=== PATIENT | male | born 1950 | race Caucasian/White ===

== ENCOUNTER 2022-10-15 13:49 | Emergency (ER) | payer BC ==
--- OUTSIDE RECORDS SUMMARY | 2022-10-15 14:12 | XMS REPORT | Continuity of Care Document ---
:[address] [facility] t Address [address] [place] [address] Care Team Providers Name Role Phone Xin Villegas MD Primary Care Physician [phone] GAGAN LONG Attending Clinician Unavailable COLE RODRÍGUEZ Attending Clinician Unavailable XIN VILLEGAS Attending Clinician Unavailable Xin Villegas MD Attending Clinician [phone] Attending Clinician Unavailable Cole Rodríguez MD Attending Clinician Payers Payer Name Policy Type Policy Number Effective Date Expiration Date Ashli lockwood [facility] 2 [id number] 2018 00:00:00 COVID VACCINE [id number] 2020-09-29 00:00:00 ADMIN / TESTING Problems Condition Condition Condition Status Onset Resolution Last Treating Co mments Source Name Details Category Date Date Treatment Clinician Date Cellulitis Cellulitis Disease Active K elsey of right of right 6-16 Seybol d index index 00:00: finger finger 00 Osteoarthr Osteoarthr Disease Active K elsey itis of itis of 6-03 Seybold multiple multiple 00:00: joints joints 00 Acid Acid Disease Active [place] reflux reflux 6-03 Seybold disease disease 00:00: 00 Psoriasis Psoriasis Disease Active Artur sey (a type of (a type of 6-03 Se ybold skin skin 00:00: inflammati inflammati 00 on) on) Insomnia Insomnia Disease Active Kelse y Seybold 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 Social History Social Habit Start Date Stop Date Quantity Comments Source History of Cigarette Smoker [place] porras tobacco use Alcohol intake 2021-10-21 2021-10-21 .29 /d [facility]qu[facility]afreddie Vences bold 00:00:00 00:00:00 Tobacco use and 2021-02-10 2021-02-10 Smokeless tobacco Ozzy martin Seybold exposure 00:00:00 00:00:00 non-user Sex Ass[birth year] TOSHA Rodriguez 00:00:00 00:00:00 [facility] Smoking Status Start Date Stop Date Source Ex-smoker 2021-02-10 00:00:00 2021-02-10 00:00:00 [place] [facility] Medications Ordered Filled Start Stop Current Ordering Indication Dosage Frequency Signature Comments Components Source Medication Medication Date Date Medication? Clinician (SIG) Name Name Omeprazole Yes 40mg Take 40 mg K elsey 40 MG oral 10-21 by mouth Seybo ld Delayed 09:48: daily Release 41 Capsule Azithromyci 2021- No [id number] Take 2 [place] n 250 MG 10-21 tablets by Seyb old oral Tablet 00:00: 05:59 mouth on 00 :00 day 1 then 1 tablet by mouth daily for 4 days thereafter . Ketorolac 2021- No [id number] 30mg Sammie camacho Tromethamin 10-11 Seybold e (TORADOL) 15:45: 15:49 30 mg/mL 00 :00 Ketorolac 2021- No [id number] 30mg 30 mg, Ozzy martin Tromethamin 10-11 intramuscu S eybold e (TORADOL) 15:45: 15:49 lar, ONCE, 30 mg/mL 00 :00 On Sun10/11/21 at 0945, For 1 dose Omeprazole Yes 40mg Take 40 mg K elsey 40 MG oral 10-11 by mouth Seybo ld Delayed 09:40: daily Release 32 Capsule Adalimumab Yes [id number] 40mg Inject 40 [place] (Humira 2-01 mg into Seybold Pen) 40 00:00: the skin MG/0.4ML 00 every subcutaneou other week s Pen-injecto r Kit (Citrate-fr ) Adalimumab Yes [id number] 40mg Inject 40 [place] (Humira 2-01 mg into Seybold Pen) 40 00:00: the skin MG/0.4ML 00 every subcutaneou other week s Pen-injecto r Kit (Citrate-fr ) LISINOPRIL- 2021- No 1{tbl} Take 1 K elsey HCTZ 1-20 01-20 tablet by Seybold 20-12.5 MG 10:38: 00:00 mouth oral Tablet 17 :00 daily Meloxicam 2021- No 15mg Take 15 mg K elsey 15 MG oral 1-20 -20 by mouth Seyb old Tablet 10:38: 00:00 daily 17 :00 Omeprazole Yes 40mg Take 40 mg K elsey 40 MG oral 1-20 by mouth Seybo ld Delayed 10:23: daily Release 48 Capsule LISINOPRIL- Yes [id number] 1{tbl} Take 1 [place] HCTZ 1-20 tablet by Seybold 20-12.5 MG 00:00: mouth oral Tablet 00 daily Meloxicam Yes [id number] 15mg Take 1 K elsey 15 MG oral 1-20 tablet (15 Sey bold Tablet 00:00: mg total) 00 by mouth daily LISINOPRIL- 0 Yes [id number] 1{tbl} Take 1 [place] HCTZ 1-20 tablet by Seybold 20-12.5 MG 00:00: mouth oral Tablet 00 daily Meloxicam 2021-0 Yes [id number] 15mg Take 1 K elsey 15 MG oral 1-20 tablet (15 Sey bold Tablet 00:00: mg total) 00 by mouth daily LISINOPRIL- Yes [id number] 1{tbl} Take 1 [place] HCTZ 1-20 tablet by Seybold 20-12.5 MG 00:00: mouth oral Tablet 00 daily Meloxicam 2021- Yes [id number] 15mg Take 1 K elsey 15 MG oral 1-20 tablet (15 Sey bold Tablet 00:00: mg total) 00 by mouth daily Adalimumab Yes [id number] 40mg Inject 40 [place] (Humira 8-02 mg into Seybold Pen) 40 00:00: the skin MG/0.4ML 00 every subcutaneou other week s Pen-injecto r Kit (Citrate-fr ee) Adalimumab 2021- No [id number] 40mg Inject 40 [place] (Humira 8-02 02-01 mg into Seybold Pen) 40 00:00: 00:00 the skin MG/0.4ML 00 :00 every subcutaneou other week s Pen-injecto r Kit (Citrate-fr ee) Mupirocin 2021- No APPLY A Sammie ey (BACTROBAN) 5-14 09-29 SMALL Seybol d 2 % apply 00:00: 00:00 AMOUNT TO externally 00 :00 AFFECTED Ointment AREA(S) THREE TIMES A DAY FOR 1 WEEK. Immunizations Ordered Immunization Filled Immunization Date Status Commen ts Source Name Name Covid-19 Vaccine 2020-10-[address] [facility] MRNA (PF) 12yr+ 00:00:00 Medical C enter (Pfizer/BioNTech)(IM M601) Covid-19 Vaccine 2020-10-19 Completed [facility] (SFOX), Mrna-lnp, 00:00:00 Diaz Protein, Pf, 30mcg/0.3ml,IM Covid-19 Vaccine 2020-10-19 Completed [place] porras (SFOX), Mrna-lnp, 00:00:00 Diaz Protein, Pf, 30mcg/0.3ml,IM Covid-19 Vaccine 2020-10-19 Completed [place] camachobold (SFOX), Mrna-lnp, 00:00:00 Diaz Protein, Pf, 30mcg/0.3ml,IM Covid-19 Vaccine 2020-09-[address] [facility] MRNA (PF) 12yr+ 00:00:00 Medical C enter (SFOX/BioNTech)(IM M601) Covid-19 Vaccine 2020-09-29 Completed [facility] (SFOX), Mrna-lnp, 00:00:00 Diaz Protein, Pf, 30mcg/0.3ml,IM Covid-19 Vaccine 2020-09-29 Completed [facility] Cornelius eybold (SFOX), Mrna-lnp, 00:00:00 Diaz Protein, Pf, 30mcg/0.3ml,IM Covid-19 Vaccine 2020-09-29 Completed [facility] camachobold (Pfizer), Mrna-lnp, 00:00:00 Diaz Protein, Pf, 30mcg/0.3ml,IM Vital Signs Vital Name Observation Time Observation Value Comments Source Systolic blood pressure 2021-10-11 15:42:00 162 mm[Hg] [facility] Seybold Diastolic blood 2021-10-11 15:42:00 77 mm[Hg] Kelse y Seybold pressure Heart rate 2021-10-11 15:42:00 71 /min [place] Cornelius eybold Respiratory rate 2021-10-11 15:42:00 16 /min Sammie camacho Seybdilcia Body height 2021-10-11 15:42:00 182.9 cm [facility] camachobooc Body weight 2021-10-11 15:42:00 94.348 kg [facility] camachobooc BMI 2021-10-11 15:42:00 28.21 kg/m2 [facility] camachobooc Systolic blood pressure 2021-09-29 16:38:00 145 mm[Hg] [facility] Seybold Diastolic blood 2021-09-29 16:38:00 73 mm[Hg] Kelse y Seybold pressure Heart rate 2021-09-29 16:26:00 68 /min [place] camachobooc Body temperature 2021-09-29 16:26:00 36.5 Sultana Sammie camacho Seybold Respiratory rate 2021-09-29 16:26:00 14 /min Sammie camacho Seybdilcia Body height 2021-09-29 16:26:00 182.9 cm [facility] camachobooc Body weight 2021-09-29 16:26:00 96.163 kg [place] camachobooc BMI 2021-09-29 16:26:00 28.75 kg/m2 [facility] camachobooc Procedures This patient has no known procedures. Plan of Care Planned Activity Planned Date Details Comments Source Future Scheduled 2022-09-[address] [facility] 00:00:00 (12+) [code = Medical Center DEPRESSION SCREENING (12+)] Future Scheduled 2022-09-10 FALLS RISK SCREENING [facility] 00:00:00 [code = FALLS RISK Medical C enter SCREENING] Future Scheduled 2022-05-11 INFLUENZA VACCINE (#1) [facility] 00:00:00 [code = INFLUENZA Medical Ce nter VACCINE (#1)] Future Scheduled 2021-03-18 COVID-19 VACCINE (3 - [facility] 00:[facility]:00 Booster for Pfizer Medical C enter series) [code = COVID-19 VACCINE (3 - Booster for Pfizer series)] Future Scheduled 2017 PNEUMOCOCCAL 65+ YRS ([address] [facility] 00:00:00 - PCV) [code = Medical Cente r PNEUMOCOCCAL 65+ YRS (1 - PCV)] Future Scheduled 2002 SHINGLES VACCINES ([address] [facility] 00:00:00 2) [code = SHINGLES Medical Center VACCINES (1 of 2)] Future Scheduled 1971 DTAP/TDAP/TD VACCINES [facility] 00:00:00 (1 - Tdap) [code = Medical C enter DTAP/TDAP/TD VACCINES (1 - Tdap)] Future Scheduled 1970 HEPATITIS C SCREENING [facility] 00:00:00 [code = HEPATITIS C Medical Center SCREENING] Future Scheduled [address] [facility] 00:00:00 Counseling and Medical Cente r Screening (12+) [code = Tobacco Cessation Counseling and Screening (12+)] Future Scheduled 1952 Screening for malignant [facility] 00:00:00 neoplasm of colon Medical Ce nter (procedure) [code = 686893261] Future Scheduled 1952 Screening for malignant [facility] Test 00:00:00 neoplasm of colon Medical Ce nter (procedure) [code = 921871549] Future Scheduled 1952 Screening for malignant [facility] Test 00:00:00 neoplasm of colon Medical Ce nter (procedure) [code = 315751249] Future Scheduled 1952 Screening for malignant [facility] Test 00:00:00 neoplasm of colon Medical Ce nter (procedure) [code = 971195795] Future Scheduled 1950 Sigmoidoscopy [code = [facility] 00:[facility]:00 Sigmoidoscopy] Medical Maribell delacruz Future Scheduled 1950 CT Colonography (combo) [facility] 00:00:00 [code = CT Colonography [facility] (combo)] Encounters Start End Encounter Admission Attending Care Care Encounter Source Date/Time Date/Time Type Type Clinicians Facility Department ID 2022-05-30 2022-05-30 Outpatient ORQU[facility]A LONG [id number] [place] 11:00:00 11:00:00 GAGAN Donaldol hayder 2022-04-11 2022-04-11 Outpatient ORQUIDEA RODRÍGUEZ [id number] [place] 09:00:00 09:00:00 COLE renae 2021-10-28 2021-10-28 Outpatient ORQUIDEA VILLEGAS [id number] [place] 08:00:00 08:00:00 XIN singletary 2021-10-21 2021-10-21 Office Obie Villegas [id number] [place] 10:15:00 10:45:00 Visit Xin Coreas [id number] Se ottoniel Singhogyi [id number] 2021-10-11 2021-10-11 Outpatient LAB47 [facility] GARVEY [id number] [place] 10:30:00 10:30:00 Seybol hayder 2021-10-11 2021-10-11 Office LUIS Rodríguez [id number] [place] 10:00:00 10:15:00 Visit Cole Acosta [id number] Seybdilcia [id number] 2021-09-29 2021-09-29 Office Obie Villegas [id number] [place] 10:30:00 10:45:00 Visit Xin Coreas [id number] Se ybold Somogyi [id number] 2021-09-26 2021-09-26 Outpatient ORQUIDEA VILLEGAS [id number] [place] 13:30:00 13:30:00 XIN Seybol d 2021-09-26 2021-09-26 Outpatient ORQUIDEA VILLEGAS [id number] [place] 00:00:00 00:00:00 XIN Seybol d 2021-09-23 2021-09-23 Outpatient ORQUIDEA VILLEGAS [id number] [place] 16:00:00 16:00:00 XIN Seybol d 2021-09-23 2021-09-23 Outpatient ORQUIDEA VILLEGAS [id number] [place] 00:00:00 00:00:00 XIN Seybol d 2021-07-08 2021-07-08 Outpatient ORQUIDEA RODRÍGUEZ [id number] [place] 00:00:00 00:00:00 COLE Seybo ld 2021-04-11 2021-04-11 Outpatient ORQUIDEA RODRÍGUEZ [id number] [place] 00:00:00 00:00:00 COLE Seybo ld 2021-04-05 2021-04-05 Outpatient [facility] ORQUIDEA GARVEY [id number] [place] 10:55:00 10:55:00 Seybol d 2021-04-05 2021-04-05 Outpatient ORQUIDEA GARVEY [id number] [place] 10:35:00 10:35:00 Seybol d 2021-04-05 2021-04-05 Outpatient ORQUIDEA GARVEY [id number] [place] 10:30:00 10:30:00 Seybol d 2021-04-05 2021-04-05 Outpatient ORQUIDEA GARVEY [id number] [place] 10:25:00 10:25:00 Seybol d 2021-04-05 2021-04-05 Outpatient ORQUIDEA RODRÍGUEZ [id number] [place] 10:00:00 10:00:00 COLE Seybo ld 2021-03-28 2021-03-28 Outpatient ORQUIDEA VILLEGAS [id number] [place] 00:00:00 00:00:00 XIN Seybol d 2021-03-25 2021-03-25 Outpatient ORQUIDEA VILLEGAS [id number] [place] 00:00:00 00:00:00 XIN singletary 2020-10-19 2020-10-19 Outpatient [facility] [id number] [facility] 00:00:00 00:00:00 2020-09-29 2020-09-29 Outpatient [facility] [id number] [facility] 00:00:00 00:00:00 Results This patient has no known results.
[2022-10-15] MEDS ORDERED: MORPHINE 4 MG/ML SYR ONE (14:33)
[2022-10-15] MEDS ORDERED: NA CHLORIDE 0.9% 1,000 ML ONE (14:34)
[2022-10-15] MEDS ORDERED: ONDANSETRON 4 MG/2 ML VIAL ONE ×2 (14:34→18:47)
[2022-10-15 14:36] LABS: MCV 72.1 fL (80-100)
[2022-10-15 14:41] LABS: Absolute Lymphocytes (CBC) 1.8 K/uL (0.7-4.9); Hematocrit 32.1 % (39.6-49.0); MPV 6.9 fL (7.6-11.3); RBC Red Blood Cell Count 4.45 M/uL (4.33-5.43)
[2022-10-15 14:45] LABS: Urine Blood Negative (Negative); Urine Glucose Trace (Negative); Urine Protein 1+ (Negative); Urine pH 5.5 (5.0-7.0)
[2022-10-15 14:55] LABS: Urine Bacteria None Seen /HPF (<20); Urine Mucus Slight /HPF (None Seen); Urine RBC <5 /HPF (None Seen)
[2022-10-15 15:02] LABS: Albumin 3.2 g/dL (3.4-5.0); Potassium 3.7 mmol/L (3.5-5.1); Protein, Total 7.1 g/dL (6.4-8.2)
[2022-10-15 15:03] LABS: Bilirubin Total 7.9 mg/dL (0.2-1.0)
[2022-10-15 15:38] LABS: Blood Morphology Comment NOTED (NOT SEEN); Platelet Estimate ADEQ; Poikilocytosis 1+
--- NOTE | 2022-10-15 16:05 | RAD REPORT ---
EXAM DESCRIPTION: CT - Abdomen Pelvis W Contrast - 10/15/2022 3:48 pm CLINICAL HISTORY: r/o renal stone, cholecystitis COMPARISON: <Comparisons> TECHNIQUE: Biphasic, helical CT imaging of the abdomen and pelvis was performed following 100 ml non -ionic IV contrast. Oral contrast: No. All CT scans are performed using dose optimization technique as appropriate and may include automated exposure control or mA/KV adjustment according to patient size. FINDINGS: No suspicious findings in the lung bases. Liver is grossly abnormal. There are innumerable variably sized low-density lesions in the liver with poor demarcation. These range from a few mm up to 29 mm in size. No portal vein abnormality seen. Ga llbladder is distended. There is significant intrahepatic and extrahepatic biliary tree dilatation ex tending into the pancreatic head. There is fullness in the pancreatic head and subtle heterogeneity o f the parenchymal attenuation and enhancement. A sharply demarcated mass is not seen though estimated at approximately 3 cm. Body and tail of the pancreas show no suspicious findings. No splenomegaly or focal splenic finding. Normal function of the renal parenchyma identified. Patient has normal variant horseshoe kidney confi guration. A 2.2 cm cyst is present in the midline of the horseshoe. Additional 2.2 centimeter cyst pr esent in the superior aspect of the right-side kidney. Nonobstructing calculi are seen on the right. There is no pyelonephritis or acute renal parenchymal process seen. No obstructing calculi. Bladder i s mostly contracted. Prostate gland is mildly prominent projecting into the bladder base. No adrenal abnormalities. Gastric bypass surgical changes are noted. The proximal and distal anastomoses show no acute findings . Moderate stool volume is scattered throughout the colon. A spigelian type hernia is present lateral abdomen near the iliac crest. There are coarse calcifications in the abdominal wall. This may have b een the site of prior hernia repair. The cecum and ascending colon extend through the hernia defect. There is additional colon anastomosis at the cecum ascending colon junction. Herniated bowel does not show wall thickening or edema. The herniated fat is not congested or edematous. This is a 5 centimet er wide neck hernia. No free air, free fluid or inflammatory stranding. No bulky lymphadenopathy. No acute compression fracture changes seen. Prominent degenerative changes are present. Areas of decr eased attenuation are present in the pelvis. This could be osteopenic change. Pathologic process is n ot excluded. IMPRESSION: Grossly abnormal liver, biliary tree and pancreatic head as detailed above. 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 No ascites, omental thickening or abnormal abdominal lymphadenopathy. Areas of ill-defined decreased attenuation in the pelvis. This could be osteopenic change or potentia lly neoplastic. Large right-sided spigelian hernia containing cecum and ascending colon. No acute bowel finding at th e hernia site.
--- NOTE | 2022-10-15 16:16 | ER ---
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 + nausea, no fever. ll1 Coronavirus screen: Vaccine status: Patient reports receiving the 2nd dose of the covid vaccine. Client denies travel out of the [place] in the last 14 days. At this time, the client does not indicate any symptoms associated with coronavirus-19. Ebola Screen: Patient denies travel to an Ebola-affected area in the 21 days before illness onset. Initial Sepsis Screen: Does the patient meet any 2 criteria? No. Patient's initial sepsis screen is negative. Does the patient have a suspected source of infection? Yes: Dysuria/Frequency/Urgency/UTI. Risk Assessment: Do you want to hurt yourself or someone else? Patient reports no desire to harm self or others. Onset of symptoms was October 06, 2022. 14:04 Method Of Arrival: Ambulatory ll1 14:04 Acuity: LENNY 3 ll1 Historical: - Allergies: 14:06 No Known Allergies; ll1 - PMHx: 14:06 Hypertensive disorder; ll1 - PSHx: 14:06 gastric bypass; hernia repair; lower bowel resection; Appendectomy; ll1 - Immunization history:: Client reports receiving the 2nd dose of the Covid vaccine. - Social history:: Smoking status: Patient denies any tobacco usage or history of. Screenin:28 [facility] ED Fall Risk Assessment (Adult) History of falling in the last 3 months, ld1 including since admission No falls in past 3 months (0 pts). Abuse screen: Denies threats or abuse. Denies injuries from another. Nutritional screening: No deficits noted. Tuberculosis screening: No symptoms or risk factors identified. Assessment: 15:06 General: Appears in no apparent distress. comfortable, Behavior is calm, cooperative, ld1 appropriate for age. Pain:. 15:28 Pain: Complains of pain in low back area Pain does not radiate. Pain currently is 8 out ld1 of 10 on a pain scale. Neuro: Level of Consciousness is awake, alert, obeys commands, Oriented to person, place, time, situation. Cardiovascular: Capillary refill < 3 seconds Patient's skin is warm and dry. Rhythm is sinus rhythm. Respiratory: Airway is patent Respiratory effort is even, unlabored. GI: Abdomen is flat, non-distended. GI: Bowel sounds present X 4 quads. Abd is soft Abdomen is tender to palpation. : No signs and/or symptoms were reported regarding the genitourinary system. EENT: No signs and/or symptoms were reported regarding the EENT system. Derm: No signs and/or symptoms reported regarding the dermatologic system. Musculoskeletal: No signs and/or symptoms reported regarding the musculoskeletal system. 17:00 Reassessment: Patient appears in no apparent distress at this time. Patient and/or ld1 family updated on plan of care and expected duration. Pain level reassessed. Patient is alert, oriented x 3, equal unlabored respirations, skin warm/dry/pink. 18:45 Reassessment: Patient appears in no apparent distress at this time. No changes from ld1 previously documented assessment. Patient states symptoms have not improved. 19:17 General: report called to LYUDMILA Maher. lg3 Vital Signs: 14:04 BP 125 / 90; Pulse 109; Resp 18; Temp 98.4; Pulse Ox 100% ; Weight 96.16 kg; Height 6 ll1 ft. 0 in. (182.88 cm); Pain 10/10; 18:54 BP 142 / 69; Pulse 80; Resp 18; Pulse Ox 100% on R/A; Pain 8/10; ld1 14:04 Body Mass Index 28.75 (96.16 kg, 182.88 cm) ll1 ED Course: 13:51 Patient arrived in ED. as 13:55 [facility] Simmons [facility] 7 13:55 Enrique Rivero MD is Attending Physician. 7 14:06 Triage completed. ll1 14:07 Arm band placed on. ll1 14:20 Leanne Purcell, LYUDMILA is Primary Nurse. iw 14:34 CBC with Diff Sent. mm9 14:34 CMP Sent. mm9 14:34 Lipase Sent. mm9 14:34 Urine Microscopic Only Sent. mm9 14:35 Initial lab(s) drawn, by wi, sent to lab. Urine collected: clean catch specimen. mm9 Inserted saline lock: 20 gauge in left antecubital area, using aseptic technique. Blood collected. 15:28 Patient has correct armband on for positive identification. Placed in gown. Bed in low ld1 position. Call light in reach. Side rails up X2. forestry fire aide on. Pulse ox on. NIBP on. Door closed. Noise minimized. Warm blanket given. 15:28 No provider procedures requiring assistance completed. ld1 15:50 CT Abd/Pelvis - IV Contrast Only In Process Unspecified. EDMS 16:09 US Abdomen Limited: RUQ In Process Unspecified. EDMS 17:03 PHCP role handed off by Nika Simmons FNP [facility] 17:03 Umang Peters PA is PHCP. [facility] 19:44 Patient transferred, IV remains in place. intact, No redness/swelling at site. lg3 Administered Medications: 14:42 Drug: NS 0.9% 1000 ml Route: IV; Rate: 1 bolus; Site: left forearm; iw 14:42 Drug: Zofran (Ondansetron) 4 mg Route: IVP; Site: left forearm; iw 14:43 Drug: morphine 4 mg Route: IVP; Infused Over: 4 mins; Site: left forearm; iw 18:52 Drug: Ativan (LORazepam) 1 mg Route: IVP; Site: left antecubital; ld1 18:52 Drug: morphine 2 mg Route: IVP; Infused Over: 4 mins; Site: left antecubital; ld1 18:52 Drug: Zofran (Ondansetron) 4 mg Route: IVP; Site: left antecubital; ld1 Medication: 15:28 VIS not applicable for this client. ld1 Outcome: 16:16 ER care complete, transfer ordered by MD. flores 19:44 Transferred by ground EMS to [facility], Transfer form completed. lg3 X-rays sent w/ patient. 19:44 Condition: stable 19:44 Instructed on the need for transfer, Demonstrated understanding of instructions. 19:44 Patient left the ED. lg3 Signatures: Dispatcher [employer] EDMS Umang Peters PA PA jmm Martinez, Amelia as Williams, Irene, RN RN iw Gibson, Lacie, RN RN lg3 Irving Stewart RN RN ll1 Marya Nance RN RN ld1 Nika Simmons, MEDIA ANALYTICS MANAGER MEDIA ANALYTICS MANAGER Keiry Root mm9 Corrections: (The following items were deleted from the chart) 18:53 18:52 Reassessment: Patient appears in no apparent distress at this time. Patient ld1 and/or family updated on plan of care and expected duration. Pain level reassessed. Patient is alert, oriented x 3, equal unlabored respirations, skin warm/dry/pink. ld1
--- NOTE | 2022-10-15 16:16 | EDPHYS ---
Physician Documentation [facility] Name: Seth Cid Age: 72 yrs Sex: Male : 1950 Arrival Date: 10/15/2022 Time: 13:51 Bed 18 Private MD: ED Physician Enrique Rivero HPI: 10/15 14:00 This 72 yrs old Male presents to ER via Ambulatory with complaints of Possible Kidney jh7 Stone. 14:00 Onset: The symptoms/episode began/occurred 9 day(s) ago. Associated signs and symptoms: jh7 Pertinent positives: abdominal pain, Flank pain, Jaundice, Pertinent negatives: fever, headache. 72-year-old male presents for right flank pain and right upper quadrant pain for the past 9 days. States he was seen over a week ago at [facility] and diagnosed with a lumbar strain. Reports dark urine, jaundice, worsening right flank and right upper quadrant pain. History of hypertension. PCP is at [facility].. Historical: - Allergies: 14:06 No Known Allergies; ll1 - PMHx: 14:06 Hypertensive disorder; ll1 - PSHx: 14:06 gastric bypass; hernia repair; lower bowel resection; Appendectomy; ll1 - Immunization history:: Client reports receiving the 2nd dose of the Covid vaccine. - Social history:: Smoking status: Patient denies any tobacco usage or history of. ROS: 14:00 Constitutional: Negative for fever, chills, and weight loss, Eyes: Negative for injury, jh7 pain, redness, and discharge, ENT: Negative for injury, pain, and discharge, Neck: Negative for injury, pain, and swelling, Cardiovascular: Negative for chest pain, palpitations, and edema, Respiratory: Negative for shortness of breath, cough, wheezing, and pleuritic chest pain, MS/Extremity: Negative for injury and deformity, Neuro: Negative for headache, weakness, numbness, tingling, and seizure. 14:00 Abdomen/GI: Positive for abdominal pain, Negative for nausea, vomiting, and diarrhea. 14:00 Back: Positive for flank pain, on the right. 14:00 : Positive for Dark urine. 14:00 Skin: Positive for jaundice. 14:00 All other systems are negative. Exam: 14:00 Constitutional: This is a well developed, well nourished patient who is awake, alert, jh7 and in no acute distress. Head/Face: Normocephalic, atraumatic. Eyes: Pupils equal round and reactive to light, extra-ocular motions intact. Lids and lashes normal. Conjunctiva and sclera are non-icteric and not injected. Cornea within normal limits. Periorbital areas with no swelling, redness, or edema. ENT: Nares patent. No nasal discharge, no septal abnormlities. Tympanic membranes are normal and external auditory canals are clear. Oropharynx with no redness, swelling, or masses, exudates, or evidence of obstruction, uvula midline. Mucous membranes moist. Cardiovascular: Regular rate and rhythm with a normal S1 and S2. No gallops, murmurs, or rubs. Normal PMI, no JVD. No pulse deficits. Respiratory: Lungs have equal breath sounds bilaterally, clear to auscultation and percussion. No rales, rhonchi or wheezes noted. No increased work of breathing, no retractions or nasal flaring. Back: No spinal tenderness. No costovertebral tenderness. Full range of motion. MS/ Extremity: Pulses equal, no cyanosis. Neurovascular intact. Full, normal range of motion. Neuro: Awake and alert, GCS 15, oriented to person, place, time, and situation. Motor strength 5/5 in all extremities. Sensory grossly intact. Normal gait. 14:00 Eyes: Sclera: icterus, is present. 14:00 Abdomen/GI: Inspection: abdomen appears normal, Bowel sounds: normal, Palpation: soft, mild abdominal tenderness, in the right upper quadrant. 14:00 : CVA tenderness, on the right. 14:00 Skin: Appearance: Color: jaundiced. Vital Signs: 14:04 BP 125 / 90; Pulse 109; Resp 18; Temp 98.4; Pulse Ox 100% ; Weight 96.16 kg; Height 6 ll1 ft. 0 in. (182.88 cm); Pain 10/10; 18:54 BP 142 / 69; Pulse 80; Resp 18; Pulse Ox 100% on R/A; Pain 8/10; ld1 14:04 Body Mass Index 28.75 (96.16 kg, 182.88 cm) ll1 MDM: 13:55 Patient medically screened. [facility] 16:20 Differential diagnosis: Nephrolithiasis, choledocholithiasis, cholelithiasis, cirrhosis [facility] of the liver, pancreatic malignancy, liver malignancy, pyelonephritis. Data reviewed: vital signs, nurses notes, lab test result(s), radiologic studies, CT scan, ultrasound. Consideration of Admission/Observation The patient will be transferred for higher level of care/specialist needed that [facility] does not offer. I considered the following discharge prescriptions or medication management in the emergency department Medications were administered in the Emergency Department. See MAR. Historians other than the Patient: Spouse/Significant Other: . Care significantly affected by the following chronic conditions: Hypertension. Counseling: I had a detailed discussion with the patient and/or guardian regarding: the historical points, exam findings, and any diagnostic results supporting the discharge/admit diagnosis, the need to transfer to another facility, [facility] does not immediately have the required specialist. ED course: Informed the patient and his of the abnormal lab and imaging findings. The patient and his understood the transfer was needed. The patient will be transferred for consult with a director of retail operations.. 17:10 ED course: I discussed the patient with GI whom will consult on transfer. . [facility] 17:35 ED course: I discussed the patient with Dr. Austin whom accepted the patient to her [facility] service. . 10/15 14:01 Order name: CBC with Diff; Complete Time: 15:47 [facility] 10/15 14:01 Order name: CMP; Complete Time: 15:03 [facility] 10/15 14:01 Order name: Lipase; Complete Time: 15:03 [facility] 10/15 14:01 Order name: Urine Microscopic Only; Complete Time: 15:02 [facility] 10/15 14:45 Order name: Urine Dipstick-Ancillary; Complete Time: 14:46 [facility] 10/15 15:39 Order name: Manual Differential; Complete Time: 15:47 [facility] 10/15 14:01 Order name: CT Abd/Pelvis - IV Contrast Only; Complete Time: 16:09 [facility] 10/15 15:04 Order name: US Abdomen Limited: RUQ; Complete Time: 16:26 [facility] 10/15 16:30 Order name: SARS RAPID; Complete Time: 16:56 ld1 10/15 14:01 Order name: IV Saline Lock; Complete Time: 14:34 [facility] 10/15 14:01 Order name: Labs collected and sent; Complete Time: 14:34 [facility] 10/15 14:01 Order name: Urine Dipstick-Ancillary (obtain specimen); Complete Time: 14:35 [facility] Administered Medications: 14:42 Drug: NS 0.9% 1000 ml Route: IV; Rate: 1 bolus; Site: left forearm; iw 14:42 Drug: Zofran (Ondansetron) 4 mg Route: IVP; Site: left forearm; iw 14:43 Drug: morphine 4 mg Route: IVP; Infused Over: 4 mins; Site: left forearm; iw 18:52 Drug: Ativan (LORazepam) 1 mg Route: IVP; Site: left antecubital; ld1 18:52 Drug: morphine 2 mg Route: IVP; Infused Over: 4 mins; Site: left antecubital; ld1 18:52 Drug: Zofran (Ondansetron) 4 mg Route: IVP; Site: left antecubital; ld1 Disposition Summary: 10/15/22 16:16 Transfer Ordered Reason: Higher level of care [facility] Condition: Fair [facility] Problem: new [facility] Symptoms: are unchanged [facility] Transfer Location: 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
--- NOTE | 2022-10-15 16:21 | RAD REPORT ---
EXAM DESCRIPTION: US - Abdomen Exam Limited - 10/15/2022 4:09 pm CLINICAL HISTORY: RUQ PAIN COMPARISON: Abdomen Pelvis W Contrast dated 10/15/2022 FINDINGS: Gallbladder is distended. There are multiple variably sized mobile gallstones seen. No gal lbladder wall thickening or pericholecystic fluid. Intrahepatic and extrahepatic biliary tree dilatation present. Numerous variably sized hypoechoic les ions present throughout the liver. Pancreas is not imaged on this study. IMPRESSION: Multi stone cholelithiasis in a distended gallbladder. Intrahepatic and extrahepatic biliary tree dilatation. A duct stone is not identified. Multiple abnormal lesions throughout the liver. As detailed on the CT study, an obstructing pancreat ic mass lesion is suspected rather than obstructing choledocholithiasis.
[2022-10-15 16:52] LABS: SARS-CoV-2 Antigen Rapid Res Negative (Negative)
[2022-10-15] MEDS ORDERED: LORazepam 2 MG/ML VIAL ONE (18:46)
[2022-10-15] MEDS ORDERED: MORPHINE 2 MG/ML SYR ONE (18:47)
[2022-10-15 19:58] VITALS: TEMP 98.4; O2SAT 100
[2022-10-15 20:04] VITALS: BP 142/69
== END 2022-10-15 19:44 | disposition short-term general hospital (02) ==
LOC: ER 13:49
DX: C25.9 Malignant neoplasm of pancreas, unspecified (principal); C78.7 Secondary malignant neoplasm of liver and intrahepatic bile duct; K43.9 Ventral hernia without obstruction or gangrene; I10 Essential (primary) hypertension; Z20.822 Contact with and (suspected) exposure to COVID-19
CPT/HCPCS: 85025; 36415; 83690; 80053; 74177; 76705; 87811; Q9967; J2270; J7030; J2405 ×2; 81003; 81015; 99285

== ENCOUNTER 2022-11-17 11:57 | Emergency (ER) | payer BC ==
--- OUTSIDE RECORDS SUMMARY | 2022-11-17 12:11 | XMS REPORT | Continuity of Care Document ---
:[address] [facility] t Address [address] [place] [address] Care Team Providers Name Role Phone Hitesh LUDWIG, Jeannine Baumann Primary Care Physician LUL FORTUNE Attending Clinician Unavailable LUL FORTUNE Attending Clinician Unavailable FLORIAN SHERWOOD Attending Clinician Unavailable MICHAEL LARSEN Attending Clinician Unavailable Florian Sherwood MD Attending Clinician NINOSKA ESPINAL Attending Clinician Unavailable Jaron Padron MD Attending Clinician Florian Sherwood MD Attending Clinician OMER RADFORD Attending Clinician Unavailable Ericka Dickey DO Attending Clinician [phone] Trevor Suggs MD Attending Clinician Jasmyne Lau MD Attending Clinician JASMYNE LAU Attending Clinician Unavailable FLORIAN SHERWOOD Attending Clinician Unavailable Ceferino LUDWIG, Niraj Horne Attending Clinician Keiry Fragoso DO Attending Clinician Pankaj Burnett MD Attending Clinician Jamal Dupree Attending Clinician PANKAJ BURNETT Attending Clinician Unavailable GAGAN LONG Attending Clinician Unavailable Homero LUDWIG, Chandler Attending Clinician Kaylee Laguna MD Attending Clinician Virtual, Surgeon Attending Clinician Unavailable COLE RODRÍGUEZ Attending Clinician Unavailable JEANNINE VILLEGAS Attending Clinician Unavailable Jeannine Villegas MD Attending Clinician [phone] Attending Clinician Unavailable Cole Rodríguez MD Attending Clinician LUL FORTUNE Admitting Clinician Unavailable TREVOR SUGGS Admitting Clinician Unavailable JAMAL DUPREE Admitting Clinician Unavailable Payers Payer Name Policy Type Policy Number Effective Date Expiration Date S mandie BCBS OS [id number] 2011 00:00:00 POS/PPO/EPO COVID VACCINE [id number] 2020-09-29 00:00:00 ADMIN / TESTING OUT OF STATE BCBS [id number] 2011-12-01 00:00:00 - PPO - BCBS CVCP-BCBS [id number] BCBS 2 [id number] 2018-09-10 00:00:00 Problems Condition Condition Condition Status Onset Resolution Last Treating Co mments Source Name Details Category Date Date Treatment Clinician Date Pancreatic Pancreatic Disease Active [facility] cancer cancer 2-27 College metastasiz metastasiz 00:00: of ed to ed to 00 Medicin liver liver e Acute Acute Disease Active [facility] insuffic[facility] insufficie 00:00: Me dical ncy ncy 00 Center Obstructiv Obstructiv Disease Active [facility] jaundice e jaundice 2-05 [facility] 00:[facility]: Medical 00 Center Primary Primary Disease Active [facility] hypertensi hypertensi 2-05 [facility] on on 00:00: Medical 00 Center Microcytic Microcytic Disease Active [facility] anemia anemia 2-05 [facility] 00[facility] 00 [facility] Stage 3 Stage [address] [facility] chronic chronic 2-05 [facility] kidney kidney 00:00: Medical disease disease 00 Center Cellulitis Cellulitis Disease Active [facility] of right of right -16 Seybol d index index 00:00: finger finger 00 Osteoarthr Osteoarthr Disease Active [facility] itis of itis of 02-10 [facility] multiple multiple 00:00: joints joints 00 Acid Acid Disease Active [facility] reflux reflux 02-10 [facility] disease disease 00:00: 00 Psoriasis Psoriasis Disease Active Artur sey (a type of (a type of 02-10 Se y[facility] skin skin 00:00: inflammati inflammati 00 on) on) Insomnia Insomnia Disease Active [facility] 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 Se ybold 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 Allergies, Adverse Reactions, Alerts Allergy Allergy Status Severity Reaction(s) Onset Inactive Treating Comm ents Source Name Type Date Date Clinician NO KNOWN Allergy Active [facility] Center Social History Social Habit Start Date Stop Date Quantity Comments Source History SDOH [facility] Alcohol Frequency Medical Center History SDOH [facility] Alcohol Std Drinks Medica Center History SDOH [facility] Alcohol Binge Medical Sydni ter History SDOH [facility] Housing Places Medical Ce nter Lived History of tobacco Cigarette Smoker [facility] use of Medicine Exposure to 2022-10-30 2022-11-09 Not sure [facility] Tera e SARS-CoV-2 (event) 00:00:00 08:34:00 of Med icine Cigarettes smoked 2022-10-27 2022-10-[address] [facility] current (pack per 00:00:00 00:00:00 Medical Center day) - Reported Cigarette 2022-10-27 2022-10-[address] [facility] pack-years 00:00:00 00:00:00 [facility] Tobacco use and 2022-10-27 2022-10-[address] [facility] exposure 00:00:00 00:00:00 [facility] Alcohol intake 2022-10-27 2022-10-27 Ex-drinker [facility] 00:00:00 00:00:00 (finding) Medical Center History SDOH 2022-10-27 2022-10-27 quit 07/05/[address] [facility] Alcohol Comment 00:00:00 00:00:00 Medical C enter History SDIL 2022-10-16 2022-10-16 2 [facility] Unable to 00:00:00 00:00:00 Medical Center Pay History SDOH 2022-10-16 2022-10-16 2 [facility] Homeless 00:00:00 00:00:00 Medical Center Last Year Sex Ass[birth year] At [birth year] [facility] Co llege 00:00:00 00:00:00 of Medicine Smoking Status Start Date Stop Date Source Ex-smoker 2022-10-26 00:00:00 2022-10-26 00:00:00 [facility] ollege of Medicine Never smoker [facility] Medications Ordered Filled Start Stop Current Ordering Indication Dosage Frequency Signature Comments Components Source Medication Medication Date Date Medication? Clinician (SIG) Name Name lactulose Yes [id number] 10g Take 15 mL [facility] (CHRONULAC) 3-02 by mouth 3 Co llege 10 GM/15ML 00:00: times of solution 00 daily as Medicin needed. e metoclopram 2022-0 Yes [id number] 5mg Take 1 [facility] flako 3-02 Tablet by [employer] (REGLAN) 5 00:00: mouth 3 of MG tablet 00 times Medicin daily e (before meals). Morphine 2022-0 Yes [id number] 1{tbl} Take 1 [facility] Sulfate ER 3-02 102 Tablet by [facility] 30 MG TBCR 00:00: mouth 3 of 00 times Medicin daily. e lactulose 2022-0 Yes [id number] 10g Take 15 mL [facility] (CHRONULAC) 3-02 by mouth 3 Co llege 10 GM/15ML 00:00: times of solution 00 daily as Medicin needed. e metoclopram 2022-0 Yes [id number] 5mg Take 1 [facility] flako 3-02 Tablet by [place] (REGLAN) 5 00:00: mouth 3 of MG tablet 00 times Medicin daily e (before meals). Morphine 2022-0 Yes [id number] 1{tbl} Take 1 [facility] Sulfate ER 3-02 102 Tablet by [facility] ege 30 MG TBCR 00:00: mouth 3 of 00 times Medicin daily. e lactulose 2022-0 Yes [id number] 10g Take 15 mL [facility] (CHRONULAC) 3-02 by mouth 3 Co llege 10 GM/15ML 00:00: times of solution 00 daily as Medicin needed. e metoclopram 2023-0 Yes [id number] 5mg Take 1 [facility] flako 3-02 Tablet by [place] (REGLAN) 5 00:00: mouth 3 of MG tablet 00 times Medicin daily e (before meals). Morphine 2023-0 Yes [id number] 1{tbl} Take 1 [facility] Sulfate ER 3-02 102 Tablet by [facility] ege 30 MG TBCR 00:00: mouth 3 of 00 times Medicin daily. e tamsulosin 2023-0 Yes .4mg QD Take 1 [facility] (FLOMAX[facility] 2-24 [facility] 0.4 mg Cap 00:00: (0.4 mg Medi charo 24 hr 00 total) by Center capsule mouth daily. tamsulosin 2023-0 Yes .4mg QD Take 1 [facility] (FLOMAX[facility] 2-24 capsule [facility] 0.4 mg Cap 00:00: (0.4 mg Medi charo 24 hr 00 total) by Center capsule mouth daily. tamsulosin 2023-0 Yes .4mg QD Take 1 [facility] (FLOMAX) 2-24 capsule [facility] 0.4 mg Cap 00:00: (0.4 mg Medi charo 24 hr 00 total) by Center capsule mouth daily. tamsulosin 2023-0 Yes .4mg QD Take 1 [facility] (FLOMAX) 2-24 capsule [facility] 0.4 mg Cap 00:00: (0.4 mg Medi charo 24 hr 00 total) by Center capsule mouth daily. tamsulosin 2023-0 Yes .4mg QD Take 1 [facility] (FLOMAX) 2-24 capsule [facility] 0.4 mg Cap 00:00: (0.4 mg Medi charo 24 hr 00 total) by Center capsule mouth daily. cholecalcif 2023-0 2023- Yes 1000U QD Take [address] [facility] 2-24 05-25 tablet [facility] (VITAMIN 00:00: 23:59 (1,000 Medica l D3) 25 mcg 00 :00 Units Center (1,000 total) by unit) mouth tablet daily for 90 days. cholecalcif 2023-0 2023- Yes 1000U QD Take [address] [facility] 2-24 05-25 tablet [facility] (VITAMIN 00:00: 23:59 (1,000 Medica l D3) 25 mcg 00 :00 Units Center (1,000 total) by unit) mouth tablet daily for 90 days. cholecalcif 2022-0 2022- Yes 1000U QD Take [address] [facility] 2-24 05-25 tablet [facility] (VITAMIN 00:00: 23:59 (1,000 Medica l D3) 25 mcg 00 :00 Units Center (1,000 total) by unit) mouth tablet daily for 90 days. cholecalcif 2022-0 2022- Yes 1000U QD Take [address] [facility] 2-24 05-25 tablet [facility] (VITAMIN 00:00: 23:59 (1,000 Medica l D3) 25 mcg 00 :00 Units Center (1,000 total) by unit) mouth tablet daily for 90 days. cholecalcif 2022-0 2022- Yes 1000U QD Take [address] [facility] 2-24 05-25 tablet [facility] (VITAMIN 00:00: 23:59 (1,000 Medica l D3) 25 mcg 00 :00 Units Center (1,000 total) by unit) mouth tablet daily for 90 days. omeprazole 2022-0 Yes 40mg QD Take [address] (PriLOSEC) 2-23 by mouth [facility] 40 MG 17:55: daily. Medical capsule 53 Center morphine 2022-0 Yes 15mg Q.5D Take [address] [facility] (MS CONTIN) 2-23 by mouth 2 [facility] 15 MG 12 hr 17:55: (two) Medic al tablet 53 times Center daily. HYDROcodone 2022-0 Yes 1{tbl} Take [address] -acetaminop 2-23 tablet by Danyel wright (NORCO 17:55: mouth Medica l 7.5-325) 53 every 4 Center 7.5-325 mg (four) per tablet hours as needed for Pain. omeprazole 3-0 Yes 40mg QD Take [address] (PriLOSEC) 2-23 by mouth [facility] 40 MG 17:55: daily. Medical capsule 53 Center morphine 3-0 Yes 15mg Q.5D Take [address] [facility] (MS CONTIN) 2-23 by mouth 2 [facility] k[facility] 15 MG 12 hr 17:55: (two) Medic al tablet 53 times Center daily. HYDROcodone 2023-0 Yes 1{tbl} Take [address] -acetaminop 2-23 tablet by Danyel es hen (NORCO 17:55: mouth Medica l 7.5-325) 53 every 4 Center 7.5-325 mg (four) per tablet hours as needed for Pain. omeprazole 2023-0 Yes 40mg QD Take [address] (PriLOSEC) 2-23 by mouth [facility] 40 MG 17:55: daily. Medical capsule 53 Center morphine 2023-0 Yes 15mg Q.5D Take [address] [facility] (MS CONTIN) 2-23 by mouth 2 [facility] k[facility] 15 MG 12 hr 17:55: (two) Medic al tablet 53 times Center daily. HYDROcodone 2023-0 Yes 1{tbl} Take [address] -acetaminop 2-23 [facility] mouth Medica l 7.5-325) 53 every 4 Center 7.5-325 mg (four) per tablet hours as needed for Pain. omeprazole 2023-0 Yes 40mg QD Take [address] (PriLOSEC) 2-23 by mouth [facility] 40 MG 17:55: daily. Medical capsule 53 Center morphine 2023-0 Yes 15mg Q.5D Take [address] [facility] (MS CONTIN) 2-23 by mouth 2 [facility] kes 15 MG 12 hr 17:55: (two) Medic al tablet 53 times Center daily. HYDROcodone 2023-0 Yes 1{tbl} Take [address] -acetaminop 2-23 tablet by Danyel es hen (NORCO 17:55: mouth Medica l 7.5-325) 53 every 4 Center 7.5-325 mg (four) per tablet hours as needed for Pain. omeprazole 2023-0 Yes 40mg QD Take [address] (PriLOSEC) 2-23 by mouth [facility] 40 MG 17:55: daily. Medical capsule 53 Center morphine 2023-0 Yes 15mg Q.5D Take [address] [facility] (MS CONTIN) 2-23 by mouth 2 Deana kes 15 MG 12 hr 17:55: (two) Medic al tablet 53 times Center daily. HYDROcodone 2023-0 Yes 1{tbl} Take [address] -acetaminop 2-23 tablet by Danyel wright (NORCO 17:55: mouth Medica l 7.5-325) 53 every 4 Center 7.5-325 mg (four) per tablet hours as needed for Pain. magnesium 2023-0 2023- Yes 800mg Q.5D Take [address] [facility] oxide 2-23 05-24 tablets [facility] (MAG-OX) 00:00: 23:59 (800 mg Medic al 400 mg 00 :00 total) by Center (241.3 mg mouth 2 magnesium) (two) tablet times daily for 90 days. metoclopram 2023-0 2023- Yes 5mg Take [address] [facility] flako 2-23 05-24 tablet (5 [facility] (REGLAN) 5 00:00: 23:59 mg total) M edical MG tablet 00 :00 by mouth 3 Cent er (three) times daily before meals for 90 days. magnesium 2023-0 2023- Yes 800mg Q.5D Take [address] oxide 2-23 05-24 tablets [facility] (MAG-OX) 00:00: 23:59 (800 mg Medic al 400 mg 00 :00 total) by Center (241.3 mg mouth 2 magnesium) (two) tablet times daily for 90 days. metoclopram 2023-0 2023- Yes 5mg Take [address] [facility] flako 2-23 05-24 tablet (5 [facility] (REGLAN) 5 00:00: 23:59 mg total) M edical MG tablet 00 :00 by mouth 3 Cent er (three) times daily before meals for 90 days. magnesium 2023-0 2023- Yes 800mg Q.5D Take [address] oxide 2-23 05-24 tablets [facility] (MAG-OX) 00:00: 23:59 (800 mg Medic al 400 mg 00 :00 total) by Center (241.3 mg mouth 2 magnesium) (two) tablet times daily for 90 days. metoclopram 2023-0 2023- Yes 5mg Take [address] [facility] flako 2-23 05-24 tablet (5 [facility] (REGLAN) 5 00:00: 23:59 mg total) M edical MG tablet 00 :00 by mouth 3 Cent er (three) times daily before meals for 90 days. magnesium 2023-0 2023- Yes 800mg Q.5D Take [address] oxide 2-23 05-24 tablets [facility] (MAG-OX) 00:00: 23:59 (800 mg Medic al 400 mg 00 :00 total) by Center (241.3 mg mouth 2 magnesium) (two) tablet times daily for 90 days. metoclopram 2022-0 202- Yes 5mg Take [address] [facility] flako -30 01-24 tablet (5 [facility] (REGLAN) 5 00:00: 23:59 mg total) M edical MG tablet 00 :00 by mouth 3 Cent er (three) times daily before meals for 90 days. magnesium 2022-0 2022- Yes 800mg Q.5D Take [address] [facility] oxide - 05-24 tablets [facility] (MAG-OX) 00:00: 23:59 (800 mg Medic al 400 mg 00 :00 total) by Center (241.3 mg mouth 2 magnesium) (two) tablet times daily for 90 days. metoclopram 2022-0 2022- Yes 5mg Take [address] [facility] flako 11-02-24 tablet (5 [facility] (REGLAN) 5 00:00: 23:59 mg total) M edical MG tablet 00 :00 by mouth 3 Cent er (three) times daily before meals for 90 days. omeprazole 0 Yes 40mg QD Take [address] (PriLOSEC) 2-17 by mouth [facility] 40 MG 19:26: daily. Medical capsule [address] [place] [address] omeprazole 0 Yes 40mg QD Take [address] (PriLOSEC) 2-17 by mouth [facility] 40 MG 19:26: daily. Medical capsule [address] [place] [address] omeprazole 0 Yes 40mg QD Take [address] (PriLOSEC) 2-17 by mouth [facility] 40 MG 19:26: daily. Medical capsule [address] [place] [address] Lactulose 0 Yes [id number] 15mL Take 15 mL [facility] 20 GM/30ML 2-16 by mouth Colle ge SOLN 00:00: every 6 of 00 hours. As Medicin needed for e constipati on; may increase to 30 mL if needed ondansetron 0 Yes [id number] 8mg Take 1 [facility] (ZOFRAN) 8 2-16 Tablet by [facility] e[facility] mg tablet 00:00: mouth of 00 every 8 Medicin hours as e needed. For chemothera py-induced nausea hydrocodone 0 Yes [id number] 1{tbl} Take 1-2 [facility] -acetaminop 2-16 Tablets by Co llege hen (Medialets) 00:00: mouth of 7.5-325 MG 00 every 6 Medici n per tablet hours as e needed for Pain. Not to exceed 8 tabs/24 hours Lactulose 2023-0 Yes [id number] 15mL Take 15 mL [facility] 20 GM/30ML 2-16 by mouth Colle ge SOLN 00:00: every 6 of 00 hours. As Medicin needed for e constipati on; may increase to 30 mL if needed ondansetron 2023-0 Yes [id number] 8mg Take 1 [facility] (ZOFRAN) 8 2-16 Tablet by [facility] mg tablet 00:00: mouth of 00 every 8 Medicin hours as e needed. For chemothera py-induced nausea hydrocodone 3-0 Yes [id number] 1{tbl} Take 1-2 [facility] -acetaminop 2-16 Tablets by Co llege hen (Medialets) 00:00: mouth of 7.5-325 MG 00 every 6 Medici n per tablet hours as e needed for Pain. Not to exceed 8 tabs/24 hours Lactulose 2023-0 Yes [id number] 15mL Take 15 mL [facility] 20 GM/30ML 2-16 by mouth Colle ge SOLN 00:00: every 6 of 00 hours. As Medicin needed for e constipati on; may increase to 30 mL if needed ondansetron 2023-0 Yes [id number] 8mg Take 1 [facility] (ZOFRAN) 8 2-16 Tablet by [facility] ege mg tablet 00:00: mouth of 00 every 8 Medicin hours as e needed. For chemothera py-induced nausea hydrocodone 2023-0 Yes [id number] 1{tbl} Take 1-2 [facility] -acetaminop 2-16 Tablets by Co llege hen (NORCO) 00:00: mouth of 7.5-325 MG 00 every 6 Medici n per tablet hours as e needed for Pain. Not to exceed 8 tabs/24 hours Lactulose 2023-0 Yes [id number] 15mL Take 15 mL [facility] 20 GM/30ML 2-16 by mouth Colle ge SOLN 00:00: every 6 of 00 hours. As Medicin needed for e constipati on; may increase to 30 mL if needed ondansetron 2022-0 Yes [id number] 8mg Take 1 [facility] (ZOFRAN) 8 2-16 Tablet by [facility] e[facility] mg tablet 00:00: mouth of 00 every 8 Medicin hours as e needed. For chemothera py-induced nausea hydrocodone 2022-0 Yes [id number] 1{tbl} Take 1-2 [facility] -acetaminop 2-16 Tablets by Co llege hen (Medialets) 00:00: mouth of 7.5-325 MG 00 every 6 Medici n per tablet hours as e needed for Pain. Not to exceed 8 tabs/24 hours Lactulose 2022-0 Yes [id number] 15mL Take 15 mL [facility] 20 GM/30ML 2-16 by mouth Colle ge SOLN 00:00: every 6 of 00 hours. As Medicin needed for e constipati on; may increase to 30 mL if needed morphine 15 2022-0 Yes [id number] 1{tbl} Take 1 [facility] MG TBCR 2-16 Tablet by [place] 00:00: mouth of 00 every 12 Medicin hours as e needed. ondansetron 0 Yes [id number] 8mg Take 1 [facility] (ZOFRAN) 8 2-16 Tablet by [facility] e[facility] mg tablet 00:00: mouth of 00 every 8 Medicin hours as e needed. For chemothera py-induced nausea hydrocodone 2022-0 Yes [id number] 1{tbl} Take 1-2 [facility] -acetaminop 2-16 Tablets by [facility]lege hen ([employer] 00:00: mouth of 7.5-325 MG 00 every 6 Medici n per tablet hours as e needed for Pain. Not to exceed 8 tabs/24 hours morphine 15 2022-0 202- No [id number] 1{tbl} Take 1 [facility] MG TBCR 2-16 03-02 Tablet by Colleg e 00:00: 00:00 mouth of 00 :00 every 12 Medicin hours as e needed. morphine 15 2022-0 202- No [id number] 1{tbl} Take 1 [facility] MG TBCR 2-16 03-02 Tablet by Colleg e 00:00: 00:00 mouth of 00 :00 every 12 Medicin hours as e needed. omeprazole 2023-0 Yes 40mg QD Take [address] (PriLOSEC) 2-10 by mouth [facility] 40 MG 14:50: daily. Medical capsule 23 Center omeprazole 3-0 Yes 40mg QD Take [address] (PriLOSEC) 2-10 by mouth [facility] 40 MG 14:50: daily. Medical capsule 23 Center omeprazole 3-0 Yes 40mg QD Take [address] (PriLOSEC) 2-10 by mouth [facility] 40 MG 14:50: daily. Medical capsule 23 Center omeprazole 3-0 Yes 40mg Take 1 [facility] (PRILOSEC) 2-10 capsule by Col lege 40 MG 00:00: mouth of capsule 00 daily. Medicin e omeprazole 3-0 Yes 40mg Take 1 [facility] (PRILOSEC) 2-10 capsule by Col lege 40 MG 00:00: mouth of capsule 00 daily. Medicin e omeprazole 3-0 Yes 40mg Take 1 [facility] (PRILOSEC) 2-10 capsule by Col lege 40 MG 00:00: mouth of capsule 00 daily. Medicin e omeprazole 2022-0 Yes 40mg Take 1 [facility] (PRILOSEC) 2-10 capsule by Col [facility]ge 40 MG 00:00: mouth of capsule 00 daily. Medicin e omeprazole 2022-0 Yes 40mg Take 1 [facility] (PRILOSEC) 2-10 capsule by Col [facility]ge 40 MG 00:00: mouth of capsule 00 daily. Medicin e ciprofloxac 2022-0 2022- Yes 500mg Take [address] in HCl 2-10 02-24 tablet [facility] (CIPRO) 500 00:00: 23:59 (500 mg Me dical MG tablet 00 :00 total) by Cente r mouth every 12 (twelve) hours for 14 days. ciprofloxac 3-0 2022- Yes 500mg Take [address] in HCl 2-10 02-24 tablet [facility] (CIPRO) 500 00:00: 23:59 (500 mg Me dical MG tablet 00 :00 total) by Cente r mouth every 12 (twelve) hours for 14 days. ciprofloxac 2022-0 2022- Yes 500mg Take [address] in HCl 2-10 02-24 tablet [facility] (CIPRO) 500 00:00: 23:59 (500 mg Me dical MG tablet 00 :00 total) by Cente r mouth every 12 (twelve) hours for 14 days. ciprofloxac 2022-2022- Yes 500mg Take [address] in HCl 211-03 tablet [facility] (CIPRO) 500 00:00: 23:59 (500 mg Me dical MG tablet 00 :00 total) by Cente r mouth every 12 (twelve) hours for 14 days. ciprofloxac 2022- Yes 500mg Take [address] [facility] HCl 10-20 tablet [facility] (CIPRO) 500 00:00: 23:59 (500 mg Me dical MG tablet 00 :00 total) by Cente r mouth every 12 (twelve) hours for 14 days. ciprofloxac 2022-2022- Yes 500mg Take [address] in HCl 10-20 tablet [facility] (CIPRO) 500 00:00: 23:59 (500 mg Me dical MG tablet 00 :00 total) by Cente r mouth every 12 (twelve) hours for 14 days. oxyCODONE 2022- No 5mg Take 1 [facility] (ROXICODONE 10-20 tablet (5 [facility] ) 5 MG 00:00: 00:00 mg total) Medic al immediate 00 :00 by mouth Center release every 6 tablet (six) hours as needed for Pain for up to 10 days. Max Daily Amount: 20 mg ciprofloxac 2022- No 500mg Take [address] in HCl 10-20 tablet [facility] (CIPRO) 500 00:00: 00:00 (500 mg Me dical MG tablet 00 :00 total) by Cente r mouth every 12 (twelve) hours for 14 days. ondansetron 2022- No 4mg Take [address] [facility] (ZOFRAN-ODT 10-20 tablet (4 Deana kes ) 4 MG 00:00: 00:00 mg total) Medic al disintegrat 00 :00 by mouth Cent er ing tablet every 8 (eight) hours as needed for up to 7 days. oxyCODONE 2023-0 2023- No 5mg Take 1 [facility] (ROXICODONE 2-10 02-23 tablet (5 [facility] kes ) 5 MG 00:00: 00:00 mg total) Medic al immediate 00 :00 by mouth Center release every 6 tablet (six) hours as needed for Pain for up to 10 days. Max Daily Amount: 20 mg ciprofloxac 2023-0 2023- No 500mg Take [address] [facility] HCl 10-20-23 tablet [facility] (CIPRO) 500 00:00: 00:00 (500 mg Me dical MG tablet 00 :00 total) by Cente r mouth every 12 (twelve) hours for 14 days. ondansetron 2023-0 2023- No 4mg Take [address] [facility] (ZOFRAN-ODT 2-10 -23 tablet (4 Deana kes ) 4 MG 00:00: 00:00 mg total) Medic al disintegrat 00 :00 by mouth Cent er ing tablet every 8 (eight) hours as needed for up to 7 days. oxyCODONE 2023-0 2023- No 5mg Take 1 [facility] (ROXICODONE 2-10 -23 tablet (5 [facility]ana k[facility] ) 5 MG 00:00: 00:00 mg total) Medic al immediate 00 :00 by mouth Center release every 6 tablet (six) hours as needed for Pain for up to 10 days. Max Daily Amount: 20 mg ciprofloxac 2023-0 2023- No 500mg Take [address] [facility] HCl 2-23 tablet [facility] (CIPRO) 500 00:00: 00:00 (500 mg Me dical MG tablet 00 :00 total) by Cente r mouth every 12 (twelve) hours for 14 days. ondansetron 2023-0 2023- No 4mg Take [address] [facility] (ZOFRAN-ODT 2-10 02-23 tablet (4 Deana kes ) 4 MG 00:00: 00:00 mg total) Medic al disintegrat 00 :00 by mouth Cent er ing tablet every 8 (eight) hours as needed for up to 7 days. oxyCODONE 2023-0 2023- No 5mg Take 1 [facility] (ROXICODONE 2-10 02-23 tablet (5 [facility]ana kes ) 5 MG 00:00: 00:00 mg total) Medic al immediate 00 :00 by mouth Center release every 6 tablet (six) hours as needed for Pain for up to 10 days. Max Daily Amount: 20 mg ciprofloxac 2023-0 2023- No 500mg Take [address] in HCl 2-06 11-23 tablet [facility] (CIPRO) 500 00:00: 00:00 (500 mg Me dical MG tablet 00 :00 total) by Cente r mouth every 12 (twelve) hours for 14 days. ondansetron 2023-0 2023- No 4mg Take [address] [facility] (ZOFRAN-ODT 2-06 11-23 tablet (4 Deana kes ) 4 MG 00:00: 00:00 mg total) Medic al disintegrat 00 :00 by mouth Cent er ing tablet every 8 (eight) hours as needed for up to 7 days. oxyCODONE 2023-0 3- No 5mg Take 1 [facility] (ROXICODONE 2-06 11-23 tablet (5 Deana kes ) 5 MG 00:00: 00:00 mg total) Medic al immediate 00 :00 by mouth Center release every 6 tablet (six) hours as needed for Pain for up to 10 days. Max Daily Amount: 20 mg ciprofloxac 3-0 3- No 500mg Take [address] in HCl 10-20- tablet [facility] (CIPRO) 500 00:00: 00:00 (500 mg Me dical MG tablet 00 :00 total) by Cente r mouth every 12 (twelve) hours for 14 days. ondansetron 3-0 3- No 4mg Take [address] [facility] (ZOFRAN-ODT 2-06 11-23 tablet (4 Deana kes ) 4 MG 00:00: 00:00 mg total) Medic al disintegrat 00 :00 by mouth Cent er ing tablet every 8 (eight) hours as needed for up to 7 days. oxyCODONE 2023-0 2023- Yes 5mg Take 1 [facility] (ROXICODONE 2-10 -20 tablet (5 Deana kes ) 5 MG 00:00: 23:59 mg total) Medic al immediate 00 :00 by mouth Center release every 6 tablet (six) hours as needed for Pain for up to 10 days. Max Daily Amount: 20 mg oxyCODONE 2023-0 2023- Yes 5mg Take 1 [facility] (ROXICODONE 2-10 02-20 tablet (5 Deana kes ) 5 MG 00:00: 23:59 mg total) Medic al immediate 00 :00 by mouth Center release every 6 tablet (six) hours as needed for Pain for up to 10 days. Max Daily Amount: 20 mg oxyCODONE 2022-0 2022- Yes 5mg Take 1 [facility] (ROXICODONE 2-10 02-20 tablet (5 Deana kes ) 5 MG 00:00: 23:59 mg total) Medic al immediate 00 :00 by mouth Center release every 6 tablet (six) hours as needed for Pain for up to 10 days. Max Daily Amount: 20 mg oxyCODONE 2022-0 2022- Yes [facility]mg [facility]ROX[facility] 2-10 02-20 tablet (5 Deana kes ) 5 MG 00:00: 23:59 mg total) Medic al immediate 00 :00 by mouth Center release every 6 tablet (six) hours as needed for Pain for up to 10 days. Max Daily Amount: 20 mg oxyCODONE 2022-0 2022- Yes [facility]mg [facility] (ROXICODONE 2-10 02-20 tablet (5 Deana kes ) 5 MG 00:00: 23:59 mg total) Medic al immediate 00 :00 by mouth Center release every 6 tablet (six) hours as needed for Pain for up to 10 days. Max Daily Amount: 20 mg oxyCODONE 2022-0 2022- No [facility]mg Take [facility] (ROXICODONE 2-10 02-20 tablet (5 Deana kes ) 5 MG 00:00: 23:59 mg total) Medic al immediate 00 :00 by mouth Center release every 6 tablet (six) hours as needed for Pain for up to 10 days. Max Daily Amount: 20 mg ondansetron 2022-0 2022- Yes 4mg Take [address] [facility] (ZOFRAN-ODT 2-10 02-17 tablet (4 Deana kes ) 4 MG 00:00: 23:59 mg total) Medic al disintegrat 00 :00 by mouth Cent er ing tablet every 8 (eight) hours as needed for up to 7 days. ondansetron 2022-0 2022- Yes 4mg Take [address] [facility] (ZOFRAN-ODT 2-10 02-17 tablet (4 Deana kes ) 4 MG 00:00: 23:59 mg total) Medic al disintegrat 00 :00 by mouth Cent er ing tablet every 8 (eight) hours as needed for up to 7 days. ondansetron 2023-0 2023- Yes 4mg Take [address] [facility] (ZOFRAN-ODT 2-10 02-17 tablet (4 Deana kes ) 4 MG 00:00: 23:59 mg total) Medic al disintegrat 00 :00 by mouth Cent er ing tablet every 8 (eight) hours as needed for up to 7 days. ondansetron 2023-0 2023- No 4mg Take [address] [facility] (ZOFRAN-ODT 2-10 02-17 tablet (4 Deana kes ) 4 MG 00:00: 23:59 mg total) Medic al disintegrat 00 :00 by mouth Cent er ing tablet every 8 (eight) hours as needed for up to 7 days. ondansetron 2023-0 2023- No 4mg Take [address] [facility] (ZOFRAN-ODT 2-10 02-17 tablet (4 Deana kes ) 4 MG 00:00: 23:59 mg total) Medic al disintegrat 00 :00 by mouth Cent er ing tablet every 8 (eight) hours as needed for up to 7 days. ondansetron 2023-0 3- No 4mg Take [address] [facility] (ZOFRAN-ODT 2-10 02-17 tablet (4 Deana kes ) 4 MG 00:00: 23:59 mg total) Medic al disintegrat 00 :00 by mouth Cent er ing tablet every 8 (eight) hours as needed for up to 7 days. omeprazole 2023-0 Yes 40mg QD Take [address] [facility] (PriLOSEC) 2-05 [facility] 22:41: daily. Medical capsule 43 Center omeprazole 2023-0 Yes 40mg QD Take [address] [facility] (PriLOSEC) 2-05 [facility] 40 MG 22:41: daily. Medical capsule 43 Center orphenadrin 2023-0 Yes 100mg Take [address] (NORFLEX) 1-28 [facility] mg 00:[facility]: mouth Medical tablet 00 every 12 Center (twelve) hours as needed. traMADoL 2023-0 Yes 50mg Take [facility] (ULTRAM) 50 1-28 50-100 mg Danyel es mg tablet 00:00: by mouth Medi charo 00 every 6 Center (six) hours as needed. orphenadrin 2023-0 Yes 100mg Take [address] (NORFLEX) 1-28 [facility] mg 00:00: mouth Medical tablet 00 every 12 Center (twelve) hours as needed. traMADoL 3-0 Yes 50mg Take [facility] (ULTRAM) 50 1-28 50-100 mg Danyel es mg tablet 00:00: by mouth Medi charo 00 every 6 Center (six) hours as needed. traMADoL 3-0 Yes 50mg Take [facility] (ULTRAM) 50 1-28 50-100 mg Danyel es mg tablet 00:00: by mouth Medi charo 00 every 6 Center (six) hours as needed. traMADoL 3-0 Yes 50mg Take [facility] (ULTRAM) 50 1-28 50-100 mg Danyel es mg tablet 00:00: by mouth Medi charo 00 every 6 Center (six) hours as needed. traMADoL 3-0 Yes 50mg Take [facility] (ULTRAM) 50 1-28 50-100 mg Danyel es mg tablet 00:00: by mouth Medi charo 00 every 6 Center (six) hours as needed. traMADoL 3-0 Yes 50mg Take [facility] (ULTRAM) 50 1-28 50-100 mg Danyel es mg tablet 00:00: by mouth Medi charo 00 every 6 Center (six) hours as needed. traMADoL 3-0 Yes 50mg Take [facility] (ULTRAM) 50 1-28 50-100 mg Danyel es mg tablet 00:00: by mouth Medi charo 00 every 6 Center (six) hours as needed. traMADoL 3-0 Yes 50mg Take [facility] (ULTRAM) 50 1-28 50-100 mg Danyel es mg tablet 00:00: by mouth Medi charo 00 every 6 Center (six) hours as needed. traMADoL 3-0 2023- No 50mg Take [facility] (ULTRAM) 50 1-28 02-23 50-100 mg Deana kes mg tablet 00:00: 00:00 by mouth Med ical 00 :00 every 6 Center (six) hours as needed. traMADoL 2023-0 2023- No 50mg Take [facility] (ULTRAM) 50 -07 11-23 50-100 mg Deana kes mg tablet 00:00: 00:00 by mouth Med ical 00 :00 every 6 Center (six) hours as needed. traMADoL 3-0 2023- No 50mg Take [facility] (ULTRAM) 50 -07 11-23 50-100 mg Deana kes mg tablet 00:00: 00:00 by mouth Med ical 00 :00 every 6 Center (six) hours as needed. traMADoL 2022-0 2023- No 50mg Take [facility] (ULTRAM) 50 -07 11-23 50-100 mg Deana kes mg tablet 00:00: 00:00 by mouth Med ical 00 :00 every 6 Center (six) hours as needed. traMADoL 2022-0 3- No 50mg Take [facility] (ULTRAM) 50 -07 11- 50-100 mg Deana kes mg tablet 00:00: 00:00 by mouth Med ical 00 :00 every 6 Center (six) hours as needed. orphenadrin 2023-0 2023- No 100mg Take [address] [facility] (NORFLEX) 1-28 02-10 [facility] mg 00:00: 00:00 mouth Medical tablet 00 :00 every 12 Center (twelve) hours as needed. orphenadrin 2023-0 2023- No 100mg Take [address] [facility] (NORFLEX) 1-28 02-10 [facility] 100 mg 00:00: 00:00 mouth Medical tablet 00 :00 every 12 Center (twelve) hours as needed. orphenadrin 2023-0 2023- No 100mg Take [address] [facility] (NORFLEX) 1-28 02-10 [facility] 100 mg 00:00: 00:00 mouth Medical tablet 00 :00 every 12 Center (twelve) hours as needed. orphenadrin 2023-0 2023- No 100mg Take [address] [facility] (NORFLEX) 1-28 02-10 [facility] 100 mg 00:00: 00:00 mouth Medical tablet 00 :00 every 12 Center (twelve) hours as needed. orphenadrin 2023-0 2023- No 100mg Take [address] [facility] (NORFLEX) 1-28 02-10 [facility] 100 mg 00:00: 00:00 mouth Medical tablet 00 :00 every 12 Center (twelve) hours as needed. orphenadrin 2023-0 2023- No 100mg Take [address] [facility] (NORFLEX) 1-28 02-10 [facility] 100 mg 00:00: 00:00 mouth Medical tablet 00 :00 every 12 Center (twelve) hours as needed. orphenadrin 2023-0 2023- No 100mg Take [address] [facility] (NORFLEX) 1-28 02-10 [facility] 100 mg 00:00: 00:00 mouth Medical tablet 00 :00 every 12 Center (twelve) hours as needed. orphenadrin 2023-0 2023- No 100mg Take [address] [facility] (NORFLEX) 1-28 02-10 [facility] 100 mg 00:00: 00:00 mouth Medical tablet 00 :00 every 12 Center (twelve) hours as needed. orphenadrin 2023-0 2023- No 100mg Take [address] [facility] (NORFLEX) 1-28 02-10 [facility] 100 mg 00:00: 00:00 mouth Medical tablet 00 :00 every 12 Center (twelve) hours as needed. orphenadrin 2023-0 2023- No 100mg Take [address] [facility] (NORFLEX) 1-28 02-10 [facility] 100 mg 00:00: 00:00 mouth Medical tablet 00 :00 every 12 Center (twelve) hours as needed. orphenadrin 2023-0 2023- No 100mg Take [address] [facility] [address] (NORFLEX) 1-28 02-10 [facility] 100 mg 00:00: 00:00 mouth Medical tablet 00 :00 every 12 Center (twelve) hours as needed. Omeprazole Yes 40mg Take 40 mg K elsey 40 MG oral 2-11 by mouth Seybo ld Delayed 09:48: daily Release 41 Capsule Azithromyci 2021-2021- No [id number] Take 2 [facility] n 250 MG 2-11 02-17 tablets by Seyb old oral Tablet 00:00: 05:59 mouth on 00 :00 day 1 then 1 tablet by mouth daily for 4 days thereafter . Ketorolac 2021-2021- No [id number] 30mg Sammie ey Tromethamin 2- 02-01 Seybold e (TORADOL) 15:45: 15:49 30 mg/mL 00 :00 Ketorolac 2021-0 2021- No [id number] 30mg 30 mg, Ke francescojanice Tromethamin 2- 02- intramuscu S eybold e (TORADOL) 15:45: 15:49 lar, ONCE, 30 mg/mL 00 :00 On Sun10/11/21 at 0945, For 1 dose Omeprazole 2021-0 Yes 40mg Take 40 mg K elsey 40 MG oral 2-01 by mouth Seybo ld Delayed 09:40: daily Release 32 Capsule Adalimumab Yes [id number] 40mg Inject 40 [facility] (Humira 2-01 mg into Seybold Pen) 40 00:00: the skin MG/0.4ML 00 every subcutaneou other week s Pen-injecto r Kit (Citrate-fr ee) Adalimumab Yes [id number] 40mg Inject 40 [facility] (Humira 2-01 mg into Seybold Pen) 40 00:00: the skin MG/0.4ML 00 every subcutaneou other week s Pen-injecto r Kit (Citrate-fr ee) LISINOPRIL- 2021-0 2021- No 1{tbl} Take 1 K elsey HCTZ 1-20 01-20 tablet by Seybold 20-12.5 MG 10:38: 00:00 mouth oral Tablet 17 :00 daily Meloxicam 2021- No 15mg Take 15 mg K elsey 15 MG oral 1-20 01-20 by mouth Seyb old Tablet 10:38: 00:00 daily 17 :00 Omeprazole 2021-0 Yes 40mg Take 40 mg K elsey 40 MG oral 1-20 by mouth Seybo ld Delayed 10:23: daily Release 48 Capsule lisinopril- 2021-0 Yes 1{tbl} Take 1 [facility] hydrochloro 1-20 Tablet [facility] thiazide 00:00: mouth of (PRINZIDE, 00 daily. Medicin ZESTORETIC) e 20-12.5 MG per tablet lisinopril- 2021-0 Yes 1{tbl} Take 1 [facility] hydrochloro 1-20 Tablet by [facility] thiazide 00:00: mouth of (PRINZIDE, 00 daily. Medicin ZESTORETIC) e 20-12.5 MG per tablet lisinopril- 2022-0 Yes 1{tbl} Take 1 [facility] hydrochloro 1-20 Tablet by [facility] thiazide 00:00: mouth of (ZIDE, daily. Medicin ZESTORETIC) e 20-12.5 MG per tablet lisinopril- 2022-0 Yes 1{tbl} QD Take [address] hydroCHLORO 1-20 tablet by Danyel es thiazide 00:00: mouth Medical (ZIDE,Z daily. [place] [facility] 20-12.5 mg per tablet lisinopril- 2022-0 Yes 1{tbl} QD Take [address] hydroCHLORO 1-20 tablet by Danyel es thiazide 00:00: mouth Medical (ZIDE,Z daily. [place] [facility] 20-12.5 mg per tablet lisinopril- 2022-0 Yes 1{tbl} QD Take [address] hydroCHLORO 1-20 tablet by Danyel es thiazide 00:00: mouth Medical (ZIDE,Z daily. [place] [facility]) 20-12.5 mg per tablet lisinopril- 2022-0 Yes 1{tbl} QD Take [address] hydroCHLORO 1-20 tablet by Danyel es thiazide 00:00: mouth Medical (ZIDE,Z daily. [place] [facility]) 20-12.5 mg per tablet lisinopril- 2022-0 Yes 1{tbl} QD Take [address] hydroCHLORO 1-20 tablet by Danyel es thiazide 00:00: mouth Medical (ZIDE,Z daily. [place] [facility] 20-12.5 mg per tablet lisinopril- 2022-0 Yes 1{tbl} QD Take [address] hydroCHLORO 1-20 tablet by Danyel es thiazide 00:00: mouth Medical (ZIDE,Z daily. [place] [facility]) 20-12.5 mg per tablet lisinopril- 2022-0 Yes 1{tbl} QD Take [address] hydroCHLORO 1-20 tablet by Danyel es thiazide 00:00: mouth Medical (ZIDE,Z daily. [place] [facility]) 20-12.5 mg per tablet lisinopril- 2022-0 Yes 1{tbl} QD Take [address] hydroCHLORO 1-20 tablet by Danyel garza thiazide 00:00: mouth Medical (PRINZIDE,Z 00 daily. Center [facility]) 20-12.5 mg per tablet LISINOPRIL- 2021-0 Yes [id number] 1{tbl} Take 1 [facility] HCTZ 1-20 tablet by Seybold 20-12.5 MG 00:00: mouth oral Tablet 00 daily Meloxicam 0 Yes [id number] 15mg Take 1 K elsey 15 MG oral 1-20 tablet (15 Sey bold Tablet 00:00: mg total) 00 by mouth daily LISINOPRIL- 2021-0 Yes [id number] 1{tbl} Take 1 [facility] HCTZ 1-20 tablet by Seybold 20-12.5 MG 00:00: mouth oral Tablet 00 daily Meloxicam 0 Yes [id number] 15mg Take 1 K elsey 15 MG oral 1-20 tablet (15 Sey bold Tablet 00:00: mg total) 00 by mouth daily LISINOPRIL- 2021-0 Yes [id number] 1{tbl} Take 1 [facility] HCTZ 1-20 tablet by Seybold 20-12.5 MG 00:00: mouth oral Tablet 00 daily Meloxicam Yes [id number] 15mg Take 1 K elsey 15 MG oral 1-20 tablet (15 Sey bold Tablet 00:00: mg total) 00 by mouth daily lisinopril- 2021-0 2022- No 1{tbl} Take 1 [facility] hydrochloro 1-20 -07 Tablet by [facility] thiazide 00:00: 00:00 mouth of (PRINZIDE, 00 :00 daily. Medicin ZESTORETIC) e 20-12.5 MG per tablet lisinopril- 2021-0 2022- No 1{tbl} Take 1 [facility] hydrochloro 1-20 -07 Tablet by [facility] thiazide 00:00: 00:00 mouth of (PRINZIDE, 00 :00 daily. Medicin ZESTORETIC) e 20-12.5 MG per tablet lisinopril- 2021-0 2022- No 1{tbl} QD Take [address] hydroCHLORO 1-20 02-23 tablet by Deana kes thiazide 00:00: 00:00 mouth Medical (PRINZIDE,Z 00 :00 daily. Center [facility]) 20-12.5 mg per tablet lisinopril- 2021-0 3- No 1{tbl} QD Take [address] hydroCHLORO 1-20 02-23 tablet by Deana kes thiazide 00:00: 00:00 mouth Medical (PRINZIDE,Z 00 :00 daily. Center [facility]) 20-12.5 mg per tablet lisinopril- 2021-0 3- No 1{tbl} QD Take [address] hydroCHLORO 1-20 02-23 tablet by Deana kes thiazide 00:00: 00:00 mouth Medical (PRINZIDE,Z 00 :00 daily. [place] [facility]) 20-12.5 mg per tablet lisinopril- 2021-0 2022- No 1{tbl} QD Take [address] hydroCHLORO 1-20 02-23 tablet by Deana kes thiazide 00:00: 00:00 mouth Medical (PRINZIDE,Z 00 :00 daily. Center [facility]) 20-12.5 mg per tablet lisinopril- 2021-0 2022- No 1{tbl} QD Take [address] hydroCHLORO 1-20 -23 tablet by Deana kes thiazide 00:00: 00:00 mouth Medical (PRINZIDE,Z 00 :00 daily. Center [facility]) 20-12.5 mg per tablet Adalimumab Yes [id number] 40mg Inject 40 [facility] (Humira 8-02 mg into Seybold Pen) 40 00:00: the skin MG/0.4ML 00 every subcutaneou other week s Pen-injecto r Kit (Citrate-fr ee) Adalimumab 2021- No [id number] 40mg Inject 40 [facility] (Humira 8-02 02-01 mg into Seybold Pen) 40 00:00: 00:00 the skin MG/0.4ML 00 :00 every subcutaneou other week s Pen-injecto r Kit (Citrate-fr ee) Mupirocin 2021- No APPLY A Sammie camacho (BACTROBAN) 5-14 -20 SMALL Seybol d 2 % apply 00:00: 00:00 AMOUNT TO externally 00 :00 AFFECTED Ointment AREA(S) THREE TIMES A DAY FOR 1 WEEK. Immunizations Ordered Immunization Filled Immunization Date Status Commen ts Source Name Name Covid-19 Vaccine 2020-10-19 Completed [facility] ([employer]), Mrna-lnp, 00:00:00 Diaz Protein, Pf, 30mcg/0.3ml,IM Covid-19 Vaccine 2020-10-19 Completed [facility] camachobold ([employer]), Mrna-lnp, 00:00:00 Diaz Protein, Pf, 30mcg/0.3ml,IM Covid-19 Vaccine 2020-10-19 Completed [facility] Cornelius eybold ([employer]), Mrna-lnp, 00:00:00 Diaz Protein, Pf, 30mcg/0.3ml,IM Covid-19 Vaccine 2020-10-[address] [facility] MRNA (PF) 12yr+ 00:00:00 Medical C enter (Pfizer/BioNTech)(IM M601) Covid-19 Vaccine 2020-10-[address] [facility] MRNA (PF) 12yr+ 00:00:00 Medical C enter (Pfizer/BioNTech)(IM M601) Covid-19 Vaccine 2020-10-[address] [facility] MRNA (PF) 12yr+ 00:00:00 Medical C enter (Pfizer/BioNTech)(IM M601) Covid-19 Vaccine 2020-10-[address] [facility] MRNA (PF) 12yr+ 00:00:00 Medical C enter (Pfizer/BioNTech)(IM M601) Covid-19 Vaccine 2020-10-[address] [facility] MRNA (PF) 12yr+ 00:00:00 Medical C enter (Pfizer/BioNTech)(IM M601) Covid-19 Vaccine 2020-10-[address] [facility] MRNA (PF) 12yr+ 00:00:00 Medical C enter (Pfizer/BioNTech)(IM M601) Covid-19 Vaccine 2020-10-[address] [facility] MRNA (PF) 12yr+ 00:00:00 Medical C enter (Pfizer/BioNTech)(IM M601) Covid-19 Vaccine 2020-10-[address] [facility] MRNA (PF) 12yr+ 00:00:00 Medical C enter (Pfizer/BioNTech)(IM M601) Covid-19 Vaccine 2020-10-[address] [facility] MRNA (PF) 12yr+ 00:00:00 Medical C enter (Pfizer/BioNTech)(IM M601) Covid-19 Vaccine 2020-10-[address] [facility] MRNA (PF) 12yr+ 00:00:00 Medical C enter (Pfizer/BioNTech)(IM M601) Covid-19 Vaccine 2020-10-[address] [facility] MRNA (PF) 12yr+ 00:00:00 Medical C enter (Pfizer/BioNTech)(IM M601) Covid-19 Vaccine 2020-10-[address] [facility] MRNA (PF) 12yr+ 00:00:00 Medical C enter (Pfizer/BioNTech)(IM M601) Covid-19 Vaccine 2020-10-[address] [facility] MRNA (PF) 12yr+ 00:00:00 Medical C enter (Pfizer/BioNTech)(IM M601) Covid-19 Vaccine 2020-10-[address] [facility] MRNA (PF) 12yr+ 00:00:00 Medical C enter (Pfizer/BioNTech)(IM M601) Covid-19 Vaccine 2020-09-29 Completed [facility] (Pfizer), Mrna-lnp, 00:00:00 Diaz Protein, Pf, 30mcg/0.3ml,IM Covid-19 Vaccine 2020-09-29 Completed [facility] camachobold (Pfizer), Mrna-lnp, 00:00:00 Diaz Protein, Pf, 30mcg/0.3ml,IM Covid-19 Vaccine 2020-09-29 Completed [facility] Cornelius eybold (Pfizer), Mrna-lnp, 00:00:00 Diaz Protein, Pf, 30mcg/0.3ml,IM Covid-19 Vaccine 2020-09-[address] [facility] MRNA (PF) 12yr+ 00:00:00 Medical C enter (Pfizer/BioNTech)(IM M601) Covid-19 Vaccine 2020-09-[address] [facility] MRNA (PF) 12yr+ 00:00:00 Medical C enter (Pfizer/BioNTech)(IM M601) Covid-19 Vaccine 2020-09-[address] [facility] MRNA (PF) 12yr+ 00:00:00 Medical C enter (Pfizer/BioNTech)(IM M601) Covid-19 Vaccine 2020-09-[address] [facility] MRNA (PF) 12yr+ 00:00:00 Medical C enter (Pfizer/BioNTech)(IM M601) Covid-19 Vaccine 2020-09-[address] [facility] MRNA (PF) 12yr+ 00:00:00 Medical C enter (Pfizer/BioNTech)(IM M601) Covid-19 Vaccine 2020-09-[address] [facility] MRNA (PF) 12yr+ 00:00:00 Medical C enter (Pfizer/BioNTech)(IM M601) Covid-19 Vaccine 2020-09-[address] [facility] MRNA (PF) 12yr+ 00:00:00 Medical C enter (Pfizer/BioNTech)(IM M601) Covid-19 Vaccine 2020-09-[address] [facility] MRNA (PF) 12yr+ 00:00:00 Medical C enter (Pfizer/BioNTech)(IM M601) Covid-19 Vaccine 2020-09-[address] [facility] MRNA (PF) 12yr+ 00:00:00 Medical C enter (Pfizer/BioNTech)(IM M601) Covid-19 Vaccine 2020-09-[address] [facility] MRNA (PF) 12yr+ 00:00:00 Medical C enter (Pfizer/BioNTech)(IM M601) Covid-19 Vaccine 2020-09-[address] [facility] MRNA (PF) 12yr+ 00:00:00 Medical C enter (Pfizer/BioNTech)(IM M601) Covid-19 Vaccine 2020-09-[address] [facility] MRNA (PF) 12yr+ 00:00:00 Medical C enter (Pfizer/BioNTech)(IM M601) Covid-19 Vaccine 2020-09-[address] [facility] MRNA (PF) 12yr+ 00:00:00 Medical C enter (Pfizer/BioNTech)(IM M601) Covid-19 Vaccine 2020-09-[address] [facility] MRNA (PF) 12yr+ 00:00:00 Medical C enter (Pfizer/BioNTech)(IM M601) Vital Signs Vital Name Observation Time Observation Value Comments Source Systolic blood 2022-11-14 16:29:00 104 mm[Hg] [facility] pressure Medicine Diastolic blood 2022-11-14 16:29:00 62 mm[Hg] [facility] Medicine Heart rate 2022-11-14 16:29:00 72 /min [facility] Body height 2022-11-14 16:29:00 182.9 cm [facility] Body weight 2022-11-14 16:29:00 84.732 kg [facility] BMI 2022-11-14 16:29:00 25.33 kg/m2 [facility] Systolic blood 2022-11-09 17:33:00 106 mm[Hg] [facility] pressure Medicine Diastolic blood 2022-11-09 17:33:00 67 mm[Hg] [facility] Medicine Heart rate 2022-11-09 17:33:00 111 /min [facility] Body height 2022-11-09 17:33:00 182.9 cm [facility] Body weight 2022-11-09 17:33:00 86.183 kg [facility] BMI 2022-11-09 17:33:00 25.77 kg/m2 [facility] Systolic blood 2022-11-09 14:38:00 105 mm[Hg] [facility] pressure Medicine Diastolic blood 2022-11-09 14:38:00 71 mm[Hg] [facility] pressure Medicine Heart rate 2022-11-09 14:38:00 107 /min [facility] Body temperature 2022-11-09 14:38:00 36.61 Sultana [facility] Body height 2022-11-09 14:38:00 182.9 cm [facility] Body weight 2022-11-09 14:38:00 86.183 kg [facility] BMI 2022-11-09 14:38:00 25.77 kg/m2 [facility] Systolic blood 2022-11-09 14:39:00 105 mm[Hg] [facility] pressure Medicine Diastolic blood 2022-11-09 14:39:00 71 mm[Hg] [facility] Medicine Heart rate 2022-11-09 14:39:00 107 /[facility] Body temperature 2022-11-09 14:39:00 36.61 Sultana [facility] Body height 2022-11-09 14:39:00 182.9 cm [facility] Body weight 2022-11-09 14:39:00 [facility]183 [facility] 2022-11-09 14:39:00 25.77 kg/m2 [facility] Systolic blood 2022-11-06 20:46:00 107 mm[Hg] [facility] Medicine Diastolic blood 2022-11-06 20:46:00 69 mm[Hg] [facility] Medicine Heart rate 2022-11-06 20:46:00 96 /min [facility] HEIGHT 2022-10-27 12:16:00 182.9 cm WEIGHT 2022-10-27 12:16:00 88.905 kg HEIGHT 2022-10-27 12:16:00 182.9 cm WEIGHT 2022-10-27 12:16:00 88.905 kg HEIGHT 2022-10-27 12:16:00 182.9 cm WEIGHT 2022-10-27 12:16:00 88.905 kg WEIGHT 2022-10-15 21:00:00 96.344 kg HEIGHT 2022-10-15 21:00:00 182.9 cm WEIGHT 2022-10-15 21:00:00 96.344 kg HEIGHT 2022-10-15 21:00:00 182.9 cm WEIGHT 2022-10-15 21:00:00 96.344 kg HEIGHT 2022-10-15 21:00:00 182.9 cm Systolic blood 2021-10-11 15:42:00 162 mm[Hg] [facility] pressure Diastolic blood 2021-10-11 15:42:00 77 mm[Hg] Kelse y Seybold pressure Heart rate 2021-10-11 15:42:00 71 /min [facility] S eybold Respiratory rate 2021-10-11 15:42:00 16 /min Sammie ey Seybold Body height 2021-10-11 15:42:00 182.9 cm [facility] S eybold Body weight 2021-10-11 15:42:00 94.348 kg [facility] S eybold BMI 2021-10-11 15:42:00 28.21 kg/m2 [facility] S eybold Systolic blood 2021-09-29 16:38:00 145 mm[Hg] [facility] Seybold pressure Diastolic blood 2021-09-29 16:38:00 73 mm[Hg] Kelse y Seybold pressure Heart rate 2021-09-29 16:26:00 68 /min [facility] camachobold Body temperature 2021-09-29 16:26:00 36.5 Sultana Sammie ey Seybold Respiratory rate 2021-09-29 16:26:00 14 /min Sammie camacho Seybold Body height 2021-09-29 16:26:00 182.9 cm [facility] Cornelius eybold Body weight 2021-09-29 16:26:00 96.163 kg [facility] Cornelius eybold BMI 2021-09-29 16:26:00 28.75 kg/m2 [facility] Cornelius eybold Heart rate 2022-11-02 16:46:00 109 /min [facility] Respiratory rate 2022-11-02 15:21:25 18 /min [facility] Oxygen saturation in 2022-11-02 15:21:25 99 /min [facility] Arterial blood by Medical Ce nter Pulse oximetry Body temperature 2022-11-02 15:20:53 36.67 Sultana [facility] Systolic blood 2022-11-02 15:20:30 115 mm[Hg] [facility] Diastolic blood 2022-11-02 15:20:30 68 mm[Hg] [facility] Heart rate 2022-11-02 07:41:00 89 /min [facility] Respiratory rate 2022-11-02 07:30:38 18 /min [facility] Oxygen saturation in 2022-11-02 07:30:38 99 /min [facility] Arterial blood by Medical Ce nter Pulse oximetry Body temperature 2022-11-02 07:30:06 36.78 Sultana [facility] Systolic blood 2022-11-02 07:30:00 125 mm[Hg] [facility] Diastolic blood 2022-11-02 07:30:00 64 mm[Hg] [facility] Heart rate 2022-10-30 12:00:00 85 /min [facility] Respiratory rate 2022-10-30 11:44:59 18 /min [facility] Oxygen saturation in 2022-10-30 11:44:59 98 /min [facility] Arterial blood by Medical Ce nter Pulse oximetry Body temperature 2022-10-30 11:44:31 36.78 Sultana [facility] Systolic blood 2022-10-30 11:43:45 125 mm[Hg] [facility] Diastolic blood 2022-10-30 11:43:45 61 mm[Hg] [facility] Heart rate 2022-10-29 16:13:00 80 /min [facility] Respiratory rate 2022-10-29 15:08:39 18 /min [facility] Oxygen saturation in 2022-10-29 15:08:39 100 /min [facility] Arterial blood by [facility] Pulse oximetry Body temperature 2022-10-29 15:08:01 36.61 [facility] Systolic blood 2022-10-29 15:07:45 122 mm[Hg] [facility] Diastolic blood 2022-10-29 15:07:45 54 mm[Hg] [facility] Body height 2022-10-27 12:16:00 182.9 cm [facility] Body weight 2022-10-27 12:16:00 88.905 kg [facility] BMI 2022-10-27 12:16:00 26.58 kg/m2 [facility] Systolic blood 2022-10-20 11:32:00 128 mm[Hg] [facility] Diastolic blood 2022-10-20 11:32:00 60 mm[Hg] [facility] Heart rate 2022-10-20 11:32:00 98 /min [facility] Body temperature 2022-10-20 11:32:00 36.5 [facility] Respiratory rate 2022-10-20 11:32:00 18 /min [facility] Systolic blood 2022-10-20 08:00:00 131 mm[Hg] [facility] Diastolic blood 2022-10-20 08:00:00 65 mm[Hg] [facility] Heart rate 2022-10-20 08:00:00 98 /min [facility] Body temperature 2022-10-20 08:00:00 36.44 [facility] Respiratory rate 2022-10-20 08:00:00 18 /min [facility] Oxygen saturation in 2022-10-20 08:00:00 98 /min room air [facility] Arterial blood by Medical Ce nter Pulse oximetry Body height 2022-10-15 21:00:00 182.9 cm [facility] Body weight 2022-10-15 21:00:00 96.344 kg [facility] BMI 2022-10-15 21:00:00 28.81 kg/m2 [facility] Procedures Procedure Date / Time Performing Clinician Source Performed BASIC METABOLIC PANEL 2022-11-14 10:50:23 [facility] COMPREHENSIVE METABOLIC 2022-11-06 15:34:14 [facility] AMB REF TO UROLOGY [facility] [place] 2022-11-06 15:27:16 [facility] AMB REF TO NEPH [facility] 2022-11-06 15:27:16 [facility] MR ABDOMEN WITHOUT IV 2022-11-02 09:00:00 Trevor Suggs [facility] CONTRAST [facility] COMPREHENSIVE METABOLIC 2022-11-02 05:31:00 Finn Vyas [facility] MAGNESIUM 2022-11-02 05:31:00 [facility] 2022-11-02 05:31:00 [facility] CBC (HEMOGRAM ONLY) 2022-11-02 05:31:00 [facility]OL[facility] 2022-11-01 04:54:00 [facility] 2022-11-01 04:54:00 [facility] 2022-11-01 04:54:00 [facility] CBC (HEMOGRAM ONLY) 2022-11-01 04:54:00 [facility] 2022-10-31 03:39:00 [facility]UM 2022-10-31 03:39:00 [facility]US 2022-10-31 03:39:00 [facility] CBC (HEMOGRAM ONLY) 2022-10-31 03:39:00 [facility] ECG 12-LEAD 2022-10-30 11:18:07 [facility] ECG 12-LEAD 2022-10-30 11:18:07 [facility]OLIC 2022-10-30 03:32:00 [facility] MAG[facility]ESIUM 2022-10-30 03:32:00 [facility] PHOS[facility]US 2022-10-30 03:32:00 [facility] CBC (HEMOGRAM ONLY) 2022-10-30 03:32:00 [facility] PROTHROMBIN TIME/INR 2022-10-30 03:32:00 [facility] TYPE AND SCREEN, 2022-10-30 03:32:00 [facility] W/PLT COUNT & AUTO 2022-10-29 03:58:00 [facility]OLIC 2022-10-29 03:58:00 [facility] MAGNESIUM 2022-10-29 03:58:00 [facility] PHOS[facility]US 2022-10-29 03:58:00 [facility] CBC W/PLT COUNT & AUTO 2022-10-29 03:58:00 [facility] TEMPUS XF LIQUID BIOPSY 2022-10-28 07:18:53 [facility] CBC W/PLT COUNT & AUTO 2022-10-28 05:38:00 [facility] COMPREHENSIVE METABOLIC 2022-10-28 05:38:00 [facility] MAGNESIUM 2022-10-28 05:38:00 [facility] PHOSPHORUS 2022-10-28 05:38:00 [facility] CBC W/PLT COUNT & AUTO 2022-10-28 05:38:00 [facility] US RENAL COMPLETE 2022-10-27 23:25:[address] [facility] BLOOD GAS, VENOUS 2022-10-27 15:42:00 [facility] 2022-10-27 15:14:00 Ericka Dickey [facility] REF LABS) [facility] OSMOLALITY, URINE 2022-10-27 14:15:[address] [facility] SODIUM, RANDOM URINE 2022-10-27 14:15:00 Noble Ericka [facility] URINALYSIS W/ REFLEX 2022-10-27 14:14:00 Ericka Dickey [facility] URINE CULTURE [facility] XR CHEST 1 VIEW PORTABLE 2022-10-27 13:23:00 Ericka Dickey [facility] / BEDSIDE [facility] OSMOLALITY, SERUM 2022-10-27 12:51:[address] [facility] BLOOD CULTURE 2022-10-27 12:44:00 Ericka Dickey [facility] CBC W/PLT COUNT & AUTO 2022-10-27 12:44:00 Noble Ericka [facility] LACTIC ACID, VENOUS 2022-10-27 12:44:00 Ericka Dickey [facility] COMPREHENSIVE METABOLIC 2022-10-27 12:44:[address] [facility] PROTHROMBIN TIME/INR 2022-10-27 12:44:00 Noble Ericka Ash[facility] APTT 2022-10-27 12:44:00 Noble Ericka [facility] CBC W/PLT COUNT & AUTO 2022-10-27 12:44:[address] [facility] AMB REF TO GENETICS 2022-10-27 12:33[facility]29 [facility] TEMPUS XT TISSUE NGS 2022-10-26 13:22:51 [facility] CBC W/AUTO DIFF WITH 2022-10-26 13:06:00 [facility] Medicine COMPREHENSIVE METABOLIC 2022-10-26 13:06:00 [facility] CEA 2022-10-26 13:06:00 [facility] CANCER ANTIGEN 19-9 2022-10-26 13:06:00 [facility] PROTIME \\T\\ PTT 2022-10-26 13:06:00 [facility] HEPATITIS PANEL 2022-10-26 13:06:00 [facility] WILD 1 2022-10-26 12:15:19 [facility] CBC W/PLT COUNT & AUTO 2022-10-20 04:18:00 Keiry Fragoso [facility] COMPREHENSIVE METABOLIC 2022-10-20 04:18:00 Keiry Fragoso [facility] CBC W/PLT COUNT & AUTO 2022-10-20 04:18:00 [facility] CBC W/PLT COUNT & AUTO 2022-10-19 04:10:00 [place] [facility] DIFFERENTIAL [facility] COMPREHENSIVE METABOLIC 2022-10-19 04:10:00 Fragoso, [facility] CBC W/PLT COUNT & AUTO 2022-10-19 04:10:00 [place] [facility] CBC W/PLT COUNT & AUTO 2022-10-18 05:57:00 [place] [facility] METABOLIC 2022-10-18 05:57:00 Fragoso, [facility] CBC W/PLT COUNT & AUTO 2022-10-18 05:57:00 Fragoso [facility] PROCEDURE, IN 2022-10-17 18:00:00 Virtual, Surgeon [facility] NON-OPERATING ROOM Medical Cente r SETTING IR PERCUTANEOUS 2022-10-17 14:47:00 [place] [facility] CHOLANGIOGRAM [facility] IR PERCUTANEOUS 2022-10-17 14:47:00 Fragoso, [facility] CHOLANGICHI [facility] US LIVER BIOPSY 2022-10-17 14:47:00 Fragoso, [facility] TISSUE EXAM 2022-10-17 14:35:00 [facility] ECG 12-LEAD 2022-10-17 11:51:49 Kaylee Laguna [facility] PROTHROMBIN TIME/INR 2022-10-17 03:59:00 Alma Patel [facility] CT CHEST WITH IV CONTRAST 2022-10-16 09:17:00 Elvis Dupree [facility] ABORH, MANUAL 2022-10-16 06:05:00 Elsa Grey [facility] HEPATIC FUNCTION PANEL 2022-10-16 03:57:00 Keon Nieto [facility] TYPE AND SCREEN, 2022-10-16 03:57:00 Jamal Dupree [facility] AUTOMATED [facility] CBC W/PLT COUNT & AUTO 2022-10-16 03:57:[address] [facility] DIFFERENTIAL [facility] CBC W/PLT COUNT & AUTO 2022-10-16 03:57:[address] [facility] DIFFERENTIAL [facility] BASIC METABOLIC PANEL 2022-10-16 03:57:00 [facility] hospitalSavanna baijavier I [facility] MAGNESIUM 2022-10-16 03:57:00 [facility] PHOSPHORUS 2022-10-16 03:57:00 [facility] CARBOHYDRATE ANTIGEN 19-9 2022-10-16 03:57:00 [facility] [address] [facility] ([place] 19-9) [facility] FERRITIN 2022-10-16 03:57:00 [facility] IRON, TIBC, % SAT. 2022-10-16 03:57:00 [facility]12 2022-10-16 03:57:00 [facility] PTH, INTACT 2022-10-16 03:57:00 [facility] VITAMIN D, 25-HYDROXY 2022-10-16 03:57:00 [facility] PROTEIN, RANDOM URINE 2022-10-16 01:53:00 [facility] CREATININE, RANDOM URINE 2022-10-16 01:53:00 [facility] Plan of Care Planned Activity Planned Date Details Comments Source Future Scheduled 2022-11-14 BASIC METABOLIC PANEL [code = Ordered : [facility] Test 10:50:23 73381-5] 11/14/2022 [facility] [employer] Future Scheduled 2022-11-14 Screening for malignant [facility] Test 10:30:54 [id number] Future Scheduled 2022-11-14 TETANUS SHOT (ADULT) [code = [facility] Test 10:30:54 TETANUS SHOT (ADULT)] [facility] Future Scheduled 2022-11-14 BMI Follow Up Plan [code = [facility] Test 10:30:54 BMI Follow Up Plan] [facility] Future Scheduled 2022-11-14 ZOSTER VACCINE (1 of 2) [code [facility] 10:30:54 = ZOSTER VACCINE (1 of 2)] [facility] Future Scheduled 2022-11-14 Abdominal aortic aneurysm [facility] Test 10:30:54 screening (procedure) [code = [facility] [id number]] Medicine Future Scheduled 2022-11-14 Pneumococcal 65+ (1 - PCV) [facility] Test 10:30:54 [code = Pneumococcal 65+ (1 - College of PCV)] Medicine Future Scheduled 2022-11-14 COVID-19 Vaccine (4 - Ba [facility] Test 10:30:54 Booster) [code = COVID-19 Co llege of Vaccine (4 - Booster)] Medic ine Future Scheduled 2022-11-14 FLU VACCINE > 6 MONTHS [code [facility] Test 10:30:54 = FLU VACCINE > 6 MONTHS] [facility] Future Scheduled 2022-11-14 Fall Screen [code = Fall [facility] Test 10:30:54 Screen] [facility] Future Scheduled 2022-11-14 Screening for malignant [facility] Test 10:30:54 neoplasm of colon (procedure) [facility] [code = [id number]] [facility] Future Scheduled 2022-11-14 TETANUS SHOT (ADULT) [code = [facility] Test 10:30:54 TETANUS SHOT (ADULT)] [facility] Future Scheduled 2022-11-14 BMI Follow Up Plan [code = [facility] Test 10:30:54 BMI Follow Up Plan] [facility] Future Scheduled 2022-11-14 ZOSTER VACCINE (1 of 2) [code [facility] Test 10:30:54 = ZOSTER VACCINE (1 of 2)] [facility] Future Scheduled 2022-11-14 Abdominal aortic aneurysm [facility] Test 10:30:54 screening (procedure) [code = [facility] [id number]] Medicine Future Scheduled 2022-11-14 Pneumococcal 65+ (1 - PCV) [facility] Test 10:30:54 [code = Pneumococcal 65+ (1 - College of PCV)] Medicine Future Scheduled 2022-11-14 COVID-19 Vaccine (4 - [facility] Test 10:30:54 Booster) [code = COVID-19 Co llege of Vaccine (4 - Booster)] Medic ine Future Scheduled 2022-11-14 FLU VACCINE > 6 MONTHS [code [facility] Test 10:30:54 = FLU VACCINE > 6 MONTHS] [facility] Future Scheduled 2022-11-14 Fall Screen [code = Fall [facility] Test 10:30:54 Screen] [facility] Future Scheduled 2022-11-11 TETANUS SHOT (ADULT) [code = [facility] Test 06:47:40 TETANUS SHOT (ADULT)] [facility] Future Scheduled 2022-11-11 BMI Follow Up Plan [code = [facility] Test 06:47:40 BMI Follow Up Plan] [facility] Future Scheduled 2022-11-11 ZOSTER VACCINE (1 of 2) [code [facility] Test 06:47:40 = ZOSTER VACCINE (1 of 2)] [facility] 2022-11-11 Abdominal aortic aneurysm [facility] Test 06:47:40 screening (procedure) [code = [facility] [id number]] Medicine Future Scheduled 2022-11-11 Pneumococcal 65+ (1 - PCV) [facility] Test 06:47:40 [code = Pneumococcal 65+ (1 - College of PCV)] Medicine Future Scheduled 2022-11-11 COVID-19 Vaccine (4 - Ba [facility] Test 06:47:40 Booster) [code = COVID-19 Co llege of Vaccine (4 - Booster)] Medic ine Future Scheduled 2022-11-11 FLU VACCINE > 6 MONTHS [code [facility] Test 06:47:40 = FLU VACCINE > 6 MONTHS] [facility] Future Scheduled 2022-11-11 Fall Screen [code = Fall [facility] Test 06:47:40 Screen] [facility] Future Scheduled 2022-11-11 Screening for malignant [facility] Test 06:47:40 neoplasm of colon (procedure) [facility] [code = [id number]] [facility] Future Scheduled 2022-11-09 Screening for malignant [facility] Test 12:40:56 neoplasm of colon (procedure) [facility] [code = [id number]] Medicine Future Scheduled 2022-11-09 TETANUS SHOT (ADULT) [code = [facility] Test 12:40:56 TETANUS SHOT (ADULT)] [facility] Future Scheduled 2022-11-09 BMI Follow Up Plan [code = [facility] Test 12:40:56 BMI Follow Up Plan] [facility] Future Scheduled 2022-11-09 ZOSTER VACCINE (1 of 2) [code [facility] Test 12:40:56 = ZOSTER VACCINE (1 of 2)] [facility] Future Scheduled 2022-11-09 Abdominal aortic aneurysm [facility] Test 12:40:56 screening (procedure) [code = [facility] [id number]] Medicine Future Scheduled 2022-11-09 Pneumococcal 65+ (1 - PCV) [facility] Test 12:40:56 [code = Pneumococcal 65+ (1 - College of PCV)] Medicine Future Scheduled 2022-11-09 COVID-19 Vaccine (4 - [facility] Test 12:40:56 Booster) [code = COVID-19 Co llege of Vaccine (4 - Booster)] Medic ine Future Scheduled 2022-11-09 FLU VACCINE > 6 MONTHS [code [facility] Test 12:40:56 = FLU VACCINE > 6 MONTHS] [facility] Future Scheduled 2022-11-09 Fall Screen [code = Fall [facility] Test 12:40:56 Screen] [facility] Future Scheduled 2022-11-09 IR PORT PLACEMENT EQUAL OR > 1 Occurr ences [facility] Test 11:01:13 5 YEARS [code = 93119] starting Colle ge of 11/09/2022 until Medicine 11/10/2023 Future Scheduled 2022-11-06 Screening for malignant [facility] Test 15:47:24 neoplasm of colon (procedure) [facility] [code = [id number]] [facility] Future Scheduled 2022-11-06 TETANUS SHOT (ADULT) [code = [facility] Test 15:47:24 TETANUS SHOT (ADULT)] [facility] Future Scheduled 2022-11-06 BMI Follow Up Plan [code = [facility] Test 15:47:24 BMI Follow Up Plan] [facility] Future Scheduled 2022-11-06 ZOSTER VACCINE (1 of 2) [code [facility] Test 15:47:24 = ZOSTER VACCINE (1 of 2)] [facility] Future Scheduled 2022-11-06 Abdominal aortic aneurysm [facility] Test 15:47:24 screening (procedure) [code = [facility] [id number]] Medicine Future Scheduled 2022-11-06 Fall Screen [code = Fall [facility] Test 15:47:24 Screen] [facility] Future Scheduled 2022-11-06 Pneumococcal 65+ (1 - PCV) [facility] Test 15:47:24 [code = Pneumococcal 65+ (1 - College of PCV)] Medicine Future Scheduled 2022-11-06 COVID-19 Vaccine (4 - Ba y[facility] Test 15:47:24 Booster) [code = COVID-19 Co llege of Vaccine (4 - Booster)] Medic [facility] Future Scheduled 2022-11-06 FLU VACCINE > 6 MONTHS [code [facility] Test 15:47:24 = FLU VACCINE > 6 MONTHS] [facility] Future Scheduled 2022-11-06 COMPREHENSIVE METABOLIC PANEL Ordered : [facility] Test 15:34:14 [code = 98826-5] 11/06/2022 [facility] Future Scheduled 2022-11-06 EUS WITH MAC, UPPER WITH FNA 1 Occurr ences [facility] Test 15:30:35 [code = NOCPT] starting [facility] 11/06/2022 until Medicine 05/06/2023 Future Scheduled 2022-11-06 ERCP W/MAC - GI DEPT [code = 1 Occurr ences [facility] Test 15:30:35 [id number]] starting [facility] 11/06/2022 until Medicine 05/06/2023 Future Scheduled 2022-09-10 DEPRESSION SCREENING ([address]+) [facility] Test 00:00:00 [code = DEPRESSION SCREENING Medical (12+)] Center Future Scheduled 2022-09-10 FALLS RISK SCREENING [code = [facility] Test 00:00:00 FALLS RISK SCREENING] [facility] 2022-09-10 DEPRESSION SCREENING (12+) [facility] Test 00:00:00 [code = DEPRESSION SCREENING Medical (12+)] Center Future Scheduled 2022-09-10 FALLS RISK SCREENING [code = [facility] Test 00:00:00 FALLS RISK SCREENING] [facility] Future [facility]uled 2022-09-10 DEPRESSION SCREENING (12+) [facility] Test 00:00:00 [code = DEPRESSION SCREENING Medical (12+)] Center Future Scheduled 2022-09-10 FALLS RISK SCREENING [code = [facility] Test 00:00:00 FALLS RISK SCREENING] Medica l Center Future Scheduled 2022-09-10 DEPRESSION SCREENING (12+) [facility] Test 00:00:00 [code = DEPRESSION SCREENING Medical (12+)] [place] Future Scheduled 2022-09-10 FALLS RISK SCREENING [code = [facility] Test 00:00:00 FALLS RISK SCREENING] [facility] Future Scheduled 2022-09-10 DEPRESSION SCREENING (12+) [facility] Test 00:00:00 [code = DEPRESSION SCREENING Medical (12+)] [place] Future Scheduled 2022-09-10 FALLS RISK SCREENING [code = [facility] Test 00:00:00 FALLS RISK SCREENING] [facility] Future Scheduled 2022-09-10 DEPRESSION SCREENING (12+) [facility] Test 00:00:00 [code = DEPRESSION SCREENING Medical (12+)] [place] Future Scheduled 2022-09-10 FALLS RISK SCREENING [code = [facility] Test 00:00:00 FALLS RISK SCREENING] [facility] Future Scheduled 2022-09-10 DEPRESSION SCREENING (12+) [facility] Test 00:00:00 [code = DEPRESSION SCREENING Medical (12+)] [place] Future Scheduled 2022-09-10 FALLS RISK SCREENING [code = [facility] Test 00:00:00 FALLS RISK SCREENING] [facility] Future Scheduled 2022-09-10 DEPRESSION SCREENING (12+) [facility] Test 00:00:00 [code = DEPRESSION SCREENING Medical (12+)] [place] Future Scheduled 2022-09-10 FALLS RISK SCREENING [code = [facility] Test 00:00:00 FALLS RISK SCREENING] [facility] Future Scheduled 2022-09-10 DEPRESSION SCREENING (12+) [facility] Test 00:00:00 [code = DEPRESSION SCREENING Medical (12+)] [place] Future Scheduled 2022-09-10 FALLS RISK SCREENING [code = [facility] Test 00:00:00 FALLS RISK SCREENING] [facility] Future Scheduled 2022-09-10 DEPRESSION SCREENING (12+) [facility] Test 00:00:00 [code = DEPRESSION SCREENING Medical (12+)] [place] Future Scheduled 2022-09-10 FALLS RISK SCREENING [code = [facility] Test 00:00:00 FALLS RISK SCREENING] [facility] Future Scheduled 2022-09-10 DEPRESSION SCREENING (12+) [facility] Test 00:00:00 [code = DEPRESSION SCREENING Medical (12+)] Center Future Scheduled 2022-09-10 FALLS RISK SCREENING [code = [facility] Test 00:00:00 FALLS RISK SCREENING] [facility] Future Scheduled 2022-09-10 DEPRESSION SCREENING (12+) [facility] Test 00:00:00 [code = DEPRESSION SCREENING Medical (12+)] Center Future Scheduled 2022-09-10 FALLS RISK SCREENING [code = [facility] Test 00:00:00 FALLS RISK SCREENING] [facility] Future Scheduled 2022-09-10 DEPRESSION SCREENING (12+) [facility] Test 00:00:00 [code = DEPRESSION SCREENING Medical (12+)] Center Future Scheduled 2022-09-10 FALLS RISK SCREENING [code = [facility] Test 00:00:00 FALLS RISK SCREENING] [facility] Future Scheduled 2022-09-10 DEPRESSION SCREENING (12+) [facility] Test 00:00:00 [code = DEPRESSION SCREENING Medical (12+)] Center Future Scheduled 2022-09-10 FALLS RISK SCREENING [code = [facility] Test 00:00:00 FALLS RISK SCREENING] [facility] Future Scheduled 2022-05-11 INFLUENZA VACCINE (#1) [code [facility] Test 00:00:00 = INFLUENZA VACCINE (#1)] [facility] Future [facility] 2022-05-11 INFLUENZA VACCINE (#1) [code [facility] Test 00:00:00 = INFLUENZA VACCINE (#1)] [facility] Future [facility]uled 2022-05-11 INFLUENZA VACCINE (#1) [code [facility] Test 00:00:00 = INFLUENZA VACCINE (#1)] [facility] 2022-[facility]-11 INFLUENZA VACCINE (#1) [code [facility] Test 00:00:00 = INFLUENZA VACCINE (#1)] [facility]uled 2022-05-11 INFLUENZA VACCINE (#1) [code [facility] Test 00:00:00 = INFLUENZA VACCINE (#1)] [facility]uled 2022-05-11 INFLUENZA VACCINE (#1) [code [facility] Test 00:00:00 = INFLUENZA VACCINE (#1)] [facility]uled 2022-05-11 INFLUENZA VACCINE (#1) [code [facility] Test 00:00:00 = INFLUENZA VACCINE (#1)] [facility]uled 2022-05-11 INFLUENZA VACCINE (#1) [code [facility] Test 00:00:00 = INFLUENZA VACCINE (#1)] [facility] Future Scheduled 2022-05-11 INFLUENZA VACCINE (#1) [code [facility] Test 00:00:00 = INFLUENZA VACCINE (#1)] [facility] Future Scheduled 2022-05-11 INFLUENZA VACCINE (#1) [code [facility] Test 00:00:00 = INFLUENZA VACCINE (#1)] [facility]uled 2022-05-11 INFLUENZA VACCINE (#1) [code [facility] Test 00:00:00 = INFLUENZA VACCINE (#1)] [facility]uled 2022-05-11 INFLUENZA VACCINE (#1) [code [facility] Test 00:00:00 = INFLUENZA VACCINE (#1)] [facility] Future Scheduled 2022-05-11 INFLUENZA VACCINE (#1) [code [facility] Test 00:00:00 = INFLUENZA VACCINE (#1)] [facility] Future Scheduled 2022-05-11 INFLUENZA VACCINE (#1) [code [facility] Test 00:00:00 = INFLUENZA VACCINE (#1)] [facility] Future Scheduled 2021-03-18 COVID-19 VACCINE (3 - Booster [facility] Test 00:00:00 for Pfizer series) [code = M edical COVID-19 VACCINE (3 - Booster Center for Pfizer series)] Future Scheduled 2020-11-16 COVID-19 VACCINE (3 - Pfizer [facility] Test 00:00:00 risk series) [code = COVID-19 Medical VACCINE (3 - Pfizer risk Sydni ter series)] Future Scheduled 2020-11-16 COVID-19 VACCINE (3 - Pfizer [facility] Test 00:00:00 risk series) [code = COVID-19 Medical VACCINE (3 - Pfizer risk Sydni ter series)] Future Scheduled 2020-11-16 COVID-19 VACCINE (3 - Pfizer [facility] Test 00:00:00 risk series) [code = COVID-19 Medical VACCINE (3 - Pfizer risk Sydni ter series)] Future Scheduled 2020-11-16 COVID-19 VACCINE (3 - Pfizer [facility] Test 00:00:00 risk series) [code = COVID-19 Medical VACCINE (3 - Pfizer risk Sydni ter series)] Future Scheduled 2020-11-16 COVID-19 VACCINE (3 - Pfizer [facility] Test 00:00:00 risk series) [code = COVID-19 Medical VACCINE (3 - Pfizer risk Sydni ter series)] Future Scheduled 2020-11-16 COVID-19 VACCINE (3 - Pfizer [facility] 00:00:00 risk series) [code = COVID-19 Medical VACCINE (3 - Pfizer risk Sydni ter series)] Future Scheduled 2020-11-16 COVID-19 VACCINE (3 - Pfizer [facility] 00:00:00 risk series) [code = COVID-19 Medical VACCINE (3 - Pfizer risk Sydni ter series)] Future Scheduled 2020-11-16 COVID-19 VACCINE (3 - Pfizer [facility] 00:00:00 risk series) [code = COVID-19 Medical VACCINE (3 - Pfizer risk Sydni ter series)] Future Scheduled 2020-11-16 COVID-19 VACCINE (3 - Pfizer [facility] 00:00:00 risk series) [code = COVID-19 Medical VACCINE (3 - Pfizer risk Sydni ter series)] Future Scheduled 2020-11-16 COVID-19 VACCINE (3 - Pfizer [facility] 00:00:00 risk series) [code = COVID-19 Medical VACCINE (3 - Pfizer risk Sydni ter series)] Future Scheduled 2020-11-16 COVID-19 VACCINE (3 - Pfizer [facility] 00:00:00 risk series) [code = COVID-19 Medical VACCINE (3 - Pfizer risk Sydni ter series)] Future Scheduled 2020-11-16 COVID-19 VACCINE (3 - Pfizer [facility] 00:00:00 risk series) [code = COVID-19 Medical VACCINE (3 - Pfizer risk Sydni ter series)] Future Scheduled 2020-11-16 COVID-19 VACCINE (3 - Pfizer [facility] 00:00:00 risk series) [code = COVID-19 Medical VACCINE (3 - Pfizer risk Sydni ter series)] Future Scheduled 2017 Abdominal aortic aneurysm [facility] 00:00:00 screening (procedure) [code = Medical [id number]] Center Future Scheduled 2017 PNEUMOCOCCAL 65+ YRS (1 - [facility] 00:00:00 PCV) [code = PNEUMOCOCCAL 65+ Medical YRS (1 - PCV)] Center Future Scheduled 2017 Abdominal aortic aneurysm [facility] 00:00:00 screening (procedure) [code = Medical [id number]] Center Future Scheduled 2017 Abdominal aortic aneurysm [facility] 00:00:00 screening (procedure) [code = Medical [id number]] Center Future Scheduled 2017 Abdominal aortic aneurysm [facility] 00:00:00 screening (procedure) [code = Medical [id number]] Center Future Scheduled 2017 Abdominal aortic aneurysm [facility] 00:00:00 screening (procedure) [code = Medical [id number]] Center Future Scheduled 2017 Abdominal aortic aneurysm [facility] 00:00:00 screening (procedure) [code = Medical [id number]] Center Future Scheduled 2017 Abdominal aortic aneurysm [facility] 00:00:00 screening (procedure) [code = Medical [id number]] Center Future Scheduled 2017 Abdominal aortic aneurysm [facility] 00:00:00 screening (procedure) [code = Medical [id number]] Center Future Scheduled 2002 SHINGLES VACCINES (1 of 2) [facility] 00:00:00 [code = SHINGLES VACCINES (1 Medical of 2)] Center Future Scheduled 2002 SHINGLES VACCINES (1 of 2) [facility] 00:00:00 [code = SHINGLES VACCINES (1 Medical of 2)] Center Future Scheduled 2002 SHINGLES VACCINES (1 of 2) [facility] 00:00:00 [code = SHINGLES VACCINES (1 Medical of 2)] Center Future Scheduled 2002 SHINGLES VACCINES (1 of 2) [facility] 00:00:00 [code = SHINGLES VACCINES (1 Medical of 2)] Center Future Scheduled 2002 SHINGLES VACCINES (1 of 2) [facility] 00:00:00 [code = SHINGLES VACCINES (1 Medical of 2)] Center Future Scheduled 2002 SHINGLES VACCINES (1 of 2) [facility] 00:00:00 [code = SHINGLES VACCINES (1 Medical of 2)] Center Future Scheduled 2002 SHINGLES VACCINES (1 of 2) [facility] 00:00:00 [code = SHINGLES VACCINES (1 Medical of 2)] Center Future Scheduled 2002 SHINGLES VACCINES (1 of 2) [facility] 00:00:00 [code = SHINGLES VACCINES (1 Medical of 2)] Center Future Scheduled 2002 SHINGLES VACCINES (1 of 2) [facility] 00:00:00 [code = SHINGLES VACCINES (1 Medical of 2)] Center Future Scheduled 2002 SHINGLES VACCINES (1 of 2) [facility] 00:00:00 [code = SHINGLES VACCINES (1 Medical of 2)] Center Future Scheduled 2002 SHINGLES VACCINES (1 of 2) [facility] 00:00:00 [code = SHINGLES VACCINES (1 Medical of 2)] Center Future Scheduled 2002 SHINGLES VACCINES (1 of 2) [facility] 00:00:00 [code = SHINGLES VACCINES (1 Medical of 2)] Center Future Scheduled 2002 SHINGLES VACCINES (1 of 2) [facility] 00:00:00 [code = SHINGLES VACCINES (1 Medical of 2)] Center Future Scheduled 2002 SHINGLES VACCINES (1 of 2) [facility] 00:00:00 [code = SHINGLES VACCINES (1 Medical of 2)] Center Future Scheduled 1971 DTAP/TDAP/TD VACCINES (1 - [facility] 00:00:00 Tdap) [code = DTAP/TDAP/TD M edical VACCINES (1 - Tdap)] Center Future Scheduled 1971 DTAP/TDAP/TD VACCINES (1 - [facility] 00:00:00 Tdap) [code = DTAP/TDAP/TD M edical VACCINES (1 - Tdap)] Center Future Scheduled 1971 DTAP/TDAP/TD VACCINES (1 - [facility] 00:00:00 Tdap) [code = DTAP/TDAP/TD M edical VACCINES (1 - Tdap)] Center Future Scheduled 1971 DTAP/TDAP/TD VACCINES (1 - [facility] 00:00:00 Tdap) [code = DTAP/TDAP/TD M edical VACCINES (1 - Tdap)] Center Future Scheduled 1971 DTAP/TDAP/TD VACCINES (1 - [facility] 00:00:00 Tdap) [code = DTAP/TDAP/TD M edical VACCINES (1 - Tdap)] Center Future Scheduled 1971 DTAP/TDAP/TD VACCINES (1 - [facility] 00:00:00 Tdap) [code = DTAP/TDAP/TD M edical VACCINES (1 - Tdap)] Center Future Scheduled 1971 DTAP/TDAP/TD VACCINES (1 - [facility] 00:00:00 Tdap) [code = DTAP/TDAP/TD M edical VACCINES (1 - Tdap)] Center Future Scheduled 1971 DTAP/TDAP/TD VACCINES (1 - [facility] 00:00:00 Tdap) [code = DTAP/TDAP/TD M edical VACCINES (1 - Tdap)] Center Future Scheduled 1971 DTAP/TDAP/TD VACCINES (1 - [facility] 00:00:00 Tdap) [code = DTAP/TDAP/TD M edical VACCINES (1 - Tdap)] Center Future Scheduled 1971 DTAP/TDAP/TD VACCINES (1 - [facility] 00:00:00 Tdap) [code = DTAP/TDAP/TD M edical VACCINES (1 - Tdap)] Center Future Scheduled 1971 DTAP/TDAP/TD VACCINES (1 - [facility] 00:00:00 Tdap) [code = DTAP/TDAP/TD M edical VACCINES (1 - Tdap)] Center Future Scheduled 1971 DTAP/TDAP/TD VACCINES (1 - [facility] 00:00:00 Tdap) [code = DTAP/TDAP/TD M edical VACCINES (1 - Tdap)] Center Future Scheduled 1971 DTAP/TDAP/TD VACCINES (1 - [facility] 00:00:00 Tdap) [code = DTAP/TDAP/TD M edical VACCINES (1 - Tdap)] Center Future Scheduled 1971 DTAP/TDAP/TD VACCINES (1 - [facility] 00:00:00 Tdap) [code = DTAP/TDAP/TD M edical VACCINES (1 - Tdap)] Center Future Scheduled 1970 HEPATITIS C SCREENING [code = [facility] 00:00:00 HEPATITIS C SCREENING] [facility] Future Scheduled 1970 HEPATITIS C SCREENING [code = [facility] 00:00:00 HEPATITIS C SCREENING] [facility] Future Scheduled 1970 HEPATITIS C SCREENING [code = [facility] 00:00:00 HEPATITIS C SCREENING] [facility] Future Scheduled 1970 HEPATITIS C SCREENING [code = [facility] 00:00:00 HEPATITIS C SCREENING] [facility] Future Scheduled 1970 HEPATITIS C SCREENING [code = [facility] 00:00:00 HEPATITIS C SCREENING] [facility] Future Scheduled 1970 HEPATITIS C SCREENING [code = [facility] 00:00:00 HEPATITIS C SCREENING] [facility] Future Scheduled 1970 HEPATITIS C SCREENING [code = [facility] 00:00:00 HEPATITIS C SCREENING] [facility] Future Scheduled 1970 HEPATITIS C SCREENING [code = [facility] 00:00:00 HEPATITIS C SCREENING] [facility] Future Scheduled 1970 HEPATITIS C SCREENING [code = [facility] 00:00:00 HEPATITIS C SCREENING] [facility] Future Scheduled 1970 HEPATITIS C SCREENING [code = [facility] 00:00:00 HEPATITIS C SCREENING] [facility] Future Scheduled 1970 HEPATITIS C SCREENING [code = [facility] 00:00:00 HEPATITIS C SCREENING] [facility] Future Scheduled 1970 HEPATITIS C SCREENING [code = [facility] 00:00:00 HEPATITIS C SCREENING] [facility] Future Scheduled 1970 HEPATITIS C SCREENING [code = [facility] 00:00:00 HEPATITIS C SCREENING] [facility] Future Scheduled 1970 HEPATITIS C SCREENING [code = [facility] 00:00:00 HEPATITIS C SCREENING] [facility] Future Scheduled [address] 00:00:00 and Screening (12+) [code = Medical [facility]ation [facility]ing Center and Screening (12+)] Future Scheduled [address] [facility] 00:00:00 and Screening (12+) [code = Medical Tobacco Cessation Counseling Center and Screening (12+)] Future Scheduled [address] [facility] 00:00:00 and Screening (12+) [code = Medical Tobacco Cessation Counseling Center and Screening (12+)] Future Scheduled [address] [facility] 00:00:00 and Screening (12+) [code = Medical Tobacco Cessation Counseling Center and Screening (12+)] Future Scheduled [address] [facility] 00:00:00 and Screening (12+) [code = Medical Tobacco Cessation Counseling Center and Screening (12+)] Future Scheduled [address] [facility] 00:00:00 and Screening (12+) [code = Medical Tobacco Cessation Counseling Center and Screening (12+)] Future Scheduled [address] [facility] 00:00:00 and Screening (12+) [code = Medical Tobacco Cessation Counseling Center and Screening (12+)] Future Scheduled [address] [facility] 00:00:00 and Screening (12+) [code = Medical [facility] Cessation Counseling Center and Screening (12+)] Future Scheduled [address] [facility] 00:00:00 and Screening (12+) [code = Medical Tobacco Cessation Counseling Center and Screening (12+)] Future Scheduled [address] [facility] 00:00:00 and Screening (12+) [code = Medical Tobacco Cessation Counseling Center and Screening (12+)] Future Scheduled [address] [facility] 00:00:00 and Screening (12+) [code = Medical Tobacco Cessation Counseling Center and Screening (12+)] Future Scheduled [address] [facility] 00:00:00 and Screening (12+) [code = Medical Tobacco Cessation Counseling Center and Screening (12+)] Future Scheduled [address] [facility] 00:00:00 and Screening (12+) [code = Medical Tobacco Cessation Counseling Center and Screening (12+)] Future Scheduled [address] [facility] 00:00:00 and Screening (12+) [code = Medical Tobacco Cessation Counseling Center and Screening (12+)] Future Scheduled 1958 PNEUMOCOCCAL 65+ YRS (1 - [facility] 00:00:00 PCV) [code = PNEUMOCOCCAL 65+ Medical YRS (1 - PCV)] Center Future Scheduled 1958 PNEUMOCOCCAL 65+ YRS (1 - [facility] 00:00:00 PCV) [code = PNEUMOCOCCAL 65+ Medical YRS (1 - PCV)] Center Future Scheduled 1958 PNEUMOCOCCAL 65+ YRS (1 - [facility] 00:00:00 PCV) [code = PNEUMOCOCCAL 65+ Medical YRS (1 - PCV)] Center Future Scheduled 1958 PNEUMOCOCCAL 65+ YRS (1 - [facility] 00:00:00 PCV) [code = PNEUMOCOCCAL 65+ Medical YRS (1 - PCV)] Center Future Scheduled 1958 PNEUMOCOCCAL 65+ YRS (1 - [facility] 00:00:00 PCV) [code = PNEUMOCOCCAL 65+ Medical YRS (1 - PCV)] Center Future Scheduled 1958 PNEUMOCOCCAL 65+ YRS (1 - [facility] 00:00:00 PCV) [code = PNEUMOCOCCAL 65+ Medical YRS (1 - PCV)] Center Future Scheduled 1958 PNEUMOCOCCAL 65+ YRS (1 - [facility] 00:00:00 PCV) [code = PNEUMOCOCCAL 65+ Medical YRS (1 - PCV)] Center Future Scheduled 1958 PNEUMOCOCCAL 65+ YRS (1 - [facility] 00:00:00 PCV) [code = PNEUMOCOCCAL 65+ Medical YRS (1 - PCV)] Center Future Scheduled 1958 PNEUMOCOCCAL 65+ YRS (1 - [facility] 00:00:00 PCV) [code = PNEUMOCOCCAL 65+ Medical YRS (1 - PCV)] Center Future Scheduled 1958 PNEUMOCOCCAL 65+ YRS (1 - [facility] 00:00:00 PCV) [code = PNEUMOCOCCAL 65+ Medical YRS (1 - PCV)] Center Future Scheduled 1958 PNEUMOCOCCAL 65+ YRS (1 - [facility] 00:00:00 PCV) [code = PNEUMOCOCCAL 65+ Medical YRS (1 - PCV)] Center Future Scheduled 1958 PNEUMOCOCCAL 65+ YRS (1 - [facility] 00:00:00 PCV) [code = PNEUMOCOCCAL 65+ Medical YRS (1 - PCV)] Center Future Scheduled 1958 PNEUMOCOCCAL 65+ YRS (1 - [facility] 00:00:00 PCV) [code = PNEUMOCOCCAL 65+ Medical YRS (1 - PCV)] Center Future Scheduled 1952 CT Colonography (combo) [code [facility] 00:00:00 = CT Colonography (combo)] [facility] Future Scheduled 1952 Screening for malignant [facility] 00:00:00 neoplasm of colon (procedure) Medical [code = [id number]] Center Future Scheduled 1952 Screening for malignant [facility] 00:00:00 neoplasm of colon (procedure) Medical [code = [id number]] Center Future Scheduled 1952 Screening for malignant [facility] 00:00:00 neoplasm of colon (procedure) Medical [code = [id number]] Center Future Scheduled 1952 Screening for malignant [facility] 00:00:00 neoplasm of colon (procedure) Medical [code = [id number]] Center Future Scheduled 1952 Sigmoidoscopy [code = [facility] S[facility]] [facility] Future Scheduled 1952 CT Colonography (combo) [code [facility] 00:00:00 = CT Colonography (combo)] [facility] Future Scheduled 1952 Screening for malignant [facility] 00:00:00 neoplasm of colon (procedure) Medical [code = [id number]] Center Future Scheduled 1952 Screening for malignant [facility] 00:00:00 neoplasm of colon (procedure) Medical [code = [id number]] Center Future Scheduled 1952 Screening for malignant [facility] 00:00:00 neoplasm of colon (procedure) Medical [code = [id number]] Center Future Scheduled 1952 Screening for malignant [facility] 00:00:00 neoplasm of colon (procedure) Medical [code = [id number]] Center Future Scheduled 1952 Sigmoidoscopy [code = [facility] S[facility]oidoscopy] [facility] Future Scheduled 1952 CT Colonography (combo) [code [facility] 00:00:00 = CT Colonography (combo)] [facility] Future Scheduled 1952 Screening for malignant [facility] 00:00:00 neoplasm of colon (procedure) Medical [code = [id number]] Center Future Scheduled 1952 Screening for malignant [facility] 00:00:00 neoplasm of colon (procedure) Medical [code = [id number]] [place] Future Scheduled 1952 Screening for malignant [facility] 00:00:00 neoplasm of colon (procedure) Medical [code = [id number]] [place] Future Scheduled 1952 Screening for malignant [facility] 00:00:00 neoplasm of colon (procedure) Medical [code = [id number]] [place] Future Scheduled 1952 Sigmoidoscopy [code = [facility] Sigmoidoscopy] [facility] Future Scheduled 1952 CT Colonography (combo) [code [facility] 00:00:00 = CT Colonography (combo)] [facility] Future Scheduled 1952 Screening for malignant [facility] 00:00:00 neoplasm of colon (procedure) Medical [code = [id number]] Center Future Scheduled 1952 Screening for malignant [facility] 00:00:00 neoplasm of colon (procedure) Medical [code = [id number]] Center Future Scheduled 1952 Screening for malignant [facility] 00:00:00 neoplasm of colon (procedure) Medical [code = [id number]] Center Future Scheduled 1952 Screening for malignant [facility] 00:00:00 neoplasm of colon (procedure) Medical [code = [id number]] Center Future Scheduled 1952 Sigmoidoscopy [code = [facility] Sigmoidoscopy] [facility] Future Scheduled 1952 CT Colonography (combo) [code [facility] 00:00:00 = CT Colonography (combo)] [facility] Future Scheduled 1952 CT Colonography (combo) [code [facility] 00:00:00 = CT Colonography (combo)] [facility] Future Scheduled 1952 Screening for malignant [facility] 00:00:00 neoplasm of colon (procedure) Medical [code = [id number]] Center Future Scheduled 1952 Screening for malignant [facility] 00:00:00 neoplasm of colon (procedure) Medical [code = [id number]] [place] Future Scheduled 1952 Screening for malignant [facility] 00:00:00 neoplasm of colon (procedure) Medical [code = [id number]] [place] Future Scheduled 1952 Screening for malignant [facility] 00:00:00 neoplasm of colon (procedure) Medical [code = [id number]] [place] Future Scheduled 1952 Sigmoidoscopy [code = [facility] Sigmoidoscopy] [facility] Future Scheduled 1952 CT Colonography (combo) [code [facility] 00:00:00 = CT Colonography (combo)] [facility] Future Scheduled 1952 Screening for malignant [facility] 00:00:00 neoplasm of colon (procedure) Medical [code = [id number]] [place] Future Scheduled 1952 Screening for malignant [facility] 00:00:00 neoplasm of colon (procedure) Medical [code = [id number]] Center Future Scheduled 1952 Screening for malignant [facility] 00:00:00 neoplasm of colon (procedure) Medical [code = [id number]] Center Future Scheduled 1952 Screening for malignant [facility] 00:00:00 neoplasm of colon (procedure) Medical [code = [id number]] Center Future Scheduled 1952 Sigmoidoscopy [code = [facility] S[facility]oidoscopy] [facility] Future Scheduled 1952 Screening for malignant [facility] 00:00:00 neoplasm of colon (procedure) Medical [code = [id number]] [place] Future Scheduled 1952 CT Colonography (combo) [code [facility] 00:00:00 = CT Colonography (combo)] [facility] Future Scheduled 1952 Screening for malignant [facility] 00:00:00 neoplasm of colon (procedure) Medical [code = [id number]] Center Future Scheduled 1952 Screening for malignant [facility] 00:00:00 neoplasm of colon (procedure) Medical [code = [id number]] Center Future Scheduled 1952 Screening for malignant [facility] 00:00:00 neoplasm of colon (procedure) Medical [code = 340546735] Center Future Scheduled 1952 Screening for malignant [facility] 00:00:00 neoplasm of colon (procedure) Medical [code = 973867035] Center Future Scheduled 1952 Sigmoidoscopy [code = [facility] S[facility]] [facility] Future Scheduled 1952 Screening for malignant [facility] 00:00:00 neoplasm of colon (procedure) Medical [code = [id number]] Center Future Scheduled 1952 CT Colonography (combo) [code [facility] 00:00:00 = CT Colonography (combo)] [facility] Future Scheduled 1952 Screening for malignant [facility] 00:00:00 neoplasm of colon (procedure) Medical [code = [id number]] Center Future Scheduled 1952 Screening for malignant [facility] 00:00:00 neoplasm of colon (procedure) Medical [code = 304060562] Center Future Scheduled 1952 Screening for malignant [facility] 00:00:00 neoplasm of colon (procedure) Medical [code = [id number]] Center Future Scheduled 1952 Screening for malignant [facility] 00:00:00 neoplasm of colon (procedure) Medical [code = [id number]] Center Future Scheduled 1952 Sigmoidoscopy [code = [facility] S[facility]oidoscopy] [facility] Future Scheduled 1952 CT Colonography (combo) [code [facility] 00:00:00 = CT Colonography (combo)] [facility] Future Scheduled 1952 Screening for malignant [facility] 00:00:00 neoplasm of colon (procedure) Medical [code = [id number]] Center Future Scheduled 1952 Screening for malignant [facility] 00:00:00 neoplasm of colon (procedure) Medical [code = 897644274] Center Future Scheduled 1952 Screening for malignant [facility] 00:00:00 neoplasm of colon (procedure) Medical [code = [id number]] [place] Future Scheduled 1952 Screening for malignant [facility] 00:00:00 neoplasm of colon (procedure) Medical [code = 706592290] [place] Future Scheduled 1952 Sigmoidoscopy [code = [facility] 00:[facility] Sigmoidoscopy] [facility] Future Scheduled 1952 Screening for malignant [facility] 00:00:00 neoplasm of colon (procedure) Medical [code = [id number]] Center Future Scheduled 1952 CT Colonography (combo) [code [facility] 00:00:00 = CT Colonography (combo)] [facility] Future Scheduled 1952 Screening for malignant [facility] 00:00:00 neoplasm of colon (procedure) Medical [code = 786997062] [place] Future Scheduled 1952 Screening for malignant [facility] 00:00:00 neoplasm of colon (procedure) Medical [code = [id number]] Center Future Scheduled 1952 Screening for malignant [facility] 00:00:00 neoplasm of colon (procedure) Medical [code = 346647861] [place] Future Scheduled 1952 Screening for malignant [facility] 00:00:00 neoplasm of colon (procedure) Medical [code = [id number]] [place] Future Scheduled 1952 Sigmoidoscopy [code = [facility] 00:[facility] Sigmoidoscopy] [facility] Future Scheduled 1952 CT Colonography (combo) [code [facility] 00:00:00 = CT Colonography (combo)] [facility] Future Scheduled 1952 Screening for malignant [facility] 00:00:00 neoplasm of colon (procedure) Medical [code = [id number]] [place] Future Scheduled 1952 Screening for malignant [facility] 00:00:00 neoplasm of colon (procedure) Medical [code = [id number]] [place] Future Scheduled 1952 Screening for malignant [facility] 00:00:00 neoplasm of colon (procedure) Medical [code = [id number]] [place] Future Scheduled 1952 Screening for malignant [facility] 00:00:00 neoplasm of colon (procedure) Medical [code = [id number]] [place] Future Scheduled 1952 Sigmoidoscopy [code = [facility] 00:[facility] Sigmoidoscopy] [facility] Future Scheduled 1952 Screening for malignant [facility] 00:00:00 neoplasm of colon (procedure) Medical [code = [id number]] [place] Future Scheduled 1952 CT Colonography (combo) [code [facility] 00:00:00 = CT Colonography (combo)] [facility] Future Scheduled 1952 Screening for malignant [facility] 00:00:00 neoplasm of colon (procedure) Medical [code = [id number]] [place] Future Scheduled 1952 Screening for malignant [facility] 00:00:00 neoplasm of colon (procedure) Medical [code = 477837144] [place] Future Scheduled 1952 Screening for malignant [facility] 00:00:00 neoplasm of colon (procedure) Medical [code = [id number]] [place] Future Scheduled 1952 Screening for malignant [facility] 00:00:00 neoplasm of colon (procedure) Medical [code = 798476511] [place] Future Scheduled 1952 Sigmoidoscopy [code = [facility] 00:[facility] Sigmoidoscopy] [facility] Future Scheduled 1952 CT Colonography (combo) [code [facility] 00:00:00 = CT Colonography (combo)] [facility] Future Scheduled 1952 Screening for malignant [facility] 00:00:00 neoplasm of colon (procedure) Medical [code = [id number]] Center Future Scheduled 1952 Screening for malignant [facility] 00:00:00 neoplasm of colon (procedure) Medical [code = [id number]] Center Future Scheduled 1952 Screening for malignant [facility] 00:00:00 neoplasm of colon (procedure) Medical [code = 710452102] Center Future Scheduled 1952 Screening for malignant [facility] 00:00:00 neoplasm of colon (procedure) Medical [code = 555136845] [place] Future Scheduled 1952 Sigmoidoscopy [code = [facility] 00:[facility] Sigmoidoscopy] [facility] Future Scheduled 1952 Sigmoidoscopy [code = [facility] 00:[facility] Sigmoidoscopy] [facility] Future 2022-12-19 Lul Fortune MD, [address] [facility] Appointment 09:00:00 [place]; Cecilio [address]B, [address] Future 2022-12-19 Lul Fortune MD, [address] [facility] Appointment 09:00:00 [place]; Cecilio 8B, [address] Future 2022-12-19 Lul Fortune MD, [address] [facility] Appointment 09:00:00 [place]; Cecilio 8B, [address] Future 2022-12-19 Lul Fortune MD, [address] [facility] Appointment 09:00:00 Melanie; Cecilio 8B, [address] Future 2022-12-12 Lul Fortune MD, [address] [facility] Appointment 10:30:00 [place]; Cecilio 8B, [address] Future 2022-12-12 Lul Fortune MD, [address] [facility] Appointment 10:30:00 [place]; Cecilio 8B, [address] Future 2022-12-12 Lul Fortune MD, [address] [facility] Appointment 10:30:00 Melanie; Cecilio 8B, [address] Future 2022-12-12 Lul Fortune MD, [address] [facility] Appointment 10:30:00 Melanie; Cecilio 8B, [address] Future 2022-11-24 Florian Sherwood MD, [address] [facility] Appointment 07:00:00 [place]; Cecilio 7B, [address] Future 2022-12-19 Lul Fortune MD, [address] [facility] Appointment 09:00:00 [place]; Cecilio 8B, [address] Future 2022-12-19 Lul Fortune MD, [address] [facility] Appointment 09:00:00 [place]; Cecilio 8B, [address] Future 2022-12-19 Lul Fortune MD, [address] [facility] Appointment 09:00:00 [place]; Cecilio 8B, [address] Future 2022-12-19 Lul Fortune MD, [address] [facility] Appointment 09:00:00 [place]; Cecilio 8B, [address] Future 2022-12-12 Lul Fortune MD, [address] [facility] Appointment 10:30:00 [place]; Cecilio 8B, [address] Future 2022-12-12 Lul Fortune MD, [address] [facility] Appointment 10:30:00 [place]; Cecilio 8B, [address] Future 2022-12-12 Lul Fortune MD, [address] [facility] Appointment 10:30:00 [place]; Cecilio 8B, [address] Future 2022-12-12 Lul Fortune MD, [address] [facility] Appointment 10:30:00 [place]; Cecilio 8B, [address] Procedure 2022-12-[address] [facility] 09:00:00 CHOLANGIOPANCREATOGRAPHY Med ical (ENDOSCOPIC RETROGRADE Cente r CHOLANGIOPANCREATOGRAPHY) Procedure 2022-12-12 ESOPHAGOGASTRODUODENOSCOPY, [facility] 10:30:00 WITH ENDOSCOPIC [facility] Encounters Start End Encounter Admission Attending Care Care Encounter Source Date/Time Date/Time Type Type Clinicians Facility Department ID 2022-11-07 [facility] [id number] [facility] 14:30:06 [facility]22-[facility]07 [facility] Surgery [id number] [facility] 14:28:01 [facility] 2022-12-19 2022-12-19 Outpatient MELANIE FORTUNE [facility] [id number] [facility] 00:00:00 00:00:00 LUL anderson of Medicin e 2022-11-24 2022-11-24 Outpatient SHANTI SAMANIEGO [facility] [id number] SLE 00:00:00 00:00:00 FLORIAN 2022-11-22 2022-11-22 Outpatient SHANTI SAMANIEGO [facility] [id number] [facility] 00:00:00 00:00:00 FLORIAN 2022-11-14 2022-11-14 Office MELANIE LARSEN 1.2.840.114 [id number] [facility] 09:59:38 16:35:45 Visit MICHAEL AMBULATOR 350.1.13.21 College Y 0.2.7.2.686 of [id number] Medi arian 335 e 2022-11-10 2022-11-10 Outside Kaela [facility] [id number] 00:[facility]:00 00:00:00 Orders [facility] 2022-11-10 2022-11-10 Outside Kaela [facility] [id number] 00:00:00 00:00:00 Orders [facility] 2022-11-09 2022-11-09 [facility] [id number] [facility] 10:58:41 14:02:09 NINOSKA jhaveri of Medicin e 2022-11-09 2022-11-09 Office HUY Padron 1.2.840.114 [id number] [facility] 11:10:00 12:39:12 Visit Jaron AMBULATOR 350.1.13.21 College P Y 0.2.7.2.686 of [id number] Medi arian 300 e 2022-11-09 2022-11-[address] [facility] 1.2.840.114 [id number] [facility] 09:00:00 11:58:13 Visit Florian Sandoval 350.1.13.21 C ollege 0.2.7.2.686 of [id number] Medi arian 504 e 2022-11-09 2022-11-09 Office [facility] 1.2.840.114 [id number] [facility] 08:36:06 11:56:56 Visit OMER Lori 350.1.13.21 Co llege 0.2.7.2.686 of [id number] [facility] arian 580 e 2022-11-06 2022-11-06 Office MELANIE FORTUNE 1.2.840.[id number] [place] [address] 14:33:33 17:36:41 Visit SALMAAN AMBULATOR 350.1.13.21 College Y 0.2.7.2.686 of [id number] [facility] 325 e 2022-10-27 2022-11-02 [facility] Ericka Dickey [facility] [id number] 12:23:00 17:55:00 [facility]22-10-27 2022-11-02 Hospital Ericka Dickey Rosa [facility] [id number] 12:23:00 17:55:00 [facility] 2022-10-27 2022-11-02 Inpatient ER [facility] SLE Emergency 20 [id number] SLE 12:23:00 17:55:00 2022-10-28 2022-10-28 Travel [facility] [id number] [facility] 00:[facility] 00:00:00 [facility] 2022-10-28 2022-10-28 Travel [facility] [id number] [facility] 00:[facility]00 00:00:00 [facility] 2022-10-27 2022-10-27 Travel [facility] [id number] [facility] 00:[facility] 00:00:00 [facility] 2022-10-27 2022-10-27 Gladis Sherwood [facility] [id number] 00:00:00 00:00:00 ben [facility] 2022-10-27 2022-10-27 Travel [facility] [id number] [facility] 00:[facility]00 00:00:00 [facility] 2022-10-27 2022-10-[facility] [id number] 00:00:00 00:00:00 ion [facility] 2022-10-26 2022-10-26 Outpatient KAELA MELANIE [facility] [id number] [facility] 10:05:54 12:55:04 FLORIAN hampton Medicin e 2022-10-15 2022-10-20 [facility] [id number] 20:35:00 14:50:00 Encounter Fragoso [facility] 2022-10-15 2022-10-20 [facility] [id number] 20:35:00 14:50:00 Encounter Fr[facility]oso, [facility] 2022-10-15 2022-10-20 Inpatient ER [facility] 5 [id number] [facility] 20:35:00 14:50:00 [facility] 2022-10-19 2022-10-19 Outpatient ORQUIDEA LONG [id number] [facility] 00:00:00 00:00:00 GAGAN singletary 2022-10-17 2022-10-17 Anesthesia Chandler Valentin [facility] [id number] 13:16:00 15:08:00 Event Jase Kaylee [facility] 2022-10-17 2022-10-17 Anesthesia Homero Chandler [facility] [id number] 13:16:00 15:08:00 Event Jase Kaylee [facility] 2022-10-17 2022-10-17 Surgery Virtual, [facility] [id number] 10:00:00 12:00:00 [facility] 2022-10-17 2022-10-17 Surgery Virtual, [facility] [id number] [facility] 10:00:00 12:00:00 [facility] 2022-10-16 2022-10-16 Outpatient ISRAELAshli ORQUIDEA GARVEY [id number] [facility] 00:00:00 00:00:00 GAGAN Seybol d 2022-10-16 2022-10-16 Travel [facility] [id number] [facility] 00:00:00 00:00:00 [facility] 2022-10-16 2022-10-16 Travel [facility] [id number] [facility] 00:00:00 00:00:00 [facility] 2022-05-30 2022-05-30 Outpatient ISRAELAshli ORQUIDEA GARVEY [id number] [facility] 11:00:00 11:00:00 GAGAN Seybol d 2022-04-11 2022-04-11 Outpatient RODRÍGUEZORQUIDEA [id number] [facility] 09:00:00 09:00:00 COLE renae 2021-10-28 2021-10-28 Outpatient ORQUIDEA VILLEGAS [id number] [facility] 08:00:00 08:00:00 JEANNINE Seybol d 2021-10-21 2021-10-21 Office Obie Villegas 1.2.840.114 [id number] [facility] 10:15:00 10:45:00 Visit Jeannine Coreas 350.1.13.13 Se ybold Somogyi 1.2.7.2.686 [id number] 2021-10-11 2021-10-11 Outpatient LAB47 ORQUIDEA GARVEY [id number] [facility] 10:30:00 10:30:00 Seybol d 2021-10-11 2021-10-11 Office LUIS Rodríguez 1.2.840.114 [id number] [facility] 10:00:00 10:15:00 Visit Cole Bai 350.1.13.13 Seybold 1.2.7.2.686 [id number] 2021-09-29 2021-09-29 Office Obie Villegas 1.2.840.114 [id number] [facility] 10:30:00 10:45:00 Visit Jeannine Coreas 350.1.13.13 Se ybold Somogyi 1.2.7.2.686 [id number] 2021-09-26 2021-09-26 Outpatient ORQUIDEA VILLEGAS [id number] [facility] 13:30:00 13:30:00 JEANNINE Seybol d 2021-09-26 2021-09-26 Outpatient ORQUIDEA VILLEGAS [id number] [facility] 00:00:00 00:00:00 JEANNINE Seybol d 2021-09-23 2021-09-23 Outpatient ORQUIDEA VILLEGAS [id number] [facility] 16:00:00 16:00:00 JEANNINE Seybol d 2021-09-23 2021-09-23 Outpatient ORQUIDEA VILLEGAS [id number] [facility] 00:00:00 00:00:00 JEANNINE Seybol d 2021-07-08 2021-07-08 Outpatient ORQUIDEA RODRÍGUEZ [id number] [facility] 00:00:00 00:00:00 COLE Seybo ld 2021-04-11 2021-04-11 Outpatient ORQUIDEA RODRÍGUEZ [id number] [facility] 00:00:00 00:00:00 COLE Seybo ld 2021-04-05 2021-04-05 Outpatient [facility] ORQUIDEA GARVEY [id number] [facility] 10:55:00 10:55:00 Seybol d 2021-04-05 2021-04-05 Outpatient ORQUIDEA GARVEY [id number] [facility] 10:35:00 10:35:00 Seybol d 2021-04-05 2021-04-05 Outpatient ORQUIDEA GARVEY [id number] [facility] 10:30:00 10:30:00 Seybol d 2021-04-05 2021-04-05 Outpatient ORQUIDEA GARVEY [id number] [facility] 10:25:00 10:25:00 Seybol d 2021-04-05 2021-04-05 Outpatient ORQUIDEA RODRÍGUEZ [id number] [facility] 10:00:00 10:00:00 COLE Seybo ld 2021-03-28 2021-03-28 Outpatient ORQUIDEA VILLEGAS [id number] [facility] 00:00:00 00:00:00 JEANNINE Seybol d 2021-03-25 2021-03-25 Outpatient ORQUIDEA VILLEGAS [id number] [facility] 00:00:00 00:00:00 JEANNINE Donaldol hayder 2020-10-19 2020-10-19 Outpatient [facility] [id number] SLE 00:00:00 00:00:00 2020-09-29 2020-09-29 Outpatient [facility] [id number] SLE 00:00:00 00:00:00 Results Test Description Test Time Test Comments Results Result Comments Source Tissue Exam 2022-11-02 21:30:35 Test Item Value Reference Range Interpretation Comme nts Case Report (test code = 104) Surgical Pathology Report Case: [id number] Authorizing Provider: Keiry Fragoso DO Collected: 10/17/2022 02:35 PM Ordering Location: [address] Received: 10/17/2022 03:45 PM Service Pathologist: Karolina Lau MD Specimen: Biopsy, Liver ADDENDUM (test code = 3381) w2qynFTgHDTkmBJ5FhPdVMKwe2sxd9JwuXEybFY iZJptnPFqpoPzgq80lKH6xN89DB7dSRJkEzA2FH QsjrW5Cyy0NFXhOHUaqMIiE029e9hnp3wbtaXmk PL8bClsHKUrtgjaKrB3VBmjSQZxjtgyXTi4XWhj NGTdgQY6SSVymBLzR9DvWHLrSR8byng2HJS9KYa fPQIyAgO7OYYirQJhSAYkyGriPVvnt747NHL3Wo TcRGTnmfYlrLeciI3cKqOdMYIPzLGfkVAbz6GaF 9WnoFMwKEHtKHBiNyD3h8XutNZtpCMpYKQyVIPi s8s0zXVqIWBjctIZDUOTCsAqTRPouNDlpPpjuU0 amLVyzsNyhT4uXZCnWX0bKVZyoZ4jJGN3FAtsQ1 RkQ2MgFQGruuFoa6ojynAwr8RzWU1zXI99Y0iuR BVeIDG8DDpqwC1vQYEubhBESSHTGJMoIJM6JHxp dADqhfS8ReDze5WfrVDmJ7SxHDDwSfZzFMXcu6J jcqDxfs1gTAneDKZTk5xolbTjRSAoIWDeRmLSUF 6oioSimSpsXFLpXS1eK2LjY4rqr30sMFMnr7qdS 4PCFlNuk0LguDx3zUQ4CNCyXPQ+QtFwCR9lNPHn mI8yJQAmvlCtwsKjwG40LQgws7Ven2MioeYmtSA xvrUNOHDXHR2hSPGzinstSSYhUFtfoTqvyTJ1dG tbRLHbsp1aTJMfsF3vBGX0UApxfTMxnLRkiRYnp RCxl8QyBCOplCInrZGjsCBeXrskDVOdjtSsYQC9 ym8veOqiGDD3NQ7nqMKuUBFwN0asX0WiZV6ivCB uLFYamKLqzWRuNA1eV6eakjrtQRhbI62mckPoPC Ijv80ck0g9dNQcuTIydG7hUPhyGZPmM65msVDqN UChCRsoSLZlcTPgEFq3XxKdhTCcgXSbSBWrzyXH fD99xk8rpCRfucEaNPEnMZSyttMrce0jDAT9fQV iICVyfPRxzLVpIOUiGIBocdEpd4rqDTQ7JXZmo4 GkwKaoIA0hSVmefCAwvFBxlRVcDOW1JBIKHH8IE HBhciAgICAgIFxwYXJccGFyZFxwYXJccGFyXHBh cn0= DIAGNOSIS (test code = 3220) o7lifVFyGVNok4miLKOyhBVxPuUvXcHzJcZsWk p cdWMxIHtccnRmMVxlcGljOTYwMlxhbnNpXHNwbH BuU6SiviytHYljVT3dKF0gsIccfRKmhZIiUSBnC aRhp8jjj281uRFuv2okHMGVwesmhBf1uPvtM77j j2C2LfprC82yuABhFGW6XZFoZDYjbUOhPRYbTLU 4AQVjjKTdO8yyEECoXK1xfuhfSMgvNGgnBAOhsS W6NASncNQdX6YoXSAjSWylQBKgznv9UnUaSo8tz GVyeTcyMFxwYXJkXHBsYWluXGZzMjAgTElWRVIs OH1UC5UoCQRVMuwMOAXRSF8OFFLHEKJBE7RTZZG VC1FUTWxkdP6oUN5VXQNjs1ItncGemb0uMCritJ 2hCUGmuYLyuSYziFGcMSAmuoTgFAKhIPbtAlB3u 8XhZ9LurXJdaF20HLN9zM6hzL0mJZ6iddTwyI7j dXilSUC9BBGstL5uxvjlYDQlXACdm84zGZ43EQm qIUU8a3stnAYdWPYqyWIwUVWzXLirqyBnMAXgXm kqogyvYFIrTEC2ujAiLVVwWWohXMKzZDgeFg3oq ERvuKnmHhWuYRGhn9fpfnGSiqjotAk2p9jlXUAt UzO3sNDiKWwiT2flmmNgzOSrNKRoBCs8nF44FIJ aaA9jrPDvVKjxciXzOxG1VPphQWPbSlX2WNDgpY QdOOOeW0kmIFYbLWvsIWHyLCcrqDBoZQM9tWsxt 1W3zZNyrUQiaYhoIlZwDfObQrUWs7GlSGy8rYkk G0PmIJOgYaL5eVXtENLcBKuaNQCoAGRkeiJ9cZ6 2NSpljrP2fWQgz6Ohx78to843mF4bdEHoFEO1GQ KuLGXnrSXiVELkEOG6SQIyoHPsY0uxEIJyWF3nl ejvNApxVPxjDPSpqTJ6BZCjhULnW9ObHIYbONck XFLurie8UlXcVs3cfUAdxEhqCDirf2imd1iiyTZ kAjl3EKFsVhXoKdhhEDari3Bnc4ydGHVapg5iZO G8zXCgwCvfi0K2uGDlVYQxgMGlJRRkUY7gwJKcT HLtiP6vgffxTMUlIvJbcbnlZPHjpFtfecItKf8f xUhdXMR9JAljF2gzlJ6oDqK9SXpnP6qdvQ2wWHp 6PGdcKPRilLD1pcU8AWOrjHCmJ5RuiN6qPIWuAJ 3ghjd1g9evBQT8VVtvTXMtBpM1yjX7RLZeuPJrK PEywDgcVIrhd904EHZ0XyDxSSGhe5SrE9SjbJqo G03rqAuhS26uMSLotTmcyD8frTjubS9bKsLsBuZ dXVuxlVjpWW5dDUWaZ2tnaKXhJAOyRYLtS5cjFt JbdM3wgBydBBdqeyCgXIZtDdf1GHZeiYCdHLSjI vc6ONTfBWIoF61rxlkxGLM1gF4ux2ecd1PmNXol PAC0XLEvv61fBFnrbgL9ALreUl93JGsnKTU3VMl wLMG7aI== COMMENT (test code = 3359) a2wksAVyQGCfwUS9QsXdGMXvo2swy5XkjTKkiAB kSUgacXMzzfPahg40sDT6pL22MW1xNDTpGkS9MX AvsbS9Bjh9YMLnGSSjtAUdI685f5ntq9jyqbJbb PI6kGqeHUGguqvkHzM1LCynBEEuthugWEx3WGxb ZNFctNG4KJBucETtP9DbEVMoAL8ygem9TUR3FIq oRHFhYfY0BDEkfVBjWDTbjSpoUVfcp279VYO9Ho YaAWEcqhGezKepcZ4nGpZfWUQqNG4fhCveUDmcI YuoAKNiNS8uQUTdSTtjMYrjwNffR2Tbj3mju9qq OzDzpPjxldCfbwVwZuUiYT3lniTkzBvgZZoaWBL rPEvorMHksXJsXFMfRaJoaaFpAZc1wmVvXAFidM ppMRC9R6BtkTYobWsddIJ5tT8nVXdqeLjitAWci HaxaGJogXj3PVDsoNYaoY8hLOCrmkLjos0mFZQe HiNnHL3cmnLghNtxLOOaaiTiktJ1aEPxIUudmsB tZQ3unRHumHQyyCMhLVztTXKtgHWiGPQUkHulGL Bch2WddVVlnD91qiEaxdAkr3i1HGCjLDLsb2Drk qZshm7fDSCaa0RivkG4XTa3JKKrHzDeztKayVig lAKdCVigeZmoFPizAaRsOGBsz3BtbQn2uMH1AOA wvvVPLjSiQHDhQVJMEvI3HZYtSFNACTimWGIuQO RvCJatxIu3BTFpy8JkR0v1EcTlSIwxf0VhaR8jw G0roCwcfY8jzJHcsHFrtWEfIGZ1IWCcGCjwKA4r eoEtr1BoP3MbjCj7YODoHjEbv3qjcvHQXUZmahn vGIQ0RMhvs4T5XVIsJZGdDK5vYCNuxsGbQEZ5hT PiRGYuoj7yMTVtGW1hWcMaroCoRNWyxqHxOn7dW JOWIbVeypGrZiCvNF8tTPPnBSQsOP3aecLbrTfd NQR9B7HbbKMzZXMxvT3fsORqB4GrRQLoGPQpr6i 6bJCfWRBlbzFLWmGaBxWhF17opcTdQDHoz59ye2 l3yIW5bVYxbS4nN5kqPxYofAMgiAWyXOO3rLNvr eOhsmIjlN31YUMyQP5yt7Gqw9Y8ZAOxOCCiFjxg kCZ2OUNph36qeLiwZM3coT1lxCJcK0ViONLnAdX uJSFuSSOfeyBgq54pPXXzx25rEJviLCW5K6uiz8 CgOBhhYn1aOTAvrSUnONOtCRDnb1Ptv18lenEdx GFyfQ== CPT Code(s) (test code = 3357) y2kbqBWtLNWzsWH2WdXnYEKhg1oyn4SvqFBt cGF oXWsqyZItrcLmwk61cCA9sM45EO6hIDNiWkQ4OV KatgB4Jmt2MXWzEDTihXAwE291u5jzq3knrjGaa QB6jTrgJGDsplifOpJ4ZHxbWTMerfjxCWu8KPru UCIboVN9RIWgaPXwV0UhGOOcRU5jpcl4APF9FZy lYVUhAiO7DPCtgDFaKUBzjXaaXMjwk575DGD4Tz ZgGFBxgdZofGiftR8pKtUcBZX5TTDdYiO7IOLxz UWfXNk5HkCpaLIorJBgCOh9CgMccTYgbMEdcM== GROSS DESCRIPTION (test code = g3pozMKmNEOitVUHGDDqQ1yjbkYiVFUbvBXq Z3B [id number]) ljpttPToyNZ7lRH6txLvmgXUghCAxHU0SBOEjUk RlQQAbzGSrofPrDiWfJXYnjGOonKR7NNHkNT0pt vlpRHsuWQclSRZllrA6FQIlpWElQ6KyOYFcEA5l llqfBWM3DBfqxW9yawJQHrstQw2vkSPgcBurRpT pZcAwLXSyXQRlUANvgWxxKWQlHPh8nR9OFbsaI8 5by5Y0Xvc7KAKgQCTmM6CiTY2tWHMtnMIkP72LF cweFPU7EVOVDcllKNQjPX1Kz0tiUCBonGLtCHH3 BMfvoGDtCODmOYUtRNr0ZJCdJEnwkNOvFR2xqFi qQvvytCcoy3YcjEOuRAdxYVHjRFHjPKqfNWCvPK 7NWtOaIDjqABFyURNaQBm2NXz0ZT5HIjBrYKVtA oW9BPZwPFQtEQs5LHzsIO6YHUW9NPA4AOKkZNL7 NTAxOSBcXHQgMiBcXGYgQXJpYWwgXFxmbCBcXG5 pjWbeqOOcmkUTCjTAmK5zy0ysALkjhrNtWfbqMP PfWFtyAUXvM49lg6UMz1VzPY9ICPs4kxLevbbpc Y0yPDNwcdSeUMxvoRXmO0foE0GzVCWkIfQoHeJp XTd5NXGqsK4kMa3bvPTltB1neUGeJEkyVID1lCG qIWHbUALmVVZsPV59XPcKHDIejcAvEJuikQQvgT NhbCByZWNvcmQgbnVtYmVyIGFuZCBcdTgyMjAgX Uv6N5knnwUyWMIDJgUbxcNvwVFkyKtlfIUpnCKi GNVcdgqdE9foiZ9slnugPEvdaEltn9XxJKMvcrS tKHAwwokiyqvrJrCuvUAjFcYlWU47RRMhNIqdPV mwbip6oUBhhxWfPA5uWYEjTEwyHFQxBH8ddDSpE lHnCTcxRQMdNUIakSIfMVnlJOT6Wa4hbIKxRXJx utN7n8MsVEbrPDHtHxucGRRrIOdsuDFySW3JN5E 6jHRzzY3qYY9zpiJvDYptSDYbT6R2IOEesMkgWT RmUEitoJMlJH2IBOTuXCebdfKwZN7CSQRdGXihD HCtmERTYIC1VX0yBRormTFsrcnlEFGuX6AyT5Ac wxFirKEvBUHaxsEbj0srMMT3XYZqhYGorSGiDxS eRrsyOUT0FMekr2gaWRC2WPIigPGvnVQfJRqmEm WpDcxnBGYrK0OtW2RvdzM6YEt3 MICROSCOPIC DESCRIPTION (test code = e0flzGYgMNWpwBQ6RkZkJAYux7kos5 BsdHBncGF [facility]) nMPuqtVFiovQwmd89pKB4uA39UP0kLHGrFqM5OD BgnmU9Sht2RDDhZDXrmIAeE037b6rys8rfoaUkj HZ4bGqfAJMchaivRmK4FKrbWLTqrjayWOt4GToo MUGrcWT9KOXcqRFjV1FzXUCuUD1hykv2ELW4QTc wTOZbJbB0FRXhsNPnIYPddXnqHEwxg345FBZ7Mj WxFRVpsrHgzBdbiO8cGeHaERRGeNWmwUk2POHmV 84iXNDoNEOcTWZpkCexXJx5VD6dK4UebVLgUKB4 KOnrflLnyDPoLHUuHH4tK9MlS5jjg97yPK5iDXQ tFOVceZymVNqjOdYyWJ61qTE8OUQbb0w2aBMdle KuwcIbDwAtknYcIZUxbTp9cOGmVX78Z5rbQVWeK VLQJHYro1Uxgx1nTPTiCK57VGwdfhPrZNVczdFr X6c1pVGerh30URLflI0swQevHSLeA8okqv66bsD rKVTqrlvxZCZgSHsjQLY5xT9qHFNoiTknSAKpTP MwrIQlbZAjnZuqaX0rqEKnsaWwGo9eMRJzGaVfY V8dOMTAGLtfRZ1gTSNfgnTcA0JjwXOgqH9vrIDs qhGyOYRjgtMECrddEIKIhJSfOARibfBlv2UsqqV 0GBOnGPAuxQrxnlVpeQYjzfNapRWqdowwPmShs2 CkW6GNLfngu0SknvZegSTqgLMmq7C9hJ0bNACiP KXqUp46WHEanPDrhz6xdDBecROkpH== SPECIAL STUDIES (test code = 3376) q2gloPEiNLVtw6eaIKNffOQdRhUfMmFj ZnRuYmp mdZFfXIpxmyYkRPtvv0CeS7BaJjMoVCiimzCuVF KtJuznxkgwWWMzWOZ1wpDjBGVqWUzrMVWgHEjmR v0mgIZcdXvdQhTgMVSqy6mhvdFAqhcyyYn2u7ef RYMkQnP8wGSrFIrrH0otpfKlxMGhD9ZelHNzpOu 9b3rdUbNbAgL8iNUsRPfaG6tcshHvzPMzIBIgTM a1tD19QZIrgF8zaESoLAhsgtLmKoP5KVinEHEjT wV4WHAxjEMuEBKpR3mhPAQwXPjhBMPfBDpoyYNc PKI5pAotw2K2bGBniNOyyBvbQmQaEuPoIgVLv6K wLHg9tScuX4ZkUFOmAqM4uYKdPGHlYEelGPBsVW NckzW4nBxyxxLgu81ueDIgDZXqSIOlYqMarKbaP YGmVVCMm6XcwPxgXBE1pOb5rOcgUagvCPA0Vlq9 ER8obm54aqg7eSzwLPUmfhcuIyR2PGwyUNYrncj qLSt4HFwcMKCufXX2WVQqgYLeF8EiWPMdYE3nsw i0VNW6LVthYGVoNqW3HDPfyRJeLRIouBdaAOkmn 940VPU4AvPhIC1bO6Tmo6H1oP6hwCQxSZVlgCGb CeSpQEEfuz8jeLUhMQdsr4FbQDD3ilY9wXZidJP gODSfHO10Bhdcm2KhRlfpq9HbZ47xqBR8ZYqbm4 ihNK2qUmX4maSdBWfgk0ygxC1cLsZ6QEttQT4tW M5sEYSuaU2kurxnKNMvOkBnnxhwSAIhvIwkkbWw Ap0sqFemJSB4CVglZ0glaF1wGbL8FQijX2djuO7 tYMy1TMlpgFP4EKJtlA1lPT3lwlzub2hzFLczVY kaDZGgqpX5dmR9ADGjgDSbK9PigH1hJHIaXL1hf yvfq7guHTS5EJvsWUHiJIX2FbMxIQQvi1Rkkia3 WaZkj7IekCJiNYoxG16cv674JTKbvmFoX7acsVY hdpfpqUYtarwfWNunimY6WOUyLLQgNDxcIPXtEQ ZzMjJcbGFuZzEwMzNcaGljaFxmMVxkYmNoXGYxX OyhH8taEzRoR1ByDOEjPpRoGFmaOHidkWGdwKBs lKA1dL9jKT5dGCTipRQoF3WnPTEysdHblIPoEQX 6vCRnjJAtDL7oAYrbqAUul0rvd5XqC8sggXijhI Q2CV2zMULrYDAhZPzfl6UurR9bFqthxLGdrqrdE OagotToFUncykknKCZeIYcpY7vwPoCgZAUunNjv IMwnx3JpYSBjJJVvUabnvaHpGSq4siFuKCCtyfv zUZQodGtjpT4hZwIdOyYtQubdDL4cEDXnH4rrwG YkUTUtPLFcE2xoRtBdiN1dlMuuGTspLaCrMgFjB mWVj699il7eEPXmyAHmejRNcIQfdT1tRKlyWEls LMyjfTCcERebp5peEWPdd3l6yUBvGHCvrhMhn4y xTCspggKiBEYyeSGmoDAqYQKpa79hJRbmuDeteF goDQWwp7JmmRzkn6IsLhPuPCcxw7UxX97wrOOpx QRipEzmETKgpeVfVQUtk10xg3esYIReAcX1vBRh hMF3fEZrwIPoa7BgkMctWKHse9nnLIPxay9vvwn xyXSei8GlaB6qekbmKWrwsRGlpuYcGDQjh8y0iY NhPJTeNDCgBFzmnRg3XCQui017xa5otdR3uGGhM IB9EVmbCMCvCEJjfdYsGWZbzOGbpOChNTTwYPte XGYxXGZzMjJcbGFuZzEwMzNcaGljaFxmMVxkYmN sYHXeJLdjW2euTqMaS0KvQXGySjRbpNZzQ8dezQ FyXHBsYWluXGYxXGZzMjJcbGFuZzEwMzNcaGlja EvuTKrnGcUuTFKlKGixK9mlZeCsF6TcMKLbRpFu XTnzlFXgitnzWYxjhdNwEFllrdktPJYcDEqfG9f cFqNaFNTpfOauEQmjh7BnKTJlYAYbYowjvzCuGY e3ouFsZRFjmmvavNGusgnxUGmkfdPyZQojwxyiK KHeYJeyD6keDwBfYAUayAjoQYsxl5RvSAOcRQUa PsmujvGsGWbpoBGbn0yvb5RtS7eexOsmsRA9XCL rR6vhoLSsbWS2UPY1dT5dGPbjelGfQTQdr4KgDF CqFCZeGuQ6gA0pHAR7QlPZhNxyYSHjLAujFTBtK GZzMjJcbGFuZzEwMzNcaGljaFxmMVxkYmNoXGYx XZzkP2ozSsGaO5HpPTJmXgIruCsgFQfnQHb5Ocr mxDNozcseMQunvoQkDBgscfwqYKAwOTutL0bhLf EpCKCikXkcRYmkv9QlIUTmHBMtXoyfljEuMLCwE FYyxQAheWZTUK39OYEePZKuvYugzT2exLYXYRVg udJ4a5P9HXyuCAAfETf9NHrnehZyWQGgxF5iXBM mTQ6xFAu6dqOjDAOoc1McBS9uWTEixKTnIUJ7DD Mhv9OyF2Dom8WjCMItJERfqc9myuAnPlNDrTNsA ZZaco60ZCKyJO6vM4tbGNKpMAZlynDtsTQya3Lg YFSfzSD6zTBbJO7EJfGCl51eASDcJPIEnrMrIQT wmLjnkXD9xmI2vY8qVnKMjGTcDfELORxuqxWkGJ Zeju0nqiUtJQSdGIBqm4QbiSJtaGKdiaZuM3Chy 7KfUNUfpc53BDcuhMHcib84WE1gE7Ces8ThjY8k WInsHRCoe9CmhLStmDIvGVXir1VwP7bnrgpwFNv gpEKixZ2rDBJsHNg0HIWhc2SyVCXug3YvOxBmis VpDNQnJYYeOTZxdL28VAW6rDyovQtwzgCfMM6zM DVivqDmRDVjUTWmhS5aSDqmmjZfTCVakrT0u3I5 IKooBJZwqqTmScpuHIJ9qjJkvgP4uHXsC9ebwne mBXflFIThu7QvuC0pjFAOeZWlo3SmyXBrzKJNdZ TuFC5vziYzDS0mEGU1YEbxSUJNSSAjWJupBCWjK HQ7CFigLytoZOW6veNhOPJiz3DbYGxlI6jhZ25c pMqymFx5gXPatRzbqWGhhQGsRTVygmC0k4B2AXV tc0SvonaoDCJcGRjlLKRvCCGqDyQrdBUcIfQxGq WplAgkkOhqLrsnUfBgCFVeRVaeF2ypDkTnGaOlS xeiZTN1gX== Gross assessment was performed at (test [facility] enter, code = 2777) Department of Pathology, [address] [place] [id number], Technical component was performed at [facility] er, (test code = 2778) Department of Pathology, [address] [place] [id number], Professional component was performed at [facility] enter, (test code = 2779) Department of Pathology, [address] [place] [id number], [id number] 21:30:35 Test Item Value Reference Range Interpretation Comments Case Report (test code Surgical Pathology = 104) Report Case: [id number] Authorizing Provider: Keiry Fragoso DO Collected: 10/17/2022 02:35 PM Ordering Location: [address] Received: 10/17/2022 03:45 PM Service Pathologist: Karolina Lau MD Specimen: Biopsy, Liver ADDENDUM (test code = [id number] 3381) Dwc4kag2YapUHexLEmNYfm xLPpufDrud64pIK3fT62XW 4lYUUtBaY9MUDtefC9Tcx4 EDBwLNJweMXnE335c1xdc9 uegpXuaKT0rJavMWUmybdw ZiR0HJedUSDvmxilPVi0JE glNEHewTY3ABWbkLReT3Ei PDJjCN1echg5CCH9WJwwLW HrHoS6EVVcuIExUCPtcTxo WIzpc218MER4QfQzPKSjnx EjjOuqeJ9nHrWsMYTByBDv lEKfi9CwO6RxwTGoIXPcBX MbJaD6x1StwOQfzYChRWQj TBRqz1t2tSQiFZHbuqVABQ TFRxTcGTEquJIgoOhjtG0b vNOclkZztG8pDJXwCT4jJR NcrZ8bIGZ4JIdnR8NlB6Sg KBXmymKhz1betbNzg9AxLT 8fZZ81Y8wnCREsPSR1IDwf uK5qMSWpmeWNAYVVWLVqQO V2UKrwaUXowaX7UcUdi5Tg bEQgF2XeSZTkOsAaELIjf7 HhfwSmjg7xUJsjUGWZz4ug qtYvFGTlAOKzRfKMTO4jdr KyzLnhSTHzQK0tR1CfI0ea x81gIQYov4oiP4GNTgRtj8 BbaCi9lII7EICnIZC+NzAl PS1cBMRlnU2lSFLlckBkpq XlrX69XGnmx9Ked5OznkFg xFQgodHDDXLUJG4pGGGwqo cpCABtQWkdhPvfyDX6bIdr AKYdue3fQRZurO1tUGG7RX gemGUzgJPlzGHfaXJaq8Ry ZXIgcHJpbWFyeSBlLmcuIF SljvAjJIY4gp7ppLujMMM2 KW6xcZNaGCZcZ0lbP1CuDI 2kcRByKNPkuYBlyEKjGS2w M6gqejnkAAteA61qnmQcZX Arz95ub9w0yPLxqEThqT4w PIguNRRnF71jzDExHJQiCA qlBVJozQRbXNb3KoMvtRBb oGNpKWMgusUXqE51yb8obK WwywMpKWToCFCsziSyyx2f ATD2aVXcMSEnhAUwyTSqUC YzLAIqcyVbo2hwKKL3SXBz i1YooBdcDL8fRPokvNAgfJ NhxWEuQJD8GRGFME7XFWOa ciAgICAgIFxwYXJccGFyZF xwYXJccGFyXHBhcn0= DIAGNOSIS (test code = r8uhnFQdMZOzf3diJJQudH 3220) FuZzEwMzNcZnRuYmpcdWMx IHtccnRmMVxlcGljOTYwMl ztaqGfLTPmpEWuE5Dibwzt HSkdNX4iOU6shDdokSSdvV RgVCBsVyXtl2fiv463tZSz h7dsADEApictgFl2aRbsY1 3xq4U5QacxQ37osFHrJMS4 TPKsSUTumNWqJWPxHHI2WE PzlMIkG3mySMCdNS0zcyim OFxeFVsfJMAhrOS0FYAzpU OgH2RnMGNxQLtzZNCmpwl7 BkQrHw5npJQtfOgiAVzsQC JkXHBsYWluXGZzMjAgTElW BWBiRZ5OY9DlNLXKLrgFTI ILUG2BXKPYFRCLL3OYTIPO R6KAXDagdZ9pLP5KYDRgm0 ZsybHuwh5kYQjnzV3bHMAs dGVseSBkaWZmZXJlbnRpYX TcYVtgXtY4y6VmD4GypTSo sG12XTJ7hD6ysZ0dVY3wvs JzbA8meVysEYI3QVXewM8l pbjgCZHuELXyv44cEL35BC wxCNU1e5kemVTkTCOvySZt ODAwMFxhbnNpXGRlZmxhbm fzCGYjQZP0cdTxGGQqIZmx CLCrBVbhLw5zeVEltNbmUx UyGIXjh5nifcPLdnvqaSm6 z0fyZFXyThN9fDPnBMyuJ2 osgrJkvZKjZOPvWOj0rP08 YFPzdM2ueDUgELurvjEjYv F3EEcqTNYmPiD3NVWnrSFj YSZnQ0ynKVNrSDguSCDoAA kwsONbPDP9oBxcx3U8iKKc aGVldHtcZjBcZnMyMiBOb3 HkDFv2fHfkI9XeWLAyGdI6 bHQgUGFyYWdyYXBoIEZvbn U1pP52UWouhcD8uRXdx7Vj v52kk269mA0wmRZcRAE3WK JrZKLfxNMlHXKrLFL5SATz uUTjB4zgNWRgQN5zoagdGM yfDBnoPFCztCG2YAUlxOPo G1LmMRInSVpyMAQheqx8Zo NiHb4ewNDjeGqnVQpyz4yw q3ibuWDbAqi0GYDmEiHtDp bpYYlmm7Ury4uvSNPorw0p YNL2zAUrcEvcd7T7oDDiKN QjsNUbJAHoTD6weVRnKOXj cA2khrjlOVKzEjQicyiwDH AztIufnoGuMx9eeGxqRHG3 LIdnB0isbF8jNpH1NCgcC1 thcT2oQSz1WWwgSPFxnXM3 llU0OOYwjPNkA5IyaR4hZD ZiCG0wzpo9s0erPYE4EAwq SPEbClN3hoE7WZCbsDYeFO LawWryEHhcs576HDO1UoEi UKQrw9UeM0MeyLcvL46ndZ imO46rEUSixQwsqC9pqSao lG3bQyWlQqKjSYpvcJvgRY 1sDPJhR3ndaFMcVOPnNDYb S6riUoGiqV1fcUliWPapno JsOFXfXyr2KNDbiRWxURVv Guv7PGSeIRYuQ18neudjVI P8vG4rd9tyu4KiZWepYFC9 ORXhc11hRPufieV1NLnkVt 04TVruJHG0HAycAGJ6hZ== COMMENT (test code = y7xldPInODRvwGI0DqWgTG 9899) Mdt4wnf3JhaJQbhGZtMDow hCFlleNwbp49kKS6fH94UU 3aMZLcVtI0GSEbyvP6Bxy1 DRWqROIcoVUaS923z1vtf4 ubxjKyyWL7dTulSZAlrlqw KlB8MXyjIZKcosnzFOj2JD jgJLWmqVI0YEIhoKWuU3Ep ULJqRC5tguj1KOO4QJqoHX YrKwR4WNRftMLiSMZjnBwr UXmhl257ZPB6CeGyHANdpb HuzWkcrA3pQkDgXVXwYJ6y vMmgVFgaOLpsMWNqRH6yZK AtPTkrWFlqrCdnN0Yjs4fi u3ttJdCxjLhhnnLpqhNsXb VhVW4kzzZxsFxwZQasMVYn IGludHJhaGVwYXRpYyBhbm OjEAj6rgHpIDVtkCsxLOQ3 K6SnqSWxtXympPC8wB0bAS dpdGggbXVsdGlwbGUgbGl2 HITdxIFfiE4hPLShzfWdjw 9fGVExJqGbJO2szsXitBrl GKSbiqAkggH0rWVvKIbafe RkHU3ooVNabKPlbDWiENvg YXJccGFyICBUaGlzIGJpb3 PrdTOgtN77enDgcxSjg0e8 QCUiBQBqx4QxgySrpl2iXY Xot8HjzwP0DEg7ZYRxXsSo cmVudGlhdGVkIHdpdGggZG seWiJaLOLyy1GhoFn8gMN3 IGZvciBDSzIwIGFuZCBDSz A1SFChZUYPXRqqJBSePDRi LOirrVt6TBChu1LfM0g0Fq XhNXxbl6DccN7wgT8eiWdo gH9eaFSzoYZqzBIzMGG1KX LkVHkaYL0pomNuo5OgQ1Fd zVu9VZLrYjKuq6lztwKQXZ XzurugDLA2RHnqx4D1OFNw KCRpXV7iBKCngoKrFFD3vG SpVHIxhy8vDKZrDQ2kPvIt zbNbZGTbtdSyBi4nBUQZCu KiaaGaWfItOR0aCVSkDVVl VQ1vyjHxoFmlNCE9K8YcfR ViNJDxmM5qpEGqG3VvAGJa TYTio3v6bWIhJJBzbxRHUd ViXzZvH95exjTuHEIeg61x z1k6uQX5nEKriS4zK8rfUo EksBFtxUZiKIK0zRNrpdDd lzMwpQ20ZMGqPW4ms0Rhl2 H6VZWpDGOvQlntbKA4GQNo f79ojFxvGD2mdO6oeSFeI4 JlYXRpYyBtYXNzIGZvciBj n75zGKMhl58rJHmeAPQ4R0 jbw8VjMPqwKc5cIJTquSLo GKJsDCPxc8Jng13vdgIcsZ FyfQ== CPT Code(s) (test code e1omcFMoKNFzwSE3BvAwII = 3357) Hxy7eut2HhjOWuoWHpTQib kHRzhqAhjn37uAS1dP09KR 7qASZiJqT2EDFdklS0Ubd1 GUPgYPUuqDRzJ746v9gec3 qlxaOqyFH0fBelVTYkjskm DoE3SRueVCUthfcyIGm8VT tzKAChkIZ5ZZAunIDsE5Gi EYXtGC7orzm2PGU7TIhrWA KvInQ2YZXrbDYgXPPmgFcj OVveb027VQB3NhGvMLSqhp NnlRkrqV4lPiCtWLS1TNNk MbE2FAFzcLJjAGo7ZgWvpE IjrZCrDGc0BcTsiBPozXSp fQ== GROSS DESCRIPTION (test e0olxQOmTREreQSEXCWhY9 code = [id number]) bdcsDdSKOuuLFzD9Dypegm SCjlKB5oZH9bgWjknKNueO PlCC9HEKOtQzHrZQBliBPs ckAjMzUxEHZmhUNzcXF2WR IfXS9kmoxjIPpbRBxhWBKp yyD0HMWfcHIcA1NcLEJwMJ 8megahHTR1PIligY5tbpFD ZqxaJo6yrTAsyCfbXmGzZg NoYXJzZXQwXGZuaWwgQXJp ZIf2kR2ZGuodP10cm5K8Ls z5SFAmOUWsV0DqEB3eTHBw cTJhJ77MXdheVOH2VJIAPq gaJRSqVK5De0gpWPXaeIOy LXL0ANsltPStTIDpHZLnKG f2YYKbVFuxqRLoKI8nfUev IzpwmLvva9VetTYnHTkoXA DvKMYsLInkQQTzLL2ZMeOh PUqrYOGvSKDyWHu0ODt9MH 5GZmOjSEZcScD9MTFnHFEj RFa8AVzbTA9LORW9AZA8EG RnMXU4WZKiLHXxHESyIbPu XGYgQXJpYWwgXFxmbCBcXG 9dqHdkyDYfujEKSpCMhI4g f5wkKHmeygNgOsxhDNPvVZ xmZDUkF11sk3JFy6YyCK6C FZg7mqVvrlrciW1fKOLrcs RgCJnqoYYwT6ooT0RtZRFp IyIiGaZvZJz3OJMzeM0nPy 9neCMfvB5ynMCdYIibINA1 xCYcPQOaAZDwSPKkLJ18OF dCNHMgbmFtZSwgbWVkaWNh bCByZWNvcmQgbnVtYmVyIG YsDOTjjMviSnRzZWj4L8fy dmVyIEJYIiBhcmUgbXVsdG xgsLFogCVnXUNapmogQ4vy mS5glzfkRFkyhUano6NxYC NvcmVzIHJhbmdpbmcgZnJv fICcUyRxAF32PBKvOHzzUS iyjgn0xZQpyzLjUA4nUOFk RSauXGBcSH0nwUOmNlPvEZ hlIHNwZWNpbWVuIGlzIHN1 Ie4dsXPjGYSavoI0x5QoOB luIEExLlxwYXIgDQpccGFy OS6KY4Q3lGLekK8rQA3vle AtVQmsECNrZ1T9XCHvlPmg SKYiCVxwuOTcHM3OXEYpAN zbtiXhUX5RCGDoJEhcYHDr qZYMVNA9AK6jPDbdeOWxvu cdLKWnK3ImP3MzzjKjdLPa ABSrrzDcv9leIXP2SFCjtW DliKWoMeZhHgvpTIQ4PVwf e9azLEL7FPPyjYLiaCMfOM kcOtTeIechHQQkS7DnD8Rj arP7OBs2 MICROSCOPIC DESCRIPTION x8pctJMlMLFguCC8SoIvSF (test code = 3371) Urx6wrc6PshCJomZBbBFab sVEmovGsun29mCI7aS36JS 3wWMKpLjG5RKBbbpK4Iwl6 MEAqIOTxhYWwB676t6yjp7 ehyuXsyXL5aOupJOWooyvh PjT6AJnfIIKkymykRNt8JS fqAWOhdZN9TKYnwPEvY5Ju JYYpON5zsao3TKL6ANbqGC BgOdM0LBXpnBXdGLLkdGdz PJrqy127RGG2VzJxDINlwn ZcbDqpeW7dFuBaPULOiISh mCx4MRUjD91oLQBkUYInYL DqjTwtNVq5KF6oX3LuyFWq EUI2ZUkfrdSjmCToSJBuWI 1nN2LjC0fay67hPO5wFIZm WMRuwNkrZNekTzOtMG84jU B6QNPxu3n3uTChglQvkeJk EfJsjtGlASFwlUu3oOKlYP 25U2jcNXHwZUTIMCUrq0Ot mi8bHXQkHF51JXyuvhQeJB PcehGaH7k8bIRaxl25PSNb wS7sjIsiLMPhJ4fnpw48pr QuXHBhclxwYXIgVGhlIHR1 mQ8gVACobEwtIYUdKNXjjK LgvRVjhNrmdX1muOAsxuXd Qp6vAGTqHjFtVF7xVNEXYO lbZK8mTLByfiJfI4HehOAg rR1efOVfjcAgHBJjehGBYc giILXVcDGuEFCkgxDcs9Bt ltB5NNPvPHQldHaupwQpaL JghgEcmZUtdkwmJxUzr9La U6QVZwnol2JwcrYdrWJufB Kck0M2oV7uLEEfVAPmYa97 LIHraQElif8ulQGnqXQwtP == SPECIAL STUDIES (test j1fktCTdAUDgc7ebQPIssV code = 3376) FuZzEwMzNcZnRuYmpcdWMx MGehlmNsLMtbl2ZpI5ChVs AwMFxhbnNpXGRlZmxhbmcx TJYlLNE2kaKnPLKdTFkqEB HfVIrmGd9iiUQbwZduTqWe JJOvf7zjcuOZqwyapHi2d9 kiTOFxSjV1dFOdDWueG9sx seOyvIBaO8LqqPAhzUa0d7 pfBoDhSuQ6uQOhBYmjJ2cp tgUlcXUvIJDlULj2cO11SD YwqK0qtSGjRQnfgpNuTzA2 VYerAXVuRtC5AYNsjOXnJH ZhW3lpBGAoJGvmRYJhRJvd gESzORT4wTylx3C6mCRhiL JkiImdOiAjQbKdVpAZm5Op LMq5iKnsY3NlTSGgPlL1iN QgUGFyYWdyYXBoIEZvbnQ7 gQhacdMqe01kqOAhZCXbWS NmInFurQcgCLYrTZPLv1Kq kUbfHOO7bCa6cAixJphiRU P6Ppm7NC8rfg70tor5fVdf ROLbvefxJwH8ZVsnKFVogg qhERv7POpgNLRgxTM6CSFc aUMoZ0QlTUJvLS1yjfb7AG U0DOisORVoYcB8EMKuyJGg MSPozEofGVjtd075XZK2Rg WvTU4rQ8Ymr9F2iP3jnMIr QPQqpATyOkWmJPLyvt5qjX SoTInkz3KwLUF8uyL1lPYg uUPyLTYoGR88Bqftj2HbFe kvv7OuG36znEK7YRykb4ki PG3bPmH7nyGvEJqcs9kakZ 5fKdQ4LMcdAW9rRF6nHTYs oQ8niigwLKMgKnFwhwobZG KmbYgsfmVnOa1snFycQUU3 IWmnW9uzfC6iPwZ4FFteY4 yxaA7fTRw7YYbpkKP9HMDj qL3yXU5fivugl4ztYUerUR hoXNLeckR2dhS2HKVpxVHg K4QfpK6zPAXbBP7mhfkhb5 xbMRG3EXogZSIaEIW1NwYh AUSkb2Zujmu6VmGhi1NzpF QkQSfgG94mb936GCBxwsTj M1xcfKIqecszqGWscxkaWF gydwM8ILBbHDRxFWfmRIPt XGZzMjJcbGFuZzEwMzNcaG ljaFxmMVxkYmNoXGYxXGxv G5zfXxRsF2QbWBSqSdMeAH jkULfubYJnnIBygXY9dC9i MJ2gDQKnwQRcH8TzZITpgu KlgHBbLRP9xSQshIUvPJ3l BDhmjHKyv7aeb0NkP4ajqZ swhLT0CK8wKVBuHIUyZFvi q8FduR4gIdnerQOpjsrgFA xmczIyXGxhbmcxMDMzXGhp O9mfKhFtNYWaaXmaQYlgk3 NoXGYxXGNmMlxmczIyXGx0 cmNoXHBhclxwYXJccGxhaW 1iSwWiTsUyUwlwQQ7kOCQr E8kosJTwFOTwXANmC2tiTa ExfZ1ojWgsQZlyBxZaPhTj BjBGh538oz9rGLLjeXNfww AOzARlvO5dVFsxHJzdVRrg xCSbNKbqd4tzVSWsv3w5hU VgGAAjevVql9xfOApcmwTi LEPhdUUjuTNfCAGri84rEI cexLvkuYyvFEMty4VpcEkq h9GvOlGvJUsuw4XcW95cqS JvbCBzbGlkZXMgcnVuIGFs d24hn0tuYTDyLbE2nLHwvT V7sANybXTez5GtkXwkKRAf w9slSCLtsi5pyquilTTya4 PtiP1ctuuvFHfzpPFbsaBk PZPya1l0pFIhXHSlFTGzPC iccZp0MTCey367qx7vinZ2 eEDzWGV2DCwmKJYsGYLtwz UgZXZhbHVhdGVkXHBsYWlu XGYxXGZzMjJcbGFuZzEwMz NcaGljaFxmMVxkYmNoXGYx UNpyY5izOiYmU7OxZWMvFh BksXAtQ0dlnAOkKHZkSIqm XGYxXGZzMjJcbGFuZzEwMz NcaGljaFxmMVxkYmNoXGYx ACkzD5olRgYuJ7WdBHZqYh IgIFxwbGFpblxmMVxmczIy LRzsrokwCCFgCSqlP6ceDp JvCXVwrRbgHFlpj2TqSAAk QYUmJourhvHgRSq5maYkAU BhclxwbGFpblxmMVxmczIy VGwwwekaIOZuJUqkZ4gqNu AcQZJllMxkHEjmw5MtXEUu XGNmMlxmczIyIEltbXVub2 pbz6NvV2ubwYzekWY9XEXu W9esvKNjbFK3VSU8gY6wBP sxubFsQCXxl6OgKFStFEYu NvF0bV6cNBD0JyLBqHykND BsYWluXGYxXGZzMjJcbGFu ZzEwMzNcaGljaFxmMVxkYm UiSVQpCEfbR9esQpDaM1Nk LZZoNnUlsYtwYUdwBKw7Od xwbGFpblxmMVxmczIyXGxh anceQKWeTYlzQ1jgIdLmSI XuhCgqHHqzw9BqWXUpTVTe MlxmczIyIHMgTWVkaWNhbC SERK19JBUrCOQkoTuwwF0n lNNQWWAnhxT6z7H8VRyoKQ WrFRj5JNjdbwZzHNBzvK9f WZZmPH2xXQr3ftJqLHDcc9 HiRD1sVNXrtULsDUA8AJTl a2EjN7Ijs8ZbHLVbBNCymg 2iukOmInUEiWIxKBMmfv88 NKXrXA9vG3zpITFjMQSefn MncOAjw9IdIOIgvSS6mIFg BN2OJkLUv40tJBTgFXKLcp LnGDWbnNjgkKT4mjY8sL8o LiBUaGUgRkRBIGhhcyBkZX Hjck1fckThXSXzYGWxx3Cv zUGwzADiseGsG1Zns9OePU Wfrm44MAnwcONbwa68OJ9w Z1Hmx3CrmS2nDAgzRTQwy9 UbzBNsuJLzIFZqr2QbJ3os zfhfTYqrrKKxhQ1vPPQsFY h6PKMev9HwWGYsd4KyJfOh ynSgQOUdHGDtDQFwgK25OA Y9wSckpVnjpbRbRM7oHMUr raVfEWXmRKItoF6gDOwnne IfKVOhipV9f6S5BIlgNOIv tcZjXegfBNT6lvVzmgF1yE ZmU7gscrbkWYtpDVYwm7Cc tW0wbKAIiBWud6DnlPOobT ACnNQeJN2coiRwRW9aTZF3 ODggKENMSUEtODgpIGFzIH Q2ZSzhPolsJBH1fhBvIDLh u9JqGMgvQ3mqX75prOjzjJ o9vARwgNcavYGzzGPqKIIi ztF6s6S6JLRdr3DhfopeJZ BsYWluXGYyXGZzMjJcbGFu ZzEwMzNcaGljaFxmMlxkYm ZxIFWvOEirO5zrHeVpHjPh RpyiMEH0mI== Gross assessment was [facility] performed at ([facility], = 2777) Department of Pathology, [address] [place] [id number], Technical component was [facility] performed at ([facility], = 2778) Department of Pathology, [address] [place] [phone], Professional component [facility] was performed at ([facility], code = 2779) Department of Pathology, [address] [place] [phone], [id number] 21:30:35 Test Item Value Reference Range Interpretation Comments Case Report (test code Surgical Pathology = 104) Report Case: [id number] Authorizing Provider: Keiry Fragoso DO Collected: 10/17/2022 02:35 PM Ordering Location: [address] Received: 10/17/2022 03:45 PM Service Pathologist: Karolina Lau MD Specimen: Biopsy, Liver ADDENDUM (test code = [id number] 3381) Emt0tty5QyfOZhkHJqUPuc uYOzlzOwxb20pRK0aL56GB 0xWMHjAzB1HVLwfaI1Tnb2 KCTyRAZxtDKkT505g5zos4 tehuXuvAX5yGcnUWZacche PuU9CCrbJTQacnuyWPx9GS unPJLquZW2RDKjmUMlI8Wc FNXyEB4wzvy6HQC3AMovUV NbJrW4GXHqnRGlUAStyQud YZdpo946OLV9RxDtVQLlzr XsoLdbxZ6rLnIcJJNOcEMr bSRmo5EmQ0MzfNToKGOjAF KhKvG1q7BuuUXcrZVqNMJf QYTpx9t7pZYqAATpscHJKH AKKdPdMVFudPGiwWxgsB9g sJVfgcOwqJ6dLFUnAN1qDN YvsT0mNDU6PJjwM7KgK9Kn SBDdgdBld1glujEby7SqRV 4qXJ02X4fhSUMmKZH4FIew wX0gKPUhjeZXTRVASORdSW X7RYxapWMlqrS8OoZmw3Ll gIWuS7XzBYTxSmEuTCUns7 ZlugJfgk6mFFxwRLNIa1ct vxGiNWHiPEUtRlXFQF7yzc TdkDvdDTXyNP0uA2QcP8ka f35iLQRkd4euY0JIYkFye3 MbhUl3zRZ9WQEkRHX+NzAl JW7bAMVccE9nKHDcimRctw NugY16JTjwx4Qmx4UbqtFn cQQemjBOBUQPHT3rMLRmic dwOERfFApcoVvwyAN1wItc HOOybw9qVWGouQ6yNMS6LJ zqpMMjdMJiaJQcaJWnj2Nq ZXIgcHJpbWFyeSBlLmcuIF PqczXzWGQ2ye1xcSwvVGC3 HA4ddDNkMGKqH8ztO9UmOQ 2ivAIsJHNveTPbcCUrSO8t Y7jeqsgoDEwdO13rgnZeHG Vnj81ro5w5nBHhoEKuoT2n DEhgORPwR65oeSNkSJSnXN skHPFmkBBwEOm3TqOjgVGt uBQnMXUriyRSoJ61so4xoM QobiFtCVUeZZQckiYify3n KOQ8yPQtPKQxwTJquSNtWN PpIKSsyyUas5khYOR5KQOu f4VrjOpfXX5bPWxbfNBltS MlkUElGBQ7WKSJVO3PCWDs ciAgICAgIFxwYXJccGFyZF xwYXJccGFyXHBhcn0= DIAGNOSIS (test code = q0cynXMpTJStg5iaFBFrfU 3220) FuZzEwMzNcZnRuYmpcdWMx IHtccnRmMVxlcGljOTYwMl cxtlBiECWykIToS2Tivtlb ILofMA0kNS9ocDjfbRHjfH MfRHLuZwUbe9wyi454dZSv h6myKDNNehbyxGe0jLgwS0 3xx1U8VwsdA27uoUTuUPL9 XTDwBPGhcBFcIEOuNDH6TC AseVIfN3voKLWvSK9boyzn ADroJEkhXYWobYW4FXTwmW SeI1SnUNQsCKymNZOoixh6 BnVrMx2bkXWkjJjgLQhkUO JkXHBsYWluXGZzMjAgTElW ASJfMK5CU8DcKVLRNsiCJX GVHW2RAVCGHLXOB6QTAQIS O8YJXXscjJ4fHU6FCUHww6 KoikWpnz6fIQrygK6vDROe dGVseSBkaWZmZXJlbnRpYX CbSSpqOlQ9t8ItD3YjiXWe aE95SRX0iS1jyG7fJS6sdd IpcO7axIacWJX1OBDhcZ9d uiwoLMHiJUUbg01qFL62IY efZPI9d4olfKBhDBWhlZLf ODAwMFxhbnNpXGRlZmxhbm uqBJKzUAI5gaMcMWRcQPro OLFaHPncRh1gxZUouRttIv FwDBWvj5unciTAryszdGx3 p6cbHESvSyY5dGSwSQiwI0 vqceJbrYYnQNJkEJv8qG98 DXHsbQ7apWUlKLawkpJoLd N3SRnpODVwUxD8JYXjtIVf WXBsU2jfXZFnSKpdENAxIA qlbYJzBWU2aJgto5F9nXLi aGVldHtcZjBcZnMyMiBOb3 KjPNh3hItzA4SbUYNkCyR7 bHQgUGFyYWdyYXBoIEZvbn W3kV87QImnhwP9nSOdt2Cl o96oz822vA3hdTRaDFL2ES CvUENeuMDuJMZuQFV9SSUl sXRlX0rbRWUzQH3afuedUW voQZhvPDJbdAJ9DBMqsMPb D3JzZXSmHTrsUSLeyny0Mh KkQq8zrTEnoGqmYVtha9ue x8feiCAjIgx8PXAvJkNbXf kkGLxmq9Iyv6duVSChcv3h IKQ4rNHxyIvez0M8mOQnQY LeeVYtETFuSD8uhIGjDNZw sN8qvcpjKJLgUxVsixbxOL OuxPiltuTsLk4hlQzgJMB8 YNatJ7zgyS8eFwY7TCixL8 lzhX1wXHu9YHvgQHTpfSE5 izY2ZPYpvLOxY7LtcB4gVA RxXG5wfnc6p1xgKKR2BZdl PRRtIxH2ydS6NUMfyXZgPW GzdDmtSUyfu325CUT3FwPl KNUyj1EdG8EmaKevS53zkB fzT44gLQKrzNeqdM5paVig pA9aQwBlYcWjBAopvKqfYP 9dNHQgW9yqrOScJOFtTDVk B0kzOsAegO7dzEqeAKrkoo YlHKNySzr2PMLlxKFdOHPn Loc4ECZlIOFyF14rcktuZP V0lX0kv9btv5CnAZxdOFY5 WZUbn57tAKrsnuY0OWvvVb 27TTbxZWS7CIkyZBS2gI== COMMENT (test code = u5ftuGDjHYIasCJ7RoYpMN 2942) Fss0wim0HxjXDqlWVlXRfb kOKmrtTpxy46pDP4pE54ZB 0jUYGxScM4IGTxidE5Uhs4 QZFbLSDuvSJgF827w3jly7 azzjKgfOQ1sQdwHQIpqdqo LtM2XGhwQDVpydndNXb4KY wbCUWgkQV0SGQnbTYhM7Ak AZMlQK3ddwf7OKM7EOujBU KlVkM4FSJmoQOgMETgiQwg MTzom186GTF8VnLcDXScri YqeItfyA7rGlFpQEEwWS4k nFajBVczIIogEIPhLE5nQW IbBGkjJIpsoWpxB8Kny3nz t0stAhWxnXivmoEpujRqVm RiNF0laoVsuStpIRueADGe IGludHJhaGVwYXRpYyBhbm QqWHd5heLdTGPoaWxiLBJ5 H8YvdTIsnJucmEB8cL8pTJ dpdGggbXVsdGlwbGUgbGl2 ZUInvSQuzP2qJOOwyiSore 2zDMShTzQxYT0ynzYbmYmv MKOviyJbdkI8uXQfJRkngk TqMR2saEYmzASwxBNfKUig YXJccGFyICBUaGlzIGJpb3 XixNTofB90asJlmnRls2i6 VNGdXSEum7TenjCqtb8oCN Doa4UjvlA6MZz9ZGShIeTz cmVudGlhdGVkIHdpdGggZG fjBsYxWWYzh2YioRa8uIF6 IGZvciBDSzIwIGFuZCBDSz J4YRJeTJOCSDbdSYHjOXAa ZReopSg8OLTnm8RzX8h3Ye EvEYynj4MetB8wwQ5kbTrt kI4bcWVrrVIllCRdHUK1ZK NdIVxnLT3yfwDob8NjD4Cz xFy2RIZxVzSye6dfylIPPB CbqcayRNE1SCyek2P5FLZv TCUyUX6iGELyabRtRAP8pP GaOLPvnr7bEWEbZY9rFkQy xnMqQMSdemWaNh5gBUQLBr DttpGdLmUmXK4nACLsBTJy KE5derKycXmhZSV3O3JcvL QuFGCdjI8goLMtP1LsCQEu CWWwi7b2mIGsJFNakxQNBu NrRjSrE64zqyZiQIHir33d y0y4rPO2mBNlyK0jT7fqSb IlnONqsTXaDNE1rLJpvxAi ppVycK69OMKnYP9sj4Euy1 Q4CSMxOLPaRxklySY8JIXf z96ohIhxXN3buJ5ilOTtT7 JlYXRpYyBtYXNzIGZvciBj c24sEDKlk90qICoiYTH7I8 ykj8GlIVyuSo5vJSBudABe RVTxDXJwm1Mot78ocoBokB FyfQ== CPT Code(s) (test code m8ycxHYfHBXziMM4BsGaKW = 3357) Dms5sfn5PgiWFluRLaIRsf hPKaeiRxig10lPA2tP47UY 3zSTFoJjS4EMWoboT1Dlt1 PKYbJCXmcDDoE072a4eah2 vvdkSbjHX5aWozQIJwvgeu ViM8BBjjUGJehvfqXUx4IK qwCNEbiZQ6LQBcgUHcJ0Wn BTHhNV6ijey1STZ9PAgwMV LhOhF2BIKkzIRdFVRzwTab GOmya019HJW0WzDjBGLxme NarQswqQ6qGxIhSQY4WALq NrF6WRGviONbHRu9FqRvxE VkoIFuZNd0KjOpwGYqfGVl fQ== GROSS DESCRIPTION (test u8vljIRdFRUwwVOFLGHdQ8 code = [id number]) dpmoLwQZWkrRShC5Awjcrx HGjhNZ0wXX8lrTvbsSCmnN RkVD9SERBfSqQnUFDwmYFq rmFuNnSlDCAdhSJciGA7OA NnRR0bxtzoWTijLVvgCQSw rbW0FVFlsUEuX5GlGZOxFV 2yxseaSNM7BRibgF4aucOK SaphJp2qcWGcoPzjDjSqBj NoYXJzZXQwXGZuaWwgQXJp IXh6wQ4MSssvI89xb5W5Mo o0TCMiFFMsJ1QxCO7mPABw fYYxT38OYspsNSC6QDEPVv tjJBDfNW7Xm3xkJIOiwBYc KYC0LEypsFWyBHUjWCJhNS e9VTFbRDitkXCvKW9uoTpl BigtnFqtp6KwiHMeVLmdUI AaBGLhQOjlQFUoOM8LPqMr KCdvWSMjPZZiGBb2XHp7WH 5SOkJrCELnChN9EADaLVHg BRk0QGbgKC3RSME4TUA5LX ArWYB3RHWoAXTlBAMzEjHe XGYgQXJpYWwgXFxmbCBcXG 8tvXvynVJjlnNSZkQNyG2p x1drZGajcyTzFrmfQYAlSG vpPIKoD52jv8JDc4DiEV8B UGv3yiZfxbuoyJ5iXVTxpf NsQQfjrXJqD5bgE9DhKCYp LjKdWoPeDEi9QPEyxV9eZb 0arRPwzX3swBCzXDzsVTQ6 vOMwKDGqEMTfVCAvHQ89IT dCNHMgbmFtZSwgbWVkaWNh bCByZWNvcmQgbnVtYmVyIG JfDJApoCkxCyChPOg3L9pn dmVyIEJYIiBhcmUgbXVsdG xkqELakRAxPBObccbtV3bs qB8yrxgmETvwbBfmc3GkMQ NvcmVzIHJhbmdpbmcgZnJv iQWbSnKzUO59FGEnHMnrPY ljldm3pAAthlSqEZ1qROJb VQfnRRHoTT2oqYVbAzBtGS hlIHNwZWNpbWVuIGlzIHN1 Pd7tiZKzSXRqgaQ5z1GrQV luIEExLlxwYXIgDQpccGFy JV5TX2R9sBUogP8rGI4poe IcWDahSIWwL6O9NPZlmVzj UTWzMAixlGXcWL6NNRLoZK blqzEqUW1VHNYuCVmbKCMw yYZQZAE3CY1dKNigeLKxno wyLNZuC7YvI5AsjtXeuJVf GDZshsZdo9byOUZ6IHPufW GusLGeVjPrGnesDRY1LVya r9zjIXA2BAVtqEWnwUVsMR zmFoSqItmqTPGeN4AvT4My jgN6FZv1 MICROSCOPIC DESCRIPTION s4nznPArIOOiiRT2NuGhUE (test code = 3371) Vrn2opb2CzeJKwiRVpIMxf iGCpwmFhwg44rTR9qW36YB 7qPLQbZgC9ALMlmfA9Kof5 RMXsBVSiiPEgT860l3fvp4 qqfmPmlXA2qUopXAFggwzm HcN6GRbyUCGxdbrcHRq4DB xkTSTowPO5LQPzdNYpB5Ww VELlOO6enas3QKG3PQjtWC QiSgQ8LQSygCZeFCZywVve BFxwt666CSI5DhBaFUNkkq HvxIovuT0rMaNaPSXXwRGx wGz4FSGqG44zNTKgSONyKF HivWhmOLg0KE9mJ2XwkAWk VNF8HUsgcxIruENoMIWmTO 1hG7YxS6nic69hBP1pUIDu ODYouZbvLGdiOcDzWS33kD K2LDOxc8l8jWGomhJajxBf WtXdodBpKRSukPq0cMIzCM 75U9aoFCWgPBAPOZUbn0Oy ic8yVYBpGI16VAcdzvLgEJ AierYsC5l5sQCkfn13BKQs qK3vgZmnJXTrJ3pcsy96yx QuXHBhclxwYXIgVGhlIHR1 dX1sYHKvqTseUIXrXSFuwH LupELsgPbqzL9tvKCbnaOt Rj0sOIGuQiKwIT6hDUYJFU oaLF3uTFVfgdRkP3RioXGc iL7ysUVrcbQwGMOxfsCGQr mjDGGYvEFbJRTfvwIkj3Xx mrX8GHXbJLOtvDhcglVpoY IzubWopVIcuyidUkFlh1Uu H2BXJibnq6XalcGahCUwcU Ukq2Q8bA2iIIJqBZZkQc79 TDEwiACmbg4qsVVwfCMnwS == SPECIAL STUDIES (test j6prqSAyVSOfp8meCHOlwX code = 3376) FuZzEwMzNcZnRuYmpcdWMx TGlnzoPgCArxk3AmU5IjIe AwMFxhbnNpXGRlZmxhbmcx INTnLFG7rrVcECPnCBogCX McHQwcPn0mkQFgdGgfNqMo MYDar5ixymBSdbnddSw7q0 bvFJTuDsX0jRNfKKhnP1yo kvWgeEXhL0CyhYDtnEg6v5 qdGzGxOlB3iOHpYFfsJ2ca rnTvdYKpHDMhLRf2zR04ID OybF4mjCAlQFuugtLxBoG5 OOloBIGdVsQ4FAEpoLTjCP EmY7wsYNMyMUlhILApXFcu xXUvSGG9fNsat0T3kIXmgA LpvKwyLwUaUvJqMrVGu2Qv LJp4zZtsE1IrKMVhCwC4vQ QgUGFyYWdyYXBoIEZvbnQ7 nYwcecMfw45sqTUrSBYkWI UwMqZfmEvzPKFtVNREh2Qr cCsuTFP9pAa8sQihFxewUL D8Iue5DK2ssb06lne5oAto NYTaphrxHfC9QBkcAQPsby goKRf0HUjlFOHtoWH5XMKw rAUsB7DfGBRcSV0thal6FD V0SXlwVQZuGtQ8LNRomEGo NMQbtXzwLMdki325DKL0Pp JzSW8dB3Rug2W4zW8veNVu BHUjuEDgBiCeTPLbyp8pnC EfCFwzn0FhUYY0yyK5pVJi bVLkXVHoPO19Ykqpy6UpSq eoa0GqR74xvXF9AByqf1mt CV9hMkT5ivXwWUqqq3wmcN 1kIxQ7DVxhJT7uEK3iKECs nY5dpmyqHPUhIkNzztvyKL XdyTzyjrKgVk0seMpwELG2 UJvpW7phiL3aXoC3HZyfF6 vujT5oJUk8MIkjcNK5QCAe tL6hMP0lahycu0lbQEhbEV sxJMWxseR9mgE3GUAptWYt U0JraY5qONNeXQ7tqsijc8 yuQIN3VTckLKQpPTQ0KpJb NYOyd8Vkbpm5TkOff6IheT IoIPddZ21ow795RHCikdPj L2bxoQIrqkdahGBzdafyGN mjluE9GBZtWYOdQDjqHPAd XGZzMjJcbGFuZzEwMzNcaG ljaFxmMVxkYmNoXGYxXGxv N5nrBbLpQ1ItPLEgKsMrLM unEOovoTAkeSQddOW6zC1k NY8aCVTabAEaM4ViRURihw TugOYjAZV6nGLanSJkPP3v MAtweHBij8dtz5MhJ2edbX megJX6IS5pRSPoPDJeTUws g0DjeX4zIefumIMwpnuyXF xmczIyXGxhbmcxMDMzXGhp T0lfBwSdTMMfpWvpJWusm7 NoXGYxXGNmMlxmczIyXGx0 cmNoXHBhclxwYXJccGxhaW 9aQyIoRyMpLayiWO7uIJPp A0dnbVOxOKVeCGQnI2aqRg IhnL1tcYbsBNeqVwLzCcNe JpCSt803jg2aOHGgnRFrne VRkSXvhM2xVGevXOmbYPou aYFgZEukk9kaGIIar9u9sT LePDUnuyBak6quLDivjcCt UTHzhQTglSQwBMEbb04vJQ oatNnyvVmoDZOca3QbfTox e3IhAeWjPGogs6UaW99dnO JvbCBzbGlkZXMgcnVuIGFs b39om7naKXBvIwV8qXWmsD K7cEMqxDTkd7IgqKulRQBp x3lcWOSqrv3wqdeszJVjr7 PwoT0yxtxiUEyrhQWnzwXz FXDdi9v9gNFsBTQjRGNvMU bolFt2AMTdm766jw1tciM3 xMHhXHL9TYxoHGNiSFAxdi UgZXZhbHVhdGVkXHBsYWlu XGYxXGZzMjJcbGFuZzEwMz NcaGljaFxmMVxkYmNoXGYx YCgeK6ndEvKpU7YmCZDgKu LvoUXpJ0unmHZhEBSlGNgq XGYxXGZzMjJcbGFuZzEwMz NcaGljaFxmMVxkYmNoXGYx ADupD9bvHuOlQ3MtPMYmNd IgIFxwbGFpblxmMVxmczIy UOslgkrnNPHyFPzjA0hiSc LpFLKzmEavETuit7IwXKGl AYNeFwduehCrNEc5syDtEU BhclxwbGFpblxmMVxmczIy AIvwtxxqLCGnICtoV1lpGe NfTPTgzSboWXfum9PmAEYq XGNmMlxmczIyIEltbXVub2 fzt2FjG1ynoWcviBM6OHPi R3dreMYovUK7XCC7sO3rUS rzioOcXYBsa0XlVDIiXVQr MtC1eP0dZJI4BvPRwXbjUL BsYWluXGYxXGZzMjJcbGFu ZzEwMzNcaGljaFxmMVxkYm NgWWUlHWwaD6qwHkExU9Pd IVNzCbXafObjOTebGKk0Wp xwbGFpblxmMVxmczIyXGxh fkmfTMZdUPlpX9nhZbSbKB WasAyxOVeyi8OiFPVpNIWe MlxmczIyIHMgTWVkaWNhbC ESPC35KQSlTVXbmXpukP9x kABRRSJrvsN7c6E9VCtgIE MfCZm3NIskkbTjRJUgiZ5d XTKmGS3tJEl0dcYpUTWcz9 XvYZ4gDQHpvAGvGSX9USMw u1ZgB7Nuh3CeKJTaMFUnnt 9uneZbVuTYaUNiIAVpsk26 NFZdPO7rW8jhCHKzZJFrhu OekVLzq3CyEAChvVP9pZIn SI9KXhNUg08zRVImMDHAnz DhIAHvtAmwxME1atE6sB9v LiBUaGUgRkRBIGhhcyBkZX Loup1lhvDhMLRqSCUmv6Mk fXTwcSMdriPkD6Pza6HjTF Nuxr40QSkriZKhke24UW6w X9Bot0XloE6zAZtpMITgh9 OvzKDevUWvPWFva8XhS2mo ztzuZDmbaHQrgG4dFYTwNL y4YHMjs5YuTNPbe0RwGqEf zdEaGXGkAOWhVTPxzL45RP A7iTyvmXkrkmPwHQ5zBBGo xrDdLAHbBJTfhB4kLRkgbi EyPBTinbH5v5P3INmcWPGx stSbPmziNBP8zgMzgiS4bO DeA8uvgagbEMbjXWZyt5Xi qS9wfZZJcKRwl6TjtGWwmP CGeTYuQB2wtjFcCO6gORW2 ODggKENMSUEtODgpIGFzIH A0WJleTbhcXVS0dqNuRIUn s9WjDQxwN3ifV78ieHosqS e0xTDahVuvuTFpzTDgLKLb qsG0d3D6AUDba3UshkeaEP BsYWluXGYyXGZzMjJcbGFu ZzEwMzNcaGljaFxmMlxkYm KrAYOwCLjgV8vnEdMnQaWw ZfrwSCP3aP== Gross assessment was [facility] performed at ([facility], = 2777) Department of Pathology, [address] [place] [id number], Technical component was [facility] performed at ([facility], = 2778) Department of Pathology, [address] [place] [id number], Professional component [facility] was performed at ([facility], code = 2779) Department of Pathology, [address] [place] [id number], [facility] [id number] 21:30:35 Test Item Value Reference Range Interpretation Comments Case Report (test code Surgical Pathology = 104) Report Case: [id number] Authorizing Provider: Keiry Fragoso DO Collected: 10/17/2022 02:35 PM Ordering Location: [address] Received: 10/17/2022 03:45 PM Service Pathologist: Karolina Lau MD Specimen: Biopsy, Liver ADDENDUM (test code = [id number] 3381) Kdg5rmb1EalGJenPEuBRgt bDXxypSbpy40cIK6pE01ZF 3nGIPmUiM6HFBefqZ4Kzz8 FTOrKHOrlRRyM696s6aru9 gtihQzsBS9kVmjSTBqyczj UmW6NDxhYZUiavbdTFc9UC cdNHQglCY8RKTnjRNnR6Ez VQFiAJ3zjbp3ZFI6JNsnCV MwSwB9ASNnxSWgFFSnlYsv UDmno448BFT2QkYkWHLnxz CkyUbneB0lOyEiYVLTfGXs yKLur5YoP6KdlQAuYXXcPS DpNmW6b0WxsFDneURtDVOx QQWlc7a3uEXlLAXakhJZHF BVBiXlZOLpyZIeiQemuZ3a aEUkdvIvaA2oMJHwVQ4jYC FefS6hASY3OJhxT3XeT3Du LUFslbQhw4qjqjHhs7MpKG 3xVW05S4fkRWPzQXU0BHrj hY4uHSCuhuPFDVRRVOHeDN U1CGfgdDXybaI0TwDzm2Dc zPSvC0MuCACcIxHfOMIhq2 EbeyLcta8nPQivOQQDv5wo bvWeHLHuGRDiZeGQYU7rlt QujAhkODHrER2wV7PoT5tx s71yYREax4srR3OKXoObt3 RpoIn6bXQ0INCsPJP+NzAl LH7vRSGysI7aQYCqdkTwbd ViyX75KBzot6Jgl4PodyXw vKZvwcEXIYYKYH7mFBWebv oaGUIoXAawzUmybCT5dLlc LLXcyx6gXHEzzP7bJVN5GG zjzDLpgUOniWCryNBec8Rs ZXIgcHJpbWFyeSBlLmcuIF KuomZyOFJ6nq3znRnbZJL6 CV2ykTZwWESjV6viN7BwYM 4erFDjMMSgiVFipKQtCU6i G3boodopUHblZ51qmoEoOH Aam37as5p3yNFwdGPtdW7t JKttNWWeE94xhIHkYAQgIK njPHLthAEtYCo4RfPvfUVr kRRjFCAcdqUOhQ64fm6ecD ZipwIbMKIrOYTkwxSehl8s DCF9cLDlDSGecIXyuVUrSM LhTDCcfmHez3tgAHI8CTBg f6JuuJgvVN6sUDbgiFLtyD ZtaUFcYDT3NQSKGP0KRAUe ciAgICAgIFxwYXJccGFyZF xwYXJccGFyXHBhcn0= DIAGNOSIS (test code = q1cmiCPkCNPxo0mqVNGzfF 3220) FuZzEwMzNcZnRuYmpcdWMx IHtccnRmMVxlcGljOTYwMl avbdZxSUXxbWIgU7Ubqnbo CTrnGA3iYI6hiTiwxSNfqM ZcCDFxAdFli9oon540xVZm h1kcKABGukbjmLg5wBkqH7 9ic5I2RbybU92peIFwRZE9 BWOkFCEojSQuMPJxCLO9LZ OeuIJkU4lkMDDuQY5ctvvw OYdiQMplELNkuLS9CQAloP VzX0TxBDAoNDrjQWTnyex0 VsFaYy2goGPtsRieFFchHY JkXHBsYWluXGZzMjAgTElW ZGYkNQ1EA8YqGPZXCepBCL PIDI2WUKIMMPUPY5HHKZEG E7IYEHudlP9gNT7TVPAxr0 EcldEzzl7kQJbwrF1eSUZr dGVseSBkaWZmZXJlbnRpYX ThYZkjLwR1q4LyV6MzzJGu dK81HMY3uR2wtZ7qTF8uaq RkdF7igZcnIRT3AGZqmW7s ifdvSRGwUPDwq29iUT00LU vpMAC5v7aewAPuJBYufLPy ODAwMFxhbnNpXGRlZmxhbm gpGCRfBEB2vkRrKVIfVDex PMSeLFxvCg1vpDNeoSjbKw MkXAHly1nokpOUvgndiCg9 g4fqEYJhLaS5hAFkZOomA4 zpwpPtcXUmKANuAVz8zT42 CNPrtP8usOLlGOumjjPuPc D1VCnpPSRpChM2IBPotCHe KEKfY8puIHJsBRhxPKOnZP socVMzCXE1sIuti6Q4rTSe aGVldHtcZjBcZnMyMiBOb3 TgYWb4nYclV6WjZMPyJhW0 bHQgUGFyYWdyYXBoIEZvbn Z4sR08AOuabnD1aDUtc4Lo s51kd309rL6ghEAtCAE3IF OfDPHujAWbIOHsAKA9CCGs aAIzR4ehZGVbUB0qhaakTO rgGWppMDWriGU0ORFygEXb R9ZcABOeABukNQCbzen5Hj RlHn7pgBKmpEqwIOage7dl z6fhzPEdFyb3HWFdDpXtPs qzQWnyx5Hbg5buQLUjuq4p TQI1nXEhjQhky1E5uYNvTH WieXMaZKVvDS2rtCQbCYSh lK4sphgaLHIeCbJnfkuxRK OvzCxfrpAvTp7joUevDZA8 HSccW0fvpK0mCkX4PRdaH4 rzeX1hVRu3TIueUUQzwDU8 dtC8XIOlzMYzQ9JkxF3yIL VdUA4muax3t7zjRSN6KBzt MPAfFjL2ekF3IGHflEDkIE XqiWwgLWjhe343JMZ1GhEd QHWge5IvG5FvxXbqH08bnF dcF04mKUZbcQnreK0jrSth rP9hHzKtNlCkWVlshCfmFN 9uENVaZ7txyPXeKZKgUCLw O0toOxJxqQ2htPxuPDwded XuTZPfDzv0GUPunIEyWLWc Whh5IOPzZWHuH91rjgbiOP E2eM6zv0swb0NhXNywQBS2 QWZpx16gNMxkwvJ6MQdlZs 58WLqaZTM0JWpzQCU2aZ== COMMENT (test code = k7gmuVNnGNMfyPH3HsGzHJ 0630) Rqm5joh3ZypVWojLRzOOwk nZMlggPmei27pJF6oL89ZC 9gEFWiNcH9YJQiosF3Qhi2 MAZaNQDuwGJoL125k8enn2 kumwXncEH1yMulNHHhsjgp OoU1JSfvBCCxccggHVp5WR biHPTjoJI3LTOcoCBjI1Jy ZEZqNJ3nuvt4BCD4QMmzQI AgLpQ4ALYkqUAuLKLjiWbm UVrtl519DFR5JyUvPTKouo WtsTjzcF8kLtUhGGVgGN7x qGqaYKjqWFthRZUpSP0gGN GxCYylEHfghVzcG6Vwd6vs o0gxDlZkjOaiuiQrolUhIk KmXN7gqvLjvViiTGukOTEa IGludHJhaGVwYXRpYyBhbm FfQXt8izSfVZBihYjiIQC7 Q4WqsDGssMqeiZF2xP2jOV dpdGggbXVsdGlwbGUgbGl2 UTArsGBybO7tWFQftkIbke 9lOXGdJrWrFX7ufuNkkDmw FPFpfyEymwU9cXGyIYpswv GeBI0ayIDfnPTbcFFtTZxo YXJccGFyICBUaGlzIGJpb3 AteLRzvW53vxMbngUyc6o0 PIZxCIZgv2XogcWfzc6gUE Pvw7VavvX3LXw1QHUwBgLj cmVudGlhdGVkIHdpdGggZG etSpMmNDKbg8KlfXp4kME7 IGZvciBDSzIwIGFuZCBDSz M1OXBgMZNSBDusKBGvKSKs MOuwpSa8AHOif9AhH3n7Gm TnGJrnl4EezH6ruO6xeOrq fY1siHUhsSWoeRYmVDB3PQ PcFUtjML0jgkPeh8HeZ6Fx qYn5DJHnPkUmh8ydbxURWR SoptzcMDN4EJqym1Z4YOIw BCKyQE0uLWRerfHyETS1uS YyPRGlwk9iQSPmYI6oXmZw pmWvNPZslbBuUn2mZHGXGm KtjhQpRbFxYS2sLMXsFNNk CU1relQegKzrQBZ7C1CexM IvLWGbtR1bcIDoY3DzIWJz XYBdy7s8mFPgRXOziaUANo LtPoKeG32ifwHzDHJdq10i b9k6uWY3lWLlsY8zR8xjKi QhbABxaIAoOGO1eCSxmwWp evGyhA41KHExAZ1hh2Xdp5 Y5BZPeONEoBpaeeWH9MPWg k83aeOwfQP1fzL8wxZRsT2 JlYXRpYyBtYXNzIGZvciBj x61fVYRyk83sBAzgMZL1B8 dgw7LlVLdpCa9sYSIviIEn MASzSLQop5Lyw06fjpGloK FyfQ== CPT Code(s) (test code i4qgsTEpZNPlmNE7BcHoIJ = 3357) Nov8abt4YrwUEyqFHeZMpq bCPrspZcke38kGK7eV05WH 2tWYKhSrO3ODBvfhD7Tth1 PVYlFXNyuZKjF657e3jwg7 elmtTxfSE7tYfzSFJbwsib EoY5HIdxTNPcrsroMJd1GS zrNKXktBU2JDKozHGkE2Wx MOUbBF8pfio3LBM6BWybSK XjEzY3TPLyzRYmYMXvuFpf PBysr738KCB9DqBvUHDmmc RxlVwbxL0hQyFgABG7PSIj IvC4SFDkmLWdCSp1BxMujH GamFXyVVx9SyMefBEiyVNf fQ== GROSS DESCRIPTION (test g6spxQTkPKWrxZWUZRXjZ3 code = 1378916938) bjneKnVTHhsWBhV3Nxuapa KVhzQA9gDJ4nlYzijHSxcG GsPO0ZAAEeBjYySNErzWRr nlIlHrQnEUVyyUOzoLL8NB VoCD8zqipsWEvgMSieLTYf noO5QIBuhZQpO9EcQSAgYV 1jnhdoAGN7OQcgaZ8dglGP ApbaJr3yjFOynLpxSaJpCo NoYXJzZXQwXGZuaWwgQXJp ZUa7lL1AUbocP10dg0S8Ol c0VTPrSGCtT7SpYA1yWPFc aKZsH55AAvrtVJZ4WBCTJw chVHHkRF7Vj8bjHWPkeKQn HBP1FPcpsAAnBBUtKHXhQU t9SVGzIKldoQCoMH1ipEqw IqmvsCfjg2WjrBMeUSxuAA VyBURfGUebKJJmAV4ABxQv JSedDTEuGUWdHSd5BAl1ZB 2IDoWrVVIaYbU9NCPpQEZm ZVz6UBtzLG6WNIE1LUK6DP NjYHF2FNRoCQDdIMAiFjGj XGYgQXJpYWwgXFxmbCBcXG 7agDndeGYsgqQHFaNNgO4b r0tuBBmtpmGaAtmnXOVkTV gdBGJvB81yf8JTd2JoZR5A TPl5snBmzqhjnL1tNAKdij OkHKsqnJXiX8ybR1MvBCNb RbSzOuUqDRl4ZJYfjH7zWh 1zeLZojI9zwCPcKNbpGGE8 lQHxXLRhNMJyKVJxJR40LN dCNHMgbmFtZSwgbWVkaWNh bCByZWNvcmQgbnVtYmVyIG ZfEMHvzMmfTxVwRDv5Z6ib dmVyIEJYIiBhcmUgbXVsdG kpeXMdeYDnSDHfhpmuI0pg fC0kpxcwMZiraVeda7WbSI NvcmVzIHJhbmdpbmcgZnJv jIUwNwJkZI53JBGrOSauKE gyrfl7hJKourXeVI8tGIZf XJugFENeQU2gvAJuSoFlOT hlIHNwZWNpbWVuIGlzIHN1 Vl3koSMrZUZwglA7t2BjEG luIEExLlxwYXIgDQpccGFy SP4ZN4V2gWYroB4bKF6zqw PzWSzsUDFeO8S0WTPztJnx XMDnHNzgfEXvVP6OVTHzHD iqgqCrEZ4UJHShDWysJXWn fDAUAVE5WF3dURwimJXuzu jhGMKfE6DnC5MsolNwrKEx NSWmspHuy1gdWPP6XUTfjO UnwSUkTkRtWmjwLLR5ZSkl r2jfQAQ0FLBbyNPqhOAwTI qtLqQkGawbOQMaA1GrL2Gh ddP4NZo5 MICROSCOPIC DESCRIPTION g9vxwWDuURPdeZV6IjQlCR (test code = 3371) Lud4afd3TnoYHqvYNuKLgv tTVagpBgap08cLQ2nE77DI 6wABArFhP6OPJbmpO1Enj2 WCIkGOFjeJNzM994j7ayl8 bwryPmpBH8hAlrRTUtlyuo GhG0CTlgSNValtcxJTr6NT rlFAUeeUT6CDQirDAeD5Lj WYFiBJ2pjlh3JCZ0UJwdYR DmJbT3PHWwnJTcZVMdrOqp VVfqz166API7CiRpKJKbvt KqxXdyiM0yRwOfGAWLaMMd rOn8DGApG75aVHVvXHQdRB IjvYrgGYj1WR1nG0BxsMHa KHX7KToiufHjiKLxUZTxSW 0eR7PwA4yfp36zRP0aUQZu CMZlbUkoTFwyXfEqSF50hR I0APOmk2e8tVNbtaEociIe PwTxurHbLYBsnZc5xFVrOK 36F6jpTAXbWKQRZZBbk8Xa mt2uLRNgHV70NOholbLtVZ KswpNxR2x3lLWnkx06CLUd iO5hcOsvFDNlK7pptd75av QuXHBhclxwYXIgVGhlIHR1 lQ1gJHYemDjaBIWlXYLyhK FcaQIhlIuzyN5ocICwlfIh Xh3sHVLxVmSdNC9rDZQDRU vuDP2bGXTqqsCoQ7GojWSo rC9swNBxkaMhHETgwvCSHe gpCGPMwYZpCTUuhtFin6Fq leM5ZBPoSUWmmUhyqoQntB AkzsOhaHYkaqfmBpZys9Ne U0BUWaeoy9DpnbNysPDkbW Lgv9P7gG6tONKzODQaAu41 UOWinQFceu9osPZshCWtbD == SPECIAL STUDIES (test a0mitPGgGZUai0suCOAynN code = 3376) FuZzEwMzNcZnRuYmpcdWMx FHgnizFkKPruw9EaT7YpJl AwMFxhbnNpXGRlZmxhbmcx WHLuPBZ5tbGrMDAqDBrcER UmWWffWs5llBZrjUmiQhDm JABox8yjkjZClcobmMd7l9 xnIDCdSyL2kYKzWLccL6dv huYckREsW5MmhGIdnSq9t6 rfHmJsZxF0wMYiPLmiV3pt wyUvnUFyBVNaNCi6tH86BP GrxZ4ssFXdZQnegsRuAwF8 XHzaMVHsTkY7LNBfxQAkBC HpK3elHEHqFUksWDKdJVcb hTWnMAI6gEvgs7Z7qCOxvB EaoPleYpVbLzHmMvOPo4Ui XOa2qQhlR6OiXUFrXtB6bR QgUGFyYWdyYXBoIEZvbnQ7 qKemdpTzy74pmGQcINNcYG WhDwByuUhgDDUuSGRAw1Xx wSipEWZ6zEr6cCuuEhikKC Q7Pqh2BY0ghl60bjs4sClt VIEnbasmHlL5XMnfNOTrrp qbSMl2LKvyOZTqyFP0IFSo mFQrN9IuJRHlLA8tulq5LR E8ZCefAGQtSsA4KMDkbOSi NSZcjDqvMFimy267TIH0Wc XsVY1qM7Qrb3Z1pF0jlZIq ERBltFWqAlOmXANqkw0yxD SqDQilm2LtQVK4mvV3sZSl jSHqRMLaDQ33Eigdo2XwCd gjn0KrD30zaDU6PRhqs8pw MW6yCuJ1rvHvSOsos4imwC 4aQrU4BTemQS8xVT2bJDWx bR6cvtesISKzPyAgdintYD JcqTygcsEhGd4zfMhiPKZ7 QFegV4tigZ7cIcD3HVejM9 stvS6hYRo5BCnedUR3VQOd oI4kMJ4bugfii2loJGsgYI uvZWBzvhA9teS6REPtjAZl A4SilZ2qWMLdFE0cxgcxq6 obGEQ2UNojUOKiIXB2PsEr VTUhn5Bhmgl2FnNlh6EgdJ KsPBodV97bf308DIEudiIl F4yenILxlxcasDYxfqldNX icmeU4ZPBuBMGfMIrkNWZy XGZzMjJcbGFuZzEwMzNcaG ljaFxmMVxkYmNoXGYxXGxv N0xiPmGpY5MdJNXtJtWmQL xiOFhjgHRcbEWqcQZ5rI2f ZR9gUZIqbDEnK9ErFELuop GkrKIlSYO8lSTmkVBmJI7h PNrdfFLes0siq5EfV3tohG qwwIV9YF4fITLmELWpMVzd h6NhdZ0lUvswhPLtdsmqEJ xmczIyXGxhbmcxMDMzXGhp F2ukJsHtFWNnkXmdTWhao6 NoXGYxXGNmMlxmczIyXGx0 cmNoXHBhclxwYXJccGxhaW 0zNkNdCuWqLqjdMS3rSBTe A3bzsAEaNEIyDSYdO0jsPl DsjQ9jhZqkFMzjAiGwSbIj MhQVd189ba1fXGQemRDbok IDzDVsiA1cRQiiYRdiQPuy kDOfPDezk5edAIJvl2z9fP AzIWWmplQba5nfCSwufkTu CDZitYBcmQTiPLSrc81aET btsTcmiNqfDIOdt9AgbKxf w4KvNcSgEZszv7SiW25oeF JvbCBzbGlkZXMgcnVuIGFs u10yv5qlTIUyUeC5eFXueD J0nCYjgNQqz3AueAnsVAGp h9thQKJliy5vaizvlIYji9 NgnC1vssmmVObbmLIcvtQf BHHvw0k8oSVaTITuSAOkMB gqhOa4ILRdq847ak9lyuR6 dCUfJGE2KRopEZImSANpud UgZXZhbHVhdGVkXHBsYWlu XGYxXGZzMjJcbGFuZzEwMz NcaGljaFxmMVxkYmNoXGYx UIcoF1stUbShM3FxLWToTo FddDSiO2utdWImRAXoEDtx XGYxXGZzMjJcbGFuZzEwMz NcaGljaFxmMVxkYmNoXGYx ZOeeD9kvWzXoL1MaGTDaRc IgIFxwbGFpblxmMVxmczIy ZFfogeauBNJjJHukW1raCk CfFUSroTsbTXkhz8SzIXMk KQKeSqpwomIjESw3dvVdOS BhclxwbGFpblxmMVxmczIy DXhyrszwILJtRRyvG0ezMc JsYNVydGroCXovh7MqMKTa XGNmMlxmczIyIEltbXVub2 kmp6TyR2nrhBukfJE7DMHz G3diwNKevQK7GFF8sV9cCP rhzyBsVNMep7PuWSYoLKKr DnV9pQ7bLDU6FgOVuRhrAT BsYWluXGYxXGZzMjJcbGFu ZzEwMzNcaGljaFxmMVxkYm AvTKHgWNglG4pgXgNuL1Ab JPMcKkVboSttHMevCGn2Oe xwbGFpblxmMVxmczIyXGxh hochDJZzKRsqV1fjVlMpUU CtaMifXAdtp1LnIWCzDSSf MlxmczIyIHMgTWVkaWNhbC KKHL57JPGuMXEqcIfepR4s zQFKFPBmuaB3n0Q8QQszPT VyZHj7AGjmisNfPPSzhI0w AHKlOX1cFRe7vqNqWAOns6 BcJI9tUFJglUXaYZG9FOMl n6AoO6Sll5OwTVLtICEwve 3yrvAcUuOVsWMyTJRfys30 YBUnNO9wO4ptHEVuCGYhhi BijLVxj4DvKSUndFP9tRKp VH8HJsICf63lRFDoYWDDdm VdBWLaaOxqhSH7vpY2rA0j LiBUaGUgRkRBIGhhcyBkZX Mqht9clkVlSZFsNOHkr9Gy cCRdiPCzsbUgN9Tiu7PqXI Qacl78TPurjFHhtz21BH9d L7Fhs9EjbJ1cTGboRMZdm1 RpnKAtlUKhBGRxp1BuM9pn tuprGJzlbHZsfA1uALRiHD i1BXSyv5UnDSTne8DrEtQm seBiYGMbXIRoBMSlnH33ZV E4fHcpiAargzJbRM6jUEIv yyTtALWaLMLjqE6pSFkljv NzMYYnojL3t5K6WZryNACl eqMuQclqCLG6uvLliqC5mW WhJ8tmnlcqRVyiQDSmg2Ww hB6tiQGHfDFde1LerJZopB WQuPVkBU3eupHkWE5yGFZ4 ODggKENMSUEtODgpIGFzIH H1YMkyBgaaXBM6ezVpIXQd g9PzWObmR7ykQ32vdEnzzA y0sVHicFqbxOBpvKFyDCQb xkK3j8I3ZRMsr2PvujgyJZ BsYWluXGYyXGZzMjJcbGFu ZzEwMzNcaGljaFxmMlxkYm WuQGLnDKngJ1beQuWwXkUe MqbcWXO8jN== Gross assessment was [facility] performed at ([facility], = 2777) Department of Pathology, [address] [place] [address], Technical component was [facility] performed at ([facility], = 2778) Department of Pathology, [address] [place] [phone], Professional component [facility] was performed at ([facility], code = 2779) Department of Pathology, [address] [place] [id number], [id number] 21:30:35 Test Item Value Reference Range Interpretation Comments Case Report (test code Surgical Pathology = 104) Report Case: [id number] Authorizing Provider: Keiry Fragoso DO Collected: 10/17/2022 02:35 PM Ordering Location: [address] Received: 10/17/2022 03:45 PM Service Pathologist: Karolina Lau MD Specimen: Biopsy, Liver ADDENDUM (test code = r9yrpGZvUZPqbWP5JsSjFM 3381) Dzn8nto3XrzEBkdEPkFWfi eMVwufJmcn81kAA3uJ85XL 9pIBQnTkT3CWLmznT8Mqy9 GOAjWFYevSPgM475w1rmm5 apgjLknPM1sGhsCEGnqjnw WcD0SEwpCCCxucoqTUa2XX prXCSlsDW9IKKrpTXvD3Bh WJFbUO4lohv7XMX7RUmrKQ FzQlQ1ZGSmsQNdOOLdaTdw OJgma499QLM9CzNpFRSnsk QrmJfpyV2iEwZmUFRXdNCz wPWag2HdI4MoqALeATVpIX TqDvD5s0ZhxTZziKWoTIMw CQGtu1x3jEFlMDXcxrSPXK MWFaQbPJYkhMTacZaebS8b aOCnuwMqeD5xAEBaDN2xTU IdfT7oZEW0OTdiT2AaZ8Et RHXvpzUck5jsoqOhn5LeBI 1aLK20E0ubPMHrEOM9ZScr kX5hZNXhtyYJWVZPTXWqDK I7LSfowJEdobM0FyPuj4Sc wEVrS2UdPDRzZxShIXDal8 XyxaTjjy9xYUhbZZPCd1oq wgUmZJKsDSJbVtMKON8zqp BwgHxtWHDvLP8fK9KdP9ne q14sVOCfp2ydQ3OBKfHnu4 HuyXo5sPD7VODfKEV+NzAl DM1zWQDszA5yXZJrsbApyq AqjS71POvnj2Ykk3HlicOh bZJeufDCPQRKNZ4bJSHzae sqXUOyDWotgPgmwGC1kUjk AUCryl3sHDMwyZ8aMDR6ME aijVSwcCFvsBUsnOIvp9Oo ZXIgcHJpbWFyeSBlLmcuIF SchqQiNZQ4au7lhTbzYVA0 NC8jlXCbSJWmY2wbL7OvGH 2zfLTmDFXbzPBecYHaSZ1q U0bgkhloDTfsF77ewkCkZA Lgi99wn3r1rWWurOMjsE0z CFteJGGzK04lqVPyFANdZA wnGCRvvHIdJMu4EqVtsRLq gUUoACVrvmJQzQ07lv7zbD EthwYzTHJpOIOzlpAfiq0x SYT7dTHnZUAcuEAjeBCmWK FtSZXsbvHop4lpHLJ3LCDu p9LdfKykCG9pHIhvfLVyoQ KevIZiYRD7QJTAWD1GKQZc ciAgICAgIFxwYXJccGFyZF xwYXJccGFyXHBhcn0= DIAGNOSIS (test code = j4ozoCZlQDQza1wpWVXtuF 3220) FuZzEwMzNcZnRuYmpcdWMx IHtccnRmMVxlcGljOTYwMl nkxeQxHIUxwQGwO9Pucyxy YOnmYG0vJB9ejTrrxGRitA IkNUDzZtEbz8dnk840lJVq f9wpFTVBulknuKc4cOmhV6 7om0Z0WqhaR95reYRdHKL2 JBHhZABcsXXyTPXjMSZ4RL PytJVbX8nxKUEfED2wisou NNvfGWxdCOWbdIN7HFAidO LcZ8VpLWAbECdzBTGxmgf0 TtQaEh9lhCJaeWmqDPcnDG JkXHBsYWluXGZzMjAgTElW HUUeIM4TL0JaAIZARdlQWA WOBD6DPJNBPLJVW3WNHQLA S3NZQEuxuV3tNJ2ZNHPkr3 HsyySrbo5kFTfpqF6xSCWn dGVseSBkaWZmZXJlbnRpYX KbRAsoLtX2f1JcH3ArdXKl lP61TTX5aQ2vmP6hQV6flb NtwZ8ztZqoIRL9QCBxpY6i eiwkIFQtHVGvi89tKI78VE tzTER8h9erqEZnRMUbeTEg ODAwMFxhbnNpXGRlZmxhbm qlVLWfLYG6mbMwXFRbJRey NDXlLWihXo4tiOBafJukXd GpRQKjx6qzqyHIemaxiHg8 y7twFQXnFuI0nAFxJAtuG9 xwtmErdRTcQUQsRTk5gC88 YKLlhS5kdWEeQMytuvRtOu P1QPsiNGJqAjS8MGCxxAFl SAPsK1srCKXvMGkpSXTjYV atfHRvFHP9mWuxm7T9fHMq aGVldHtcZjBcZnMyMiBOb3 BmFPg4tYjrK4BpLWEgOcN9 bHQgUGFyYWdyYXBoIEZvbn Y4hN25BZgqmoR5tXQrx7Lb y40gc425iK3ycBVrNCR8PF MlQGDplMJkENPgEWX2QAKr xVFdY8xzZRUlUQ3lhbzxTK qxKAwmDOFvkWF4PUOjoGOt X6CwIGUdSCelZOHixby7Ws LwFh1ajZMvdJnxCNklo1fb g3hhvUHcWlj4NDBaHgEuAh aaULyhx5Nqb1hxPGVpim5b MBA6uKEmsLpno5C3xCEfFF UgmBUrPWSsCB9jjYGwMHLz uQ1pxqphHFSiVmUscawmUV XrtBygbiYfTr3zuXfoAEW7 SSbqV4fnvJ8dBjL2TEvzJ0 jlsS5pFRq6QSqmFUDhbLB6 kiE8XGLsjNYbQ4HcvV2lFB MfEV0pwhi5e8owDHK4DGxw BXMuQtR5swE5UOBpeMBnFD RmxJzwOPcvj467JCH1VuUd YYIet2GaU0AwvUgzJ30rmH nwE18gBBDjwCexaF2jiClm kQ9jFyGkHzNvMFhsmDnjCE 0wQJGuQ9brjBLyIWEeTEJr I4itOmLudB2suJfjWDachc FlEUDxTki5BBPlxZHsHLJx Ymy5KZXlGYStL92bglfwFQ A4jA7pr6kvc3BwQAtbIWU2 YIDiq22iEEfpvtG3BYvnJb 66BYtlGVM5GNfaFHW7rR== COMMENT (test code = i3monITkCJYldPN2NyRyIJ 3800) Hmc2rdi2CcyDOslVQfRJoi mPRpprSbek81jXG0oU99RU 3mIEFfAsS6UFHearQ7Jgx1 UDGsXJSasLYsH149u4szb0 ptedUpqJX5rZyqYDGxdxpt FvK7ILyaJKTvtrknZYl2HV gkCRPzuES5YDAsqJMeH5Sa RAAsNM0fukl6YLJ2AKhuBK ElCvT9ERIlpYDnYLNchVpq BKlci732LEU8OaWbTWNjsn JukSxadT7pOgRnIBHnKR6y wEnvCVdrZFgfPDAmRK3oKS OyPEotPUupeDccD7Tjr3vc e4okAnIbqWhdkaCkahFuCq HyFW4ggaDdfWybTCeuRWMa IGludHJhaGVwYXRpYyBhbm TnLMb4jjOnNEHhqVrqUQL2 X0ZzmOUdjWdfiNV4sI2kNX dpdGggbXVsdGlwbGUgbGl2 KVZsgUWhbR3yULQkqhOion 8rKLVrHhPsFD5tqtXmkMax IXAetzTuhkQ7hNSlXZnrrb XfUQ5bkFFekRAyhOQnQQiv YXJccGFyICBUaGlzIGJpb3 PtrJHacU13yeJhjqSqw4y2 SBAwBLGvy0CfagWdhq1aUO Dcw4LtbhQ0CQc9JAMdOtWw cmVudGlhdGVkIHdpdGggZG mjUgCuTCMsq8WajQq9lLY7 IGZvciBDSzIwIGFuZCBDSz I2JUSkPINHRFnvFTYeYJLr NGnuyZl4FZLow4VaB0s7Jy GhIRzma6FksB7ytK7teSsc lD4bvJBtmPZttHVnWMH9VI HwELcmBE5jtoKyd9CaP6Kb rBj5MVFlWwYub5xyqgIIFQ AomxjoHGP9OYmou8K0SUMd FGZmUN5bORTgvnAgCST6jF QaUTWklk9uFAJzGS2kHnOn clJlRXVdwqLzUh7xAZIUGs KvxvQlBaEaSZ7sPJNdYWNn VR6dvsZlwYaiDBK6G6BglR TkPWHrlZ1bzCBwD8XlEIPf SHOmr8p6hXSfYWJztwAKIl QnYfHcE80emuSpBCGok55y c7k0lTD8uUMglR7tG6zpNj BcoCLmeBVyYQH2yOUjavGi gmBhlF05EZCmYE1dq0Zhh2 N8ECCkVTFaDpwggUW0JVRh v12roXnhLS1riU5mcLNvY4 JlYXRpYyBtYXNzIGZvciBj v07cUHDlf85xYHijFRZ7W8 vpx1RiYQduGi4qYCXnxOVv UMXyWISyb3Qij39tebRmhJ FyfQ== CPT Code(s) (test code l1iadCNsWPPclVZ8HjAjTJ = 3357) Jjw1dpv2AtkVDquMByVPjd bBDagcIxdp00cHB6mW53BR 3vCROjFxG8SLYubtV5Iof4 XBYsBJDrrBRiC971p1ked6 ekknBtjKK3fLghZZZsoftm SdI4QEydJJOspcisLXb3LP btNREccMO5RIJaoBNuA6Oa AJSlVR4cutj1OPT3FLqaGB YhItU1VNPwyOUyCPQgtUtb ANrhs004FZV8NrXcAQOcmj WmkQiruM2vIcReZFC3UXZq NaS5IEOqvDLdBOa4DhDyfC JpqTYjGLw2CoSfmKTqnMWl fQ== GROSS DESCRIPTION (test u9gkmCUfZZTfzEDAJIUlB9 code = 6816547699) aweoMlXULuwVBmS4Zqehsm AGwgCE8zWR0lqQhjjMPfhL GlOZ0BEHVgZcOeRYMpuQUs juMpFjFlPHIgbXAnrPJ7OV OhEO5pqbmjKLkeGByrHKZk gyV7KSVigYZlQ6OlUAHmWQ 4knacmCOS3NZjqjR6japIG RgrcFz6rnAJwtVozFgZwWi NoYXJzZXQwXGZuaWwgQXJp ZFp5bL7WWaugF03ic5E8Ic n2CFJzYLMmN7EiZB0hZQIo eBTgW51NNytcMRY0ZILWNs vjRIZbWL7Or2gsCYZvvUKs YPZ1NJxmkGTqIQIbRFKjWM z8GQSdXNqjiWCyJG7hiPpj PhacbZqfh6ScnLPqYAnvJZ TnVCHoSJpdPYUjHZ6AEmYy CCsrQUNmMZRlNNr6TEp8JT 8VQeTkVKTaGdY7NZUmYIWx LIf8DTfqKJ6RIWN9SUI7VE OmYJX1XGPnYLQfITRkVnBd XGYgQXJpYWwgXFxmbCBcXG 3ifTrlgFKqzpPSIcLAmH9t d2rlBEuqhyKjLocyFMXnDL ddJCHvV60eu7BSo0IcRN9U OLm4ogZhpxnxfA2jPDQymm NsECmvzAJkS4mkE0AoAIMe KlIbImOkQWx7VDZhqC6vXy 8sfZConX6mqFSmPHanSTJ9 kPIhKTEwMIVbEPJhKM16XC dCNHMgbmFtZSwgbWVkaWNh bCByZWNvcmQgbnVtYmVyIG IkYPTqpTuxPhOkETq1Y8on dmVyIEJYIiBhcmUgbXVsdG pbyEDsvGWjWJIzxbuoA4ts qP3aynneRLencTopd3JyFR NvcmVzIHJhbmdpbmcgZnJv pSCcFyGzIF11NCGmEHphQN raeea0hVVdonJkDO3uLUFm NAocUFFrEV2hvERrHbBhMQ hlIHNwZWNpbWVuIGlzIHN1 Qc3hoVXjLQKiihF1q4DbNA luIEExLlxwYXIgDQpccGFy OJ1AU4Q0nPYjjW4nKQ0zug TuKWxyLLFjW4A4DWTnxPqd HMOsNSeubAAtFE5INQUlBZ wmfhYlPW0STQQpKWefJJKg qMYGAND7JK8aCCetpIUpei jjOUPpP2UkK9LlnpXwaWNk PEMqunQcc0nsRHK0ASRtaN UpyOEnQsViIonmMRV1MEbk p1raPMM9KOEkxHQyyUPuJE nlQxDpUmqbRRJgH7VyD8Kb zsO6NDh3 MICROSCOPIC DESCRIPTION z9buoXYdGVFhyJY0IzBqGH (test code = 3371) Qhd7neu9KttDFhdGLgRUmn eYGzueSkou57rUU8zH15IU 8rAMQgDuK1NTTuqrR1Fch2 GXIdJJPpiIQgV231m9nrs9 mdoiCqeDL8uDqcXEOswuld MlR4WSgjIUXlbhemAOb6ZQ gsTVKqaZE0WKFvqNKsS3Js OZDwBX8gjwf2AAV1FWfpVI MiZfP8OXEuiLMnMRSjcXjy LQlaa982NGW5JqJsVZHxeb LrgIlzrJ1pTpMxSYCIgUZo zKg1HQVcI06dQTFmSVEoZK MgdBhsGSy1IM0gA9YaaZDp MQQ6YJirpvBudKEmHLOyJJ 1uY6UfW4kxy22rWW6kANRq MEVygFmzPVggMhWuCQ39yD I9JGEdu5a2pVJltnJbzhHu KfPzkvRfXXMzxXb7kUOpJW 09N9afPTNaFENSRTUvc4Ke bv3hQBCtVZ51CJhhelXsWJ LegbWnI3h5pNJhws84ZVHh tL1ksCkcAAMzG3pdae04kf QuXHBhclxwYXIgVGhlIHR1 vQ0fHBBrfJepJPUzXKNefF MswZHyqOyjmL5glOMxjmEp Fq1qPCJkOuNwUE1hSRRNXY avVC3mYLZjxcNaH6WpwBXy tL7ncJWixgEkHHNdpmVPGv rnNCJDhDKiBLVwzxEox2Wm hdP2KTOxXCGxcHbbwuDpoS HpzkReeHIzoqguYvNzc7Bj B2OLVbwul4QhjhJipMZjxN Khn4L0bV4iIHLkWKSpSe86 YKFaaRNukv8buYYmtISsgO == SPECIAL STUDIES (test n9wlfDLoJVRdi8mgITBynB code = 3376) FuZzEwMzNcZnRuYmpcdWMx UMligxGyEXkvo2QrN8YoPr AwMFxhbnNpXGRlZmxhbmcx LCEiNXM1odEcRZQnCEgbZL HyRJcsXw9pvHNvmOrnBcXr ABHbh7xnftKHkxzvuYy1q1 gtQTDnGkN1rXQwGTgiM0ug cgFszYCpB4GhhNYfySa4b9 nuNlRsGcH0nEPsEFfcO0ho qaFzsIQsUVBcPVw9bY59PD UubW9xaOXzBPuwdpWzDzC2 KWmyIAGqOqR7KUCtnPSxUF WvJ8ocYQZuRYsxNGTmRAgh uSZzAOX8eNyfx0Y7hEAokT WytPuoAeVzSqJgHvGAn8Cz FKo1tHtlZ7BgIHGrHvM3uL QgUGFyYWdyYXBoIEZvbnQ7 mUpnxzHkr08ezYDqDBGrOB OlEzWatDieRCEgJBEJx7Bl lPsiSUF2kMo5vVgtSrseFU W4Sbn3TE6llp38wtq0nAsn NRLibnnsYjA7ZIljOGNwah rcASy8SHoeZVTvnTR8BYHy aPKbR9PhLRImXU6domi2ZK T7RXqjDAQmZjE1MZNvmEFn ABLncAiiTCbhg732XWS8Ul RlPM9bE0Plk6S3tY1hjTBw ZLQzxTAsHuLzDBRxux4btT PtUKemb4CcCQI5dlP7mSBi tIJaGUWyWF26Jiupi8JtSc mpx5CbD08slWQ2CQxlv1al IS9uKeR7lqAkBSlim8vifN 6rPvP9CRzyVK8oBT8hNRLa yM5jccstVGKtJwHlqlpyWE ZboIzbgfUqHt3vmEhcMHX0 HOkrQ6ahpK0nDmF1FBanD5 nfmV7eMGw2RNdovNN0QOHa yP3rGY0uoqneq1fjOSzgDJ noWNIiocX9ydO3QPGcdDFm B9DziV0lQEBoNU8gewbqd9 wfWHK0GTzgZINyLQK8UuUb URYji1Bjbxn8IoTri9OmaI WxFPayS33qn735OZZrcvHk R3nymNXxmkxcmHMmalbrRY fchpS3TEJsPQUoSBvvSXDo XGZzMjJcbGFuZzEwMzNcaG ljaFxmMVxkYmNoXGYxXGxv Z2ynXuRhY6EuYENvSaCiSC bxWOdebKUhiEVjlXJ3hE0x ZJ6nOUSsrJDwV4EpTPJegs OtqHDoHUG1iFGrrGIoBW3a KZgojCLte6xcf9NtO5orhS eboML8ZA0uCZTdLFRpDPin z4AmgB6sUlhorHYvlrlcTV xmczIyXGxhbmcxMDMzXGhp D2quDmFgBBNjkThwSXnam6 NoXGYxXGNmMlxmczIyXGx0 cmNoXHBhclxwYXJccGxhaW 3eNlYoGyAzWdpiIL9fNGAd R3lsrCQvUCLgOINiY8gsIg UorZ9oyFuwZHcdWfQpFcJc HpIOo182rt9yFWNhiIXezr GRgLNmwM5lXKagZWqjXNkh sKGfKZazi3llDLPsp9c6aH CgVPOnsjLuw0euILqhipGq ENKxwHElwFBhGXKuf06sIS eyaEipcDkzPTRkg4SpdOzp j2LsLxJaQTecn0ArI31jdQ JvbCBzbGlkZXMgcnVuIGFs p82rr0otSYGrUkF9gILgdL X0jLJrmSLza7GklKynPTRf h2snADPhlu8bjaxawQDjr1 NshJ6fjfbzWTuajBQxajRm MKSeg8p0hEBuEMLtYDBoWM dfxOe1XGTpm705ow9uvdV6 yHMfXKS3ADmvOEKdGBBeek UgZXZhbHVhdGVkXHBsYWlu XGYxXGZzMjJcbGFuZzEwMz NcaGljaFxmMVxkYmNoXGYx UCduC3mcDrRfS6FlKDJfPu XadLSsV6elnLSiBJEiIKtu XGYxXGZzMjJcbGFuZzEwMz NcaGljaFxmMVxkYmNoXGYx GCbnS0awWgBnO4GvOFCkFd IgIFxwbGFpblxmMVxmczIy KEitjhitGUOkKZroB2jwHz LgJWHnmEejNAuxh9LfQOYm GOYtNfjiucYeCFt1boIcAP BhclxwbGFpblxmMVxmczIy VToamqvzABCmSDwrA9niUg DiNIPvuIdqFMirh6KjOMNc XGNmMlxmczIyIEltbXVub2 gez2FlX1wznZbkkIV9GXLz Q0dttAUblWN7SNJ3dS5xMG stoiIwZXYbg1AxPMXfUKUj FrP0nC4dGOW6IdUTgKhyBE BsYWluXGYxXGZzMjJcbGFu ZzEwMzNcaGljaFxmMVxkYm BiFTFlOHpbG5aoJpNuH0Go WJWfQjXrxTioEFqsPVb1Vl xwbGFpblxmMVxmczIyXGxh weujUZFyCFsmF1foDeTxMX OpsHjwMLlyk5TwBXVuNWAh MlxmczIyIHMgTWVkaWNhbC SSAG89JGTrXZMxtDwzxB0h qWPDMVEuwdP3l8Z9VYklOY ThEGx6XGwbrsLvUVNomZ4c ITQeUI5bIBh0slFnXZUsi8 EoTN9qVYOikRBlNQY5MOCu q9XtG8Aco3EdQBTqNEPjkh 1yryLyMlUVmMMfDUWtpb40 KCRsFK1jU5buPTZzCOJnjz PzeFJin6YuKAAkaZL1qCIl HJ0GQzCSy68iUPKiABQIag XqCKBjwNfbeNT7hxP4rP6e LiBUaGUgRkRBIGhhcyBkZX Jyxr1wwwZbYEVbNXPkg1Nz oMVthJSdfyCdU7Swh9ErCH Eiib22UEtqiPKcpj09TV7z K8Vak9OakE0aJWejLFHav4 XcdKXleJBkCRCin0RzY4jo zxabIBqnrGWofI5xLWNiNU f4FIQld9QnJFNgu9EhDtUb jqReZTYmCJMdVDBgsB54WD D8pMebaGhyfkJiJX2yJUIp cdAeYKHcLZRhbT5fJUkbus YoDBTmvgA6g2D4IRtaWANl jeYjZmtiUHI9wrCxfhK4pB HyS6bgcdlkSFwxVLUfm2Vm yF8jnNUNaHVqc0HiuLTlxQ WXeHWuTW5mcoHmTL8zQGV6 ODggKENMSUEtODgpIGFzIH S4DLlwChlzOFB2lpDgDOMr a1FmWQkpD6vfA65iaGjgtO z8qJCqpKvknRPdrOToNMFi rhF8w7S4CNDjk7FgvdpgDS BsYWluXGYyXGZzMjJcbGFu ZzEwMzNcaGljaFxmMlxkYm KyRWKyVBsrJ5qpPuTqKzQh XdbsMBK3pL== Gross assessment was [facility] performed at ([facility], = 2777) Department of Pathology, [address] [place] [id number], Technical component was [facility] performed at ([facility], = 2778) Department of Pathology, [address] [place] [id number], Professional component [facility] was performed at ([facility], code = 2779) Department of Pathology, [address] [place] [id number], [facility] [id number] 21:30:35Surgical Pathology Report Case: [id number] Authorizing Provider: Keiry Fragoso DO Collected: 302:35 PM Ordering Location: [address] Received: 10/17/2022 03:45 PM Service Pathologist: Karolina Lau MD Specimen: Biopsy, Liver The tumor cells are diffusely nuclear positive for SATB2 (usually positive in 80% of colorectal cancer) and show loss of nuclear staining for SMAD4 (Usually in 43% of pancreatic adenocarcinoma). However, 1% of Pancreatic adenocarcinoma show CDX2 positivity and ~70% of colon cancer show loss of nuclear SMAD4. Thought this favor colorectal primary but other primary e.g. Pancreato-biliary / upper GI can not be excluded. Clinical correlation with imaging is recommended [id number] are performed with appropriate controls at [facility] and interpreted at [facility] Addendum electronically signed by Karolina Lau MD on 11/02/2022 at 9:30 PMLIVER, MASS, TARGETED NEEDLE CORE BIOPSY- Adenocarcinoma, moderately differentiated, favor gastrointestinal/pancreatobiliary primary (see comment) Signing Pathologist Direct Phone Line: [phone] signed by Karolina Lau MD on 10/19/2022 at 11:09 AM In the 72 [address] old male with CT showing fullness of pancreatic head, intrahepatic and extrahepatic ductal dilatation with multiple liver lesion concerned of pancreatic cancer with liver metastasis. 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 These immunohistochemical pat tern is more suggestive of lower GI primary however 10% of pancreatic adenoma can be negative for CK7 and 30% of the pancreatic ductal carcinoma can be positive for CK20. Correlation with the imaging studies, upper and lower endoscopy and biopsy from the main pancreatic mass for comparison is suggested, for complete [id number] x [id number]. Biopsy, Liver.Received in formalin labeled with the patient's name, medical record number and "liver BX" are multiple garcia-pink cylindrical tissue cores ranging from 1.5-1.7 cm in length and 0.1 cm in diameter. The specimen is submitted in toto in A1.AJAY Rawls StudentThe liver cores are entirely occupied by invasive adenocarcinoma moderately differentiated with areas of intracellular mucin and Necrosis. Scant liver parenchyma noted in the background.The tumor cells are diffusely positive for Ck20 and CK19 and rare cells positive for CK7. There is moderate patchy nuclear staining for CDX2, overall supporting the above diagnosisThe interpretation of this case included the use of immunohistochemistry or special stains.Control Slides Examined: In-house known positive controls were evaluated along with the test tissue. These control slides run alongside of the patients sample show appropriate staining. Internal positive and negative controls when available are evaluated Immunohistochemistry technical testing was performed at [facility], Pathology Laboratory where it was developed and its performance characteristics were determined. It has not been cleared or approved by the U.S. Food and Drug Administration. The FDA has determined that such clearance or approval is not necessary. The test is used for clinical purposes. It should not be regarded as investigational or for research. This laboratory is certified under the Clinical Laboratory Improvement Amendments of 1988 (CLIA-88) as qualified to perform high complexity clinical laboratory testing.[facility], Department of Pathology, [address] [place] [id number], [facility], [address] [place] [address], [facility], [address] [place] [id number], JW, ABDOMEN, [id number] 15:17:00Unlisted Reason for Exam - Click Yes and Enter Reason Below->Yes Unlisted Reason for Exam->obstructive jaundice s/p biliary drain w/ persistent abnl bilirubin. eval for possible new biliary drainage cath placement [facility] 1950 Sex: MFINAL REPORT MRCP, MRI of abdomen without contrast Clinical History: Unlisted Reasonfor Examobstructive jaundice s/p biliary drain w/ persistent abnl bilirubin. eval for possible new biliary drainage cath placement Technique: Multiplanar and multisequence MR images of the biliary system are obtained, with dedicated MRCP protocol and images. No intravenous contrast is administered. In addition, 3 dimensional reformatted images of the biliary system are obtained to evaluate the biliary anatomy. Comparison: CT dated October 15, 2022, performed at an outside institution Discussion: This examination is not dedicated to evaluating masses or parenchymal abnormalities of the abdominal organs. Liver is enlarged and measures 22 cm sagittally. It contains innumerable T2 hyperintense foci, compatible with metastasis; the largest measures approximately 3.2 cm. There is mild periportal edema.Right-sided percutaneous biliary drain has been placed, with markedly decreased ductal dilatation. There is mild intrahepatic biliary ductal dilatation in the peripheral lateral left hepatic lobe and po sterior right lobe, likely due to obstruction by liver masses, central bile ducts are normal in caliber. Gallbladder contains multiple stones. Spleen, pancreas and adrenal glands appear unremarkable. Pancreatic duct is normal in caliber. 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 2 simple cysts are noted in the kidneys, no imaging follow-up is needed. Several mildly enlarged kaley hepatis and upper abdomen lymph nodes may be metastatic as well. No ascites. No suspicious bony lesion is identified. Trace right-sided pleural effusion. Impression: Innumerable liver metastasis. Hepatomegaly. Several mildly enlarged kaley hepatis and upper abdomen lymph nodes could be metastatic as well. Cholelithiasis. Status post right-sided percutaneous biliary drain placement, with improved biliary ductal dilatation. Mild residual intrahepatic ductal dilatation is noted in the peripheral lateral left lobe, and posterior right lo be, likely due to obstruction by liver metastasis. Signed: Megha Donovanort Verified Date/Time: 11/02/2022 15:17:03 [id number] 06:49:08 Test Item Value Reference Range Interpretation Comments PHOSPHORUS (BEAKER) (test code = 2.9 mg/dL 2.3-4.7 604) [employer] ID - ADMINCOMPREHENSIVE METABOLIC [id number] 06:49:08 Test Item Value Reference Range Interpretation Comments TOTAL PROTEIN 6.9 gm/dL 6.0-8.3 (BEAKER) (test code = 770) ALBUMIN (BEAKER) 3.2 g/dL 3.5-5.0 L (test code = 1145) ALKALINE 184 U/L 40-150 H PHOSPHATASE (BEAKER) (test code = 346) BILIRUBIN TOTAL 2.9 mg/dL 0.2-1.2 H (BEAKER) (test code = 377) SODIUM (BEAKER) 135 meq/L 136-145 L (test code = 381) POTASSIUM (BEAKER) 4.2 meq/L 3.5-5.1 (test code = 379) CHLORIDE (BEAKER) 97 meq/L 98-107 L (test code = 382) CO2 (BEAKER) (test 28 meq/L 22-29 code = 355) BLOOD UREA 25 mg/dL 7-21 H NITROGEN (BEAKER) (test code = 354) CREATININE 1.53 mg/dL 0.57-1.25 H (BEAKER) (test code = 358) GLUCOSE RANDOM 107 mg/dL 70-105 H (BEAKER) (test code = 652) CALCIUM (BEAKER) 9.5 mg/dL 8.4-10.2 (test code = 697) AST (SGOT) 34 U/L 5-34 (BEAKER) (test code = 353) ALT (SGPT) 31 U/L 6-55 (BEAKER) (test code = 347) EGFR (BEAKER) 49 Interpretatio n of eGFR (test code = 1092) mL/min/1.[address] age Description sq m Result G1 Cris l or high >=90 G2 Mildly decreased 60-89 G3a Mildl y to moderately 45-5 9 G3b Moderately to s everely 30-44 G4 Severl y decreased 15-29 G5 Kidney failure <15Reported eGF R is based on the CKD-EPI 2020 equation that d oes not use a race coefficientEsti mated GFR is not as accur ate as Creatinine Jennifer og in predicting glom erular filtration rate . Estimated GFR is not appl icable for dialysis patien ts [employer] ID - ADMINSpecimen slightly [id number] 06:49:07 Test Item Value Reference Range Interpretation Comments MAGNESIUM (BEAKER) (test code = 1.8 mg/dL 1.6-2.6 627) [employer] ID - ADMINCBC (HEMOGRAM ONLY)2022-11-02 06:01:55 Test Item Value Reference Range Interpretation Comments WHITE BLOOD CELL COUNT (BEAKER) 8.3 K/ L 3.5-10.5 (test code = 775) RED BLOOD CELL COUNT (BEAKER) 3.81 M/ L 4.63-6.08 L (test code = 761) HEMOGLOBIN (BEAKER) (test code = 9.4 GM/DL 13.7-17.5 L 410) HEMATOCRIT (BEAKER) (test code = 31.3 % 40.1-51.0 L 411) MEAN CORPUSCULAR VOLUME (BEAKER) 82 fL 79-92 (test code = 753) MEAN CORPUSCULAR HEMOGLOBIN 24.7 pg 25.7-32.2 L (BEAKER) (test code = 751) MEAN CORPUSCULAR HEMOGLOBIN CONC 30.0 GM/DL 32.3-36.5 L (BEAKER) (test code = 752) RED CELL DISTRIBUTION WIDTH 23.9 % 11.6-14.4 H (BEAKER) (test code = 412) PLATELET COUNT (BEAKER) (test 258 K/CU MM 150-450 code = 756) MEAN PLATELET VOLUME (BEAKER) 9.5 fL 9.4-12.4 (test code = 754) NUCLEATED RED BLOOD CELLS 0 /100 WBC 0-0 (BEAKER) (test code = 413) BLOOD [id number] 14:00:54 Test Item Value Reference Range Interpretation Comments CULTURE (BEAKER) (test No growth in 5 days code = 1095) BLOOD [id number] 13:01:01 Test Item Value Reference Range Interpretation Comments CULTURE (BEAKER) (test No growth in 5 days code = 1095) The specimen volume collected for this blood culture was below the optimum (10 mL per bottle or 20 mL total). Use of lower volumes may adversely affect recovery and/or detection times of some organisms.CBC (HEMOGRAM ONLY)2022-11-01 05:59:48 Test Item Value Reference Range Interpretation Comments WHITE BLOOD CELL COUNT (BEAKER) 8.6 K/ L 3.5-10.5 (test code = 775) RED BLOOD CELL COUNT (BEAKER) 3.47 M/ L 4.63-6.08 L (test code = 761) HEMOGLOBIN (BEAKER) (test code = 8.6 GM/DL 13.7-17.5 L 410) HEMATOCRIT (BEAKER) (test code = 28.3 % 40.1-51.0 L 411) MEAN CORPUSCULAR VOLUME (BEAKER) 82 fL 79-92 (test code = 753) MEAN CORPUSCULAR HEMOGLOBIN 24.8 pg 25.7-32.2 L (BEAKER) (test code = 751) MEAN CORPUSCULAR HEMOGLOBIN CONC 30.4 GM/DL 32.3-36.5 L (BEAKER) (test code = 752) RED CELL DISTRIBUTION WIDTH 23.6 % 11.6-14.4 H (BEAKER) (test code = 412) PLATELET COUNT (BEAKER) (test 258 K/CU MM 150-450 code = 756) MEAN PLATELET VOLUME (BEAKER) 10.4 fL 9.4-12.4 (test code = 754) NUCLEATED RED BLOOD CELLS 0 /100 WBC 0-0 (BEAKER) (test code = 413) [id number] 05:46:20 Test Item Value Reference Range Interpretation Comments PHOSPHORUS (BEAKER) (test code = 3.1 mg/dL 2.3-4.7 604) [employer] ID - PRESLEY GCOMPREHENSIVE METABOLIC [id number] 05:46:19 Test Item Value Reference Range Interpretation Comments TOTAL PROTEIN 6.1 gm/dL 6.0-8.3 (BEAKER) (test code = 770) ALBUMIN (BEAKER) 2.9 g/dL 3.5-5.0 L (test code = 1145) ALKALINE 158 U/L 40-150 H PHOSPHATASE (BEAKER) (test code = 346) BILIRUBIN TOTAL 2.5 mg/dL 0.2-1.2 H (BEAKER) (test code = 377) SODIUM (BEAKER) 137 meq/L 136-145 (test code = 381) POTASSIUM (BEAKER) 5.0 meq/L 3.5-5.1 (test code = 379) CHLORIDE (BEAKER) 99 meq/L 98-107 (test code = 382) CO2 (BEAKER) (test 30 meq/L 22-29 H code = 355) BLOOD UREA 32 mg/dL 7-21 H NITROGEN (BEAKER) (test code = 354) CREATININE 1.71 mg/dL 0.57-1.25 H (BEAKER) (test code = 358) GLUCOSE RANDOM 107 mg/dL 70-105 H (BEAKER) (test code = 652) CALCIUM (BEAKER) 9.1 mg/dL 8.4-10.2 (test code = 697) AST (SGOT) 30 U/L 5-34 (BEAKER) (test code = 353) ALT (SGPT) 29 U/L 6-55 (BEAKER) (test code = 347) EGFR (BEAKER) 43 Interpretatio n of eGFR (test code = 1092) mL/min/1.[address] age Description sq m Result G1 Cris l or high >=90 G2 Mildly decreased 60-89 G3a Mildl y to moderately 45-5 9 G3b Moderately to s everely 30-44 G4 Severl y decreased 15-29 G5 Kidney failure <15Reported eGF R is based on the CKD-EPI 2021 equation that d oes not use a race coefficientEsti mated GFR is not as accur ate as Creatinine Jennifer og in predicting glom erular filtration rate . Estimated GFR is not appl icable for dialysis patien ts [employer] ID - PRESLEY [id number] 05:46:19 Test Item Value Reference Range Interpretation Comments MAGNESIUM (BEAKER) (test code = 1.7 mg/dL 1.6-2.6 627) [employer] ID - PRESLEY [id number] 04:50:30 Test Item Value Reference Range Interpretation Comments PHOSPHORUS (BEAKER) (test code = 3.3 mg/dL 2.3-4.7 604) [employer] ID - BSCOMPREHENSIVE METABOLIC [id number] 04:50:30 Test Item Value Reference Range Interpretation Comments TOTAL PROTEIN 6.4 gm/dL 6.0-8.3 (BEAKER) (test code = 770) ALBUMIN (BEAKER) 3.1 g/dL 3.5-5.0 L (test code = 1145) ALKALINE 204 U/L 40-150 H PHOSPHATASE (BEAKER) (test code = 346) BILIRUBIN TOTAL 3.0 mg/dL 0.2-1.2 H (BEAKER) (test code = 377) SODIUM (BEAKER) 134 meq/L 136-145 L (test code = 381) POTASSIUM (BEAKER) 4.6 meq/L 3.5-5.1 (test code = 379) CHLORIDE (BEAKER) 98 meq/L 98-107 (test code = 382) CO2 (BEAKER) (test 28 meq/L 22-29 code = 355) BLOOD UREA 46 mg/dL 7-21 H NITROGEN (BEAKER) (test code = 354) CREATININE 2.07 mg/dL 0.57-1.25 H (BEAKER) (test code = 358) GLUCOSE RANDOM 102 mg/dL 70-105 (BEAKER) (test code = 652) CALCIUM (BEAKER) 9.0 mg/dL 8.4-10.2 (test code = 697) AST (SGOT) 34 U/L 5-34 (BEAKER) (test code = 353) ALT (SGPT) 32 U/L 6-55 (BEAKER) (test code = 347) EGFR (BEAKER) 34 Interpretatio n of eGFR (test code = 1092) mL/min/1.[address] age Description sq m Result G1 Cris l or high >=90 G2 Mildly decreased 60-89 G3a Mild ly to moderately 45-5 9 G3b Moderately to s everely 30-44 G4 Severl y decreased 15-29 G5 Kidney failure <15Reported eGF R is based on the CKD-EPI 202 equation that d oes not use a race coefficientEsti mated GFR is not as accur ate as Creatinine Jennifer foley in predicting glom erular filtration rate . Estimated GFR is not appl icable for dialysis patien ts [employer] ID - BSSpecimen slightly [id number] 04:50:29 Test Item Value Reference Range Interpretation Comments MAGNESIUM (BEAKER) (test code = 1.9 mg/dL 1.6-2.6 627) [employer] ID - BSCBC (HEMOGRAM ONLY)2022-10-31 04:16:40 Test Item Value Reference Range Interpretation Comments WHITE BLOOD CELL COUNT (BEAKER) 7.2 K/ L 3.5-10.5 (test code = 775) RED BLOOD CELL COUNT (BEAKER) 3.78 M/ L 4.63-6.08 L (test code = 761) HEMOGLOBIN (BEAKER) (test code = 9.1 GM/DL 13.7-17.5 L 410) HEMATOCRIT (BEAKER) (test code = 30.5 % 40.1-51.0 L 411) MEAN CORPUSCULAR VOLUME (BEAKER) 81 fL 79-92 (test code = 753) MEAN CORPUSCULAR HEMOGLOBIN 24.1 pg 25.7-32.2 L (BEAKER) (test code = 751) MEAN CORPUSCULAR HEMOGLOBIN CONC 29.8 GM/DL 32.3-36.5 L (BEAKER) (test code = 752) RED CELL DISTRIBUTION WIDTH 23.3 % 11.6-14.4 H (BEAKER) (test code = 412) PLATELET COUNT (BEAKER) (test 251 K/CU MM 150-450 code = 756) MEAN PLATELET VOLUME (BEAKER) 9.7 fL 9.4-12.4 (test code = 754) NUCLEATED RED BLOOD CELLS 0 /100 WBC 0-0 (BEAKER) (test code = 413) COMPREHENSIVE METABOLIC [id number] 05:23:52 Test Item Value Reference Range Interpretation Comments TOTAL PROTEIN 6.0 gm/dL 6.0-8.3 (BEAKER) (test code = 770) ALBUMIN (BEAKER) 2.9 g/dL 3.5-5.0 L (test code = 1145) ALKALINE 199 U/L 40-150 H PHOSPHATASE (BEAKER) (test code = 346) BILIRUBIN TOTAL 2.8 mg/dL 0.2-1.2 H (BEAKER) (test code = 377) SODIUM (BEAKER) 136 meq/L 136-145 (test code = 381) POTASSIUM (BEAKER) 4.4 meq/L 3.5-5.1 (test code = 379) CHLORIDE (BEAKER) 102 meq/L 98-107 (test code = 382) CO2 (BEAKER) (test 23 meq/L 22-29 code = 355) BLOOD UREA 68 mg/dL 7-21 H NITROGEN (BEAKER) (test code = 354) CREATININE 3.12 mg/dL 0.57-1.25 H (BEAKER) (test code = 358) GLUCOSE RANDOM 95 mg/dL 70-105 (BEAKER) (test code = 652) CALCIUM (BEAKER) 8.7 mg/dL 8.4-10.2 (test code = 697) AST (SGOT) 45 U/L 5-34 H (BEAKER) (test code = 353) ALT (SGPT) 35 U/L 6-55 (BEAKER) (test code = 347) EGFR (BEAKER) 21 Interpretatio n of eGFR (test code = 1092) mL/min/1.[address] age Description sq m Result G1 Cris l or high >=90 G2 Mildly decreased 60-89 G3a Mildl y to moderately 45-5 9 G3b Moderately to s everely 30-44 G4 Severl y decreased 15-29 G5 Kidney failure <15Reported eGF R is based on the CKD-EPI 2020 equation that d oes not use a race coefficientEsti mated GFR is not as accur ate as Creatinine Jennifer og in predicting glom erular filtration rate . Estimated GFR is not appl icable for dialysis patien ts [employer] ID - JUANITA [id number] 05:19:47 Test Item Value Reference Range Interpretation Comments MAGNESIUM (BEAKER) (test code = 2.0 mg/dL 1.6-2.6 627) [employer] ID - JUANITA [id number] 05:19:47 Test Item Value Reference Range Interpretation Comments PHOSPHORUS (BEAKER) (test code = 4.1 mg/dL 2.3-4.7 604) [employer] ID - JUANITA LPROTHROMBIN TIME/[id number] 04:54:34 Test Item Value Reference Range Interpretation Comments PROTIME (BEAKER) (test code = 18.7 seconds 11.9-14.2 H 759) INR (BEAKER) (test code = 370) 1.61 <=5.90 RECOMMENDED COUMADIN/WARFARIN INR THERAPY RANGESSTANDARD DOSE: 2.0 - 3.0 Includes: PROPHYLAXIS for venous thrombosis, systemic embolization; TREATMENT for venous thrombosis and/or pulmonary embolus.HIGH RISK: Target INR is 2.5-3.5 for patients with mechanical heart valves.CBC (HEMOGRAM ONLY)2022-10-30 04:18:18 Test Item Value Reference Range Interpretation Comments WHITE BLOOD CELL COUNT (BEAKER) 6.0 K/ L 3.5-10.5 (test code = 775) RED BLOOD CELL COUNT (BEAKER) 3.22 M/ L 4.63-6.08 L (test code = 761) HEMOGLOBIN (BEAKER) (test code = 7.7 GM/DL 13.7-17.5 L 410) HEMATOCRIT (BEAKER) (test code = 25.4 % 40.1-51.0 L 411) MEAN CORPUSCULAR VOLUME (BEAKER) 79 fL 79-92 (test code = 753) MEAN CORPUSCULAR HEMOGLOBIN 23.9 pg 25.7-32.2 L (BEAKER) (test code = 751) MEAN CORPUSCULAR HEMOGLOBIN CONC 30.3 GM/DL 32.3-36.5 L (BEAKER) (test code = 752) RED CELL DISTRIBUTION WIDTH 22.8 % 11.6-14.4 H (BEAKER) (test code = 412) PLATELET COUNT (BEAKER) (test 239 K/CU MM 150-450 code = 756) MEAN PLATELET VOLUME (BEAKER) 10.1 fL 9.4-12.4 (test code = 754) NUCLEATED RED BLOOD CELLS 0 /100 WBC 0-0 (BEAKER) (test code = 413) COMPREHENSIVE METABOLIC [id number] 04:44:29 Test Item Value Reference Range Interpretation Comments TOTAL PROTEIN 5.7 gm/dL 6.0-8.3 L (BEAKER) (test code = 770) ALBUMIN (BEAKER) 2.8 g/dL 3.5-5.0 L (test code = 1145) ALKALINE 180 U/L 40-150 H PHOSPHATASE (BEAKER) (test code = 346) BILIRUBIN TOTAL 2.5 mg/dL 0.2-1.2 H (BEAKER) (test code = 377) SODIUM (BEAKER) 132 meq/L 136-145 L (test code = 381) POTASSIUM (BEAKER) 4.1 meq/L 3.5-5.1 (test code = 379) CHLORIDE (BEAKER) 102 meq/L 98-107 (test code = 382) CO2 (BEAKER) (test 20 meq/L 22-29 L code = 355) BLOOD UREA 91 mg/dL 7-21 H NITROGEN (BEAKER) (test code = 354) CREATININE 5.13 mg/dL 0.57-1.25 H (BEAKER) (test code = 358) GLUCOSE RANDOM 99 mg/dL 70-105 (BEAKER) (test code = 652) CALCIUM (BEAKER) 8.5 mg/dL 8.4-10.2 (test code = 697) AST (SGOT) 44 U/L 5-34 H (BEAKER) (test code = 353) ALT (SGPT) 38 U/L 6-55 (BEAKER) (test code = 347) EGFR (BEAKER) 12 Interpretatio n of eGFR (test code = 1092) mL/min/1.[address] age Description sq m Result G1 Cris l or high >=90 G2 Mildly decreased 60-89 G3a Mildl y to moderately 45-5 9 G3b Moderately to s everely 30-44 G4 Severl y decreased 15-29 G5 Kidney failure <15Reported eGF R is based on the CKD-EPI 2020 equation that d oes not use a race coefficientEsti mated GFR is not as accur ate as Creatinine Jennifer og in predicting glom erular filtration rate . Estimated GFR is not appl icable for dialysis patien ts [employer] ID - [id number] 04:42:38 Test Item Value Reference Range Interpretation Comments MAGNESIUM (BEAKER) (test code = 2.0 mg/dL 1.6-2.6 627) [employer] ID - [id number] 04:42:38 Test Item Value Reference Range Interpretation Comments PHOSPHORUS (BEAKER) (test code = 5.0 mg/dL 2.3-4.7 H 604) [employer] ID - ADMINCBC W/PLT COUNT & AUTO [id number] 04:29:29 Test Item Value Reference Range Interpretation Comments WHITE BLOOD CELL COUNT (BEAKER) 5.3 K/ L 3.5-10.5 (test code = 775) RED BLOOD CELL COUNT (BEAKER) 2.95 M/ L 4.63-6.08 L (test code = 761) HEMOGLOBIN (BEAKER) (test code = 7.2 GM/DL 13.7-17.5 L 410) HEMATOCRIT (BEAKER) (test code = 22.4 % 40.1-51.0 L 411) MEAN CORPUSCULAR VOLUME (BEAKER) 76 fL 79-92 L (test code = 753) MEAN CORPUSCULAR HEMOGLOBIN 24.4 pg 25.7-32.2 L (BEAKER) (test code = 751) MEAN CORPUSCULAR HEMOGLOBIN CONC 32.1 GM/DL 32.3-36.5 L (BEAKER) (test code = 752) RED CELL DISTRIBUTION WIDTH 21.8 % 11.6-14.4 H (BEAKER) (test code = 412) PLATELET COUNT (BEAKER) (test 197 K/CU MM 150-450 code = 756) MEAN PLATELET VOLUME (BEAKER) 9.6 fL 9.4-12.4 (test code = 754) NUCLEATED RED BLOOD CELLS 0 /100 WBC 0-0 (BEAKER) (test code = 413) NEUTROPHILS RELATIVE PERCENT 65 % (BEAKER) (test code = 429) LYMPHOCYTES RELATIVE PERCENT 20 % (BEAKER) (test code = 430) MONOCYTES RELATIVE PERCENT 11 % (BEAKER) (test code = 431) EOSINOPHILS RELATIVE PERCENT 3 % (BEAKER) (test code = 432) BASOPHILS RELATIVE PERCENT 1 % (BEAKER) (test code = 437) NEUTROPHILS ABSOLUTE COUNT 3.40 K/ L 1.78-5.38 (BEAKER) (test code = 670) LYMPHOCYTES ABSOLUTE COUNT 1.04 K/ L 1.32-3.57 L (BEAKER) (test code = 414) MONOCYTES ABSOLUTE COUNT (BEAKER) 0.58 K/ L 0.30-0.82 (test code = 415) EOSINOPHILS ABSOLUTE COUNT 0.16 K/ L 0.04-0.54 (BEAKER) (test code = 416) BASOPHILS ABSOLUTE COUNT (BEAKER) 0.04 K/ L 0.01-0.08 (test code = 417) IMMATURE GRANULOCYTES-RELATIVE 0.90 % 0.00-1.00 PERCENT (BEAKER) (test code = 2801) COMPREHENSIVE METABOLIC [id number] 06:18:47 Test Item Value Reference Range Interpretation Comments TOTAL PROTEIN 5.9 gm/dL 6.0-8.3 L (BEAKER) (test code = 770) ALBUMIN (BEAKER) 2.9 g/dL 3.5-5.0 L (test code = 1145) ALKALINE 193 U/L 40-150 H PHOSPHATASE (BEAKER) (test code = 346) BILIRUBIN TOTAL 2.9 mg/dL 0.2-1.2 H (BEAKER) (test code = 377) SODIUM (BEAKER) 129 meq/L 136-145 L (test code = 381) POTASSIUM (BEAKER) 4.7 meq/L 3.5-5.1 (test code = 379) CHLORIDE (BEAKER) 102 meq/L 98-107 (test code = 382) CO2 (BEAKER) (test 16 meq/L 22-29 L code = 355) BLOOD UREA 105 mg/dL 7-21 H NITROGEN (BEAKER) (test code = 354) CREATININE 6.69 mg/dL 0.57-1.25 H (BEAKER) (test code = 358) GLUCOSE RANDOM 100 mg/dL 70-105 (BEAKER) (test code = 652) CALCIUM (BEAKER) 8.6 mg/dL 8.4-10.2 (test code = 697) AST (SGOT) 45 U/L 5-34 H (BEAKER) (test code = 353) ALT (SGPT) 39 U/L 6-55 (BEAKER) (test code = 347) EGFR (BEAKER) 8 Interpretatio n of eGFR (test code = 1092) mL/min/1.[address] age Description sq m Result G1 Cris l or high >=90 G2 Mildly decreased 60-89 G3a Mildl y to moderately 45-5 9 G3b Moderately to s everely 30-44 G4 Severl y decreased 15-29 G5 Kidney failure <15Reported eGF R is based on the CKD-EPI 2021 equation that d oes not use a race coefficientEsti mated GFR is not as accur ate as Creatinine Jennifer foley in predicting glom erular filtration rate . Estimated GFR is not appl icable for dialysis patien ts [employer] ID - [id number] 06:18:05 Test Item Value Reference Range Interpretation Comments PHOSPHORUS (BEAKER) (test code = 6.3 mg/dL 2.3-4.7 H 604) [employer] ID - [id number] 06:18:04 Test Item Value Reference Range Interpretation Comments MAGNESIUM (BEAKER) (test code = 2.0 mg/dL 1.6-2.6 627) [employer] ID - MARCOCBC W/PLT COUNT & AUTO [id number] 06:04:32 Test Item Value Reference Range Interpretation Comments WHITE BLOOD CELL COUNT (BEAKER) 6.3 K/ L 3.5-10.5 (test code = 775) RED BLOOD CELL COUNT (BEAKER) 3.27 M/ L 4.63-6.08 L (test code = 761) HEMOGLOBIN (BEAKER) (test code = 8.0 GM/DL 13.7-17.5 L 410) HEMATOCRIT (BEAKER) (test code = 25.5 % 40.1-51.0 L 411) MEAN CORPUSCULAR VOLUME (BEAKER) 78 fL 79-92 L (test code = 753) MEAN CORPUSCULAR HEMOGLOBIN 24.5 pg 25.7-32.2 L (BEAKER) (test code = 751) MEAN CORPUSCULAR HEMOGLOBIN CONC 31.4 GM/DL 32.3-36.5 L (BEAKER) (test code = 752) RED CELL DISTRIBUTION WIDTH 21.7 % 11.6-14.4 H (BEAKER) (test code = 412) PLATELET COUNT (BEAKER) (test 219 K/CU MM 150-450 code = 756) MEAN PLATELET VOLUME (BEAKER) 10.2 fL 9.4-12.4 (test code = 754) NUCLEATED RED BLOOD CELLS 0 /100 WBC 0-0 (BEAKER) (test code = 413) NEUTROPHILS RELATIVE PERCENT 66 % (BEAKER) (test code = 429) LYMPHOCYTES RELATIVE PERCENT 17 % (BEAKER) (test code = 430) MONOCYTES RELATIVE PERCENT 12 % (BEAKER) (test code = 431) EOSINOPHILS RELATIVE PERCENT 3 % (BEAKER) (test code = 432) BASOPHILS RELATIVE PERCENT 1 % (BEAKER) (test code = 437) NEUTROPHILS ABSOLUTE COUNT 4.14 K/ L 1.78-5.38 (BEAKER) (test code = 670) LYMPHOCYTES ABSOLUTE COUNT 1.06 K/ L 1.32-3.57 L (BEAKER) (test code = 414) MONOCYTES ABSOLUTE COUNT (BEAKER) 0.75 K/ L 0.30-0.82 (test code = 415) EOSINOPHILS ABSOLUTE COUNT 0.19 K/ L 0.04-0.54 (BEAKER) (test code = 416) BASOPHILS ABSOLUTE COUNT (BEAKER) 0.05 K/ L 0.01-0.08 (test code = 417) IMMATURE GRANULOCYTES-RELATIVE 1.10 % 0.00-1.00 H PERCENT (BEAKER) (test code = 2801) U/S, RENAL, [id number] 00:41:00Reason for exam:->WILLIAM, new pancreatic [facility] : 1950 Sex: MFINAL REPORT EXAM: Renal UltrasoundINDICATION: Acute kidney injury COMPARISON: None TECHNIQUE: Transverse and longitudinal images of the kidneys and bladder were obtained. FINDINGS: Right Kidney: Length: 9.7 cmAppearance: Normal echogenicity. Collecting system: No hydronephrosisStones:NoneCyst/Mass: Upper pole anechoic simple cyst measures up to 1.7 cm Left Kidney: Length: 13.2 cmAppearance: Normal echogenicity. Collecting system: No hydronephrosisStones: NoneCyst/Mass: None Bladder: Contreras catheter in the decompressed bladder. Incidental note made of numerous liver metastases, better visualized and described on the CT abdomen and pelvis of 10/15/2022. IMPRESSION:No renal calculi or hydronephrosis. Contreras catheter in the decompressed bladder. Liver metastases. Signed: Sixto Stewarteport Verified Date/Time: 10/28/2022 00:41:42 SARS-CoV2/RT-PCR (Asymptomatic ONLY)2022-10-27 16:43:25 Test Item Value Reference Interpretation Comments Range SARS-COV2/RT-PCR Negative Negative The SARS-Co V-2 (test code = target nucleic 22228-9) acids are not detected in thi s specimen. Negat radha results do not preclude SARS-C oV-2 infection and should not be u sed as the sole bas is for patient management decisions. Nega tive results must be combined with clinical observations, patient history , and epidemiolog ical information. A false negative result may occu r if a specimen is improperly collected, transported or handled. This S ARS CoV-2 test is a rapid, real-leo e RT-PCR test intended for th e qualitative detection of nucleic acid fr om SARS-CoV-2 in a nasopharyngeal swab specimen collec mary from individual s suspected of COVID-19 by the ir healthcare provider. ABIGAIL (test code = This test has been ABIGAIL) authorized by FDA under an EUA for use by authorized laboratories. This test is only authorized for the duration of the declaration that circumstances exist justifying the authorization of emergency use of in vitro diagnostic tests for detection and/or diagnosis of COVID-19 under Section 564(b)(1) of the Federal Food, Drug and Cosmetic Act, 21 U.S.C. 360bbb-3(b)(1), unless the authorization is terminated or revoked sooner. Fact Sheet for Healthcare Providers: https://www.[employer]/Documents/Xp ert%20Xpress%20SAR S%20CoV-2/Fact%20S heets/302-3802%20S ARS-COV-2%20HEALTH CARE%20PROVIDERS%2 0FACT%20SHEET.pdf Fact Sheet for Healthcare Patients: https://www.[employer]/Documents/Xp ert%20Xpress%20SAR S%20CoV-2/Fact%20S heets/302-3801%20S ARS-COV-2%20PATIEN T%20FACT%20SHEET.p df Lab Interpretation Normal (test code = 23352-5) [facility]22-10-27 16:43:25 Test Item Value Reference Interpretation Comments Range SARS-COV2/RT-PCR Negative Negative The SARS-Co V-2 (test code = target nucleic 72347-0) acids are not detected in thi s specimen. Negat radha results do not preclude SARS-C oV-2 infection and should not be u sed as the sole bas is for patient management decisions. Nega tive results must be combined with clinical observations, patient history , and epidemiolog ical information. A false negative result may occu r if a specimen is improperly collected, transported or handled. This S ARS CoV-2 test is a rapid, real-leo e RT-PCR test intended for e qualitative detection of nucleic acid fr om SARS-CoV-2 in a nasopharyngeal swab specimen colle mary from individual s suspected of COVID-19 by the ir healthcare provider. ABIGAIL (test code = This test has been ABIGAIL) authorized by FDA under an EUA for use by authorized laboratories. This test is only authorized for the duration of the declaration that circumstances exist justifying the authorization of emergency use of in vitro diagnostic tests for detection and/or diagnosis of COVID-19 under Section 564(b)(1) of the Federal Food, Drug and Cosmetic Act, 21 U.S.C. 360bbb-3(b)(1), unless the authorization is terminated or revoked sooner. Fact Sheet for Healthcare Providers: https://www.[employer]/Documents/Xp ert%20Xpress%20SAR S%20CoV-2/Fact%20S heets/302-3802%20S ARS-COV-2%20HEALTH CARE%20PROVIDERS%2 0FACT%20SHEET.pdf Fact Sheet for Healthcare Patients: https://www.[employer]/Documents/Xp ert%20Xpress%20SAR S%20CoV-2/Fact%20S heets/302-3801%20S ARS-COV-2%20PATIEN T%20FACT%20SHEET.p df Lab Interpretation Normal (test code = 04209-5) [facility]2022-10-27 16:43:25 Test Item Value Reference Interpretation Comments Range SARS-COV2/RT-PCR Negative Negative The SARS-Co V-2 (test code = target nucleic 90439-0) acids are not detected in thi s specimen. Negat radha results do not preclude SARS-C oV-2 infection and should not be u sed as the sole bas is for patient management decisions. Nega tive results must be combined with clinical observations, patient history , and epidemiolog ical information. A false negative result may occu r if a specimen is improperly collected, transported or handled. This S ARS CoV-2 test is a rapid, real-leo e RT-PCR test intended for th e qualitative detection of nucleic acid fr om SARS-CoV-2 in a nasopharyngeal swab specimen colle mary from individual s suspected of COVID-19 by the ir healthcare provider. ABIGAIL (test code = This test has been ABIGAIL) authorized by FDA under an EUA for use by authorized laboratories. This test is only authorized for the duration of the declaration that circumstances exist justifying the authorization of emergency use of in vitro diagnostic tests for detection and/or diagnosis of COVID-19 under Section 564(b)(1) of the Federal Food, Drug and Cosmetic Act, 21 U.S.C. 360bbb-3(b)(1), unless the authorization is terminated or revoked sooner. Fact Sheet for Healthcare Providers: https://www.[employer]/Documents/Xp ert%20Xpress%20SAR S%20CoV-2/Fact%20S heets/302-3802%20S ARS-COV-2%20HEALTH CARE%20PROVIDERS%2 0FACT%20SHEET.pdf Fact Sheet for Healthcare Patients: https://www.[employer]/Documents/Xp ert%20Xpress%20SAR S%20CoV-2/Fact%20S heets/302-3801%20S ARS-COV-2%20PATIEN T%20FACT%20SHEET.p df Lab Interpretation Normal (test code = 78172-8) [facility]22-10-27 16:43:25 Test Item Value Reference Interpretation Comments Range SARS-COV2/RT-PCR Negative Negative The SARS-Co V-2 (test code = target nucleic 90037-0) acids are not detected in thi s specimen. Negat radha results do not preclude SARS-C oV-2 infection and should not be u sed as the sole bas is for patient management decisions. Nega tive results must be combined with clinical observations, patient history , and epidemiolog ical information. A false negative result may occu r if a specimen is improperly collected, transported or handled. This S ARS CoV-2 test is a rapid, real-leo e RT-PCR test intended for th e qualitative detection of nucleic acid fr om SARS-CoV-2 in a nasopharyngeal swab specimen collec mary from individual s suspected of COVID-19 by the ir healthcare provider. ABIGAIL (test code = This test has been ABIGAIL) authorized by FDA under an EUA for use by authorized laboratories. This test is only authorized for the duration of the declaration that circumstances exist justifying the authorization of emergency use of in vitro diagnostic tests for detection and/or diagnosis of COVID-19 under Section 564(b)(1) of the Federal Food, Drug and Cosmetic Act, 21 U.S.C. 360bbb-3(b)(1), unless the authorization is terminated or revoked sooner. Fact Sheet for Healthcare Providers: https://www.[employer]/Documents/Xp ert%20Xpress%20SAR S%20CoV-2/Fact%20S heets/302-3802%20S ARS-COV-2%20HEALTH CARE%20PROVIDERS%2 0FACT%20SHEET.pdf Fact Sheet for Healthcare Patients: https://www.[employer]/Documents/Xp ert%20Xpress%20SAR S%20CoV-2/Fact%20S heets/302-3801%20S ARS-COV-2%20PATIEN T%20FACT%20SHEET.p df Lab Interpretation Normal (test code = 11536-4) [facility] 16:43:25 Test Item Value Reference Interpretation Comments Range SARS-COV2/RT-PCR Negative Negative The SARS-Co V-2 (test code = target nucleic 51170-3) acids are not detected in thi s specimen. Negat radha results do not preclude SARS-C oV-2 infection and should not be u sed as the sole bas is for patient management decisions. Nega tive results must be combined with clinical observations, patient history , and epidemiolog ical information. A false negative result may occu r if a specimen is improperly collected, transported or handled. This S ARS CoV-2 test is a rapid, real-leo e RT-PCR test intended for th e qualitative detection of nucleic acid fr om SARS-CoV-2 in a nasopharyngeal swab specimen colle mary from individual s suspected of COVID-19 by the ir healthcare provider. ABIGAIL (test code = This test has been ABIGAIL) authorized by FDA under an EUA for use by authorized laboratories. This test is only authorized for the duration of the declaration that circumstances exist justifying the authorization of emergency use of in vitro diagnostic tests for detection and/or diagnosis of COVID-19 under Section 564(b)(1) of the Federal Food, Drug and Cosmetic Act, 21 U.S.C. 360bbb-3(b)(1), unless the authorization is terminated or revoked sooner. Fact Sheet for Healthcare Providers: https://www.[employer]/Documents/Xp ert%20Xpress%20SAR S%20CoV-2/Fact%20S heets/302-3802%20S ARS-COV-2%20HEALTH CARE%20PROVIDERS%2 0FACT%20SHEET.pdf Fact Sheet for Healthcare Patients: https://www.[employer]/Documents/Xp ert%20Xpress%20SAR S%20CoV-2/Fact%20S heets/302-3801%20S ARS-COV-2%20PATIEN T%20FACT%20SHEET.p df Lab Interpretation Normal (test code = 80431-3) [facility]22[facility]10-27 16:43:25 Test Item Value Reference Interpretation Comments Range SARS-COV2/RT-PCR Negative Negative The SARS-Co V-2 (test code = target nucleic 51175-6) acids are not detected in thi s specimen. Negat radha results do not preclude SARS-C oV-2 infection and should not be u sed as the sole bas is for patient management decisions. Nega tive results must be combined with clinical observations, patient history , and epidemiolog ical information. A false negative result may occu r if a specimen is improperly collected, transported or handled. This S ARS CoV-2 test is a rapid, real-leo e RT-PCR test intended for th e qualitative detection of nucleic acid fr om SARS-CoV-2 in a nasopharyngeal swab specimen collec mary from individual s suspected of COVID-19 by the ir healthcare provider. ABIGAIL (test code = This test has been ABIGAIL) authorized by FDA under an EUA for use by authorized laboratories. This test is only authorized for the duration of the declaration that circumstances exist justifying the authorization of emergency use of in vitro diagnostic tests for detection and/or diagnosis of COVID-19 under Section 564(b)(1) of the Federal Food, Drug and Cosmetic Act, 21 U.S.C. 360bbb-3(b)(1), unless the authorization is terminated or revoked sooner. Fact Sheet for Healthcare Providers: https://www.[employer]/Documents/Xp ert%20Xpress%20SAR S%20CoV-2/Fact%20S heets/302-3802%20S ARS-COV-2%20HEALTH CARE%20PROVIDERS%2 0FACT%20SHEET.pdf Fact Sheet for Healthcare Patients: https://wwwnprogress/Documents/Xp ert%20Xpress%20SAR S%20CoV-2/Fact%20S heets/302-3801%20S ARS-COV-2%20PATIEN T%20FACT%20SHEET.p df Lab Interpretation Normal (test code = 91104-6) [facility]22[facility]10-27 16:43:25 Test Item Value Reference Interpretation Comments Range SARS-COV2/RT-PCR Negative Negative The SARS-Co V-2 (test code = target nucleic 94019-3) acids are not detected in thi s specimen. Negat radha results do not preclude SARS-C oV-2 infection and should not be u sed as the sole bas is for patient management decisions. Nega tive results must be combined with clinical observations, patient history , and epidemiolog ical information. A false negative result may occu r if a specimen is improperly collected, transported or handled. This S ARS CoV-2 test is a rapid, real-leo e RT-PCR test intended for th e qualitative detection of nucleic acid fr om SARS-CoV-2 in a nasopharyngeal swab specimen collec mary from individual s suspected of COVID-19 by the ir healthcare provider. ABIGAIL (test code = This test has been ABIGAIL) authorized by FDA under an EUA for use by authorized laboratories. This test is only authorized for the duration of the declaration that circumstances exist justifying the authorization of emergency use of in vitro diagnostic tests for detection and/or diagnosis of COVID-19 under Section 564(b)(1) of the Federal Food, Drug and Cosmetic Act, 21 U.S.C. 360bbb-3(b)(1), unless the authorization is terminated or revoked sooner. Fact Sheet for Healthcare Providers: https://www.[employer]/Documents/Xp ert%20Xpress%20SAR S%20CoV-2/Fact%20S heets/302-3802%20S ARS-COV-2%20HEALTH CARE%20PROVIDERS%2 0FACT%20SHEET.pdf Fact Sheet for Healthcare Patients: https://wwwnprogress/Documents/Xp ert%20Xpress%20SAR S%20CoV-2/Fact%20S heets/302-3801%20S ARS-COV-2%20PATIEN T%20FACT%20SHEET.p df Lab Interpretation Normal (test code = 38399-0) [facility]22[facility]10-27 16:43:25 Test Item Value Reference Interpretation Comments Range SARS-COV2/RT-PCR Negative Negative The SARS-Co V-2 (test code = target nucleic 04363-8) acids are not detected in thi s specimen. Negat radha results do not preclude SARS-C oV-2 infection and should not be u sed as the sole bas is for patient management decisions. Nega tive results must be combined with clinical observations, patient history , and epidemiolog ical information. A false negative result may occu r if a specimen is improperly collected, transported or handled. This S ARS CoV-2 test is a rapid, real-leo e RT-PCR test intended for th e qualitative detection of nucleic acid fr om SARS-CoV-2 in a nasopharyngeal swab specimen collec mary from individual s suspected of COVID-19 by the ir healthcare provider. ABIGAIL (test code = This test has been ABIGAIL) authorized by FDA under an EUA for use by authorized laboratories. This test is only authorized for the duration of the declaration that circumstances exist justifying the authorization of emergency use of in vitro diagnostic tests for detection and/or diagnosis of COVID-19 under Section 564(b)(1) of the Federal Food, Drug and Cosmetic Act, 21 U.S.C. 360bbb-3(b)(1), unless the authorization is terminated or revoked sooner. Fact Sheet for Healthcare Providers: https://www.[employer]/Documents/Xp ert%20Xpress%20SAR S%20CoV-2/Fact%20S heets/302-3802%20S ARS-COV-2%20HEALTH CARE%20PROVIDERS%2 0FACT%20SHEET.pdf Fact Sheet for Healthcare Patients: https://www.[employer]/Documents/Xp ert%20Xpress%20SAR S%20CoV-2/Fact%20S heets/302-3801%20S ARS-COV-2%20PATIEN T%20FACT%20SHEET.p df Lab Interpretation Normal (test code = 78151-1) [facility]2022-10-27 16:43:25 Test Item Value Reference Range Interpretation Comments SARS-COV2/RT-PCR Negative Negative The SARS-Co V-2 target (test code = nucleic acids a re not 9483266) detected in thi s specimen. Negative result s do not preclude SARS-C oV-2 infection and s hould not be used as the vimal e basis for patient managem ent decisions. Nega tive results must be combine d with clinical observ ations, patient history , and epidemiological information. A false negativ e result may occur if a spec imen is improperly [place] ected, transported or handled. This SARS CoV-2 test is a rapid, real-time RT-PC R test intended for th e qualitative detection of nu cleic acid from SARS-CoV-2 in a nasopharyngeal swab specimen collected from individuals suspected of CO VID-19 by their healthcar e provider. This test has been authorized by FDA under an EUA for use by authorized laboratories. This test is only authorized for the duration of the declaration that circumstances exist justifying the authorization of emergency use of in vitro diagnostic tests for detection and/or diagnosis of COVID-19 under Section 564(b)(1) of the Federal Food, Drug and Cosmetic Act, 21 U.S.C. 360bbb-3(b)(1), unless the authorization is terminated or revoked sooner. Fact Sheet for Healthcare Providers: https://www.[employer] m/Documents/Xpert%20Xpress%20SARS%20CoV-2/Fact%20Sheets/302-3802%36VQOI-HUZ-3%20 HEALTHCARE%20PROVIDERS%20FACT%20SHEET.pdf Fact Sheet for Healthcare Patients: https://www.[employer]/Documents/Xpert%20Xp ress%20SARS%20CoV-2/Fact%20Sheets/302-3801%85GSTO-DYH-1%20PATIENT%20FACT%20SHEET .pdfBLOOD GAS, [id number] 15:48:01 Test Item Value Reference Range Interpretation Comments PH VENOUS (BEAKER) (test code = 7.23 7.32-7.42 L 701) PCO2 VENOUS (BEAKER) (test code 40 mm Hg 41-51 L = 755) PO2 VENOUS (BEAKER) (test code = 31 mm Hg 25-40 702) O2 SATURATION VENOUS (BEAKER) 49.0 % 40.0-70.0 (test code = 703) HCO3 VENOUS (BEAKER) (test code 17 mmol/L 21-29 L = 705) BASE EXCESS VENOUS (BEAKER) -10.2 mmol/L -2.0-3.0 L (test code = 704) PATIENT TEMPERATURE (BEAKER) 37.0 (test code = 1818) FIO2 (BEAKER) (test code = 1819) 21.0 Osm[facility], [id number] 15:05:29 Test Item Value Reference Range Interpretation Comments Osmolality, Ur (test code 297 See_Comment [ Automated message] = 2065-5) The system [employer] generated this result transmitted ref erence range: 50-1,200 mOsm/kg mOsm/kg . The reference range was not used to int erpret this result as normal/abnormal . Lab Interpretation (test Normal code = 12304-0) [facility], [id number] 15:05:29 Test Item Value Reference Range Interpretation Comments Osmolality, Ur (test code 297 See_Comment [ Automated message] = 2695-5) The system [employer] generated this result transmitted ref erence range: 50-1,200 mOsm/kg mOsm/kg . The reference range was not used to int erpret this result as normal/abnormal . Lab Interpretation (test Normal code = 09755-7) [facility], [id number] 15:05:29 Test Item Value Reference Range Interpretation Comments Osmolality, Ur (test code 297 See_Comment [ Automated message] = 2695-5) The system [employer] generated this result transmitted ref erence range: 50-1,200 mOsm/kg mOsm/kg . The reference range was not used to int erpret this result as normal/abnormal . Lab Interpretation (test Normal code = 86971-2) [facility], [id number] 15:05:29 Test Item Value Reference Range Interpretation Comments Osmolality, Ur (test code 297 See_Comment [ Automated message] = 2695-5) The system [employer] generated this result transmitted ref erence range: 50-1,200 mOsm/kg mOsm/kg . The reference range was not used to int erpret this result as normal/abnormal . Lab Interpretation (test Normal code = 37977-9) [facility], [id number] 15:05:29 Test Item Value Reference Range Interpretation Comments Osmolality, Ur (test code 297 See_Comment [ Automated message] = 2695-5) The system [employer] generated this result transmitted ref erence range: 50-1,200 mOsm/kg mOsm/kg . The reference range was not used to int erpret this result as normal/abnormal . Lab Interpretation (test Normal code = 95867-8) [facility], [id number] 15:05:29 Test Item Value Reference Range Interpretation Comments Osmolality, Ur (test code 297 See_Comment [ Automated message] = 2695-5) The system [employer] generated this result transmitted ref erence range: 50-1,200 mOsm/kg mOsm/kg . The reference range was not used to int erpret this result as normal/abnormal . Lab Interpretation (test Normal code = 49434-5) [facility] [id number] 15:05:29 Test Item Value Reference Range Interpretation Comments Osmolality, Ur (test code 297 See_Comment [ Automated message] = 2695-5) The system [employer] generated this result transmitted ref erence range: 50-1,200 mOsm/kg mOsm/kg . The reference range was not used to int erpret this result as normal/abnormal . Lab Interpretation (test Normal code = 32965-6) [facility], [id number] 15:05:29 Test Item Value Reference Range Interpretation Comments Osmolality, Ur (test code 297 See_Comment [ Automated message] = 2695-5) The system [employer] generated this result transmitted ref erence range: 50-1,200 mOsm/kg mOsm/kg . The reference range was not used to int erpret this result as normal/abnormal . Lab Interpretation (test Normal code = 69581-7) [facility], [id number] 15:05:29 Test Item Value Reference Range Interpretation Comments OSMOLALITY URINE 297 mOsm/kg See_Comment [Automated message] (BEAKER) (test code = The sy stem which 614) generated this result transmitted ref erence range: 50-1,200 mOsm/kg. The reference range was not used to int erpret this result as normal/abnormal . RAD, CHEST, 1 VIEW, NON [id number] 14:50:00Reason for exam:->HYPOTENSION, concern for infectionShould this be performed at the bedside?->Yes [facility] : 1950 Sex: MFINAL REPORT INDICATION: HYPOTENSION, concern for infection COMPARISON: None TECHNIQUE: Single frontal view of the chest. FINDINGS: Lines, tubes, and devices: None.Lungs and pleura: Clear lungs. No pneumothorax.Heart and mediastinum: Normal heart size. Unremarkable mediastinal contours.Osseous structures: No acute abnormality. 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 IMPRESSION: No acute intrathoracic abnormality. Signed: Riri Maya MDReport Verified Date/Time: 10/27/2022 14:50:24 Reading Location: [address] Reading Room Sodium, random urine 2022-10-27 14:42:45 Test Item Value Reference Range Interpretation Comments Sodium Urine (test 22 meq/L code = 2955-3) ABIGAIL (test code = Reference Range: No ABIGAIL) NormalsOperator ID - BS [facility], [facility] [id number] 14:42:45 Test Item Value Reference Range Interpretation Comments Sodium Urine (test 22 meq/L code = 2955-3) ABIGAIL (test code = Reference Range: No ABIGAIL) NormalsOperator ID - BS [facility], random [id number] 14:42:45 Test Item Value Reference Range Interpretation Comments Sodium Urine (test 22 meq/L code = 2955-3) ABIGAIL (test code = Reference Range: No ABIGAIL) NormalsOperator ID - BS [facility], random [id number] 14:42:45 Test Item Value Reference Range Interpretation Comments Sodium Urine (test 22 meq/L code = 2955-3) ABIGAIL (test code = Reference Range: No ABIGAIL) NormalsOperator ID - BS [facility], random [id number] 14:42:45 Test Item Value Reference Range Interpretation Comments Sodium Urine (test 22 meq/L code = 2955-3) ABIGAIL (test code = Reference Range: No ABIGAIL) NormalsOperator ID - BS [facility], random [id number] 14:42:45 Test Item Value Reference Range Interpretation Comments Sodium Urine (test 22 meq/L code = 2955-3) ABIGAIL (test code = Reference Range: No ABIGAIL) NormalsOperator ID - BS [facility], random [id number] 14:42:45 Test Item Value Reference Range Interpretation Comments Sodium Urine (test 22 meq/L code = 2955-3) ABIGAIL (test code = Reference Range: No ABIGAIL) NormalsOperator ID - BS [facility], random [id number] 14:42:45 Test Item Value Reference Range Interpretation Comments Sodium Urine (test 22 meq/L code = 2955-3) ABIGAIL (test code = Reference Range: No ABIGAIL) NormalsOperator ID - BS [facility], RANDOM [id number] 14:42:45 Test Item Value Reference Range Interpretation Comments SODIUM URINE (BEAKER) (test code = 22 meq/L 243) Reference Range: No NormalsOperator ID - BSOSMOLALITY, [id number] 14:39:41 Test Item Value Reference Range Interpretation Comments OSMOLALITY, SERUM (BEAKER) (test 305 mOsm/kg 275-295 H code = 615) Urinalysis w/Microscopic + Reflex to [id number] 14:38:27 Test Item Value Reference Range Interpretation Comments Color, UA (test code [place] = 5778-6) Clarity, UA (test Hazy code = 5767-9) Specific [place], UA 1.014 1.001-1.035 (test code = 5811-5) pH, UA (test code = 5.5 5.0-8.0 5803-2) Protein, UA (test 20 mg/dL Negative A code = 65643-1) Glucose, UA (test Negative Negative code = 365) Ketones, UA (test Negative Negative code = 2514-8) Bilirubin, UA (test Negative Negative code = 54849-2) Blood, UA (test code Negative Negative = 89633-1) Nitrite, UA (test Negative Negative code = 5802-4) Leukocytes, UA (test Negative Negative code = 5799-2) Urobilinogen, UA 0.2 0.2-1.0 (test code = 25456-8) RBC, UA (test code = 7 See_Comment [Autom ated 17459-3) message] The system which generated this result transmit mary reference range : /HPF. The reference range was not used to interpret this result as normal/abnormal . WBC, UA (test code = 3 See_Comment [Autom ated 5821-4) message] The system which generated this result transmit mary reference range : /HPF. The reference range was not used to interpret this result as normal/abnormal . Mucus (test code = Rare 8247-9) Amorphous Crystals Rare (test code = 48974-5) Specimen Source (test code = 2795) ABIGAIL (test code = ABIGAIL) [employer] Operator ID - [auto][employer] Operator ID - tech Lab Interpretation Abnormal (test code = 45568-8) [facility] Reflex to Culture 2022-10-27 14:38:27 Test Item Value Reference Range Interpretation Comments Color, UA (test code [place] = 5778-6) Clarity, UA (test Hazy code = 5767-9) Specific [place], UA 1.014 1.001-1.035 (test code = 5811-5) pH, UA (test code = 5.5 5.0-8.0 5803-2) Protein, UA (test 20 mg/dL Negative A code = 48039-1) Glucose, UA (test Negative Negative code = 365) Ketones, UA (test Negative Negative code = 2514-8) Bilirubin, UA (test Negative Negative code = 40202-6) Blood, UA (test code Negative Negative = 67607-0) Nitrite, UA (test Negative Negative code = 5802-4) Leukocytes, UA (test Negative Negative code = 5799-2) Urobilinogen, UA 0.2 0.2-1.0 (test code = 48502-3) RBC, UA (test code = 7 See_Comment [Autom ated 64445-4) message] The system which generated this result transmit mary reference range : /HPF. The reference range was not used to interpret this result as normal/abnormal . WBC, UA (test code = 3 See_Comment [Autom ated 5821-4) message] The system which generated this result transmit mary reference range : /HPF. The reference range was not used to interpret this result as normal/abnormal . Mucus (test code = Rare 8247-9) Amorphous Crystals Rare (test code = 02236-9) Specimen Source (test code = 2795) ABIGAIL (test code = ABIGAIL) [employer] Operator ID - [auto][employer] Operator ID - tech Lab Interpretation Abnormal (test code = 61648-8) [facility] Reflex to Culture 2022-10-27 14:38:27 Test Item Value Reference Range Interpretation Comments Color, UA (test code [place] = 5778-6) Clarity, UA (test Hazy code = 5767-9) Specific [place], UA 1.014 1.001-1.035 (test code = 5811-5) pH, UA (test code = 5.5 5.0-8.0 5803-2) Protein, UA (test 20 mg/dL Negative A code = 35070-6) Glucose, UA (test Negative Negative code = 365) Ketones, UA (test Negative Negative code = 2514-8) Bilirubin, UA (test Negative Negative code = 60432-6) Blood, UA (test code Negative Negative = 95369-8) Nitrite, UA (test Negative Negative code = 5802-4) Leukocytes, UA (test Negative Negative code = 5799-2) Urobilinogen, UA 0.2 0.2-1.0 (test code = 14657-5) RBC, UA (test code = 7 See_Comment [Autom ated 86632-4) message] The system which generated this result transmit mary reference range : /HPF. The reference range was not used to interpret this result as normal/abnormal . WBC, UA (test code = 3 See_Comment [Autom ated 5821-4) message] The system which generated this result transmit mary reference range : /HPF. The reference range was not used to interpret this result as normal/abnormal . Mucus (test code = Rare 8247-9) Amorphous Crystals Rare (test code = 30105-4) Specimen Source (test code = 2795) ABIGAIL (test code = ABIGAIL) [employer] Operator ID - [auto][employer] Operator ID - tech Lab Interpretation Abnormal (test code = 47189-6) [facility] Reflex to Culture 2022-10-27 14:38:27 Test Item Value Reference Range Interpretation Comments Color, UA (test code [place] = 5778-6) Clarity, UA (test Hazy code = 5767-9) Specific [place], UA 1.014 1.001-1.035 (test code = 5811-5) pH, UA (test code = 5.5 5.0-8.0 5803-2) Protein, UA (test 20 mg/dL Negative A code = 04557-2) Glucose, UA (test Negative Negative code = 365) Ketones, UA (test Negative Negative code = 2514-8) Bilirubin, UA (test Negative Negative code = 72928-3) Blood, UA (test code Negative Negative = 99169-0) Nitrite, UA (test Negative Negative code = 5802-4) Leukocytes, UA (test Negative Negative code = 5799-2) Urobilinogen, UA 0.2 0.2-1.0 (test code = 25020-5) RBC, UA (test code = 7 See_Comment [Autom ated 34419-6) message] The system which generated this result transmit mary reference range : /HPF. The reference range was not used to interpret this result as normal/abnormal . WBC, UA (test code = 3 See_Comment [Autom ated 5821-4) message] The system which generated this result transmit mary reference range : /HPF. The reference range was not used to interpret this result as normal/abnormal . Mucus (test code = Rare 8247-9) Amorphous Crystals Rare (test code = 01745-4) Specimen Source (test code = 2795) ABIGAIL (test code = ABIGAIL) [employer] Operator ID - [auto][employer] Operator ID - tech Lab Interpretation Abnormal (test code = 39873-3) [facility] Reflex to Culture 2022-10-27 14:38:27 Test Item Value Reference Range Interpretation Comments Color, UA (test code [place] = 5778-6) Clarity, UA (test Hazy code = 5767-9) Specific [place], UA 1.014 1.001-1.035 (test code = 5811-5) pH, UA (test code = 5.5 5.0-8.0 5803-2) Protein, UA (test 20 mg/dL Negative A code = 90441-3) Glucose, UA (test Negative Negative code = 365) Ketones, UA (test Negative Negative code = 2514-8) Bilirubin, UA (test Negative Negative code = 55445-7) Blood, UA (test code Negative Negative = 09558-2) Nitrite, UA (test Negative Negative code = 5802-4) Leukocytes, UA (test Negative Negative code = 5799-2) Urobilinogen, UA 0.2 0.2-1.0 (test code = 37320-7) RBC, UA (test code = 7 See_Comment [Autom ated 71527-4) message] The system which generated this result transmit mary reference range : /HPF. The reference range was not used to interpret this result as normal/abnormal . WBC, UA (test code = 3 See_Comment [Autom ated 5821-4) message] The system which generated this result transmit mary reference range : /HPF. The reference range was not used to interpret this result as normal/abnormal . Mucus (test code = Rare 8247-9) Amorphous Crystals Rare (test code = 21027-8) Specimen Source (test code = 2795) ABIGAIL (test code = ABIGAIL) [employer] Operator ID - [auto][employer] Operator ID - tech Lab Interpretation Abnormal (test code = 48904-7) [facility] + Reflex to Culture 2022-10-27 14:38:27 Test Item Value Reference Range Interpretation Comments Color, UA (test code [place] = 5778-6) Clarity, UA (test Hazy code = 5767-9) Specific [place], UA 1.014 1.001-1.035 (test code = 5811-5) pH, UA (test code = 5.5 5.0-8.0 5803-2) Protein, UA (test 20 mg/dL Negative A code = 54594-0) Glucose, UA (test Negative Negative code = 365) Ketones, UA (test Negative Negative code = 2514-8) Bilirubin, UA (test Negative Negative code = 36638-3) Blood, UA (test code Negative Negative = 22739-2) Nitrite, UA (test Negative Negative code = 5802-4) Leukocytes, UA (test Negative Negative code = 5799-2) Urobilinogen, UA 0.2 0.2-1.0 (test code = 25370-2) RBC, UA (test code = 7 See_Comment [Autom ated 51324-7) message] The system which generated this result transmit mary reference range : /HPF. The reference range was not used to interpret this result as normal/abnormal . WBC, UA (test code = 3 See_Comment [Autom ated 5821-4) message] The system which generated this result transmit mary reference range : /HPF. The reference range was not used to interpret this result as normal/abnormal . Mucus (test code = Rare 8247-9) Amorphous Crystals Rare (test code = 54775-7) Specimen Source (test code = 2795) ABIGAIL (test code = ABIGAIL) [employer] ID - [auto][employer] ID - tech Lab Interpretation Abnormal (test code = 13040-5) [facility]-27 14:38:27 Test Item Value Reference Range Interpretation Comments Color, UA (test code [place] = 5778-6) Clarity, UA (test [place] code = 5767-9) Specific [place], UA 1.014 1.001-1.035 (test code = 5811-5) pH, UA (test code = 5.5 5.0-8.0 5803-2) Protein, UA (test 20 mg/dL Negative A code = 83990-7) Glucose, UA (test Negative Negative code = 365) Ketones, UA (test Negative Negative code = 2514-8) Bilirubin, UA (test Negative Negative code = 34391-5) Blood, UA (test code Negative Negative = 94259-9) Nitrite, UA (test Negative Negative code = 5802-4) Leukocytes, UA (test Negative Negative code = 5799-2) Urobilinogen, UA 0.2 0.2-1.0 (test code = 59095-7) RBC, UA (test code = 7 See_Comment [Autom ated 72308-4) message] The system which generated this result transmit mary reference range : /HPF. The reference range was not used to interpret this result as normal/abnormal . WBC, UA (test code = 3 See_Comment [Autom ated 5821-4) message] The system which generated this result transmit mary reference range : /HPF. The reference range was not used to interpret this result as normal/abnormal . Mucus (test code = Rare 8247-9) Amorphous Crystals Rare (test code = 23994-6) Specimen Source (test code = 2795) ABIGAIL (test code = ABIGAIL) [employer] ID - [auto][employer] ID - tech Lab Interpretation Abnormal (test code = 54629-7) [facility] Culture 2022-10-27 14:38:27 Test Item Value Reference Range Interpretation Comments Color, UA (test code [place] = 5778-6) Clarity, UA (test Hazy code = 5767-9) Specific [place], UA 1.014 1.001-1.035 (test code = 5811-5) pH, UA (test code = 5.5 5.0-8.0 5803-2) Protein, UA (test 20 mg/dL Negative A code = 53704-6) Glucose, UA (test Negative Negative code = 365) Ketones, UA (test Negative Negative code = 2514-8) Bilirubin, UA (test Negative Negative code = 47679-8) Blood, UA (test code Negative Negative = 86723-9) Nitrite, UA (test Negative Negative code = 5802-4) Leukocytes, UA (test Negative Negative code = 5799-2) Urobilinogen, UA 0.2 0.2-1.0 (test code = 52634-8) RBC, UA (test code = 7 See_Comment [Autom ated 33293-6) message] The system which generated this result transmit mary reference range : /HPF. The reference range was not used to interpret this result as normal/abnormal . WBC, UA (test code = 3 See_Comment [Autom ated 5821-4) message] The system which generated this result transmit mary reference range : /HPF. The reference range was not used to interpret this result as normal/abnormal . Mucus (test code = Rare 8247-9) Amorphous Crystals Rare (test code = 25600-9) Specimen Source (test code = 2795) ABIGAIL (test code = ABIGAIL) [employer] ID - [auto][employer] ID - tech Lab Interpretation Abnormal (test code = 56488-4) [facility] [id number] 14:38:27 Test Item Value Reference Range Interpretation Comments COLOR (BEAKER) (test code = 470) [place] CLARITY (BEAKER) (test code = 469) [place] SPECIFIC GRAVITY UA (BEAKER) (test 1.014 1.001-1.035 code = 468) PH UA (BEAKER) (test code = 467) 5.5 5.0-8.0 PROTEIN UA (BEAKER) (test code = 20 mg/dL Negative A 464) GLUCOSE UA (BEAKER) (test code = Negative Negative 365) KETONES UA (BEAKER) (test code = Negative Negative 371) BILIRUBIN UA (BEAKER) (test code = Negative Negative 462) BLOOD UA (BEAKER) (test code = 461) Negative Negative NITRITE UA (BEAKER) (test code = Negative Negative 465) LEUKOCYTE ESTERASE UA (BEAKER) (test Negative Negative code = 466) UROBILINOGEN UA (BEAKER) (test code 0.2 0.2-1.0 = 463) RBC UA (BEAKER) (test code = 519) 7 /HPF WBC UA (BEAKER) (test code = 520) 3 /HPF MUCUS (BEAKER) (test code = 1574) Rare AMORPHOUS CRYSTALS (BEAKER) (test Rare code = 1584) SOURCE(BEAKER) (test code = 2795) [employer] ID - [auto][employer] ID - techCOMPREHENSIVE METABOLIC [id number] 13:22:58 Test Item Value Reference Range Interpretation Comments TOTAL PROTEIN 7.3 gm/dL 6.0-8.3 (BEAKER) (test code = 770) ALBUMIN (BEAKER) 3.5 g/dL 3.5-5.0 (test code = 1145) ALKALINE 248 U/L 40-150 H PHOSPHATASE (BEAKER) (test code = 346) BILIRUBIN TOTAL 3.6 mg/dL 0.2-1.2 H (BEAKER) (test code = 377) SODIUM (BEAKER) 126 meq/L 136-145 L (test code = 381) POTASSIUM (BEAKER) 4.6 meq/L 3.5-5.1 (test code = 379) CHLORIDE (BEAKER) 98 meq/L 98-107 (test code = 382) CO2 (BEAKER) (test 13 meq/L 22-29 L code = 355) BLOOD UREA 103 mg/dL 7-21 H NITROGEN (BEAKER) (test code = 354) CREATININE 7.20 mg/dL 0.57-1.25 H (BEAKER) (test code = 358) GLUCOSE RANDOM 115 mg/dL 70-105 H (BEAKER) (test code = 652) CALCIUM (BEAKER) 9.1 mg/dL 8.4-10.2 (test code = 697) AST (SGOT) 54 U/L 5-34 H (BEAKER) (test code = 353) ALT (SGPT) 51 U/L 6-55 (BEAKER) (test code = 347) EGFR (BEAKER) 8 Interpretatio n of eGFR (test code = 1092) mL/min/1.[address] age Description sq m Result G1 Cris l or high >=90 G2 Mildly decreased 60-89 G3a Mildl y to moderately 45-5 9 G3b Moderately to s everely 30-44 G4 Severl y decreased 15-29 G5 Kidney failure <15Reported eGF R is based on the CKD-EPI 2020 equation that d oes not use a race coefficientEsti mated GFR is not as accur ate as Creatinine Jennifer og in predicting glom erular filtration rate . Estimated GFR is not appl icable for dialysis patien ts [employer] ID - MARCOSpecimen slightly ictericLACTIC ACID, [id number] 13:16:03 Test Item Value Reference Range Interpretation Comments LACTATE BLOOD VENOUS 1.46 mmol/L 0.50-2.20 Specime n moderately (2) (BEAKER) (test hemolyzed code = 8861) [employer] ID - [id number] 13:02:00 Test Item Value Reference Range Interpretation Comments PARTIAL THROMBOPLASTIN TIME 31.4 seconds 22.5-36.0 (BEAKER) (test code = 760) PROTHROMBIN TIME/[id number] 13:01:19 Test Item Value Reference Range Interpretation Comments PROTIME (BEAKER) (test code = 18.9 seconds 11.9-14.2 H 759) INR (BEAKER) (test code = 370) 1.70 <=5.90 RECOMMENDED COUMADIN/WARFARIN INR THERAPY RANGESSTANDARD DOSE: 2.0 - 3.0 Includes: PROPHYLAXIS for venous thrombosis, systemic embolization; TREATMENT for venous thrombosis and/or pulmonary embolus.HIGH RISK: Target INR is 2.5-3.5 for patients with mechanical heart valves.CBC W/PLT COUNT & AUTO [id number] 12:58:41 Test Item Value Reference Range Interpretation Comments WHITE BLOOD CELL COUNT (BEAKER) 11.3 K/ L 3.5-10.5 H (test code = 775) RED BLOOD CELL COUNT (BEAKER) 3.82 M/ L 4.63-6.08 L (test code = 761) HEMOGLOBIN (BEAKER) (test code = 9.3 GM/DL 13.7-17.5 L 410) HEMATOCRIT (BEAKER) (test code = 30.5 % 40.1-51.0 L 411) MEAN CORPUSCULAR VOLUME (BEAKER) 80 fL 79-92 (test code = 753) MEAN CORPUSCULAR HEMOGLOBIN 24.3 pg 25.7-32.2 L (BEAKER) (test code = 751) MEAN CORPUSCULAR HEMOGLOBIN CONC 30.5 GM/DL 32.3-36.5 L (BEAKER) (test code = 752) RED CELL DISTRIBUTION WIDTH 21.4 % 11.6-14.4 H (BEAKER) (test code = 412) PLATELET COUNT (BEAKER) (test 297 K/CU MM 150-450 code = 756) MEAN PLATELET VOLUME (BEAKER) 10.0 fL 9.4-12.4 (test code = 754) NUCLEATED RED BLOOD CELLS 0 /100 WBC 0-0 (BEAKER) (test code = 413) NEUTROPHILS RELATIVE PERCENT 77 % (BEAKER) (test code = 429) LYMPHOCYTES RELATIVE PERCENT 9 % (BEAKER) (test code = 430) MONOCYTES RELATIVE PERCENT 9 % (BEAKER) (test code = 431) EOSINOPHILS RELATIVE PERCENT 3 % (BEAKER) (test code = 432) BASOPHILS RELATIVE PERCENT 1 % (BEAKER) (test code = 437) NEUTROPHILS ABSOLUTE COUNT 8.66 K/ L 1.78-5.38 H (BEAKER) (test code = 670) LYMPHOCYTES ABSOLUTE COUNT 1.04 K/ L 1.32-3.57 L (BEAKER) (test code = 414) MONOCYTES ABSOLUTE COUNT (BEAKER) 1.06 K/ L 0.30-0.82 H (test code = 415) EOSINOPHILS ABSOLUTE COUNT 0.29 K/ L 0.04-0.54 (BEAKER) (test code = 416) BASOPHILS ABSOLUTE COUNT (BEAKER) 0.06 K/ L 0.01-0.08 (test code = 417) IMMATURE GRANULOCYTES-RELATIVE 1.50 % 0.00-1.00 H PERCENT (BEAKER) (test code = 2801) COMPREHENSIVE METABOLIC [id number] 05:03:03 Test Item Value Reference Range Interpretation Comments TOTAL PROTEIN 6.6 gm/dL 6.0-8.3 (BEAKER) (test code = 770) ALBUMIN (BEAKER) 3.3 g/dL 3.5-5.0 L (test code = 1145) ALKALINE 417 U/L 40-150 H PHOSPHATASE (BEAKER) (test code = 346) BILIRUBIN TOTAL 5.9 mg/dL 0.2-1.2 H (BEAKER) (test code = 377) SODIUM (BEAKER) 139 meq/L 136-145 (test code = 381) POTASSIUM (BEAKER) 3.9 meq/L 3.5-5.1 (test code = 379) CHLORIDE (BEAKER) 104 meq/L 98-107 (test code = 382) CO2 (BEAKER) (test 26 meq/L 22-29 code = 355) BLOOD UREA 26 mg/dL 7-21 H NITROGEN (BEAKER) (test code = 354) CREATININE 1.01 mg/dL 0.57-1.25 (BEAKER) (test code = 358) GLUCOSE RANDOM 98 mg/dL 70-105 (BEAKER) (test code = 652) CALCIUM (BEAKER) 9.3 mg/dL 8.4-10.2 (test code = 697) AST (SGOT) 54 U/L 5-34 H (BEAKER) (test code = 353) ALT (SGPT) 96 U/L 6-55 H (BEAKER) (test code = 347) EGFR (BEAKER) 81 Interpretatio n of eGFR (test code = 1092) mL/min/1.[address] age Description sq m Result G1 Cris l or high >=90 G2 Mildly decreased 60-89 G3a Mildl y to moderately 45-5 9 G3b Moderately to s everely 30-44 G4 Severl y decreased 15-29 G5 Kidney failure <15Reported eGF R is based on the CKD-EPI 2020 equation that d oes not use a race coefficientEsti mated GFR is not as accur ate as Creatinine Jennifer og in predicting glom erular filtration rate . Estimated GFR is not appl icable for dialysis patien ts [employer] ID - PIAYA LSpecimen moderately ictericCBC W/PLT COUNT & AUTO [id number] 04:48:27 Test Item Value Reference Range Interpretation Comments WHITE BLOOD CELL COUNT (BEAKER) 8.8 K/ L 3.5-10.5 (test code = 775) RED BLOOD CELL COUNT (BEAKER) 3.87 M/ L 4.63-6.08 L (test code = 761) HEMOGLOBIN (BEAKER) (test code = 9.0 GM/DL 13.7-17.5 L 410) HEMATOCRIT (BEAKER) (test code = 30.0 % 40.1-51.0 L 411) MEAN CORPUSCULAR VOLUME (BEAKER) 78 fL 79-92 L (test code = 753) MEAN CORPUSCULAR HEMOGLOBIN 23.3 pg 25.7-32.2 L (BEAKER) (test code = 751) MEAN CORPUSCULAR HEMOGLOBIN CONC 30.0 GM/DL 32.3-36.5 L (BEAKER) (test code = 752) RED CELL DISTRIBUTION WIDTH 20.6 % 11.6-14.4 H (BEAKER) (test code = 412) PLATELET COUNT (BEAKER) (test 255 K/CU MM 150-450 code = 756) MEAN PLATELET VOLUME (BEAKER) 9.2 fL 9.4-12.4 L (test code = 754) NUCLEATED RED BLOOD CELLS 0 /100 WBC 0-0 (BEAKER) (test code = 413) NEUTROPHILS RELATIVE PERCENT 73 % (BEAKER) (test code = 429) LYMPHOCYTES RELATIVE PERCENT 15 % (BEAKER) (test code = 430) MONOCYTES RELATIVE PERCENT 8 % (BEAKER) (test code = 431) EOSINOPHILS RELATIVE PERCENT 3 % (BEAKER) (test code = 432) BASOPHILS RELATIVE PERCENT 1 % (BEAKER) (test code = 437) NEUTROPHILS ABSOLUTE COUNT 6.37 K/ L 1.78-5.38 H (BEAKER) (test code = 670) LYMPHOCYTES ABSOLUTE COUNT 1.27 K/ L 1.32-3.57 L (BEAKER) (test code = 414) MONOCYTES ABSOLUTE COUNT (BEAKER) 0.70 K/ L 0.30-0.82 (test code = 415) EOSINOPHILS ABSOLUTE COUNT 0.23 K/ L 0.04-0.54 (BEAKER) (test code = 416) BASOPHILS ABSOLUTE COUNT (BEAKER) 0.06 K/ L 0.01-0.08 (test code = 417) IMMATURE GRANULOCYTES-RELATIVE 1.60 % 0.00-1.00 H PERCENT (BEAKER) (test code = 2801) Tissue [id number] 11:09:41 Test Item Value Reference Range Interpretation Comments Case Report (test code Surgical Pathology = 104) Report Case: [id number] Authorizing Provider: Keiry Fragoso DO Collected: 10/17/2022 02:35 PM Ordering Location: [address] Received: 10/17/2022 03:45 PM Service Pathologist: Karolina Lau MD Specimen: Biopsy, Liver DIAGNOSIS (test code = [id number] 3220) FuZzEwMzNcZnRuYmpcdWMx IHtccnRmMVxlcGljOTYwMl osmlPiGJQifEXnY6Jdvbtz UFoqSH4aBV7hlEhzaOKfiW RvZNFaDoYdk3isx842nTJd d8lyDLVMebvnrXp1lRabE5 1jg1A1XdnlU87jbJGhKTI9 AMTpBEEyvMNoTUUyDZO3II AqpTIuY1ziFMOnXD4cujtk UVtoTVqgQWWogRR4BGGrgI GnS3UfMFXmZIhcAYErxuf7 CdDeKl6bsUPveRqsPQfnEH JkXHBsYWluXGZzMjAgTElW UNUdQL4XB5CtAJFCMtwOCC KCJE2OTGXDNGRNY4LICKEW P4BDAZwgzQ5eYD5MHLXal7 BjieCtol1sOKkhwU8uTWPl dGVseSBkaWZmZXJlbnRpYX SeGJauBsU3r3OiN9HyvWFr pF44ZRM4fI4tcV1sQD2hee JrhX8xyShlZBP2LYBxqH4i ymvtLDEgGKXaj06lPQ65QR ybFJV9j9mjsUUlRYYzuNSi ODAwMFxhbnNpXGRlZmxhbm cyPBBdJFR2glXhELXyMIww NIJcGJbaWc7ybPIovLfaXl CwZKLhw0dsvmOUkjhtsCu6 p0koYWJhPiD9xVWgRPykY1 nrhkBrhHTtMGYmNTs3rK01 SEUezI6tuJJmUDndzhDvHp K7LFbqQETaSyE7RNVjhMPz COAuS1yoWDJkHLqvVPAmJG nfaZFpNGR0wCyms8V9xBJv aGVldHtcZjBcZnMyMiBOb3 DoHZu5gNwvB6ZjVJWiByD7 bHQgUGFyYWdyYXBoIEZvbn N3wB25DAwdydY4qVOka8At c80au018tI5fuWSrYLU6JR QbCBRdvNPcAQLoHWH4JTYq iUSmW4zxDXXlMK6wjdwkTU sqXOezYFHzjRW1ORZqxLFy M6HbDVCkZJmpCEHnauk6Zb WgVp7sxLNzpYzqISkea5zl k6ozmIMmYkd4JBTcTeBeYg tsOEezw8Cbh0sdWNSmkn4h NNE4gIWbfOzlt3F9hJMpXG WujSUjCJYxWH4vyYCiIYNg dG2zzmeqQOBiRjQkenoaCM YcwAtrcqHzXc3ngNrtZOV0 DWfwP9vsyR2zHoT3VNvoI2 rtcX9qMTh0OAdxLXKkqLL6 wbE0FJEdnMTkP2WejT9wTA NuYQ6xity5m8reLJS8DIlf YJPoPkR4vmL6VXKsfIIjES IqoFamRVpnd603LXG6EgPh WYAtl5HiZ7FkyCqxR11fjI kqO21bMTYxgZtufZ2ulPis oY1pNmQpLjEcWRinhZgiCO 8kBFIvB9dvdRUzFRIaCOIn Q5utPfTlmQ6ipSohTMmdeb QyBGBgRiz2OCHizAPqAEKr Vtt0QYNmLKSmO29tnrsaRF S3aH5qn9oab9XsZKxlTAT9 QRNyf92hFNbksuZ5XOmaPp 79WKqlTOV2VIgzTCK1aU== COMMENT (test code = z6wseXPsWQPiuRX7CyEnWZ 3849) Dwn7tne6EtcRIvlNDbCUbr kIHcyeNbcc85bAF6vC30MQ 1aRKBdKiH8GNAvvfW2Gkj2 SBJcHOCkzOUjS971d0zwb0 pbqsWomSR7nRsxJPLaazou LbV4ADugIPWwqebbHHp0MY udLJWohGW6UKGceTVeV7Oh YIDsNJ0xjxx6YRU2LGmaTI GjGeX6SOPckLIcFOYbqPag KLjkt492DVA8OzTmHPZrng ZxwXfpfU3vVnIyIKMeSN0a oNwwZYqsFZafWGYlEG7fFV VbIMadYKoryUfsE3Hys6pf i8ntEpLkdXpsjbUnrjLtBk EnKW2ktyFejRevJEgeZIGr IGludHJhaGVwYXRpYyBhbm RmWRi2rlJlBZRckHmoXDT5 F4FusIBruOjntUU0bO9uZO dpdGggbXVsdGlwbGUgbGl2 OAZcbPXptG4aHZNciiCmas 7cBKKmPpBfAV2zieUixUvt VRJaxsOfqxN7bIGaFTtkhp RbWQ1jqPTwePOpoIUcUMky YXJccGFyICBUaGlzIGJpb3 IosZPwtH84cfMgbmIkl1d2 KPQjHMYhe6TxwfRznk9tEW Hql1ImwzB0YHm3NQUdNgNa cmVudGlhdGVkIHdpdGggZG kcChUrWEVjs9QunHy8lQY1 IGZvciBDSzIwIGFuZCBDSz U7KGVxXDLVZSnhPUGwKNEk CJepqYu7UZVwh9HsW3g4Qe XzXXuee1WasH9siT7eaUut vD6xiZByfDCxlIIjIZX7YN XzJRwpGI8unzCdo2BnW2Dj qQy9KZXnGsQky6jazgEVRP IpdkulTFA5MEmzj7R4KCUs MOUlOS0hRFLhxmOqEJY6sR UbYREduy8lRZRhLV2qSzZa xhMlGBJoksIwJh7gXFQOYe HacyKyJhFjRY8xWQSdMWDn KL8eneUfkJvmKBT0P7SekV NvBEImqU3mhLKzO7PrHONd SRGpk2p6nGQlLLDklqYFZi MvIaDaG45rnlUyIRWdm80z c2y4tOY8oWUlmV9vA9gsJo AefZXkiBGmWAG3wANkzaZd mcKwsN47JVAuUN2so1Vrb7 I4NFRhIJHcDodyeRJ9HXRg f14rqNqqBB5szL0adHVtQ4 JlYXRpYyBtYXNzIGZvciBj o44cIWPlm06cSNkaWOE5M4 fpi6HxUYmuQy1jLKDgrELs VAFyLCSgo9Amf38jaeSwrL FyfQ== CPT Code(s) (test code v7ypaEOcHISfzNZ2LuRaDS = 3357) Wnd7nry2PydEOtjNCcOHoy fPKeawXllp56fGG3hQ66TV 9uFEOmSjB7TZIzyhI8Mpr8 ZVIrYMVysILfA868j5usu9 evetRpjDU1jOtfMUGdicgt HeG6MLugHAXqnrdwKXy9WU juRCXnaZK7EUWioLKwF5Ao GYOxTU0lvmz7TFP6UHnaSH NiHpT5HYXooVBtIWNhzTds JUyte668JKQ8AvDvNGJwob GzyWrifH7zPmFaYNK2FOXm XzE6KKLauMOoPAu1HnZroT PxlHEaKZo1FlNzqYTswRQa fQ== GROSS DESCRIPTION (test t2cbxIYaMLTyjGJZYPDqJ1 code = [id number]) uwelCdBXYqfLNbU8Wjjiso LBuqAV6dNG3foDufhENueS JpEC6JYELnEbOfEXEfyNOj jjUkOlWoLLTugJExaBY6VG NfNI2alurpUEkkUZqySADs suE8JINazDGlG7RzTCNfRN 8npplqLCG5AMjvcL5ebfYH VcbsGt8reWYhjAgzQwFzOu NoYXJzZXQwXGZuaWwgQXJp MTz8nL0PJyfhJ91nj5I3Kk u0BSNmLTUnF2UkUR3zRLAb tGEoJ75LOjlxMIF4IEGHCo cqMCMpOX7Bk6oaJULejUJd HHH1SLczrDStHFTmEQOzNP a2FTXkRLbykHZhEH9rpBee AcaubCqvw9OwjOAxYFxpVZ TfZGYqPQhnXQNwZS4GGjCl EJlnCHUtWRElUFz0LOt8GM 1UKrRqVZWmBhB1OQLpZOGi QDe4FQbnSZ1NTOR3IZW9AY TsXOF8HJJuGIEuPMOtEyMu XGYgQXJpYWwgXFxmbCBcXG 6rtEmiwTThgaQJWfNJoW9w c8lbAUnbaiOdKbcyARFrOJ ikHNFnW51ja2WOv7PoCC8M QLz1rqDcqmfmoE3jCJSgmz PpENdyrOOjN0feM8NmUWHk IsRxTuGeRTi4OJFouG6cGc 0goRCehP6bxUVqEDuvCZE5 zPBvDPJxQVXqOSUfJC94ST dCNHMgbmFtZSwgbWVkaWNh bCByZWNvcmQgbnVtYmVyIG GeGENtmKixZxBiBDd8P1jr dmVyIEJYIiBhcmUgbXVsdG ravYMqyVImDWHwfmuoO9ir bU2xwremXGoxyWkvr8WhCM NvcmVzIHJhbmdpbmcgZnJv hJNhYvBoCN49ASNkFNcdLU xjfrw3nBHsjzIqZK7bMYMl KWaxCSIsRG4avUJbArTrVP hlIHNwZWNpbWVuIGlzIHN1 Xx1csFCuUBQtlyS8z7NuBF luIEExLlxwYXIgDQpccGFy NA2NQ4F4gGToiR5rKE7anu HrWWlcGIEzH0L3ANXxdVav YRUaQKisrZDrMK1TKBDePE jsnfVsJK8WLQLiJPewMTRj cPBNRUH2WQ5eUMlxiQKdhb cpSYCjA2XrV9XcuvHsbNVm TQDrohIcs0vmTFR7VPQpiE JsqOIaRqObMjnlBDZ2XKqo g7gvUQM1INBjtGZlvAJxXB raTsNoWcepTBIwV3EpJ8Fn snT9UOg0 MICROSCOPIC DESCRIPTION m4gnfYIpYMUygKN2JkWnVW (test code = 3371) Wry7pfc7HgsQXjuZBnFRds dAIaarAhbx58lGK6hN21LW 4wJPTqHoC5KNTblnT4Cbc8 MQRsXXVtdTUgW058w8xrg3 nsufNqaEZ8dAsyHVZdkftm HkB7AQlcZAUczgwcVUr8ZT rzBVDqzEF5GFJoiJRxZ1Hv PIOkMI4kxwd7QID5OGztQL SyZuQ4DCTbmWTmIOCqjBtq VWulm687RDZ7KyNyACRpqx TpzGxakU0oTnDyFMPTpMTs uOv8TMEaB48cEPUtPUAqET KpoDnxXQb8UG2mE5QzmZFg TVN4JMtoveXdgLXwHKKuNV 8wK1RfO4zwj17lBO8hLDXf PYCmwIuyTBxeFqEnQO67nZ Y3JEZra2x8yYPbvzBtahOj YsJsmgTmGKYpiJh8kQHbGB 83C3yqMBSgIPQTLCXir7Yr ya7iAHIrSQ76EIwvmzVyXN ZtdrIkK8m8cEBlry77FKXx wF7rsRexZQLjI3xkhh48yo QuXHBhclxwYXIgVGhlIHR1 kZ4wLULasNlwVOBlJRTgbE TlfPXtaAncoU0dqPKnqdTc Lp6yXELoYtBzQE4wPUXTND hySM9wBXTcfnSpW9VqbVPu wF3uwNApqoLzJILotoXYLs fjFVWYvJNqTDHwfkWev3Fg stO2TJWfDQTwdNaajwQghF SglaIsqQMwxaumIkQcx6Tn V5QQAxpot1PkdrWlcNXugI Udz6R4sS2hYHDjQPDaTo42 PIRskOTakq5jdXRdgMZbxP == SPECIAL STUDIES (test t3dmoKZfBHBcu9mmMEJvkL code = 3376) FuZzEwMzNcZnRuYmpcdWMx BGcvqwTbRXekd7AeU6JaFz AwMFxhbnNpXGRlZmxhbmcx MUQeFGO2wnIoLWIaIZkfOJ JsQQcuUt2pxCFzqNngKnZq NBBbw3lgkyLIuadthJm4b6 iyIYNxWkG0dTOiLLasX7ck hpPlhLVaG5UgzIFbnJv2x3 iaKrPpHgB3mOMqJKmvM6tb uoWbjMSwPGXyYKk9xQ22EK KygG7tsUYdPJnpmeIcIaO1 HHkaSWHdLoH5UOEynSUhAH DaT2hhHHTgUJboESVkECal jFEeEQG9lTmwy4O6cFQjuZ ChkWefZaStAbMsIhLUz7Az YYk5eBzwC2QgERWfHnQ5lI QgUGFyYWdyYXBoIEZvbnQ7 rFwhcuOam28auZWwFZZaBR BvQcQpiRoiQVDaWZPBw4Aj aIzwUIR1gGr7pNyjFdvlLW Y6Msc0CK1cyr45txl6mCxm ZFIvtajoYmW4ZPbySHAqfi gvEJp1ONoeEIUhhFS4SAHx kJDiY9FzPXArLJ6dxnn8XU V8EZtwPFSeCvW4XNQucOPh QHOpmJojITpyu290ARQ6Jo HoTA1bH6Bkw8T6vN1dvVNg FGKcnOOcDlHtWPNclz0rcB GaTIxxw0KzBCC3xvP6tPXr wNCaCPZpAK12Crwqq7ElBa kyj7HpR47ryYJ1BLgcu5wt VW6gQoX2ugOsNMinm0aupT 9yQrY0CLurMN3fHL0oVEUy nQ5yqdluNYWdYtDxiugzAZ HdbMykqgJvBe1pwSvdNEB8 ATvxJ1gvjR4eYuL7PGxlB2 ikoP8wRVo8QBnsfIB5NXYm zF2cUO9auvsfp5qaBPhlRX oqIIYkoaK2sqG2EUMfnQUc R5QogB7sKMNyUR3nhlyrx9 xtYLK8MLxcUJYoUJX2EtPs DJSdd1Moajl6RlNln7FmvS BfBAurZ87zy906KGSfvwGw H2xtxXZbxhxrfOHwcmtxOK kxamM1JYXdOOTxQZfvBBTl XGZzMjJcbGFuZzEwMzNcaG ljaFxmMVxkYmNoXGYxXGxv X5zlLcMtS7YoEBPqPqOcJL icNDhqmVFkgEDgbFX7zT3v QR1vFZUrsEEdH3YnTJUpie PttHJgBJA6pMDdhCExIT9x IFpleBOvd0xdf1TmN7bqnS zllIQ5NA0mSKEhLVPgMEra s5CofO9rRtskuJFjuomsHK xmczIyXGxhbmcxMDMzXGhp M8ixTpSnCXFhhUdwVXlem7 NoXGYxXGNmMlxmczIyXGx0 cmNoXHBhclxwYXJccGxhaW 8yWhTjAhWcPdnvKJ2zZOLo X7dekBCtQCCoCPWgU6waXx XsdC5iwWwzNQtlSpKqIhSd UwFLy537wo1bSSOngHTdwv ONcVCepO1yGJwdNBeaXUqe cENaJQorz4bzAAHel8v0xC RqTDLpqgDkx8qzILgniyTn EKHofKMxiRNzCUWvd00vPN vmqWzdgGlbYVMep0RupYnc l6VcZoFfMUrrh1PhT53meP JvbCBzbGlkZXMgcnVuIGFs e74mq0ltBFNeLdU0sOAtxL S1uZNbnVPdq6HehDcrWHVn h6jhLAXwmc4nhcfkzQPua5 OfpL1ckadsSDkdnJCwrnOb NTNtt6p7lWMhUYVxHCExAX pryZm3MRBlh079vp3hpxA2 hOYdIUS5QCoxYJUcSKYmyt UgZXZhbHVhdGVkXHBsYWlu XGYxXGZzMjJcbGFuZzEwMz NcaGljaFxmMVxkYmNoXGYx CRuqI4ujOoVpS1HuCBFhLz OmyEBmE0unxUTbFNUkUDff XGYxXGZzMjJcbGFuZzEwMz NcaGljaFxmMVxkYmNoXGYx CWrlX7hxEtBaA2YjHSWgKi IgIFxwbGFpblxmMVxmczIy ZVwfscnyZUVjZEhqG7vmFz GuAWTjnNgbGVvfy3GwGCUm AFRsUhwgibYcZNv5elVqRL BhclxwbGFpblxmMVxmczIy QOpjlpjrZLCkBHwwC6tcYu TqOGIxnEyqHGshv3TlRYSa XGNmMlxmczIyIEltbXVub2 sdx1BtX3wuuYzqvGJ5KUAc Y6gqcDAsbMP9GIH2wO3hUV wcdyYxHARiv3OmHDWcDVFj YtI6sH8tIIR7AiTOpStlHS BsYWluXGYxXGZzMjJcbGFu ZzEwMzNcaGljaFxmMVxkYm IuIRTwVIshU1kxKqDwI2Zu EQYvVzXjlDjgUKjqLYn2Dy xwbGFpblxmMVxmczIyXGxh xfntFVAtGDwxS3cgKoMlLE DbhBadRIuag8UrHNLxXCKb MlxmczIyIHMgTWVkaWNhbC LGON44HOBnBDTxoQzmcN2k xMLEGOFsljO1i0S8ZOmlKU NtHEn0UVwxlxVhORTlyX8i ACDrHP0zISx5wrNxZFIgx8 XxGW3iRBOajVXrGQS7LGQm x5YwP8Twu0ZvROIoPWAcqs 9usjCiGhHRxSFcJEJucc98 ODLgHH9jP9noBYTfZWXmsq SgaTOwu7IjOCHujLT7hVLt WI6MOpYBn71jCJJjASRWeg RuHJWvwPnkcTN5rwE1lR7o LiBUaGUgRkRBIGhhcyBkZX Zizb5skqGcHZIoBWBpc6Eh tXWbaDMjofYsG4Rbq1LzRC Mmql65LRmzwFNcaa83OB2j O4Tog2GnjO1wZMznWBOun5 UihDVlqIAoFNFev2LoH0gz aaveELezeNBaaE9bIZMwHZ t7LGTwp5EdFOKug2BhCbLf seKsSTNhHZEiQGSjwG46XV P2dAtleLexmoYoHA2kRDIg yjYxWBMlDFJrpA0eUJgihk CcIJFtjtB3n9D8CBrhFHZz csLtFhcbKPN3ndQhdnE0uQ YcF8kpczzbQNznAQEln6Ih qQ7xwYDPePOmd5AruRVsiN YZtDThMT0tygQsBQ6vSMQ7 ODggKENMSUEtODgpIGFzIH I4YUsqVhzkOCF7auMwOFAi m3ReDZcpF0lmF77qyTcyfU d8bFUvhDulqKUkqDFkZAMi piB3o3U1HYNno6JvhoduZJ BsYWluXGYyXGZzMjJcbGFu ZzEwMzNcaGljaFxmMlxkYm EfUSZlKInlI1jrMrQfDbCb OlnzCGC5jU== Gross assessment was [facility] performed at ([facility], = 2777) Department of Pathology, [address] [place] [id number], Technical component was [facility] performed at ([facility], = 2778) Department of Pathology, [address] [place] [phone], Professional component [facility] was performed at ([facility], code = 2779) Department of Pathology, [address] [place] [id number], [facility] [id number] 11:09:41 Test Item Value Reference Range Interpretation Comments Case Report (test code Surgical Pathology = 104) Report Case: [id number] Authorizing Provider: Keiry Fragoso DO Collected: 10/17/2022 02:35 PM Ordering Location: [address] Received: 10/17/2022 03:45 PM Service Pathologist: Karolina Lau MD Specimen: Biopsy, Liver DIAGNOSIS (test code = [id number] 3220) FuZzEwMzNcZnRuYmpcdWMx IHtccnRmMVxlcGljOTYwMl syaeZxOUAgcUXgK6Vpbfhe PCsoXJ5xSQ0muDnspCItnB MySABkPnOwc8oie210uQGe s6ofHEYHbknbhXq8hLeuA7 8kt8M3HhkqQ63swGGnXHZ9 XVRfPSQacAFvTTOfSXK4VI JceLJzO0esCGWdUE2jxobc HHloVAcaMGRsvBU6GKWhmX AvN4SjBWWyCPxiUTOeofb3 PtPkPk9krEDvfLyoWJjsTD JkXHBsYWluXGZzMjAgTElW CMZhEC8ST2FoVLVKDbrYUB TYLR4ANEAWXGNCD0WJBREQ G2HNFLauoS8eZX4IYOWcw0 QooaWtmg3dZRaehM7lXXHq dGVseSBkaWZmZXJlbnRpYX BiJLatMzY1m6WdH3EhfJKs jM92JLR1lF2gwP6cWN0yog IriV7bzPnrPWJ4WEMsyX9g njznGSTqIWXwb53tLC25SH kzIOK6j2xroKHyNPRdjZDf ODAwMFxhbnNpXGRlZmxhbm yoSBNlEOQ7baLiWSOsCDri IXTmZOdtWn0skZPrnUsnXw MyNPWzx1nlugBDdxhulRr8 g5vlVXQaPzU3lYGnXXeaM1 tpeoQapLQhXZLoWAn3kF30 YKSweA8osPKnPJrlazTqXd K3WEskFRYrRvI5NSFcoLYl FPZwL8akJYCeSBomDLEiNI gcmSGmOPM3zYpng4N0iTUn aGVldHtcZjBcZnMyMiBOb3 ZgOVq8cCqdW4KqPNClJuQ9 bHQgUGFyYWdyYXBoIEZvbn O4tL32UYytfaM8jROwx1Ld o68nc532aA0eoGMbTSZ6ND QjYEFpoKJyETEcAHW5MPHr aJGoT2wtXSSoPC2kacbxSD svZFbnDVTroBD8UOWbnMWr Y9AsHLEoBPutJXEemeh3Eo HdEp8plOCzaGivWCaym5pt k4dinRHpLzj5ADTgLoSlGt xjVElko1Row6pwEGZpfu1w FPJ5kGTqxCerd1H4cYFaHW XvcOBcDQFwWX3kiHCjLLWp fS3wevrrRVDiVzVykscoXW XgdGafyqJjUe6xyYlvJGG5 FHjhF3dnkL1zHcB1ZUzlF0 vsbS0xNFf4FZwtRWInkJY3 rvO3DUWvqSXkB4XqqK7rIM KkRA7suos6c8otRYC9UPot WGGbDfE5pgZ5XNTkbQDdPT XkkDipQJaxy643FLT6HbXm NASoh0AoE6RzyRyyX86ihA ieP77jQMZtiHcbqM4xnYzv zI5qIxTdQxUvAVpumAusFD 1sXKVoP3otbHYkJLCsNBMh L3jqYzXsnX3iiTgkSCdmxx FqDGLfRec3LLWhbDZyKQUs Ile0HPDyRJYoT07gpsivEK X7yC3od6nwd5MfDTquQOM1 JSJia65bRTkxbuK7REliMi 60YBowMAV3KPvmAZH1gH== COMMENT (test code = [id number] 9040) Myq8pjf0OrxXDgzVBiYAvi hCJhycRdca54yIA2zS03BR 1wMHUzFvY8NRWgipD4Xxt9 KNVsBFWipAZiK734z2znh2 nzatSplSR6wPnuJTPbword RuV0NMxvWIQqbhusMIs1AC neVHWumXB4LQZogQBpZ8Yp RMJoMC9mcuw9ATB4CTdhFE SrPcX9LJGlyHOuDXXjvPas IOzub826HBS4QaIkLYJmyo GeqDfrqC0cMxFpSNYwKB1d vFxgZSicIBbpHKAlUR9lZF TnJGkoLSjhoFmaL3Jiq5vt j5loUlKofAsqxwObneTpZi XdVK2yuhGvgPxgGKqsRDRi IGludHJhaGVwYXRpYyBhbm CqQLl3leKzDTVfeYazTTO5 U2CelHLrxZohdIS1vA0eYF dpdGggbXVsdGlwbGUgbGl2 NYElkRXvmF3hTUGpgjRiky 8qPRXhHcDoVW6cltDokEbu OTBehpIdrzT5sORdCGxops ZqYH0huKAsqFDfeEXxRRnj YXJccGFyICBUaGlzIGJpb3 WolKZgdG11srSvraNuw6x0 EPHsPDYni1YlopOtil0zWO Nge9CvrlS7RRq4MLMrIfQu cmVudGlhdGVkIHdpdGggZG sgGfLxJCApc0LypHw8iJC8 IGZvciBDSzIwIGFuZCBDSz O6JLIdSBWVDWwmTUFcUPNj LVvlfWa2PSFka1JrQ5t5Iw KeSBkrf3VecX0qeA6tkTuw uM5mpQPosKIjcZVtCLA4FQ PxCTjuUT5wfjWcj1UhP8Sv lNe1WNWvMkSgy9ntogCECA UpeflaHFO7EAvpf5F6NBOm EMNsFC9rUYVadbUoASI9zG VqHXYfrm5rITDqZL5wDlSl fjLbMPJqmtEhZk3sFMPPRq UlfmJhAjEtJG1lXBCuSUJw KT3tnwIptJxkYVC8U0CujZ XcWYKrtR3nyJUfL0PeBIMh KXHba3u4vMRdVFMcweOXFc ClQkPhV65rbeJhWXZaa84r j6k4pXC3rVGjsO7iE8bjVb JdyCRpiVSoIJJ9aVVogtPx ccSclT10UFZtYP3qf7Gqs6 P9VZAvJXZiAwotyKW9NDJv y27dlRihPB3bjE3liOZnQ6 JlYXRpYyBtYXNzIGZvciBj l62vIEFdl50zGWzgSLJ1W2 bxl2FbIRzjSh4uXFOldEEm HXArVGUqd7Jhe39dtcFocK FyfQ== CPT Code(s) (test code h4vjwPCqQWNnfDA0UjMmHJ = 3357) Bky4den5RypHDqyZFlBKox uBAacqZjwv15gVV4bI04ER 1nLYMfQnS8KNTetyS4Czu7 SZZdYRFkvAFeM147h1uns9 snzwUdtJF6yNntADWxifdl RdI7SZwbNUZvyjsfJWc4ZL uzYBYrgJW5ANXrxAVaI3Im CFEbXR4fqoi7EDW0KBksZQ NeDrU7EYEnfTJpQPDkbHfq KYkce960IFW4TxKtFRPysp DdzVgcwA9mIzXsUGU3HIUm BkZ3XMGmfAUgKZv0OoBmfO OzfSGgYOb2PhZyxJQxyXUa fQ== GROSS DESCRIPTION (test p5hrsCNqHSHtaGNAZUGoG8 code = [id number]) hzytMwCIAscCJuW4Lxbomm YQkuBZ8aUS4pyBfvqXZhvF LqJS4KHZRuXdJjJAOoiIKu hwYwBrTvTFWanTHzjKW3HO OsOT8outfvGLamDFxqUFBd hnT7SPXxmBNgI3MjRDRrZF 6zxgbjEPQ8AQaqrF6mpmYK HupuLi0gzHEymCeoFbZqYo NoYXJzZXQwXGZuaWwgQXJp HUp3zG6BNsmcJ34wr4J8Rd r6UMGbYNFaR3SmMO0fKGPv oUOpC43FKkdzJDR5FJZKGb etBKHeTG7Hb7fvYAEmjZUv DDD8DGqyxZCwFJZgZMHsSN n9EZXzSRkbyTBbSR3hwBok QjqyoJgko7XccXOcIOlsCQ QnDALaSRvpMUPaSJ1MZdVv GQtyAKEhEPCxDPs0OKk9YH 7IRgWzIACbUrB9LVCnBUQz CPt4ZUiyMW0MBZG6YVZ3YD TtKCS2WUNfWIIaKTDgWpLr XGYgQXJpYWwgXFxmbCBcXG 9mjSxwcZUxpoGOTxBBaR8y l7wrMPuxfoXaRvzuCRZbKE tbQEWpD75nx5LHw9JlJL4S XRs1tkKxnzshpU8rGGJnzl AnSXiqjDVqH9pgY4KvHTNe TrMrOaLrQUu0LTLxzX7nTd 6gsTHmsJ4gpZTmFQgjXNJ2 cWFcYPSkKYMpAPZeQL03RY dCNHMgbmFtZSwgbWVkaWNh bCByZWNvcmQgbnVtYmVyIG MpEXPddXgtUnCgUHv4O1hr dmVyIEJYIiBhcmUgbXVsdG sjiTVudVTgTANgkcqeV0xb rM5oiogiENjjkEogl5TpRL NvcmVzIHJhbmdpbmcgZnJv lDBiBzUgAS19SIGdXFxzHF arhuz1yMZdrkYuRG7mMERc STuzGLRuLI0uiETjPwZiCC hlIHNwZWNpbWVuIGlzIHN1 As4bgOGyCXVjkqV4k7IpOK luIEExLlxwYXIgDQpccGFy KD2JW0N0cWLexD1qXU4cwm QyMTlbMGEaG1N6RXSbhQso RHRbFEkqmMOhUN1ZMEUeGI gadwZhCF6QMVRdSBpiNGMz lFHKTNQ3UP9lQAnuqPCowl daSNSxV2UhK8UdsrWldVWd KGMnvfMne8tqQWK2IEPxrQ TlaCCoYjHkUfqjMVQ3WHhm e3vqKMU8XRQycNNmuRYuKC vjQrOgWmvbTAFyV4TmM0Vd fzA6APj3 MICROSCOPIC DESCRIPTION v6mxkBOmRRPytEC6NyOzTN (test code = 3371) Nfr8amt6UirHTfwZPmCRoz aNNhpxRdco85tLH9tB56ZE 9zKQBdMhP1WHLupiD2Zjr2 ZRHpPFVfyKJrO254j6mem2 blleMdvIY0lTudSAFlgxuw ChX9DBrhOYOgzmsqRDg8OG stPOYapKI2GOMqpAElA1Dc QEUeLS7wcom2MSE8MUsqLG NwBgY1IKHlhFErFGQhqSzn JJult910FXX2TiHmDJSdsx RjlYhyaR5iDyQzPPBNnOAg jZy8TRTbU97uOARzVGUcVD HinKqiKHe6CK8rU6AgrHZm JWX6JKcwawAcdRKlKWGwGJ 7xG8AzP4yhf79dWR5wWEIe JVUppAmpTHcbHuYoXC98iX U9SSQwu7t2yRGnoyDdgxCf IbXnbuNtERIatLw2gLBhES 57E7aqTMDbTKDWRTWtm6Gg az8cLBIpFO53MLtjndLeTE GwfqHtG4v0mVPgeq54ZLPl dC2kzDftRQIfB8ynaa49ud QuXHBhclxwYXIgVGhlIHR1 gC7oNLVhkAanJEVdVISwlI UnqHVgbXhasQ1ozPEmeyPf Tq7sBFVgFgInAY8wBNRJVZ fiXP0rOSOoluWpR2YelNOf dB8koUCvucGuXECatfZZQm kfPYLNfPRkPCNbejWxt1Yb cjO3NSEaEMNtwQgnjnEedE KxwjTbgIIxpjqlMaMek3Kj Q6FICfsmp2OqsdPdfXSeeR Fhk8I8cH1dHTUdUHGnIq78 JKFpeSEieb9ykMBodAPbrD == SPECIAL STUDIES (test x9kqsAPbUZYta0huMJZchY code = 3376) FuZzEwMzNcZnRuYmpcdWMx LIpaelLvMTdzi0UuA3UaSv AwMFxhbnNpXGRlZmxhbmcx LCOqMSP9wqNbKFHyQQupRE YhMGxtBf7goPRcqDphRfOw CBEoz0uygdKTcrntcLb4c9 vlTOWuVaK4lDUzXJmqI3rs mvIpgGNcF3GthPEvaZs7q7 znKeStIzA7gGIsPYlmO7fg kbXrnCXhVATdHUi1uM38KX PuxV8ebNYkOGuawtKxHsE8 KAxkEDYnRhN5CDBxpVHvNB QyV0szULHyPLoeTYUgZNrs mSTxKHE7dAcqb6W1fCHriV RosAvuJgQyVkEeOtDOq0Nn YVw7pUzbV6ToDGSsVnR2aB QgUGFyYWdyYXBoIEZvbnQ7 nVohbmCgj87ksKYvSUKnIL XqGwDunLkaDDSzBAPVo5Yu xZvmQWG2vWg9sPqhJzmjUM J7Urk4PG1xmx64ggs5nJux MUDmcmrdNrJ7VRocILQyis urYHv7QIagLQBshMM7ZAAi jJXgX5IjOICwYW8zndy6UE K3HRskLNDyGeP1OPGazSDu DPLdeQikADaep962JEI8Uc BzVW1bN8Srd0Y5kO4ylTMo WCDcfYFdDtVzQBZdwo4wvO EcDHnyp6MbVDA9pcA0tZPh gZHgGNMdUJ01Ffhpp0BdPx pah0LeS11ssIV0OFawg8qq HM6hNvP1tsRiZZxgt1cdbK 8bUmO6PPoyMH6pBR5lBOJw jM1vxpvjGAJrVkSbfwfiRQ GjuJbdwqHvCu2haDtqLKU5 VDonS2pzrH2oJhY1HVzkE1 ggaH6sNFy1KBqhsTB4VLYq dC4lKZ7mnzpzv8byADsrTP uvTEIdizD6mcH4KJOgeHUh G7EkgI2iPXVyMA7wahmzp9 qrEGO5ORtcEHQpWDF2UmFr LQBlw7Sggqk0ApGnp5VazH ZoBLzjG70zq445VNXjamUk M2ppjXCwnolgmLEmtkmrTV xgjzP2NOLaWYEgIXscXXJz XGZzMjJcbGFuZzEwMzNcaG ljaFxmMVxkYmNoXGYxXGxv L0uqFqSrU9GnWDKsBbDkXH hfBWdfcCWvtQXwaHZ0cJ2q HW9gTJJatDBgE6VuVOZnhk LclXZaFEQ5kLEdhTYeDU0w CHlbxEZgr4eas4HhB0amrJ ggsOL5IE1xWDUsYSVyMTqt l4RznP6hGxzfiBAytdhpOI xmczIyXGxhbmcxMDMzXGhp M1jdBwPoGBFopGyiFKcqu5 NoXGYxXGNmMlxmczIyXGx0 cmNoXHBhclxwYXJccGxhaW 7eZjTrXhBjOqnaSX2fPQGi J5mtmRIoGIOcWZQgN6pwWs UsdD7fiCwdKCmsRhSmFqXa YdNGy018eg6xCTTvuLWxtn UDdVJtxN9rAKgfOJcyIZzc wYQmXZema2wnDPObe6a7dP FxGNFiujKzs2spRGpkooAv KWLfmBIqgGHdLTLic72tGG puwKkxcRoaPVRrn8SiyBex u3ArVeFvBTkuu2KuP95uoT JvbCBzbGlkZXMgcnVuIGFs m44wb2nbXGUoUtK6jSMjrM M6eZSvyTRgv4IjsNhtKQYt h4rkESDbok8izosrbOOtc4 IhfK5zzmglHHszqLObpyXq NOBwz5z4cTNtECItBHSfYG dnjKr6USPyd992wx2tjcV4 bIJzFOX4VSusZYTtTOHtqw UgZXZhbHVhdGVkXHBsYWlu XGYxXGZzMjJcbGFuZzEwMz NcaGljaFxmMVxkYmNoXGYx GZlaL0boWwNjV3OvFPPeKg IomRQwS5wuaHQyBNUsFSpk XGYxXGZzMjJcbGFuZzEwMz NcaGljaFxmMVxkYmNoXGYx OGepS7jbGrYdV2BsOVAcDf IgIFxwbGFpblxmMVxmczIy AClzyvfaDUJpFYizA5zlTm UxATHubWvhHMhqc7YxFJYl FGDxXskjiyRfIYr6iuPiHT BhclxwbGFpblxmMVxmczIy ATvevpytUPEnSTilH6chVh BnCRGcvUoiVPtrr6CbXOTa XGNmMlxmczIyIEltbXVub2 nwh9HjS6diqEhrmQW7BIEy P6rabGYyaHC9TVE4eS3xNR rptaZiZIRpm9AwOPBnQEWw WyE7pM1fCSD5AcBCcQcmVB BsYWluXGYxXGZzMjJcbGFu ZzEwMzNcaGljaFxmMVxkYm RkQEGkKJuaN6jwHoWoP9Tm MPQoZiCndXjkDYipHAm4Jk xwbGFpblxmMVxmczIyXGxh dpasNDGbTSfdY3mbRpXbTQ ItpIczJUuns3NtOBDsOKIj MlxmczIyIHMgTWVkaWNhbC ZBFA59CWJbTHOhmCqapK8o iAAJOCFbtrK0h5E9WXxbTN TuTWc1LEswloOxTXAkoM4e JHJhKT6pPCp4rqCtDFBkv7 ToRR0mGIWwkCSfSRP2XSZg i0EvD4Isp5VsFVKyVSIcei 0mgmTrBxCGkQCeVHFewe89 TVBvQD0aG0xtQLUuKQQmws ZsjNYys6YiDDAzfTH3cCZy KT5WVuBWk34aZVAxIEOPsn AmOHLjfYfvkUC0xgX4mK3n LiBUaGUgRkRBIGhhcyBkZX Rwlf9tdvHwSRFtDWDcd3Ax wLHlkERpppHoE9Nnb0MgQQ Tktl17JLzakEEsbe52DX3u B0Dxh5LpwD2lVJdqYWJrd8 PejSWsiQDxAFPyb0WqS3sn owuxLYsvwLMjiI7iVPLjYB k0EKXfq4AlBGIvc0KuShJu ivRtBOMuZEYjBTZjhY86MS H2eWasfBromnOkPP3wWGHs heGaYGVcVBUskK1uUOvnwy ZsOABedfR7e4X3JQicSQOa kpUsPhzkXRC1tpMpctA3rU UjC4ahfgynMXanRJKcm0Ri aJ4tkLHEsTIru8GwaFIwbL DNzKCpFN7uyqLyAX5rCRE1 ODggKENMSUEtODgpIGFzIH H2MUzbGopeUIM9prVfEDZo t4KzEOosJ6piF33zqTkdyC z0kUVdmAirrYJzcSRtVYWs pzP4h5L8HMDkw6CpavabGP BsYWluXGYyXGZzMjJcbGFu ZzEwMzNcaGljaFxmMlxkYm CvTGGgIIgwN5ypRjIeWxFm ZkmnAXU2wV== Gross assessment was [facility] performed at ([facility], = 2777) Department of Pathology, [address] [place] [address], Technical component was [facility] performed at ([facility], = 2778) Department of Pathology, [address] [place] [id number], Professional component [facility] was performed at ([facility], code = 2278) Department of Pathology, [address] [place] [id number], [facility] [id number] 11:09:41 Test Item Value Reference Range Interpretation Comments Case Report (test code Surgical Pathology = 104) Report Case: [id number] Authorizing Provider: Keiry Fragoso DO Collected: 10/17/2022 02:35 PM Ordering Location: [address] Received: 10/17/2022 03:45 PM Service Pathologist: Karolina Lau MD Specimen: Biopsy, Liver DIAGNOSIS (test code = [id number] 3220) FuZzEwMzNcZnRuYmpcdWMx IHtccnRmMVxlcGljOTYwMl hbchDgFUKrdDTyN1Cchamu HVdaKL0oJM0clDceuPExmS IkFGXoIlLyp9pey725xNLs k3nkTNEHamlgsAc2dOsjS4 4cv7R7ZwywE44pbBPqQRS1 LLGsZJYgzQUhUGGeOVJ7LB JtmJIbR1xiLUQcFG6ubfad IAnrYWjfERFftZT6VSGpaQ XgZ1ZiOOLiNLzwUHOjowt4 FhQaOw7ttGUfcEfhTWvpKD JkXHBsYWluXGZzMjAgTElW CCWbYD7BI7LwEARHQkpKZK XDZP5NEXMUHXYNY0GXHDXT K3PZDWksgX4hEY8LNIXgx8 MtwhWgbq1kACgzuN6rLZVw dGVseSBkaWZmZXJlbnRpYX FgXWoiOxV0n1GeW9DflYJd bR95CWW4jL1yiR7wBY0nmc HjuE9tmUkzVIM7KLUvsW0t xzztDRRqGJMxy86gKG18GF cqKAS3q1txgDCuTESviPEt ODAwMFxhbnNpXGRlZmxhbm ysFATfPJX1uiWbUWZgJTpq HEQqVGocRw2exXQdwRsqGv QhGNUwr2qklpDRmxrxoEw5 z8pvRCIiNgE9vYYqJAkmC0 kmwmSqiMRoXNCyNMt4fO63 EMMtmW1ioNPoPYdigcWsHf V3XCnvYEGpJmW5VUVehAIc TLIuS8erCEIrXCcdROFfHW vmxXSbQSF8xJmty3G6mXTn aGVldHtcZjBcZnMyMiBOb3 IlQNp1bKctQ3HtQBYrWtL2 bHQgUGFyYWdyYXBoIEZvbn V2uD04XZjgluR9cRWxd2Rv w06na986qJ9ulGCuVNL0AF AyGHIsyEBfVFJvXJU7NYTv qNPoR2cqGYSsBS5dzxcaWY ytMWtxZJIkvKK1APWjxETz M2MgWPZgQVouRRKllse3Lm MtCz8euLKaeRcxXHzuv7mk p6hnjMLpLrp8QNKlXoUpRt ntSEsvh0Sqx0vnKVYcua6m HTR6fXRqrPyti4J1qQHgDR FqtNXhDVKrLE6ygHAxGPXg aU0neamaXUUaRuHyejsyEC VagIettbKfUf9xvQyvFNQ7 OTdiA9drkZ3aSkO3MVtaK0 ocoW6gTPw5AEdlCQSrkLM0 jtC3AZNhqIDbE3TctL1zAU DsSP0orac7c5cpDXN7RFeo VOQoPkK2yyK2DEBytJNqOR LpxSasCYaxy066UVJ0ZtTh HEZwf0HuK7PshZsoE69krD tsV03jKFYoxTexnX1tiLlg jY9yZtCgKcCeAQkjoDrjOH 3hPHQmC2zmrYUeDBUuECCn P8bwRjOppI8wdDhuNLgghb IwFSBaGbx4JSLptPDuNGMz Rhl1RBBnSAOoB74unynvJE O6dV7ao4mwb3MpPLqrKDI7 AXDbj18gYAezjpO4GNdvQj 10UTchYEB7IImlIXW8cD== COMMENT (test code = [id number] 4866) Qqp8cpy6VqoGQrzGTpXWob cUZpkxArdz34xVZ2qE49QF 1zZKNtJdQ5MDFeauJ4Lcf0 WORrGOQsqWUfB597q7dsd4 dyhdRluJU3vDweWAPtqvdr YjI6DYwlBFWaezduFHk4LV gvUFNvdWQ0VRKkbIMyZ9Xf ZUJwBZ9sreg3XQF3CDapJJ OcGfA6HLZtsGRiYAEktTzc NMinv321ORO9SnFiPBVrpn LopSkemH2kGnHeWNZoWB7j qQyfVCtzSUwjNMZjQJ5fLF WtDPapOPjfeByrQ9Hqt1or k5rsJqXpwVgcpaKgteXoYj NkVQ9jgdTrhJfqRRjaPUQj IGludHJhaGVwYXRpYyBhbm GuYWd1naGlQAByiHxkSGM7 Y7YfdOAolMbeyYL7xJ7xFG dpdGggbXVsdGlwbGUgbGl2 DCQnvYCnkD2xRSPmkbVhat 6eLFXdQlKuPK3xuuJhhDwj MLBacwQmkcZ5qJFdXUlcpo HyMO9nkSAgmUWjdNZnOTev YXJccGFyICBUaGlzIGJpb3 XweDVwoG34boSlwwUtg3x4 WPIsJXPht3IogtHwlc1iLP Bie7YfuvT6BSs9XSDaTsVv cmVudGlhdGVkIHdpdGggZG dtOzDmPVOaa6OzsIe6tGY9 IGZvciBDSzIwIGFuZCBDSz J2GDKsVGRHTZdgHLOiDXOl NYmifPm5PEGtw4KjC0f9Ak MkAUddt1CerT9tkM1xjFyv fZ2ixBOtxVUfiFSuPCP3OA TvXYzeHF0cupEox3XaE9Un tMx7FNUrTkRby8utsoMNZT WxypqvQGU0LZwsw2H5FOHu BDZjXL8nOGMmlhWeUYS1oW AzBDSyvq1aXVCmKC6sVmTm mvZqNKLgauAnJc3kUIYNBu IdudNuErOzHC3kRFQcXDOo PW5usoFgmNiwDCO0F8MzqX WhCRCohY9trJOtO8SoJPNm EDJpi9b7iMUvHNHsoqUDMo AqAeQlZ99cxeKzCQRkc96h t2e1tNQ0mYPceB2xS1qtEn IdbVZxlMGyZAX8pAPkudOv nwVrtH21MPNbCR4te5Amk1 A3FTBhTDZnOrwhwXQ3ZLRn w25pxEplYZ9vcU3qgEQgF6 JlYXRpYyBtYXNzIGZvciBj r26xROLlz05lJDuxSNE6E5 pfr6AfEUnrIr8gATOdzZPk YDBtPQIur7Srn28vvgJagW FyfQ== CPT Code(s) (test code x5cqdXPxFSErrXR5MxGcKO = 3357) Llb6shh3KcsRZgtUAoICnr bSNsgfSsxn64eXN1wK37AD 4bOTHpTgF5CWXftqO8Ndy4 TXYySAJgbVPdM938u0jcc2 dhopDzuDH8hHrrXQXdktqc GiR2SVqcZMZblxvpWYm5EH zcNWJbfCI5MDWyiKCkT8Qc JVGbGH9kfnd3QNO1RJzyZS FeXkI2CEMybLLqEUGioXbs NAezt692DNH8NiHxTDKtqu KjhKjswR4oHnDaQBD2AHKq QdX8HANzmYKcPGe6WvWflG IzkJJiVZn5UbVhoSLqdGMr fQ== GROSS DESCRIPTION (test w3oiaGNpXKUtuIPAIPPiY8 code = [id number]) wqacWfEEHtqNVkO5Nvqrwd NJwqWT9yEG9ijLpmbVZqzM HrZF4GPBBxPqJsEMDcqIPc yeDpOqQaWWMegKJbvCC2UY XsMJ2ksejzQKqvMUyeKBMv nfC9CTYhvYXeY8KmGVUvUO 3bypjrVSO5KUavkG0wiuAA MsmoBi5neGGzxIyhZiMyGo NoYXJzZXQwXGZuaWwgQXJp TAa2sG9KShctS86mr1W8Nf p7GZTqMELhS0NjHG6bNLUd dHCeQ25XUyztYHX0YIZLBu btHMSqKX4Rg2vwOCBoaIXq BAU3DUrpgPFnRFKoPIVeWW r9ZLRvRUbjwSMuPA0kuRtd DdqjnLfya7SurSFyRIzhIO OkHIJxWUtoGJFuFW0XDgVg YVwqSLAmHIXxFKz3USz7ZW 4ALiBoXTNdNhT1YSYuMWQy OJc5CUmiLT7DGTR5YFY5AW QaVPF1KEUoXETtITFlCySx XGYgQXJpYWwgXFxmbCBcXG 3ivJyyyEFdxpPCKnIAzO3s a5acXAawmbFtMoutGTYuQX ktUWBlD26dw3NJj5RqHA5W TDj8osKifguxlJ4yTIXyap PrMJgxwFAtR1lzL6XxRQPt ZqXyZlQdETo8VCDcsG5bVf 1esZWhpA5hoAXrDJvxBSO1 uVFrHGLoPHQbLNDnTI58MU dCNHMgbmFtZSwgbWVkaWNh bCByZWNvcmQgbnVtYmVyIG FjDQXyyPeyYbUhMXr2N8vw dmVyIEJYIiBhcmUgbXVsdG gkzPIoaCLmDCUtrtorL5ys jD1wusmqQNudrYgjf5IsJQ NvcmVzIHJhbmdpbmcgZnJv rFXwJtMnVW05ODQlHXwrJG tstij9rVJrmxMcRU2kMNZw LFkmJSMpRJ6auSZuKpUoZP hlIHNwZWNpbWVuIGlzIHN1 Wh7vgRHlIPUerdE0o5UxER luIEExLlxwYXIgDQpccGFy JV5SC2K7iMZczS6lOG1mps FzOKtlVMElH0M5CZIlhUbc EQLdAZgifSNgWZ7NHNBfIJ kyamMeYN4SOMVyYDshZKSz pSBVBHZ8ZC5uXNytaVCevu shBYAwK2XtI8VtixIujAIs MTJhmzVre3ppZSR6RLJcwO MwkOGcIoYxDcevOTY3DIlj u8btKHZ0TIBurBCzuMMyRV crSvBzHsyxNXRlI1YdK1Cz tyQ2LEl0 MICROSCOPIC DESCRIPTION h0dguFLqCRTzrDH0WeIzKX (test code = 3371) Pwh9gye7EocMEzmAHnKDpg jXRsjiGbuq12bUF1wD98UG 0tHDEfPeE7IQSezpM1Pdq1 AXJxZLMymYWnY557o5gfw8 rcriCwhCN4fYquGOBprpah WbE2LCefJVRpzijgKIv6RI noVOSmjJD4KHEpfKJpV9Jx GJNhDS6qcaj9VHB1GZwmCH RyZyK2MNOwyXBtZADysXnt XHidh304MYR2CbXtDKPktq EspEfwvY9rYuUbDFOSoBWk rQy9ZEYeX82rXHWwFQXqGQ UcnKfxDIb6LD0vV8RahGQe GZT7SYzxlbVrbIQzYTFjYE 3gL4BwP7rie39tRU9kTMOn WYIraQgqFVxwXfJkMC57uR P4GDJin0v9aAZwlpOcagOo YhCbiuNdTQGutCt7dMDqZM 77D9udYOJrCFFVGNAan0Wn sp5wYFAfEK43GRtlerPeHD VoyaKbF5h3nEOhbi21JHSv gV5phFioVMFaB7ntjg95tn QuXHBhclxwYXIgVGhlIHR1 yJ8sCVQdbGkbNEWpRUXxwP BroWAgkMdnoW6ncINsndYo Nl9uLOGfSyGpFT6nYFAGZH clHV0bFYOciqSoO5BmdGCy wG1keSRfxjVuQLKnviFTIq zjMNOFiTHzSJPrtbJyp5Oj hoS6BQGfQMGdtOzzfvSuaQ FwzvYdwIBrdnqpJqRtk5Oc Y5OHNzdtt8YljpJblZPhvN Vzq5J2jA5lYPBhKTQpEv79 TNYbcPCfvd0vuGXscITizU == SPECIAL STUDIES (test b9dvlNFaDPZhj9hsFWEtuE code = 3376) FuZzEwMzNcZnRuYmpcdWMx MSnlrsXqXWnsd0CqF9SwNk AwMFxhbnNpXGRlZmxhbmcx BGPzPAO3ecUzXSEgASzkMJ JgJXqnKi4czJLyjVinWbHt XLMbx8rfzjWZyzfhrBc6t8 vbUNIlDxV3qPLxELaiJ4vu dfHdoQBcY5UmnLMarOl1k3 qhSgFeHxM4mUUeHCuuV8ka ufOadXLlXEFlAGc7bM03TY KcsQ8fcQEqGSlribVcPvL9 RKqqMEOvWsN2CBBigUCgJV HeR0pxZWUcGDszOPEtOWet dUAeWGV7bTfkq4J2zKPexU OocIupFgXoDaHjSjQWk6Wr MOn4dXizU2JxEWEaUhW3rO QgUGFyYWdyYXBoIEZvbnQ7 uMcgciPsp24wkGJsJXKxTB TkEqHnpHzdLZXyUSBMx0Zc wOyoQUB8iCk9zSxuDkgcHX I9Tta5ZS6ihk16bsi4oSfi YSCtkfmjGkZ0YNwjGDZytn ayLAy3MAstFGGurSD5LKKk fUAlC2FgFTGbQY6talt3ZN K1GYqsZREeOgE3EUBlqTJi WBVliObmARekk878KRS3Se DwFT7uE1Aos6M8sK2mpZEr TDZmuVPaDjLmJXSpiy1gnM PuMMqed4YcWDJ1olA2kPRr tHFcQIVbPG17Vfunw7TxQo pip8AwZ44koAC1CKtnu3pf HB6vMdE7bsXrYAurc7dizY 3uWeT3ZDvzTV9bVA6cFHAv dK2oewdvTKXeGpGtrvbpTY XozQukajThRv9tmYguFRK0 MFymH7faxX2pRaI1VEkjT8 darX1wTAv7VNdlvVK7YCNn gS8aWZ9xyzswo6iuZTsmOB uyPMRkwzQ6ijD7WIBpfYOy R8BcpC6zFYGwWX9lhmtmk4 lqSXN2VZydIDKnSDK3OySo OEHaq6Dbcmn4MuZsl5XjrU DiAXiiZ46fu265UHSmqiAd B6oucOQjypppmPAeqmsvLS tfbjX5EGRlOSOgVBraZWUx XGZzMjJcbGFuZzEwMzNcaG ljaFxmMVxkYmNoXGYxXGxv O2rnZaTkW2TnJPWzQlCiCW qfOBdisNChxFXueVV1iC7w CD5rNPLhjNAkY3McJZPmfs NpbAAvPMS7tTUvsBZeHP8t REvppGVww1qvn2QsF7xipF dpzHR2MS3nYZCxPTZhNGso x0QbeC5kVlohpYNifcilRV xmczIyXGxhbmcxMDMzXGhp M9wlXzYbWLKuuOxbBTibw8 NoXGYxXGNmMlxmczIyXGx0 cmNoXHBhclxwYXJccGxhaW 3xBdGsDrWpRzuuKH5kHYGc H0vefEBeLRZgSAZwF9raQz AxhD6toDmsACsnNnPtKjDy MgIFg406qa2kBFYhrYZnhu AUbCDsoY2nTGlpQRdrWBue fXNnGTcae9wzMALdz9z4zP AiWTCttiUek1lrXGbbseWc LYOcsPOvnLUpJGJye07aOW iimKyxpCzmMLTxh6RycMva t6LpQcMvNHhyl0RgT51jlT JvbCBzbGlkZXMgcnVuIGFs h90di0dlZFLvJwM8xZHwdG W9eDSldBRqz9FotUunSLZm j2zaVCPjte5wheskgFRxl2 OesB9ipaomRFdpaBExgoFm SQEdr9k4wZEpGTFrPMMwZD pprVc6UHAbt920xa4nfaR9 ePViJOB5JOjvPRUvCDCotc UgZXZhbHVhdGVkXHBsYWlu XGYxXGZzMjJcbGFuZzEwMz NcaGljaFxmMVxkYmNoXGYx XElxQ9dbUsOnH2ThOWXbEs DotBKxN4dewIPyJGJdVRps XGYxXGZzMjJcbGFuZzEwMz NcaGljaFxmMVxkYmNoXGYx WGmvH9zpXaEqA5CcNJZiDo IgIFxwbGFpblxmMVxmczIy CBcvgdcqBSBxJZenV3jkQt FpTCAhbJqoMUdur5AxAANx WWZgHdauwePpIMd7ofAxCW BhclxwbGFpblxmMVxmczIy LSfuinriFKZvLBuvN2pmCn BdKFWhmIwnIPjck0GsAKTz XGNmMlxmczIyIEltbXVub2 yvx5UtT5mhwRnflVR5UKUm N6fldIRbtSV8XNF5mS2dIN myzvJtXEVgc7PxMFUhKKLt LoQ1cR0lMRE9PtSJkIbwTT BsYWluXGYxXGZzMjJcbGFu ZzEwMzNcaGljaFxmMVxkYm ChDZUuLLzcB4whKtVuX8Zc OVWqUdXikXqnTGxhTPn4Uz xwbGFpblxmMVxmczIyXGxh calrEVFeYWbmM0leUxOzWF MsiRnxDFumm2TgQHOaYALh MlxmczIyIHMgTWVkaWNhbC FGOH76GCZgDSJsqOshwR5s fDMNKPCdunN5s8K2PQpwDJ OdHIs0PNdnczIlUFFfvO2u TARdEZ1oRYq3jdVnBFTjk0 QbDK3eMUEtlEUlSGX5VADb a1ThD0Qre9LhGTItAFDuex 3ixcKaJkCXxXNyWHKgkq23 XVLhDM8eU4viDWRpCLAwxv IxjOUfy2SpQWOriHO0aYPk RJ9PPnCDv03kCRXwVTZAwj UrUPOusIksnVN8niY6pY6h LiBUaGUgRkRBIGhhcyBkZX Boms7giaGgNDYfKXUzi3Pl rNCfnBCsznCjW2Kmr8IfBS Kzcs50GCzigCXzce73JO9p A6Prl7JssE1fDQzkVQWcg0 CbbTUfdRImRYSrr3ToS6ft crfzSLnybOBjzU3xLMBoUP g0PVQzx5UcCFYjj0HxHuQt ewVrJIKhAPRgARCtzQ74MI I7zJmylKzgdjPvYZ6vDWBp isBcUBMiOMJuqP1cTIgsxt TkCANmduL4j9C3XFsdATKd jjNeDvvyBMZ7efRapmR3qE ZuO3bpfxzzRBnbXBCbb9Xq xJ5yaPNRyPNcz4InhTXoyH ZBtOZjNB8obaXuBY6lLBR0 ODggKENMSUEtODgpIGFzIH W3PEfxWiddUPU8tnWzKMRs j6QzTSylF1uvG81tcKbnfG b1dBHywRjerUZtkVXnEBFp phD7l6X8EJIfh8QylefoSR BsYWluXGYyXGZzMjJcbGFu ZzEwMzNcaGljaFxmMlxkYm SmZVTyMKxgY6inKzZcVfVt CgzgFYO6mG== Gross assessment was [facility] performed at ([facility], = 2777) Department of Pathology, [address] [place] [id number], Technical component was [facility] performed at ([facility], = 2778) Department of Pathology, [address] [place] [phone], Professional component [facility] was performed at ([facility], code = 2779) Department of Pathology, [address] [place] [id number], [facility] [id number] 04:52:07 Test Item Value Reference Range Interpretation Comments TOTAL PROTEIN 6.5 gm/dL 6.0-8.3 (BEAKER) (test code = 770) ALBUMIN (BEAKER) 3.3 g/dL 3.5-5.0 L (test code = 1145) ALKALINE 482 U/L 40-150 H PHOSPHATASE (BEAKER) (test code = 346) BILIRUBIN TOTAL 8.1 mg/dL 0.2-1.2 H (BEAKER) (test code = 377) SODIUM (BEAKER) 138 meq/L 136-145 (test code = 381) POTASSIUM (BEAKER) 4.4 meq/L 3.5-5.1 (test code = 379) CHLORIDE (BEAKER) 101 meq/L 98-107 (test code = 382) CO2 (BEAKER) (test 28 meq/L 22-29 code = 355) BLOOD UREA 22 mg/dL 7-21 H NITROGEN (BEAKER) (test code = 354) CREATININE 1.20 mg/dL 0.57-1.25 (BEAKER) (test code = 358) GLUCOSE RANDOM 109 mg/dL 70-105 H (BEAKER) (test code = 652) CALCIUM (BEAKER) 9.3 mg/dL 8.4-10.2 (test code = 697) AST (SGOT) 75 U/L 5-34 H (BEAKER) (test code = 353) ALT (SGPT) 124 U/L 6-55 H (BEAKER) (test code = 347) EGFR (BEAKER) 66 Interpretatio n of eGFR (test code = 1092) mL/min/1.[address] age Description sq m Result G1 Cris l or high >=90 G2 Mildly decreased 60-89 G3a Mildl y to moderately 45-5 9 G3b Moderately to s everely 30-44 G4 Severl y decreased 15-29 G5 Kidney failure <15Reported eGF R is based on the CKD-EPI 2021 equation that d oes not use a race coefficientEsti mated GFR is not as accur ate as Creatinine Jennifer foley in predicting glom erular filtration rate . Estimated GFR is not appl icable for dialysis patien ts [employer] Operator ID - BSSpecimen moderately ictericCBC W/PLT COUNT & AUTO [id number] 04:22:17 Test Item Value Reference Range Interpretation Comments WHITE BLOOD CELL COUNT (BEAKER) 8.8 K/ L 3.5-10.5 (test code = 775) RED BLOOD CELL COUNT (BEAKER) 4.13 M/ L 4.63-6.08 L (test code = 761) HEMOGLOBIN (BEAKER) (test code = 9.4 GM/DL 13.7-17.5 L 410) HEMATOCRIT (BEAKER) (test code = 31.0 % 40.1-51.0 L 411) MEAN CORPUSCULAR VOLUME (BEAKER) 75 fL 79-92 L (test code = 753) MEAN CORPUSCULAR HEMOGLOBIN 22.8 pg 25.7-32.2 L (BEAKER) (test code = 751) MEAN CORPUSCULAR HEMOGLOBIN CONC 30.3 GM/DL 32.3-36.5 L (BEAKER) (test code = 752) RED CELL DISTRIBUTION WIDTH 20.3 % 11.6-14.4 H (BEAKER) (test code = 412) PLATELET COUNT (BEAKER) (test 282 K/CU MM 150-450 code = 756) MEAN PLATELET VOLUME (BEAKER) 10.2 fL 9.4-12.4 (test code = 754) NUCLEATED RED BLOOD CELLS 0 /100 WBC 0-0 (BEAKER) (test code = 413) NEUTROPHILS RELATIVE PERCENT 72 % (BEAKER) (test code = 429) LYMPHOCYTES RELATIVE PERCENT 16 % (BEAKER) (test code = 430) MONOCYTES RELATIVE PERCENT 8 % (BEAKER) (test code = 431) EOSINOPHILS RELATIVE PERCENT 3 % (BEAKER) (test code = 432) BASOPHILS RELATIVE PERCENT 0 % (BEAKER) (test code = 437) NEUTROPHILS ABSOLUTE COUNT 6.32 K/ L 1.78-5.38 H (BEAKER) (test code = 670) LYMPHOCYTES ABSOLUTE COUNT 1.43 K/ L 1.32-3.57 (BEAKER) (test code = 414) MONOCYTES ABSOLUTE COUNT (BEAKER) 0.66 K/ L 0.30-0.82 (test code = 415) EOSINOPHILS ABSOLUTE COUNT 0.27 K/ L 0.04-0.54 (BEAKER) (test code = 416) BASOPHILS ABSOLUTE COUNT (BEAKER) 0.03 K/ L 0.01-0.08 (test code = 417) IMMATURE GRANULOCYTES-RELATIVE 0.80 % 0.00-1.00 PERCENT (BEAKER) (test code = 2801) SALLY CHOLANGIOGRAM, [id number] 10:29:00PTC drain and liver bx Reason for exam:->obstructive jaundice [facility] : 1950 Sex: MFINAL REPORT PROCEDURE: Transhepatic cholangiogram and biliary drain placement Procedural PersonnelAttending physician(s): [place] Chou physician(s): NoneResident physician(s): NoneAdvanced practice provider(s): None Pre-procedure diagnosis: Biliary obstructionPost-procedure diagnosis: SameIndication: Biliary obstructionAdditional clinical history: None Complications: No immediate complications. IMPRESSION: Transhepatic cholangiogram demonstrates dilated intrahepatic and extrahepatic bile ducts with severe narrowing of the mid and distal common bile duct. Successful placement of 10Fr internal external biliary drain with distal loop in the small bowel and proximal sideholes extending along the common and right hepatic ducts. Plan: Catheter to gravity drainage. PROCEDURE SUMMARY:- Percutaneous transhepatic cholangiogram(s)- Biliary drain placement(s) as described below- Additional procedure(s): None PROCEDURE DETAILS: Pre- procedureConsent: Informed consent for the procedure including risks, benefits andalternatives was obtained and time-out was performed prior to the procedure.Preparation: The site was prepared and draped using maximal sterile barrier technique including cutaneous antisepsis. Anesthesia/sedationLevel of anesthesia/sedation: General anesthesiaAnesthesia/sedation administered by: AnesthesiologyTotal intra-service sedation time (minutes): See anesthesia note Right cholangiogram and biliary drain placementLocal anesthesia was administered. A needle was used to access a right posteriordivision intrahepatic duct under ultrasound and fluoroscopic guidance, and cholangiography was perfor med. A guidewire was passed through the bile ducts and into the small bowel and a biliary drainage catheter was placed. Final contrast injection was performed.Initial cholangiogram findings: Dilated intrahepatic ducts and proximal common bile duct with occlusion of the mid common bile duct.Biliary drain: SeatKarma internal externalBiliary drain diameter (Dominican): 10Final cholangiogram findings: Distal loop in the small bowel and proximal sideholes extending along the common and right hepatic ducts.External catheter securement: Non-absorbable suture Additional biliary interventionBiliary intervention: Non eLocation of intervention: Not applicableDevice used: Not applicableDescription of intervention: NotapplicablePost-intervention findings: Not applicable ContrastContrast agent: Isovue 300 Radiation DoseFluoroscopy time (minutes): 4.4 Reference air kerma (mGy): 162 Additional DetailsAdditional description of procedure: NoneEquipment details: NoneSpecimens removed: NoneEstimated blood loss (mL): Less than 10Standardized report: [email or web address] AttestationSigner name: Sixto Avalos attest that I was present for the entire procedure. I reviewed the stored images and agree with the report aswritten. Signed: Sixto Stewart MDReport Verified Date/Time: 10/18/2022 10:29:41 U/S, BIOPSY, [id number] 10:25:00PTC drain and liver bx Reason for exam:->obstructive jaundicePAR[facility]US [facility] : 1950 Sex: MFINAL REPORT PROCEDURE: Ultrasound-guided core liver biopsy Procedural PersonnelAttending physician(s): [place] Chou practice provider(s): None Pre-procedure diagnosis: Liver masses, obstructive jaundicePost-procedure diagnosis: SameIndication: Histopathologic diagnosisPrevious biopsy of same target (QCDR): NoAdditional clinical history: None Complications: No immediate complications. IMPRESSION: Ultrasound-guided biopsy of right hepatic mass. Plan: Specimen(s) sent for eval uation. PROCEDURE SUMMARY:- Percutaneous US-guided coaxial core needle biopsy PROCEDURE DETAILS: Pre-procedureReference imaging for biopsytarget: CT 10/16/22Consent: Informed consent for the procedure including risks, benefits and alternatives was obtained and time-out was performed prior to the procedure.Preparation: The site was preparedand draped using maximal sterile barrier technique including cutaneous antisepsis. Anesthesia/sedationLevel of anesthesia/sedation: General anesthesiaAnesthesia/sedation administered by: AnesthesiologyImaging prior to biopsyThe patient was positioned supine. Initial ultrasound was performed.Biopsy target:- Maximal diameter (cm): 1.4- Location: Right liverOther findings: None Biopsy Local anesthesia was administered. Under US guidance, the biopsy needle was advanced to the target and biopsy was performed.Coaxial needle: 17 gauge Core needle biopsy device: Relavance SoftwarenoBookingPal needle size: 18 gaugeNumber of core specimens: 3 Needle removalThe biopsy needle was removed and a sterile dressing was applied.Tract embolization: None Imaging following biopsyImmediate post- biopsy ultrasound was performed.Post-biopsyimaging findings: No hematoma Additional DetailsAdditional description of procedure: NoneEquipment details: NoneSpecimens removed: Biopsy samples as detailed aboveEstimated blood loss (mL): Less than 10Standardized report: _BiopsyUS_v3 AttestationSigner name: Sixto Avalos attest that I was present for the entire procedure. I reviewed the stored images and agree with the report as written. Signed: Sixto Stewart MDReport Verified Date/Time: 10/18/2022 10:25:29 COMPREHENSIVE METABOLIC [id number] 06:47:57 Test Item Value Reference Range Interpretation Comments TOTAL PROTEIN 6.6 gm/dL 6.0-8.3 (BEAKER) (test code = 770) ALBUMIN (BEAKER) 3.4 g/dL 3.5-5.0 L (test code = 1145) ALKALINE 478 U/L 40-150 H PHOSPHATASE (BEAKER) (test code = 346) BILIRUBIN TOTAL 10.7 mg/dL 0.2-1.2 H (BEAKER) (test code = 377) SODIUM (BEAKER) 138 meq/L 136-145 (test code = 381) POTASSIUM (BEAKER) 4.0 meq/L 3.5-5.1 (test code = 379) CHLORIDE (BEAKER) 101 meq/L 98-107 (test code = 382) CO2 (BEAKER) (test 27 meq/L 22-29 code = 355) BLOOD UREA 16 mg/dL 7-21 NITROGEN (BEAKER) (test code = 354) CREATININE 0.88 mg/dL 0.57-1.25 (BEAKER) (test code = 358) GLUCOSE RANDOM 108 mg/dL 70-105 H (BEAKER) (test code = 652) CALCIUM (BEAKER) 9.3 mg/dL 8.4-10.2 (test code = 697) AST (SGOT) 101 U/L 5-34 H (BEAKER) (test code = 353) ALT (SGPT) 150 U/L 6-55 H (BEAKER) (test code = 347) EGFR (BEAKER) 93 Interpretatio n of eGFR (test code = 1092) mL/min/1.[address] age Description sq m Result G1 Cris l or high >=90 G2 Mildly decreased 60-89 G3a Mildl y to moderately 45-5 9 G3b Moderately to s everely 30-44 G4 Severl y decreased 15-29 G5 Kidney failure <15Reported eGF R is based on the CKD-EPI 2020 equation that d oes not use a race coefficientEsti mated GFR is not as accur ate as Creatinine Jennifer og in predicting glom erular filtration rate . Estimated GFR is not appl icable for dialysis patien ts [employer] ID - PRESLEY GSpecimen moderately ictericCBC W/PLT COUNT & AUTO [id number] 06:26:57 Test Item Value Reference Range Interpretation Comments WHITE BLOOD CELL COUNT (BEAKER) 7.9 K/ L 3.5-10.5 (test code = 775) RED BLOOD CELL COUNT (BEAKER) 4.32 M/ L 4.63-6.08 L (test code = 761) HEMOGLOBIN (BEAKER) (test code = 9.7 GM/DL 13.7-17.5 L 410) HEMATOCRIT (BEAKER) (test code = 32.6 % 40.1-51.0 L 411) MEAN CORPUSCULAR VOLUME (BEAKER) 76 fL 79-92 L (test code = 753) MEAN CORPUSCULAR HEMOGLOBIN 22.5 pg 25.7-32.2 L (BEAKER) (test code = 751) MEAN CORPUSCULAR HEMOGLOBIN CONC 29.8 GM/DL 32.3-36.5 L (BEAKER) (test code = 752) RED CELL DISTRIBUTION WIDTH 20.0 % 11.6-14.4 H (BEAKER) (test code = 412) PLATELET COUNT (BEAKER) (test 312 K/CU MM 150-450 code = 756) MEAN PLATELET VOLUME (BEAKER) 10.3 fL 9.4-12.4 (test code = 754) NUCLEATED RED BLOOD CELLS 0 /100 WBC 0-0 (BEAKER) (test code = 413) NEUTROPHILS RELATIVE PERCENT 77 % (BEAKER) (test code = 429) LYMPHOCYTES RELATIVE PERCENT 12 % (BEAKER) (test code = 430) MONOCYTES RELATIVE PERCENT 8 % (BEAKER) (test code = 431) EOSINOPHILS RELATIVE PERCENT 3 % (BEAKER) (test code = 432) BASOPHILS RELATIVE PERCENT 0 % (BEAKER) (test code = 437) NEUTROPHILS ABSOLUTE COUNT 6.00 K/ L 1.78-5.38 H (BEAKER) (test code = 670) LYMPHOCYTES ABSOLUTE COUNT 0.93 K/ L 1.32-3.57 L (BEAKER) (test code = 414) MONOCYTES ABSOLUTE COUNT (BEAKER) 0.63 K/ L 0.30-0.82 (test code = 415) EOSINOPHILS ABSOLUTE COUNT 0.22 K/ L 0.04-0.54 (BEAKER) (test code = 416) BASOPHILS ABSOLUTE COUNT (BEAKER) 0.03 K/ L 0.01-0.08 (test code = 417) IMMATURE GRANULOCYTES-RELATIVE 0.50 % 0.00-1.00 PERCENT (BEAKER) (test code = 2801) PROTHROMBIN [id number] 04:25:35 Test Item Value Reference Range Interpretation Comments PROTIME (BEAKER) (test code = 13.5 seconds 11.9-14.2 759) INR (BEAKER) (test code = 370) 1.09 <=5.90 RECOMMENDED COUMADIN/WARFARIN INR THERAPY RANGESSTANDARD DOSE: 2.0 - 3.0 Includes: PROPHYLAXIS for venous thrombosis, systemic embolization; TREATMENT for venous thrombosis and/or pulmonary embolus.HIGH RISK: Target INR is 2.5-3.5 for patients with mechanical heart valves.HEPATIC FUNCTION [id number] 11:16:17 Test Item Value Reference Range Interpretation Comments TOTAL PROTEIN (BEAKER) (test code = 6.1 gm/dL 6.0-8.3 770) ALBUMIN (BEAKER) (test code = 1145) 3.3 g/dL 3.5-5.0 L BILIRUBIN TOTAL (BEAKER) (test code 8.7 mg/dL 0.2-1.2 H = 377) BILIRUBIN DIRECT (BEAKER) (test 6.7 mg/dL 0.1-0.5 H code = 706) ALKALINE PHOSPHATASE (BEAKER) (test 457 U/L 40-150 H code = 346) AST (SGOT) (BEAKER) (test code = 94 U/L 5-34 H 353) ALT (SGPT) (BEAKER) (test code = 193 U/L 6-55 H 347) [employer] ID - PIAYA LSpecimen moderately ictericCT, CHEST, WITH CONTRAST 2022-10-16 10:06:00Unlisted Reason for Exam - Click Yes and Enter Reason Below->NoCHI EL [facility]INO [facility] : 1950 Sex: MFINAL REPORT CT of the chest, with contrast Clinical History: Pancreatic cancer, staging Technique: CT of the chest is performed with intravenous contrast administration. This exam was performed according to our departmental dose optimization program which includes automated exposure control, adjustment of the mA and/or kV according to patient's size and/or use of iterative reconstructive technique. Comparison Film: None Discussion: There is a rim calcified cyst 1.8 cm hypodense nodule in the right lobe of thyroid, probably cystic. This can be correlated with ultrasound. No surgicalclavicular, axillary, mediastinal or hilar lymphadenopathy. Heart and pericardium are unremarkable. T here is a 4 mm nodule in the right posterior costophrenic sulcus (image 83), nonspecific. Several additional smaller nodules are also present. There is no effusion. No bronchiectasis or bronchial wall thickening. There are multiple hypoenhancing foci in liver, which is partially imaged, compatible with metastasis, and the largest lesion measures approximately 3.2 cm. There is moderate biliary ductal dilatation. Bony structures demonstrate degenerative changes. There is ossification of the anterior longitudinal ligament suggestive of diffuse idiopathic skeletal hyperostosis. No suspicious bony lesion is identified. Impression: There are a few small nonspecific pulmonary nodules measuring up to 4 mm, amenable to follow-up. Multiple liver metastasis. 1.8 cm right thyroid rim calcified nodule, amenable to sonographic correlation when clinically appropriate. Signed: Venus, Megha MDReport Verified Date/Time: 10/16/2022 10:06:38 Reading Location: [facility] C013X Ortho Consult Reading Room VITAMIN D, [id number] 06:38:55 Test Item Value Reference Range Interpretation Comments VITAMIN D 25-OH (BEAKER) (test 15.6 ng/mL 6.6-49.9 code = 2764) Effective 06/20/2017: Reference Range ChangeNew: 6.6-49.9 ng/mL Previous: 13.0- 47.8 ng/mLRecommendedVitamin D Target Range: 30.0-40.0 ng/mLOperator ID - JUANITA [id number] 06:05:26 Test Item Value Reference Range Interpretation Comments FERRITIN (BEAKER) (test code = 107.02 ng/mL 5.00-275.00 361) [employer] ID - MARCOVITAMIN [id number] 06:05:25 Test Item Value Reference Range Interpretation Comments VITAMIN B12 (BEAKER) (test code = 433 pg/mL 213-816 774) [employer] Operator ID - MARCOIRON, TIBC, % SAT. (WITHOUT FERRITIN)2022-10-16 05:38:21 Test Item Value Reference Range Interpretation Comments IRON (BEAKER) (test code = 547) 31.0 ug/dL 40.0-160.0 L TOTAL IRON BINDING CAPACITY 321 ug/dL 250-450 (BEAKER) (test code = 769) IRON % SATURATION (2) (BEAKER) 10 % 20-55 L (test code = 2590) [employer] Operator ID - MARCOBASIC METABOLIC [id number] 05:26:13 Test Item Value Reference Range Interpretation Comments SODIUM (BEAKER) 140 meq/L 136-145 (test code = 381) POTASSIUM 4.0 meq/L 3.5-5.1 (BEAKER) (test code = 379) CHLORIDE (BEAKER) 102 meq/L 98-107 (test code = 382) CO2 (BEAKER) 26 meq/L 22-29 (test code = 355) BLOOD UREA 17 mg/dL 7-21 NITROGEN (BEAKER) (test code = 354) CREATININE 1.04 mg/dL 0.57-1.25 (BEAKER) (test code = 358) GLUCOSE RANDOM 95 mg/dL 70-105 (BEAKER) (test code = 652) CALCIUM (BEAKER) 9.1 mg/dL 8.4-10.2 (test code = 697) EGFR (BEAKER) 78 Interpretatio n of eGFR (test code = mL/min/1.73 values Stage De scription 1092) sq m Result G1 Cris l or high >=90 G2 Mildly decreased 60-89 G3a Mildl y to moderately 45-5 9 G3b Moderately to s everely 30-44 G4 Severl y decreased 15-29 G5 Kidney failure <15Reported eGF R is based on the CKD-EPI 2020 equation that d oes not use a race coefficientEsti mated GFR is not as accur ate as Creatinine Jennifer og in predicting glom erular filtration rate . Estimated GFR is not appl icable for dialysis patien ts [employer] Operator ID Bhavik GRANT LSpecimen moderately [id number] 05:26:12 Test Item Value Reference Range Interpretation Comments MAGNESIUM (BEAKER) (test code = 1.9 mg/dL 1.6-2.6 627) [employer] ID - JUANITA [id number] 05:26:12 Test Item Value Reference Range Interpretation Comments PHOSPHORUS (BEAKER) (test code = 2.8 mg/dL 2.3-4.7 604) [employer] Operator ID - JUANITA LPTH, [id number] 05:19:08 Test Item Value Reference Range Interpretation Comments PARATHYROID HORMONE INTACT 75.2 pg/mL 8.5-72.5 H (BEAKER) (test code = 577) [employer] ID - JUANITA LCBC W/PLT COUNT & AUTO [id number] 04:51:56 Test Item Value Reference Range Interpretation Comments WHITE BLOOD CELL COUNT (BEAKER) 6.6 K/ L 3.5-10.5 (test code = 775) RED BLOOD CELL COUNT (BEAKER) 3.83 M/ L 4.63-6.08 L (test code = 761) HEMOGLOBIN (BEAKER) (test code = 8.8 GM/DL 13.7-17.5 L 410) HEMATOCRIT (BEAKER) (test code = 29.3 % 40.1-51.0 L 411) MEAN CORPUSCULAR VOLUME (BEAKER) 77 fL 79-92 L (test code = 753) MEAN CORPUSCULAR HEMOGLOBIN 23.0 pg 25.7-32.2 L (BEAKER) (test code = 751) MEAN CORPUSCULAR HEMOGLOBIN CONC 30.0 GM/DL 32.3-36.5 L (BEAKER) (test code = 752) RED CELL DISTRIBUTION WIDTH 18.9 % 11.6-14.4 H (BEAKER) (test code = 412) PLATELET COUNT (BEAKER) (test 298 K/CU MM 150-450 code = 756) MEAN PLATELET VOLUME (BEAKER) 10.6 fL 9.4-12.4 (test code = 754) NUCLEATED RED BLOOD CELLS 0 /100 WBC 0-0 (BEAKER) (test code = 413) NEUTROPHILS RELATIVE PERCENT 68 % (BEAKER) (test code = 429) LYMPHOCYTES RELATIVE PERCENT 17 % (BEAKER) (test code = 430) MONOCYTES RELATIVE PERCENT 9 % (BEAKER) (test code = 431) EOSINOPHILS RELATIVE PERCENT 4 % (BEAKER) (test code = 432) BASOPHILS RELATIVE PERCENT 1 % (BEAKER) (test code = 437) NEUTROPHILS ABSOLUTE COUNT 4.48 K/ L 1.78-5.38 (BEAKER) (test code = 670) LYMPHOCYTES ABSOLUTE COUNT 1.10 K/ L 1.32-3.57 L (BEAKER) (test code = 414) MONOCYTES ABSOLUTE COUNT (BEAKER) 0.62 K/ L 0.30-0.82 (test code = 415) EOSINOPHILS ABSOLUTE COUNT 0.25 K/ L 0.04-0.54 (BEAKER) (test code = 416) BASOPHILS ABSOLUTE COUNT (BEAKER) 0.05 K/ L 0.01-0.08 (test code = 417) IMMATURE GRANULOCYTES-RELATIVE 1.20 % 0.00-1.00 H PERCENT (BEAKER) (test code = 2801) Creatinine, random [id number] 03:07:45 Test Item Value Reference Range Interpretation Comments Creatinine, Ur 167.0 mg/dL (test code = 2161-8) ABIGAIL (test code = Reference Range: No ABIGAIL) NormalsOperator ID - PIAYA L [facility] [id number] 03:07:45 Test Item Value Reference Range Interpretation Comments Protein, Urine (test code 23 mg/dL 0-14 H = 2888-6) ABIGAIL (test code = ABIGAIL) [employer] ID - PIAYA L Lab Interpretation (test Abnormal code = 50118-4) [facility]Creatinine, random [id number] 03:07:45 Test Item Value Reference Range Interpretation Comments Creatinine, Ur 167.0 mg/dL (test code = 2161-8) ABIGAIL (test code = Reference Range: No ABIGAIL) NormalsOperator ID - PIAYA L [facility], random [id number] 03:07:45 Test Item Value Reference Range Interpretation Comments Protein, Urine (test code 23 mg/dL 0-14 H = 2888-6) ABIGAIL (test code = ABIGAIL) [employer] Operator ID - PIRIO L Lab Interpretation (test Abnormal code = 11464-1) [facility], random [id number] 03:07:45 Test Item Value Reference Range Interpretation Comments Creatinine, Ur 167.0 mg/dL (test code = 2161-8) ABIGAIL (test code = Reference Range: No ABIGAIL) NormalsOperator ID - PIAYA L [facility], [facility] [id number] 03:07:45 Test Item Value Reference Range Interpretation Comments Protein, Urine (test code 23 mg/dL 0-14 H = 2888-6) ABIGAIL (test code = ABIGAIL) [employer] ID - PIAYA L Lab Interpretation (test Abnormal code = 86742-4) [facility], random [id number] 03:07:45 Test Item Value Reference Range Interpretation Comments Creatinine, Ur 167.0 mg/dL (test code = 2161-8) ABIGAIL (test code = Reference Range: No ABIGAIL) NormalsOperator ID - PIAYA L [facility], random [id number] 03:07:45 Test Item Value Reference Range Interpretation Comments Protein, Urine (test code 23 mg/dL 0-14 H = 2888-6) ABIGAIL (test code = ABIGAIL) [employer] ID - PIAYA L Lab Interpretation (test Abnormal code = 10526-6) [facility], random [id number] 03:07:45 Test Item Value Reference Range Interpretation Comments Creatinine, Ur 167.0 mg/dL (test code = 2161-8) ABIGAIL (test code = Reference Range: No ABIGAIL) NormalsOperator ID - JUANITA L [facility], random [id number] 03:07:45 Test Item Value Reference Range Interpretation Comments Protein, Urine (test code 23 mg/dL 0-14 H = 2888-6) ABIGAIL (test code = ABIGAIL) [employer] Operator ID - PIAYA L Lab Interpretation (test Abnormal code = 25093-3) [facility], random [id number] 03:07:45 Test Item Value Reference Range Interpretation Comments Creatinine, Ur 167.0 mg/dL (test code = 2161-8) ABIGAIL (test code = Reference Range: No ABIGAIL) NormalsOperator ID - JUANITA L [facility], random [id number] 03:07:45 Test Item Value Reference Range Interpretation Comments Protein, Urine (test code 23 mg/dL 0-14 H = 2888-6) ABIGAIL (test code = ABIGAIL) [employer] Operator ID - PIAYA L Lab Interpretation (test Abnormal code = 83880-2) [facility], random [id number] 03:07:45 Test Item Value Reference Range Interpretation Comments Creatinine, Ur 167.0 mg/dL (test code = 2161-8) ABIGAIL (test code = Reference Range: No ABIGAIL) NormalsOperator ID - PIRIO L [facility], random [id number] 03:07:45 Test Item Value Reference Range Interpretation Comments Protein, Urine (test code 23 mg/dL 0-14 H = 2888-6) ABIGAIL (test code = ABIGAIL) [employer] Operator ID - PIAYA L Lab Interpretation (test Abnormal code = 42870-4) [facility], random [id number] 03:07:45 Test Item Value Reference Range Interpretation Comments Creatinine, Ur 167.0 mg/dL (test code = 2161-8) ABIGAIL (test code = Reference Range: No ABIGAIL) NormalsOperator ID - PIRIO L [facility], [facility] [id number] 03:07:45 Test Item Value Reference Range Interpretation Comments Protein, Urine (test code 23 mg/dL 0-14 H = 2888-6) ABIGAIL (test code = ABIGAIL) [employer] Operator ID - PIAYA L Lab Interpretation (test Abnormal code = 49977-0) [facility], random [id number] 03:07:45 Test Item Value Reference Range Interpretation Comments Creatinine, Ur 167.0 mg/dL (test code = 2161-8) ABIGAIL (test code = Reference Range: No ABIGAIL) NormalsOperator ID - PIAYA L [facility], random [id number] 03:07:45 Test Item Value Reference Range Interpretation Comments Protein, Urine (test code 23 mg/dL 0-14 H = 2888-6) ABIGAIL (test code = ABIGAIL) [employer] Operator ID - PIAYA L Lab Interpretation (test Abnormal code = 01624-3) [facility], random [id number] 03:07:45 Test Item Value Reference Range Interpretation Comments Creatinine, Ur 167.0 mg/dL (test code = 2161-8) ABIGAIL (test code = Reference Range: No ABIGAIL) NormalsOperator ID - PIAYA L [facility], random [id number] 03:07:45 Test Item Value Reference Range Interpretation Comments Protein, Urine (test code 23 mg/dL 0-14 H = 2888-6) ABIGAIL (test code = ABIGAIL) [employer] Operator ID - PIAYA L Lab Interpretation (test Abnormal code = 69780-3) [facility], random [id number] 03:07:45 Test Item Value Reference Range Interpretation Comments Creatinine, Ur 167.0 mg/dL (test code = 2161-8) ABIGAIL (test code = Reference Range: No ABIGAIL) NormalsOperator ID - PIAYA L [facility], random [id number] 03:07:45 Test Item Value Reference Range Interpretation Comments Protein, Urine (test code 23 mg/dL 0-14 H = 2888-6) ABIGAIL (test code = ABIGAIL) [employer] Operator ID - PIAYA L Lab Interpretation (test Abnormal code = 65851-6) [facility], random [id number] 03:07:45 Test Item Value Reference Range Interpretation Comments Creatinine, Ur 167.0 mg/dL (test code = 2161-8) ABIGAIL (test code = Reference Range: No ABIGAIL) NormalsOperator ID - PIRIO L [facility], random [id number] 03:07:45 Test Item Value Reference Range Interpretation Comments Protein, Urine (test code 23 mg/dL 0-14 H = 2888-6) ABIGAIL (test code = ABIGAIL) [employer] Operator ID - JUANITA Dickey Lab Interpretation (test Abnormal code = 26095-3) [facility], random [id number] 03:07:45 Test Item Value Reference Range Interpretation Comments Creatinine, Ur 167.0 mg/dL (test code = 2161-8) ABIGAIL (test code = Reference Range: No ABIGAIL) NormalsOperator ID - JUANITA L [facility], random [id number] 03:07:45 Test Item Value Reference Range Interpretation Comments Protein, Urine (test code 23 mg/dL 0-14 H = 2888-6) ABIGAIL (test code = ABIGAIL) [employer] Operator ID - JUANITA Dickey Lab Interpretation (test Abnormal code = 44243-9) [facility] HospitalCREATININE, RANDOM [id number] 03:07:45 Test Item Value Reference Range Interpretation Comments CREATININE URINE (BEAKER) (test 167.0 mg/dL code = 375) Reference Range: No NormalsOperator ID - JUANITA LPROTEIN, RANDOM [id number] 03:07:45 Test Item Value Reference Range Interpretation Comments PROTEIN, URINE (BEAKER) (test code = 23 mg/dL 0-14 H 1569) [employer] Operator GERONIMO Dickey
[2022-11-17 14:00] LABS: Absolute Lymphocytes (CBC) 0.9 K/uL (0.7-4.9); Hematocrit 34.9 % (39.6-49.0); Lymphocytes % 10.4 % (15.3-44.8); MCV 82.9 fL (80-100); RBC Red Blood Cell Count 4.21 M/uL (4.33-5.43)
[2022-11-17 14:20] LABS: Urine Blood 2+ (Negative); Urine Glucose Negative (Negative); Urine Protein 1+ (Negative)
[2022-11-17 14:22] LABS: Albumin 2.6 g/dL (3.4-5.0); Bilirubin Total 1.5 mg/dL (0.2-1.0); Potassium 5.2 mmol/L (3.5-5.1); Protein, Total 7.7 g/dL (6.4-8.2)
[2022-11-17] MEDS ORDERED: HYDROMORPHONE HCL 1 MG/ML INJ ONE (14:23)
[2022-11-17 14:34] LABS: Urine Bacteria <20 /HPF (<20); Urine Mucus Slight /HPF (None Seen); Urine RBC 21-50 /HPF (None Seen)
[2022-11-17] MEDS ORDERED: NA CHLORIDE 0.9% 500 ML ONE ×2 (14:47→17:01)
[2022-11-17] MEDS ORDERED: ALBUTEROL 2.5 MG/3 ML NEB SOL ONE (14:47)
[2022-11-17 15:21] LABS: White Blood Cell Scan OK (OK)
[2022-11-17 15:22] LABS: Anisocytosis 1+; Blood Morphology Comment NOTED (NOT SEEN); Platelet Estimate ADEQ
--- NOTE | 2022-11-17 16:02 | RAD REPORT ---
EXAM DESCRIPTION: US - Renal Ultrasound-Complete - 11/17/2022 3:47 pm CLINICAL HISTORY: SWELLING COMPARISON: Abdomen Pelvis W Contrast dated 10/15/2022 TECHNIQUE: Sonographic grayscale and color flow images of the kidneys were obtained. FINDINGS: Horseshoe kidneys. No asymmetric enlargement or abnormal cortical echogenicity. The right kidney measures 10.3 centimeter in length. Incidentally noted anechoic thin-walled superior pole 1.3 x 1.5 x 1.5 centimeter cyst, simple in appearance. No hydronephrosis, focal mass or perinep hric fluid. The left kidney measures 8.2 centimeter in length. No hydronephrosis, focal mass or perinephric fluid . Heterogeneity IMPRESSION: Horseshoe kidneys. No hydronephrosis or echogenic calculi. Incidentally noted small righ t renal cortical simple cyst.
--- NOTE | 2022-11-17 16:35 | RAD REPORT ---
EXAM DESCRIPTION: US - Urinary Bladder - 11/17/2022 4:04 pm CLINICAL HISTORY: eval bladder COMPARISON: No comparisons TECHNIQUE: Real-time sonographic evaluation of the urinary bladder with pre and postvoid volume mirlande urements was performed. FINDINGS: Mild trabeculation along the bladder wall, could reflect suboptimal distention or sequelae of longstanding bladder outlet obstruction. Prevoid volume measured 53 mL. No focal masses or echoge jasiel calculi. No postvoid residual was observed. IMPRESSION: Mild wall trabeculation, could reflect suboptimal distention or sequelae of longstanding bladder outlet obstruction. No other focal findings. No postvoid residual.
[2022-11-17 17:34] LABS: Potassium 4.6 mmol/L (3.5-5.1)
[2022-11-17 20:24] VITALS: TEMP 98.2; O2SAT 100
[2022-11-17 20:39] VITALS: BP 145/77
--- NOTE | 2022-12-01 16:07 | ER ---
Nurse's Notes [facility] Name: Seth Cid Age: 72 yrs Sex: Male : 1950 Arrival Date: 11/17/2022 Time: 11:58 Bed 19 Private MD: Diagnosis: Dehydration Presentation: 11/17 12:32 Chief complaint: Patient states: Has blood drawn yesterday and creatinine had went up ph to 1.7 from 1.2, sent to ED by kidney doctor to have labs rechecked and possibly have Alexander replaced for urine retention. Previous alexander was removed approx 1 week ago. 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 Coronavirus screen: Vaccine status: Patient reports receiving the 2nd dose of the covid vaccine. Ebola Screen: No symptoms or risks identified at this time. Initial Sepsis Screen: Does the patient meet any 2 criteria? No. Patient's initial sepsis screen is negative. Does the patient have a suspected source of infection? No. Patient's initial sepsis screen is negative. Risk Assessment: Do you want to hurt yourself or someone else? Patient reports no desire to harm self or others. Onset of symptoms was November 17, 2022. 12:32 Method Of Arrival: Wheelchair ph 12:32 Acuity: LENNY 3 ph Historical: - Allergies: 12:39 No Known Allergies; ph - PMHx: 12:39 Hypertensive disorder; cancer- pancreatic and liver; ph - PSHx: 12:39 Appendectomy; Gastric Bypass; hernia repair; lower bowel resection; ph - Immunization history:: Adult Immunizations unknown. - Social history:: Smoking status: Patient denies any tobacco usage or history of. Screenin:54 [facility] ED Fall Risk Assessment (Adult) History of falling in the last 3 months, kc6 including since admission No falls in past 3 months (0 pts) Confusion or Disorientation No (0 pts) Intoxicated or Sedated No (0 pts) Impaired Gait No (0 pts) Mobility Assist Device Used No (0 pt) Altered Elimination No (0 pt) Score/Fall Risk Level 0 - 2 = Low Risk Oriented to surroundings, Maintained a safe environment, Educated pt \T\ family on fall prevention, incl call for assistance when getting out of bed, Assessed \T\ reinforced patient's understanding of fall precautions, Hourly rounding (assess needs \T\ fall precautionary measures) done. Abuse screen: Denies threats or abuse. Denies injuries from another. Nutritional screening: No deficits noted. Tuberculosis screening: No symptoms or risk factors identified. Assessment: 13:54 General: Appears in no apparent distress. comfortable, ill, Behavior is calm, kc6 cooperative, appropriate for age. Pain: Complains of pain in left low back and right low back Pain does not radiate. Pain currently is 5 out of 10 on a pain scale. Is continuous, Also complains of no other associated symptoms. Neuro: Newberry Agitation-Sedation Scale (RASS): 0 - Alert and Calm Level of Consciousness is awake, alert, obeys commands, Oriented to person, place, time, situation, Appropriate for age. Cardiovascular: Capillary refill < 3 seconds. Respiratory: Airway is patent Trachea midline Respiratory effort is even, unlabored, Respiratory pattern is regular, symmetrical. GI: No signs and/or symptoms were reported involving the gastrointestinal system. : No signs and/or symptoms were reported regarding the genitourinary system. EENT: No signs and/or symptoms were reported regarding the EENT system. Derm: Skin is intact, Skin is dry, Skin is jaundiced, Skin temperature is warm pancreatic port located to the right lower quadrant. Musculoskeletal: No signs and/or symptoms reported regarding the musculoskeletal system. Circulation, motion, and sensation intact. Capillary refill < 3 seconds, Range of motion: intact in all extremities. 14:50 Reassessment: Patient appears in no apparent distress at this time. No changes from kc6 previously documented assessment. Patient and/or family updated on plan of care and expected duration. Pain level reassessed. Patient is alert, oriented x 3, equal unlabored respirations, skin warm/dry/pink. 15:50 Reassessment: Patient appears in no apparent distress at this time. No changes from kc6 previously documented assessment. Patient and/or family updated on plan of care and expected duration. Pain level reassessed. Patient is alert, oriented x 3, equal unlabored respirations, skin warm/dry/pink. Patient denies pain at this time. Patient states feeling better. Patient states symptoms have improved. 16:50 Reassessment: Patient appears in no apparent distress at this time. No changes from kc6 previously documented assessment. Patient and/or family updated on plan of care and expected duration. Pain level reassessed. Patient is alert, oriented x 3, equal unlabored respirations, skin warm/dry/pink. Patient denies pain at this time. Patient states feeling better. Patient states symptoms have improved. 17:50 Reassessment: Patient appears in no apparent distress at this time. No changes from kc6 previously documented assessment. Patient and/or family updated on plan of care and expected duration. Pain level reassessed. Patient is alert, oriented x 3, equal unlabored respirations, skin warm/dry/pink. Patient denies pain at this time. Patient states feeling better. Patient states symptoms have improved. Vital Signs: 12:32 BP 119 / 75; Pulse 103; Resp 18; Temp 98.2(O); Pulse Ox 100% on R/A; Weight 83.46 kg; ph Height 6 ft. 0 in. ; 14:05 BP 145 / 77; Pulse 86; Resp 14 S; Pulse Ox 100% on R/A; Pain 5/10; kc6 16:16 BP 145 / 68; Pulse 104; Resp 14 S; Pulse Ox 100% on R/A; Pain 0/10; kc6 17:07 BP 147 / 47; Pulse 97; Resp 14 S; Pulse Ox 100% on R/A; Pain 0/10; kc6 12:32 Body Mass Index 24.95 (83.46 kg, 182.88 cm) ph 14:05 Pain Scale: Adult kc6 16:16 Pain Scale: Adult kc6 17:07 Pain Scale: Adult kc6 ED Course: 11:58 Patient arrived in ED. eb 12:01 Pastora Resendez FNP-C is PHCP. snw 12:01 Jose Kaminski MD is Attending Physician. snw 12:39 Triage completed. ph 12:40 Arm band placed on Patient placed in waiting room, Patient notified of wait time. ph 13:37 Deanne Hill RN is Primary Nurse. kc6 13:52 CBC with Diff Sent. kc6 13:52 CMP Sent. kc6 13:52 Lipase Sent. kc6 13:54 Patient has correct armband on for positive identification. Placed in gown. Bed in low kc6 position. Call light in reach. Side rails up X2. Adult w/ patient. 14:05 Inserted saline lock: 22 gauge in left antecubital area, using aseptic technique. kc6 14:20 Urine collected: clean catch specimen, kiran colored. tm3 15:49 US Rp Exam Complete In Process Unspecified. EDMS 15:49 Urinary Bladder In Process Unspecified. EDMS 17:03 Chem 7 Sent. kc6 18:02 No provider procedures requiring assistance completed. IV discontinued, intact, kc6 bleeding controlled, No redness/swelling at site. Pressure dressing applied. Administered Medications: 14:23 Drug: HYDROmorphone IVP 1 mg Route: IVP; Site: left antecubital; kc6 16:17 Follow up: Response: No adverse reaction; Pain is decreased; RASS: Alert and Calm (0) kc6 14:48 Drug: Albuterol Inhalation 2.5 mg Route: Inhalation; kc6 14:48 Drug: NS 0.9% IV 500 ml Route: IV; Rate: bolus; Site: left antecubital; kc6 16:18 Follow up: Response: No adverse reaction; IV Status: Completed infusion; IV Intake: kc6 500ml 15:00 Drug: Albuterol Inhalation 2.5 mg Route: Inhalation; kc6 15:20 Drug: Albuterol Inhalation 2.5 mg Route: Inhalation; kc6 16:18 Follow up: Response: No adverse reaction kc6 17:03 Drug: NS 0.9% IV 500 ml Route: IV; Rate: bolus; Site: left antecubital; kc6 18:01 Follow up: Response: No adverse reaction; IV Status: Completed infusion; IV Intake: kc6 500ml Medication: 18:02 VIS not applicable for this client. kc6 Intake: 16:18 IV: 500ml; Total: 500ml. kc6 18:01 IV: 500ml; Total: 1000ml. kc6 Outcome: 17:47 Discharge ordered by . snsadi 18:02 Discharged to home ambulatory, with significant other. kc6 18:02 Condition: stable 18:02 Discharge instructions given to patient, significant other, Instructed on discharge instructions, follow up and referral plans. Demonstrated understanding of instructions, follow-up care. 18:08 Patient left the ED. kc6 Signatures: Dispatcher [employer] EDMS Dann Arguello tm3 Pastora Resendez, CRNA-C CRNA-Csnw Jaquelin Davenport RN Shaylee Buckley ph, Kaitlyn, RN RN kc6 Corrections: (The following items were deleted from the chart) 17:55 17:07 BP 147 / 4; Pulse 97bpm; Resp 14bpm; Spontaneous; Pulse Ox 100% RA; Pain 0/10, kc6 Adult; kc6
--- NOTE | 2022-12-01 16:08 | EDPHYS ---
Physician Documentation [facility] Name: Seth Cid Age: 72 yrs Sex: Male : 1950 Arrival Date: 11/17/2022 Time: 11:58 Bed 19 Private MD: ED Physician Jose Kaminski HPI: 11/17 14:55 This 72 yrs old Male presents to ER via Wheelchair with complaints of Abnormal Lab snw Results. 14:55 Needs creatinine eval and possibly a alexander. Onset: The symptoms/episode began/occurred snw acutely. Severity of symptoms: Pain is currently a 5 / 10. The patient has experienced similar episodes in the past. The patient has been recently seen by a physician:. pt had a alexander for several weeks and creatinine was stable, alexander removed 2 weeks ago and creatinine has been increasing. . Historical: - Allergies: 12:39 No Known Allergies; ph - PMHx: 12:39 Hypertensive disorder; cancer- pancreatic and liver; ph - PSHx: 12:39 Appendectomy; Gastric Bypass; hernia repair; lower bowel resection; ph - Immunization history:: Adult Immunizations unknown. - Social history:: Smoking status: Patient denies any tobacco usage or history of. ROS: 14:52 Eyes: Negative for injury, pain, redness, and discharge. snw 14:52 Neck: Negative for injury, pain, and swelling, Cardiovascular: Negative for chest pain, palpitations, and edema, Respiratory: Negative for shortness of breath, cough, wheezing, and pleuritic chest pain, Abdomen/GI: Negative for abdominal pain, nausea, vomiting, diarrhea, and constipation, + bloating Back: Negative for injury and pain, : Negative for injury, bleeding, discharge, and swelling, MS/Extremity: Negative for injury and deformity. 14:52 Neuro: Negative for headache, weakness, numbness, tingling, and seizure, Psych: Negative for depression, anxiety, suicide ideation, homicidal ideation, and hallucinations. 14:52 Constitutional: Positive for fatigue, malaise, back pain, needing recheck of creatinine. . 14:52 ENT: Positive for edentulous. 14:52 Skin: Positive for pallor. Exam: 14:53 Constitutional: This is a well developed, well nourished patient who is awake, alert, snw and in no acute distress. Head/Face: Normocephalic, atraumatic. Eyes: Pupils equal round and reactive to light, extra-ocular motions intact. Lids and lashes normal. Conjunctiva and sclera are non-icteric and not injected. Cornea within normal limits. Periorbital areas with no swelling, redness, or edema. ENT: Nares patent. No nasal discharge, no septal abnormalities noted. Oropharynx with no redness, swelling, or masses, exudates, or evidence of obstruction, uvula midline, edentulous, Mucous membranes dry. Neck: Trachea midline, no thyromegaly or masses palpated, and no cervical lymphadenopathy. Supple, full range of motion without nuchal rigidity, or vertebral point tenderness. No Meningismus. Chest/axilla: Normal chest wall appearance and motion. Nontender with no deformity. No lesions are appreciated. Cardiovascular: Regular rate and rhythm with a normal S1 and S2. No gallops, murmurs, or rubs. Normal PMI, no JVD. No pulse deficits. Respiratory: Lungs have equal breath sounds bilaterally, clear to auscultation and percussion. No rales, rhonchi or wheezes noted. No increased work of breathing, no retractions or nasal flaring. Abdomen/GI: Soft, non-tender, with normal bowel sounds. Mild distension no tympany. No guarding or rebound. No evidence of tenderness throughout. Skin: Warm, dry with poor turgor. Ashen color with no rashes, no lesions, and no evidence of cellulitis. MS/ Extremity: Pulses equal, no cyanosis. Neurovascular intact. Full, normal range of motion. Neuro: Awake and alert, GCS 15, oriented to person, place, time, and situation. Cranial nerves II-XII grossly intact. Motor strength 5/5 in all extremities. Sensory grossly intact. Cerebellar exam normal. Normal gait. Vital Signs: 12:32 BP 119 / 75; Pulse 103; Resp 18; Temp 98.2(O); Pulse Ox 100% on R/A; Weight 83.46 kg; ph Height 6 ft. 0 in. ; 14:05 BP 145 / 77; Pulse 86; Resp 14 S; Pulse Ox 100% on R/A; Pain 5/10; kc6 16:16 BP 145 / 68; Pulse 104; Resp 14 S; Pulse Ox 100% on R/A; Pain 0/10; kc6 17:07 BP 147 / 47; Pulse 97; Resp 14 S; Pulse Ox 100% on R/A; Pain 0/10; kc6 12:32 Body Mass Index 24.95 (83.46 kg, 182.88 cm) ph 14:05 Pain Scale: Adult kc6 16:16 Pain Scale: Adult kc6 17:07 Pain Scale: Adult kc6 MDM: 12:27 Patient medically screened. snw 17:49 Differential Diagnosis sepsis, renal insufficiency. Data reviewed: vital signs, nurses snw notes, lab test result(s), radiologic studies, ultrasound. Counseling: I had a detailed discussion with the patient and/or guardian regarding: the historical points, exam findings, and any diagnostic results supporting the discharge/admit diagnosis, the presence of at least one elevated blood pressure reading (>120/80) during this emergency department visit, lab results, radiology results, the need for outpatient follow up, for definitive care, to return to the emergency department if symptoms worsen or persist or if there are any questions or concerns that arise at home. Special discussion: Based on the history and exam findings, there is no indication for further emergent testing or inpatient evaluation. I discussed with the patient/guardian the need to see the assembler clip on sunglasses/oncologist for further evaluation of the symptoms. nephrology. 11/17 13:04 Order name: CBC with Diff; Complete Time: 15:33 snw 11/17 13:04 Order name: CMP; Complete Time: 14:32 snw 11/17 13:04 Order name: Lipase; Complete Time: 14:32 snw 11/17 13:04 Order name: Urine Microscopic Only; Complete Time: 14:35 snw 11/17 14:05 Order name: CBC Smear Scan; Complete Time: 15:33 EDMS 11/17 14:20 Order name: Urine Dipstick-Ancillary; Complete Time: 14:22 EDMS 11/17 16:44 Order name: Chem 7; Complete Time: 17:46 snw 11/17 14:59 Order name: US Rp Exam Complete; Complete Time: 16:03 snw 11/17 15:05 Order name: Urinary Bladder; Complete Time: 16:39 EDMS 11/17 13:04 Order name: IV Saline Lock; Complete Time: 14:05 snw 11/17 13:04 Order name: Labs collected and sent; Complete Time: 13:52 snw Administered Medications: 14:23 Drug: HYDROmorphone IVP 1 mg Route: IVP; Site: left antecubital; kc6 16:17 Follow up: Response: No adverse reaction; Pain is decreased; RASS: Alert and Calm (0) kc6 14:48 Drug: Albuterol Inhalation 2.5 mg Route: Inhalation; kc6 14:48 Drug: NS 0.9% IV 500 ml Route: IV; Rate: bolus; Site: left antecubital; kc6 16:18 Follow up: Response: No adverse reaction; IV Status: Completed infusion; IV Intake: kc6 500ml 15:00 Drug: Albuterol Inhalation 2.5 mg Route: Inhalation; kc6 15:20 Drug: Albuterol Inhalation 2.5 mg Route: Inhalation; kc6 16:18 Follow up: Response: No adverse reaction kc6 17:03 Drug: NS 0.9% IV 500 ml Route: IV; Rate: bolus; Site: left antecubital; kc6 18:01 Follow up: Response: No adverse reaction; IV Status: Completed infusion; IV Intake: kc6 500ml Disposition: 18:57 Co-signature as Attending Physician, Jose Kaminski MD. rn Disposition Summary: 11/17/22 17:47 Discharge Ordered Location: Home snw Condition: Stable snw Diagnosis - Dehydration snw Followup: snw - With: Emergency Department - When: As needed - Reason: Worsening of condition Followup: snw - With: Private Physician - When: 2 - 3 days - Reason: Recheck today's complaints, Continuance of care, Re-evaluation by your physician Discharge Instructions: - Discharge Summary Sheet snw - Dehydration, Elderly snw - Rehydration, Elderly snw Forms: - Medication Reconciliation Form snw - Thank You Letter snw - Antibiotic Education snw - Prescription Opioid Use snw Signatures: Dispatcher [employer] EDMS Pastora Resendez, COMPUTER INSTRUCTOR-C COMPUTER INSTRUCTOR-Csnw Jose Kaminski MD MD rn Hall, Patricia, RN RN Deanne Chang RN RN kc6 Corrections: (The following items were deleted from the chart) 15:05 14:59 Pelvis Complete+US.RAD.BRZ ordered. EDMS EDMS
== END 2022-11-17 18:08 | disposition home or self-care (01) ==
LOC: ER 11:57
DX: E86.0 Dehydration (principal); I10 Essential (primary) hypertension; Z85.05 Personal history of malignant neoplasm of liver; Z85.07 Personal history of malignant neoplasm of pancreas
CPT/HCPCS: 96361; 85025; 80048; 36415; 83690; 80053; 76857; 76770; 96374; 99284; J7613; J1170; J7040 ×2; 81003; 81015